=== PATIENT | male | born 1940 | race Caucasian/White ===

== ENCOUNTER 2018-01-03 12:31 | Emergency (ER) | payer BC, OTHER ==
[~2018-01-03] VITALS: Ht 182.9 cm; Wt 78.2 kg
[~2018-01-03 12:31] MED LIST: AMLO-114 PO; ASPI81TA28 PO; CARV6.25 PO; CLON0.3T PO; FEXO1TAB46 PO; FLUT0.15 NAE; FRS/40 PO; GLIM2TAB2 PO; KFL500 PO; LACTCAP3 PO; LISI40TA PO; METF-384 PO; POTA20TA16 PO; PRVC/40 PO; RXC5 PO; WARF3TAB6 PO
[2018-01-03 12:35] VITALS: TEMP 36.3; Ht 182.9 cm; Wt 78.2 kg
[2018-01-03] MEDS ORDERED: SODIUM CHLORIDE 0.9% 250ML 250 ML IV STA (13:01)
[2018-01-03 13:13] VITALS: O2SAT 95
--- NOTE | 2018-01-03 13:13 | EMERGENCY ROOM VISIT NOTE ---
History Report prepared by [place]: Venkata Infante Under the Supervision of: Dr. Dameon Nicholson M.D. First contact with patient: 12:45 Chief Complaint: DIZZY Stated Complaint: DIZZY, NAUSEA, DIARRHEA History of Present Illness The patient is a 77 year old male who presents to the Emergency Room with complaints of persistent dizziness starting this morning around 0500, and he felt like the room was moving. He also notes that he was shaky, his eyes were sore, it was hard to focus, he was nauseous, and he was dry heaving. The son additionally notes that the patient has diabetes, and his blood sugar was 116 this morning. He then took his blood pressure, and it was 144/60, and his pulse was 63. The son thinks that the patient is dehydrated since he only drinks coffee and iced tea. The patient is currently on Coumadin for CHF and A fib. He also takes Lasix twice per day. He denies any urinary pain. The patient states that he also had diarrhea twice this morning. He does not have a pacemaker in place. His son notes that the patient had a recent echocardiogram, and it was close to normal. Source of History: patient, family (son) Onset: 0500 this morning Position: other (global) Quality: other (dizziness) Timing: other (persistent) Associated Symptoms: + nausea, + diarrhea Note: Associated symptoms: shaky, his eyes were sore, it was hard to focus, and he was dry heaving Review of Systems See HPI for pertinent positives and negatives. A total of ten systems were reviewed and were otherwise negative. Past Medical & Surgical Medical Problems: (1) Atrial fibrillation (2) CAD (coronary artery disease) (3) Cardiomyopathy, idiopathic (4) Diabetes mellitus, type 2 (5) HTN (hypertension) (6) LBBB (left bundle branch block) Family History Diabetes mellitus FH: cancer Social History Smoking Status: Former Smoker Alcohol Use: none Marital Status: Housing Status: lives with family Occupation Status: retired Current/Historical Medications Scheduled Amlodipine (Norvasc), 10 MG PO DAILY Aspirin (Aspirin Ec), 81 MG PO DAILY Carvedilol (Coreg), 6.25 MG PO BID Clonidine Hcl (Catapres), 0.3 MG PO BID Fexofenadine Hcl (Martha), 180 MG PO DAILY Fluticasone Propionate (Nasal) (Flonase Allergy Relief), 2 SPRAYS CAROL DAILY Furosemide (Lasix), 40 MG PO BID Glimepiride (Glimepiride), 2 MG PO BID Lisinopril (Zestril), 40 MG PO DAILY Metformin Hcl (Glucophage), 1,000 MG PO BID Pravastatin Sod (Pravastatin Sodium), 40 MG PO HS Warfarin Sod (Jantoven), 3 MG PO 5XWK Warfarin Sod (Jantoven), 1.5 MG PO 2XWK Scheduled PRN Meclizine Hcl (Meclizine Hcl), 25 MG PO TID PRN for Dizziness Allergies Coded Allergies: No Known Allergies (Unverified , 01/03/18) Physical Exam Vital Signs Date Time Temp Pulse Resp B/P (MAP) Pulse Ox O2 Delivery O2 Flow Rate FiO2 01/03/18 16:28 66 20 122/68 99 01/03/18 15:07 80 20 144/82 100 Room Air 01/03/18 13:21 74 01/03/18 13:13 95 Room Air 01/03/18 12:35 36.3 78 17 168/79 99 Room Air Physical Exam GENERAL: Awake, alert, well-appearing, in no distress HENT: Normocephalic, atraumatic. Oropharynx unremarkable. Dry mucous membranes. EYES: Normal conjunctiva. Sclera non-icteric. Irregular right pupil at baseline. NECK: Supple. No nuchal rigidity. FROM. No JVD. RESPIRATORY: Clear to auscultation. CARDIAC: Regular rate, normal rhythm. Extremities warm and well perfused. Pulses equal. ABDOMEN: Soft, non-distended. No tenderness to palpation. No rebound or guarding. No masses. RECTAL: Deferred. MUSCULOSKELETAL: Chest examination reveals no tenderness. The back is symmetrical on inspection without obvious abnormality. There is no CVA tenderness to palpation. No joint edema. LOWER EXTREMITIES: Calves are equal size bilaterally and non-tender. No edema. No discoloration. NEURO: Normal sensorium. No sensory or motor deficits noted. Normal cerebellar function with dkrvci-ky-hpvo, alternating palms, swjz-sf-forg SKIN: No rash or jaundice noted. Medical Decision & Procedures ER Provider Diagnostic Interpretation: Radiology results as stated below per my review and radiologist interpretation: ANGIOGRAPHY HEAD COMBO HISTORY: Vertigo. Mental status change. TECHNIQUE: Multiaxial CT images of the head were performed both before and after the intravenous administration of contrast to evaluate the major cerebral vessels. Maximum intensity projection images were also obtained. A dose lowering technique was utilized adhering to the principles of ALARA. COMPARISON: None. FINDINGS: There is no mass, hematoma, midline shift, or acute infarct. Visualized intracranial internal carotid arteries, distal vertebral arteries, and basilar artery are widely patent. There is no significant stenosis, occlusion, or aneurysm seen within the bilateral ACAs, MCAs, or systems administration analyst. Mild scattered atherosclerotic change. IMPRESSION: No significant stenosis, occlusion, or aneurysm within the [place]. Mild scattered atherosclerotic change. No acute process of the brain. Mild age-related change. The above report was generated using voice recognition software. It may contain grammatical, syntax or spelling errors. Electronically signed by: Ag Royal M.D. 01/03/2018 3:00 PM Dictated Date/Time: 01/03/2018 2:57 PM CHEST ONE VIEW PORTABLE CLINICAL HISTORY: 77 years-old Male presenting with CHEST PAIN. TECHNIQUE: Portable upright AP view of the chest was obtained. COMPARISON: 06/30/2016. FINDINGS: Atherosclerosis of the aortic arch. Cardiac silhouette normal in size. Mildly low lung volumes with hypoventilatory changes. Vague nodular opacities at the left lung base may be chronic. No large pleural effusion or pneumothorax. Osseous structures normal. Upper abdomen normal. IMPRESSION: 1. Mildly low lung volumes with hypoventilatory changes. Additionally, vague nodular opacities suggested at the left lung base, which may be chronic. This could relate to atelectasis, scarring, or aspiration. Electronically signed by: Stef Denson M.D. 01/03/2018 1:43 PM Dictated Date/Time: 01/03/2018 1:42 PM NECK ANGIO WITH CONTRAST HISTORY: Mental status change vertigo TECHNIQUE: Multiaxial CT images of the neck were performed following the intravenous administration of contrast to evaluate the major cervical vessels. Maximum intensity projection images were also obtained. All measurements were calculated based on NASCET criteria. A dose lowering technique was utilized adhering to the principles of ALARA. COMPARISON STUDY: None. FINDINGS: The aortic arch and proximal great vessels are widely patent. There is no significant stenosis, occlusion, or dissection identified within the bilateral common carotid, internal carotid, or vertebral arteries. Moderate plaque formation is identified focally at the carotid bifurcations and proximal internal carotid arteries bilaterally. IMPRESSION: No significant stenosis, occlusion, or dissection identified within the carotid or vertebral arteries. Moderate focal plaque formation at the carotid bifurcations and proximal internal carotid arteries. No significant stenosis. The above report was generated using voice recognition software. It may contain grammatical, syntax or spelling errors. Electronically signed by: Ag Royal M.D. 01/03/2018 3:08 PM Dictated Date/Time: 01/03/2018 3:06 PM Laboratory Results 01/03/18 13:21 Red Blood Count 4.76, Mean Corpuscular Volume 81.1, Mean Corpuscular Hemoglobin 27.7, Mean Corpuscular Hemoglobin Concent 34.2, Mean Platelet Volume 8.9, Neutrophils (%) (Auto) 73.6, Lymphocytes (%) (Auto) 15.9, Monocytes (%) (Auto) 9.7, Eosinophils (%) (Auto) 0.4, Basophils (%) (Auto) 0.2, Neutrophils # (Auto) 3.48, Lymphocytes # (Auto) 0.75, Monocytes # (Auto) 0.46, Eosinophils # (Auto) 0.02, Basophils # (Auto) 0.01 01/03/18 13:21 Test 01/03/18 13:21 01/03/18 14:15 White Blood Count 4.73 K/uL (4.8-10.8) Red Blood Count 4.76 M/uL (4.7-6.1) Hemoglobin 13.2 g/dL (14.0-18.0) Hematocrit 38.6 % (42-52) Mean Corpuscular Volume 81.1 fL (80-100) Mean Corpuscular Hemoglobin 27.7 pg (25-34) Mean Corpuscular Hemoglobin Concent 34.2 g/dl (32-36) Platelet Count 177 K/uL (130-400) Mean Platelet Volume 8.9 fL (7.4-10.4) Neutrophils (%) (Auto) 73.6 % Lymphocytes (%) (Auto) 15.9 % Monocytes (%) (Auto) 9.7 % Eosinophils (%) (Auto) 0.4 % Basophils (%) (Auto) 0.2 % Neutrophils # (Auto) 3.48 K/uL (1.4-6.5) Lymphocytes # (Auto) 0.75 K/uL (1.2-3.4) Monocytes # (Auto) 0.46 K/uL (0.11-0.59) Eosinophils # (Auto) 0.02 K/uL (0-0.5) Basophils # (Auto) 0.01 K/uL (0-0.2) RDW Standard Deviation 42.3 fL (36.4-46.3) RDW Coefficient of Variation 14.3 % (11.5-14.5) Immature Granulocyte % (Auto) 0.2 % Immature Granulocyte # (Auto) 0.01 K/uL (0.00-0.02) Prothrombin Time 17.0 SECONDS (9.0-12.0) Prothromb Time International Ratio 1.6 (0.9-1.1) Anion Gap 9.0 mmol/L (3-11) Est Creatinine Clear Calc Drug Dose 51.0 ml/min Estimated GFR () 60.7 Estimated GFR (Non- 52.4 BUN/Creatinine Ratio 15.0 (10-20) Calcium Level 9.2 mg/dl (8.5-10.1) Magnesium Level 2.2 mg/dl (1.8-2.4) Total Bilirubin 0.5 mg/dl (0.2-1) Direct Bilirubin 0.2 mg/dl (0-0.2) Aspartate Amino Transf (AST/SGOT) 10 U/L (15-37) Alanine Aminotransferase (ALT/SGPT) 16 U/L (12-78) Alkaline Phosphatase 79 U/L (45-117) Troponin I < 0.015 ng/ml (0-0.045) Pro-B-Type Natriuretic Peptide 584 pg/ml (0-1800) Total Protein 8.1 gm/dl (6.4-8.2) Albumin 3.7 gm/dl (3.4-5.0) Lipase 187 U/L (73-393) Influenza Type A Antigen Neg for Influ A (NEG) Influenza Type B Antigen Neg for Influ B (NEG) Urine Color YELLOW Urine Appearance CLEAR (CLEAR) Urine pH 6.5 (4.5-7.5) Urine Specific [place] 1.003 (1.000-1.030) Urine Protein NEG (NEG) Urine Glucose (UA) NEG (NEG) Urine Ketones NEG (NEG) Urine Occult Blood 1+ (NEG) Urine Nitrite NEG (NEG) Urine Bilirubin NEG (NEG) Urine Urobilinogen NEG (NEG) Urine Leukocyte Esterase NEG (NEG) Urine WBC (Auto) 0 /hpf (0-5) Urine RBC (Auto) 0-4 /hpf (0-4) Urine Hyaline Casts (Auto) 0 /lpf (0-5) Urine Epithelial Cells (Auto) 0-5 /lpf (0-5) Urine Bacteria (Auto) NEG (NEG) Laboratory results reviewed by me Medications Administered Medications (Trade) Dose Ordered Sig/Josette Route Start Time Stop Time Status Last Admin Dose Admin Sodium Chloride 250 ml @ 999 mls/hr Q16M STAT IV 01/03/18 13:01 01/03/18 13:16 DC 01/03/18 13:26 999 MLS/HR ECG Per My Interpretation Indication: weakness Rate (beats per minute): 76 Rhythm: sinus rhythm Findings: LBBB, PVC (occasional), no acute ischemic change, left axis deviation , other (No Sgarbossa Criteria) ED Course 1245: The patient was evaluated in room C8. A complete history and physical exam was performed. 1602: I reevaluated the patient. Discussed results and discharge instructions: he verbalized understanding and agreement. The patient is ready for discharge. Medical Decision I reviewed the patient's past medical history, medications, and the nursing notes as described above. Differential diagnosis: Etiologies such as metabolic, infection, hypo/hyperglycemia, electrolyte abnormalities, cardiac sources, intracerebral event, toxicologic, neurologic, as well as others were entertained. The patient is a 77-year-old gentleman with a past medical history of paroxysmal A. fib on Coumadin who presents emergency department with brief episode of vertigo this morning with preceding nausea and vomiting per hpi. On arrival the patient reports complete resolution of symptoms he is well-appearing , in no acute distress, afebrile stable vital signs. He is neuro intact including normal cerebellar function with rmtrrt-pp-wytp, alternating palms, rnmw-yr-yqyw. EKG unremarkable. Labs with WBC within normal limits, creatinine within his baseline. Sodium 131 consistent with mild dehydration in the setting of the patient's vomiting. Labs otherwise unremarkable. CTA of the head and neck negative for acute ischemia/infarct or large vessel occlusion. Patient continued to feel well during ED observation. Thus given his complete resolution of symptoms and reassuring imaging unlikely to have central process at this time. Findings and plan for follow-up reviewed with patient. Patient agreeable and d/c'd per discharge instructions. Medication Reconcilliation Current Medication List: was personally reviewed by me Blood Pressure Screening Patient's blood pressure: Elevated blood pressure Blood pressure disposition: Elevated BP felt to be situational Impression Primary Impression: Vertigo Additional Impressions: Generalized weakness Hyponatremia Scribe Attestation The scribe's documentation has been prepared under my direction and personally reviewed by me in its entirety. I confirm that the note above accurately reflects all work, treatment, procedures, and medical decision making performed by me. Departure Information Dispostion Home / Self-Care Prescriptions Meclizine Hcl (MECLIZINE HCL) 25 Mg Tab 25 MG PO TID Y for Dizziness, #21 TAB Prov: Dameon Nicholson M.D. 01/03/18 Referrals Nataliia Pérez D.O. (PCP) Forms HOME CARE DOCUMENTATION FORM, IMPORTANT VISIT INFORMATION Patient Instructions ED BPV Vertigo, ED Dehydration, ED Hyponatremia, ED Vertigo Unspecified, [facility] Additional Instructions Please follow up with your primary care physician on Saturday for re-evaluation and to repeat your sodium level. The cause of your symptoms is unclear at this time however you may have had an episode of peripheral vertigo that may have been provoked by mild dehydration and possibly a viral illness. Otherwise, your exam, EKG, chest xray, lab results, CT scan of your head and neck with contrast did not show signs of an emergent condition at this time. Meclizine as needed for vertigo. Drink plenty of fluids to ensure hydration. Return to the emergency department for worsening symptoms as described in the accompanying instructions. Problem Qualifiers
[2018-01-03] MEDS ORDERED: OPTIRAY 320 IV PRN (13:45)
--- NOTE | 2018-01-03 13:45 | DIAGNOSTIC IMAGING REPORT ---
CHEST ONE VIEW PORTABLE CLINICAL HISTORY: 77 years-old Male presenting with CHEST PAIN. TECHNIQUE: Portable upright AP view of the chest was obtained. COMPARISON: 06/30/2016. FINDINGS: Atherosclerosis of the aortic arch. Cardiac silhouette normal in size. Mildly low lung volumes with hypoventilatory changes. Vague nodular opacities at the left lung base may be chronic. No large pleural effusion or pneumothorax. Osseous structures normal. Upper abdomen normal. IMPRESSION: 1. Mildly low lung volumes with hypoventilatory changes. Additionally, vague nodular opacities suggested at the left lung base, which may be chronic. This could relate to atelectasis, scarring, or aspiration. Electronically signed by: Stef Denson M.D. 01/03/2018 1:43 PM Dictated Date/Time: 01/03/2018 1:42 PM
[2018-01-03 14:00] LABS: BASO % 0.2 %; BASO ABS # 0.01 K/uL (0-0.2); EOS % 0.4 %; EOS ABS # 0.02 K/uL (0-0.5); HEMATOCRIT 38.6 % (42-52); HEMOGLOBIN 13.2 g/dL (14.0-18.0); IG# 0.01 K/uL (0.00-0.02); LYMPH % 15.9 %; LYMPH ABS # 0.75 K/uL (1.2-3.4); MEAN CELL VOLUME 81.1 fL (80-100); MEAN CORPUSCULAR HEMOGLOBIN 27.7 pg (25-34); MEAN CORPUSCULAR HGB CONC 34.2 g/dl (32-36); MEAN PLATELET VOLUME 8.9 fL (7.4-10.4); MONO % 9.7 %; MONO ABS # 0.46 K/uL (0.11-0.59); NEUT % 73.6 %; NEUT ABS # 3.48 K/uL (1.4-6.5); PLATELET COUNT 177 K/uL (130-400); RED CELL DISTRIBUTION WIDTH CV 14.3 % (11.5-14.5); RED CELL DISTRIBUTION WIDTH SD 42.3 fL (36.4-46.3); WHITE BLOOD COUNT 4.73 K/uL (4.8-10.8)
[2018-01-03 14:07] LABS: ALBUMIN 3.7 gm/dl (3.4-5.0); ALT/SGPT 16 U/L (12-78); BLOOD UREA NITROGEN 19 mg/dl (7-18); CALCIUM 9.2 mg/dl (8.5-10.1); CARBON DIOXIDE 26 mmol/L (21-32); CREATININE 1.29 mg/dl (0.60-1.40); GLUCOSE 186 mg/dl (70-99); INR 1.6 (0.9-1.1); LIPASE 187 U/L (73-393); POTASSIUM 4.3 mmol/L (3.5-5.1); SODIUM 131 mmol/L (136-145)
[2018-01-03 14:12] LABS: ALKALINE PHOSPHATASE 79 U/L (45-117); AST/SGOT 10 U/L (15-37); TOTAL PROTEIN 8.1 gm/dl (6.4-8.2)
[2018-01-03 14:26] LABS: INFLUENZA B ANTIGEN Neg for Influ B (NEG)
--- NOTE | 2018-01-03 15:01 | DIAGNOSTIC IMAGING REPORT ---
ANGIOGRAPHY HEAD COMBO HISTORY: Vertigo. Mental status change. TECHNIQUE: Multiaxial CT images of the head were performed both before and after the intravenous administration of contrast to evaluate the major cerebral vessels. Maximum intensity projection images were also obtained. A dose lowering technique was utilized adhering to the principles of ALARA. COMPARISON: None. FINDINGS: There is no mass, hematoma, midline shift, or acute infarct. Visualized intracranial internal carotid arteries, distal vertebral arteries, and basilar artery are widely patent. There is no significant stenosis, occlusion, or aneurysm seen within the bilateral ACAs, MCAs, or cross tie tram loader. Mild scattered atherosclerotic change. IMPRESSION: No significant stenosis, occlusion, or aneurysm within the [place] of [place]. Mild scattered atherosclerotic change. No acute process of the brain. Mild age-related change. The above report was generated using voice recognition software. It may contain grammatical, syntax or spelling errors. Electronically signed by: Ag Royal M.D. 01/03/2018 3:00 PM Dictated Date/Time: 01/03/2018 2:57 PM
--- NOTE | 2018-01-03 15:09 | DIAGNOSTIC IMAGING REPORT ---
NECK ANGIO WITH CONTRAST HISTORY: Mental status change vertigo TECHNIQUE: Multiaxial CT images of the neck were performed following the intravenous administration of contrast to evaluate the major cervical vessels. Maximum intensity projection images were also obtained. All measurements were calculated based on NASCET criteria. A dose lowering technique was utilized adhering to the principles of ALARA. COMPARISON STUDY: None. FINDINGS: The aortic arch and proximal great vessels are widely patent. There is no significant stenosis, occlusion, or dissection identified within the bilateral common carotid, internal carotid, or vertebral arteries. Moderate plaque formation is identified focally at the carotid bifurcations and proximal internal carotid arteries bilaterally. IMPRESSION: No significant stenosis, occlusion, or dissection identified within the carotid or vertebral arteries. Moderate focal plaque formation at the carotid bifurcations and proximal internal carotid arteries. No significant stenosis. The above report was generated using voice recognition software. It may contain grammatical, syntax or spelling errors. Electronically signed by: Ag Royal M.D. 01/03/2018 3:08 PM Dictated Date/Time: 01/03/2018 3:06 PM
[2018-01-03] MEDS ORDERED: MECL1TAB42 PO (16:10)
[2018-01-03 16:28] VITALS: BP 122/68; PULSE 66; O2SAT 99
== END 2018-01-03 16:30 | disposition home or self-care (01) ==
LOC: C.EDB 12:32 → C.EDC 16:30
DX: R42 Dizziness and giddiness (principal); R53.1 Weakness; E87.1 Hypo-osmolality and hyponatremia; I50.9 Heart failure, unspecified; I48.91 Unspecified atrial fibrillation; I25.10 Atherosclerotic heart disease of native coronary artery without angina pectoris; E11.9 Type 2 diabetes mellitus without complications; I11.0 Hypertensive heart disease with heart failure; Z83.3 Family history of diabetes mellitus; Z80.9 Family history of malignant neoplasm, unspecified; Z87.891 Personal history of nicotine dependence; Z79.82 Long term (current) use of aspirin; Z79.01 Long term (current) use of anticoagulants; Z79.899 Other long term (current) drug therapy

== ENCOUNTER 2018-11-04 15:55 | Inpatient (IN) ==
[2018-11-04] MEDS ORDERED: LEVALBUTEROL HCL 1.25 MG/3 ML NEB NEB STA (16:04)
[2018-11-04] MEDS ORDERED: LEVALBUTEROL 1.25MG/0.5ML NEB ONE (16:16)
[2018-11-04] MEDS ORDERED: MAGNESIUM SULFATE / D5W 1 GM/100 ML BAG IV ONE (16:38)
[2018-11-04 16:41] LABS: Hematocrit (blood only) 30.7 % (42-52); Hemoglobin 10.4 g/dL (14.0-18.0); Mean Corpuscular Hgb Conc 33.9 g/dL (32-36); Mean Corpuscular Volume 88.7 fL (80-100); Mean Platelet Volume 9.3 fL (7.4-10.4); Platelet Count 149 K/uL (130-400); RDW Coefficient of Variation 13.9 % (11.5-14.5); RDW Standard Deviation 44.9 fL (36.4-46.3); Red Blood Count 3.46 M/uL (4.7-6.1); White Blood Count 8.46 K/uL (4.8-10.8)
[2018-11-04 16:49] LABS: iSTAT Hemoglobin 9.9 g/dl (14.0-18.0); iSTAT Ionized Calcium 1.04 mmol/l (1.12-1.32)
[2018-11-04 16:51] LABS: iSTAT Arterial Blood Gas HCO3 18 meg/L (19-24); iSTAT Carbon Dioxide 18 mEq/l (24-31)
--- NOTE | 2018-11-04 16:52 | XRay Report ---
XR chest 1V portable CLINICAL HISTORY: Chest Pain COMPARISON STUDY: Chest radiograph January 03, 2018. FINDINGS: There is no pneumothorax. No definite pleural effusion is identified. Diffuse interstitial thickening and bilateral opacities are noted. There is mild cardiomegaly. IMPRESSION: Diffuse interstitial thickening and bilateral opacities. The findings may reflect pneumon ia or pulmonary edema. Radiographic follow-up to ensure resolution is recommended. Electronically signed by: Storm Nunez M.D. 11/04/2018 4:51 PM
[2018-11-04 17:00] LABS: Albumin Level 2.6 gm/dl (3.4-5.0); BUN Creatinine Ratio 21.5 (10-20); Calcium 7.8 mg/dl (8.5-10.1); Creatinine Clr Calc Pharmacy 33.2 ml/min; Est GFR (African American) 36.6; Est GFR (Non-African American) 31.6; Potassium 3.8 mmol/L (3.5-5.1)
[2018-11-04 17:11] LABS: Albumin Globulin Ratio 0.7 (0.9-2); Bilirubin,Total 1.1 mg/dl (0.2-1); Creatine Kinase MB 4.1 ng/ml (0.5-3.6); Globulin 3.5 gm/dl (2.5-4.0); Total Protein 6.1 gm/dl (6.4-8.2); Troponin I 0.391 ng/ml (0-0.045)
[2018-11-04] MEDS ORDERED: PIPERACILL/TAZOBAC CONSULT ACTIVE PRN ×2 (17:12→21:19)
[2018-11-04] MEDS ORDERED: VANCOMYCIN HCL 1,750 MG in SODIUM CHLORIDE 0.9% 500 ML IV ONE (17:12)
[2018-11-04] MEDS ORDERED: LEVOFLOXACIN/D5W 750 MG/150 ML BAG IV STA (17:12)
[2018-11-04] MEDS ORDERED: VANCOMYCIN CONSULT ACTIVE PRN ×2 (17:12→21:19)
[2018-11-04] MEDS ORDERED: PIPERACILLIN/TAZOBACTAM 4.5 GM/120 ML BAG IV ONE (17:12)
[2018-11-04 17:15] LABS: Immature Granulocytes # (auto) 0.01 K/uL (0.00-0.02); Immature Granulocytes % (auto) 0.1 %; Lymphocytes # (auto) 0.31 K/uL (1.2-3.4); Lymphocytes % (auto) 3.7 %; Monocytes # (auto) 0.06 K/uL (0.11-0.59); Monocytes % (auto) 0.7 %; Neutrophils # (auto) 8.08 K/uL (1.4-6.5); Neutrophils % (auto) 95.5 %
[2018-11-04] MEDS ORDERED: OPTIRAY 320 125ml IV PRN (17:48)
--- NOTE | 2018-11-04 18:20 | CT Scan Report ---
CT ANGIOGRAPHY OF THE CHEST, PULMONARY EMBOLUS PROTOCOL CLINICAL HISTORY: Chest Pain, eval for PE COMPARISON STUDY: Chest radiograph January 03, 2018 and November 04, 2008 TECHNIQUE: Following IV administration of 103 mL of Optiray-320, helical axial images of the chest we re obtained utilizing the pulmonary embolus protocol. Maximal intensity projections and sagittal and coronal reformats were viewed on an independent 3D workstation. IV contrast was administered withou t complication. Automated exposure control was utilized for the study. A dose lowering technique wa s utilized adhering to the principles of ALARA. CT DOSE: 438.47 mGy.cm FINDINGS: No pulmonary emboli are identified although segmental and subsegmental pulmonary arteries are suboptimally assessed due to respiratory motion. The heart is moderately enlarged. There is no pe ricardial effusion. There are mildly enlarged mediastinal and bilateral hilar lymph nodes. Lungs are suboptimally assessed given respiratory motion. There is extensive groundglass opacity throughout bot h lungs. There is no cavitation. No pneumothorax or pleural effusion is noted. Bony thorax and upper abdomen are unremarkable. IMPRESSION: 1. No pulmonary emboli identified although segmental and subsegmental pulmonary arteries suboptimally assessed given respiratory motion. 2. Extensive groundglass opacities throughout both lungs. This may reflect pulmonary edema or pneumon ia. 3. Mild mediastinal and bilateral hilar lymphadenopathy which is likely reactive. A follow up chest C T in 2 months to ensure resolution is recommended. 4. Moderate cardiomegaly. Electronically signed by: Storm Nunez M.D. 11/04/2018 6:19 PM
[2018-11-04] MEDS ORDERED: FUROSEMIDE 40 MG/4 ML VIAL IV STA (18:23)
[2018-11-04] MEDS ORDERED: SODIUM CHLORIDE 0.9% 1000ML 500 ML IV ONE (18:55)
--- NOTE | 2018-11-04 19:53 | XRay Report ---
XR pelvis 1-2V routine CLINICAL HISTORY: Bilateral hip pain. COMPARISON: None. FINDINGS: There is contrast within the bladder from recent contrast-enhanced CT. The sacroiliac join ts and symphysis pubis are intact. Apparent foreshortening of the left femoral neck is likely positio nal. There is no acute fracture within the pelvis or hips. IMPRESSION: Foreshortening of the left femoral neck. This may be positional. However, if persistent left hip pain , a CT is recommended to exclude a femoral neck fracture. Electronically signed by: Storm Nunez M.D. 11/04/2018 7:52 PM
--- NOTE | 2018-11-04 19:54 | XRay Report ---
XR femur RT 2V routine CLINICAL HISTORY: Bilateral hip pain. COMPARISON: None FINDINGS: Alignment of the right hip is anatomic. There is no acute fracture within the right femur. There is moderate vascular calcification. IMPRESSION: No acute fracture within the right femur. Electronically signed by: Storm Nunez M.D. 11/04/2018 7:52 PM
--- NOTE | 2018-11-04 19:55 | XRay Report ---
XR femur LT 2V routine CLINICAL HISTORY: Bilateral hip pain. COMPARISON: None FINDINGS: There is foreshortening of the left femoral neck. This may be positional. A femoral neck f racture cannot be excluded. There is extensive vascular calcification. Alignment of the left knee is anatomic. IMPRESSION: Foreshortening of the left femoral neck which may be positional. However, a femoral neck fracture could appear similar. If persistent left hip pain, a CT of the left hip is recommended. Electronically signed by: Storm Nunez M.D. 11/04/2018 7:53 PM
[2018-11-04] MEDS ORDERED: ONDANSETRON INJ 2 MG/ML 2 ML VIAL IV PRN (21:19)
[2018-11-04] MEDS ORDERED: ALUMINUM/MAGNESIUM SUSP 30 ML UDC PO PRN (21:19)
[2018-11-04] MEDS ORDERED: ACETAMINOPHEN 325 MG TAB PO PRN (21:19)
[2018-11-04] MEDS ORDERED: NITROGLYCERIN SL 0.4 MG/TAB TAB SL PRN (21:19)
[2018-11-04] MEDS ORDERED: FUROSEMIDE 40 MG/4 ML VIAL IV SCH (21:19)
[2018-11-04] MEDS ORDERED: VANCOMYCIN HCL 1,000 MG in SODIUM CHLORIDE 0.9% 250 ML IV SCH (21:19)
[2018-11-04 21:36] LABS: INR 3.5 (0.9-1.1); Prothrombin Time 32.8 Seconds (9.0-12.0)
[2018-11-04] MEDS ORDERED: GLUCOSE 40% GEL 15 GM TUBE PO PRN (21:58)
[2018-11-04] MEDS ORDERED: DEXTROSE 50% 50 ML SYRINGE IV PRN (21:58)
[2018-11-04] MEDS ORDERED: GLUCAGON FOR INJ 1 MG VIAL IM PRN (21:58)
[2018-11-04] MEDS ORDERED: GLUCOSE 10 TABS/TUBE PO PRN (21:58)
[2018-11-04] MEDS ORDERED: HEPARIN SOD 5,000 UNIT/0.5 ML VIAL SQ SCH (22:00)
--- NOTE | 2018-11-04 22:37 | History and Physical Report ---
DATE OF ADMISSION: 11/04/2018 CHIEF COMPLAINT: Shortness of breath, history of acute CHF. HISTORY OF PRESENT ILLNESS: This is an 78-year-old male with past medical history significant for atrial fibrillation, chronic systolic CHF, diabetic polyneuropathy, chronic diabetic foot ulcers, history of tobacco disorder, diabetes, hyperlipidemia, hypertension, peripheral vascular disease, thrombocytopenia, chronic kidney disease stage III, rheumatoid arthritis with a negative rheumatoid factor, presents with shortness of breath. The patient's son brought him to the hospital. The patient has diabetic foot ulcers and he is wearing diabetic shoes, follows with Wound Care and was told not to go even for small walks without those shoes. Patient is very active, but since last one week, he has developed some runny nose and some shortness of breath. He thought it could be from the dry nose and he used the humidifier, which seem to help, but it got progressively worse today. When the son went to check on him, he was very short of breath and brought into the hospital and was saturating only 74% on RA, and was pl;aced on BIPAP in ER. On BiPAP he is saturating fine and he said he is feeling better. CT of the chest showed pulmonary edema, given Lasix and is feeling better now. Patient is currently hemodynamically stable. Denies any fever or chills. Denies any cough. No nausea, no chest pain, no abdominal pain. Normal bowel and bladder movements. Appetite is okay. Normal bowel and bladder movements, otherwise is healthy. ALLERGIES: No known drug allergies. PAST MEDICAL HISTORY: As mentioned. PAST SURGICAL HISTORY: Colonoscopy. MEDICATIONS: The patient is on folic acid 1 mg p.o. daily, amlodipine 10 mg p.o. daily, Coreg 6.25 mg p.o. b.i.d., Lasix 40 mg p.o. b.i.d., metformin 1000 mg p.o. b.i.d., glimepiride 2 mg p.o. b.i.d., cyanocobalamin 1000 mcg p.o. daily, lisinopril 40 mg p.o. daily, prednisone 5 mg p.o. daily, clonidine 0.3 mg p.o. b.i.d., pravastatin 40 mg p.o. at bedtime, Coumadin 1.5 mg to 3 mg daily as directed, methotrexate 6 tablets of 2.5 mg tablet once a week, aspirin 81 mg p.o. daily, Flonase 2 sprays into each nostril daily. FAMILY HISTORY: Significant for brother who had pancreatic cancer. Father had lung cancer and black tongue. Mother had diabetes. SOCIAL HISTORY: , former smoker, smoked for 30 years. Snuffs 1 can of tobacco weekly. No alcohol use, no drug use. REVIEW OF SYMPTOMS: As per HPI. Rest of review of systems negative. PHYSICAL EXAMINATION: GENERAL: The patient is of moderate build and currently not in respiratory distress currently, VITAL SIGNS: Temperature 36.9, pulse 72, respiratory rate 23, blood pressure 117/60, oxygen 100% on BiPAP, when he came in was 74% on room air. HEENT: No pallor, no icterus. Left pupil is somewhat dilated. NECK: No JVD, no neck masses, no carotid bruit. CARDIOVASCULAR: S1, S2 heard, regular rate and rhythm, no murmur, no gallop. RESPIRATORY SYSTEM: No accessory muscle use. Bibasilar crackles present. No wheezing. ABDOMEN: Soft, bowel sounds present. Nontender. Nondistended. CENTRAL NERVOUS SYSTEM: Cranial nerves II-XII grossly intact, nonfocal. EXTREMITIES: Both lower extremities have Unna special boots. Right lower extremity boot is removed and it showed a nonhealing ulcer on the palmar aspect of the right foot. Left foot shoe was not removed as I was told it was healing better. LABS: WBC 9.4, hemoglobin 10.4, hematocrit 30.7, platelets 149. Blood gases pH 7.4, pCO2 25, pO2 56, bicarbonate 18, oxygen 91%. Sodium 132, potassium 3.8, chloride 100, bicarbonate 22, BUN 42, creatinine 1.95. Serum glucose 169, calcium 7.8, total bilirubin 1.1, AST 52, ALT 63, alkaline phosphatase 62, total creatine kinase 261. Troponin-I 0.3, BNP 7000. Lipase 117. Pelvis x-ray, foreshortening of the left femoral neck, however if persistent left hip pain a CT is recommended to rule out femoral neck fracture. Chest x-ray: Diffuse interstitial thickening and bilateral opacities to suggest pneumonia or pulmonary edema. CTA of the chest, no PE, extensive ground-glass opacities throughout both lungs pulmonary edema or pneumonia, mild congestion, and lymphadenopathy ____. We will follow up chest CT in 2 months to ensure resolution is recommended. Moderate cardiomegaly. EKG: Sinus rhythm with PACs at the rate of 82, left bundle branch block, left axis deviation, no acute ST changes seen. ASSESSMENT AND PLAN: This is an 78-year-old male who presents with shortness of breath and respiratory failure, found to be acute on chronic systolic congestive heart failure, possible pneumonia. 1. Acute Respiratory failure Acute on chronic systolic congestive heart failure with ejection fraction of 45%. We will get a repeat echo. IV Lasix 40 b.i.d. Strict I's and O's, daily weights. Continue BiPAP for now. Close monitoring on tele floor. . Cardiology consult for further recommendation and optimization of the medications. Continue his Coreg. We will hold lisinopril for NICOLE. 2. Possible pneumonia on chest x-ray and CAT scan. The patient was given Zosyn and vancomycin and Levaquin in the ER. We will continue IV Zosyn, IV vancomycin and p.o. doxycycline. We will monitor the response. 3. Nonhealing diabetic foot ulcers, follows with the wound clinic. Consult the wound care physician and wound care nurse and empiric antibiotics as above. Further cultures as per wound care. 4. Diabetes. Hold his home medication metformin and glimepiride. Place him on insulin sliding scale, Lantus and follow HbA1c level. 5. History of rheumatoid arthritis. Continue prednisone, hold methotrexate for now. 6. History of hypertension. Continue Norvasc, Coreg and clonidine with holding parameters. Holding lisinopril for now . Will monitor blood pressure 7. Acute kidney injury and chronic kidney disease stage III, baseline creatinine 1.4, current creatinine 1.98. Receiving Lasix, holding lisinopril for the labs in a.m. 8. Anemia, hemoglobin 10.4 could be from illness, needs followup. 9. Mild elevation in troponin, could be most likely secondary to demand ischemia. We will follow the serial enzymes and echocardiogram. 10. A fib.On Coreg and Coumadin. follow INR 11. Left hip pain and x-rays where questionable. Recommend CT of the left hip, which we will order for tomorrow and follow the results. 12. Hyperlipidemia. Continue statin. 13. Deep venous thrombosis prophylaxis, SCDs .On Coumadin. Follow INR DISPOSITION: Close monitoring in the tele floor. Level 1 full code. Social service to help with discharge planning. MP
[2018-11-04] MEDS ORDERED: FUROSEMIDE 20 MG in SYRINGE 0 ML IV STA (23:12)
[2018-11-04] MEDS: CARVEDILOL 6.25 MG TAB PO SCH (23:38)
[2018-11-04] MEDS: INSULIN ASPART 100 UNITS/ML 3 ML PEN SC SCH (23:42)
[2018-11-04] MEDS: PRAVASTATIN SOD 40 MG TAB PO SCH (23:43)
[2018-11-04] MEDS: INSULIN GLARGINE SOLOSTAR 100 UNITS/ML 3 ML PEN SC SCH (23:43)
[2018-11-05] MEDS: PIPERACILLIN/TAZOBACTAM 3.375 GM/115 ML BAG IV SCH ×4 (00:16→23:44)
[2018-11-05 05:34] LABS: Basophils # (auto) 0.01 K/uL (0-0.2); Basophils % (auto) 0.2 %; Eosinophils # (auto) 0.01 K/uL (0-0.5); Eosinophils % (auto) 0.2 %; Hematocrit (blood only) 27.4 % (42-52); Hemoglobin 9.4 g/dL (14.0-18.0); Immature Granulocytes # (auto) 0.02 K/uL (0.00-0.02); Immature Granulocytes % (auto) 0.3 %; Lymphocytes # (auto) 0.27 K/uL (1.2-3.4); Lymphocytes % (auto) 4.5 %; Mean Corpuscular Hgb Conc 34.3 g/dL (32-36); Mean Corpuscular Volume 87.5 fL (80-100); Mean Platelet Volume 8.8 fL (7.4-10.4); Monocytes # (auto) 0.07 K/uL (0.11-0.59); Monocytes % (auto) 1.2 %; Neutrophils # (auto) 5.61 K/uL (1.4-6.5); Neutrophils % (auto) 93.6 %; Platelet Count 118 K/uL (130-400); RDW Coefficient of Variation 13.8 % (11.5-14.5); RDW Standard Deviation 43.7 fL (36.4-46.3); Red Blood Count 3.13 M/uL (4.7-6.1); White Blood Count 5.99 K/uL (4.8-10.8)
[2018-11-05 05:58] LABS: Prothrombin Time 38.4 Seconds (9.0-12.0)
[2018-11-05 06:09] LABS: INR 4.1 (0.9-1.1)
[2018-11-05 06:11] LABS: BUN Creatinine Ratio 21.3 (10-20); Calcium 7.3 mg/dl (8.5-10.1); Creatinine Clr Calc Pharmacy 41.7 ml/min; Est GFR (African American) 48.3; Est GFR (Non-African American) 41.7; Magnesium 2.1 mg/dl (1.8-2.4); Potassium 3.2 mmol/L (3.5-5.1)
[2018-11-05] MEDS: CARBOHYDRATES FOR HYPOGLYCEMIA PO PRN ×5 (06:16→23:38)
[2018-11-05] MEDS: DOXYCYCLINE HYCLATE 100 MG CAP PO SCH ×2 (07:49→22:21)
[2018-11-05] MEDS: FUROSEMIDE 40 MG in SYRINGE 0 ML IV SCH ×2 (07:49→16:21)
[2018-11-05] MEDS: CARVEDILOL 6.25 MG TAB PO SCH ×2 (07:50→21:39)
[2018-11-05] MEDS: INSULIN ASPART 100 UNITS/ML 3 ML PEN SC SCH ×4 (07:52→21:39)
[2018-11-05] MEDS: FOLIC ACID 1 MG TAB PO SCH (07:52)
[2018-11-05] MEDS: INSULIN GLARGINE SOLOSTAR 100 UNITS/ML 3 ML PEN SC SCH (07:52)
[2018-11-05] MEDS: CYANOCOBALAMIN (VITAMIN B-12) 2,500 MCG TAB.SUBL SL SCH (07:54)
[2018-11-05 08:22] LABS: Estimated Average Glucose 148 mg/dl
[2018-11-05] MEDS ORDERED: predniSONE 5 MG TAB PO SCH (09:00)
[2018-11-05] MEDS ORDERED: AMLODIPINE BESYLATE 5 MG TAB PO SCH (09:00)
[2018-11-05] MEDS ORDERED: FUROSEMIDE 40 MG/4 ML VIAL IV SCH (09:00)
[2018-11-05] MEDS ORDERED: POTASSIUM CHLORIDE 20 MEQ TABCR PO ONE (09:00)
--- NOTE | 2018-11-05 11:15 | Hospitalist Progress Note ---
Date of Service November 05, 2018 Assessment & Plan (1) Acute respiratory failure with hypoxia: This is an 78yo M with a PMH of atrial fibrillation on anticoagulation, chronic systolic CHF, DM II, HTN, HLD, diabetic polyneuropathy, chronic diabetic foot ulcers, history of tobacco disorder, peripheral vascular disease, thrombocytopenia, CKD III and rheumatoid arthritis who presented with presented with shortness of breath and was found to have acute respiratory failure 2/2 pneumonia vs CHF exacerbation and possible infected diabetic L foot wound. -Initially found to be hypoxic at 74% on RA and was placed on BiPAP in ED -CTA chest with extensive groundglass opacities throughout both lungs reflective of pulmonary edema or PNA -No pulmonary emboli identified although segmental and subsegmental pulmonary arteries on suboptimal study -Now saturating at 92% on 15L Oxymask, states that symptoms are improved -Placed on 40mg IV BID Lasix and diuresed 950 ml overnight -Consulted cardiology, who feel that process is infectious vs. CHF exacerbation. Heightened concern for infection due to immunosuppression (on methotrexate, prednisone for RA). Echo with preserved EF of 60-65% -Procalcitonin ordered. Repeat CXR this afternoon. -Continue Zosyn, vanc and doxy empirically. 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 -Follows with wound clinic in clinic -Consulted wound care nurse -Empirically covering with zosyn, vanc, doxy -Follow blood cultures (3) Elevated troponin: Troponin elevated at 0.391 --> 0.428 --> 0.387 likely due to demand ischemia -No acute ST changes on EKG -Echo performed this AM with EF: 60-65%, moderate concentric LVH -Continue monitoring on telemetry (4) Systolic heart failure: Possible acute exacerbation of chronic systolic HF but 2D echo performed yesterday with preserved EF -Receiving 40mg IV Lasix BID with modest diuresis of 950 ml overnight -Cardiology gave 80mg IV Lasix -Continue Oxymask for acute hypoxia -Strict I&Os, low sodium diet, daily weight -Continue Coreg. Hold lisinopril due to elevated Cr (5) Left hip pain: Left hip pain on palpation -X-rays where questionable and hip CT was performed -- no acute osseous injury of the left hip. Mild degenerative changes -May require PT/OT prior to discharge (6) Atrial fibrillation: Continue Coreg -On coumadin for anticoagulation -INR of 4.1 this morning -Hold coumadin to acheive INR range of 2-3 (7) Thrombocytopenia: Plt decreased from 138 at 118 since yesterday in the setting of presumed infection -Baseline platelet count mid-100s -Continue monitoring with daily CMP (8) Diabetes mellitus, type 2: A1c of 6.8 today -Hold his home medication metformin and glimepiride -Insulin SSI with Lantus 5 U BID -Hypoglycemic episode with BSG of 48 this AM so will order Lantus as a sliding scale as well (9) Rheumatoid arthritis: Continue prednisone, hold methotrexate for now (10) HTN (hypertension): Lower BP this morning with 107/48 -Monitor BP in setting of IV diuresis -Continue home Norvasc, Coreg and clonidine with holding parameters -Holding lisinopril for now . Will monitor blood pressure (11) CKD (chronic kidney disease), stage III: Creatinine elevated at 1.98 yesterday, down to 1.55 today (Baseline Cr ~ 1.4) -Hold lisinopril -Monitor kidney function with daily BMPs (12) LBBB (left bundle branch block): Stable, chronic condition (13) HLD (hyperlipidemia): Continue statin DVT Ppx: Holding coumadin due to INR of 4.1 Code status: FULL PCP: [facility] Dispo: Admitted to telemetry. Discharge planning ordered. Patient seen in collaboration with Dr. Garza. Please see addendum. Supervising Physician Co-Signing Physician Notes I saw this patient with the physician pastry assistant, I participated in the history, physical, review of systems, and physical exam. I reviewed the medications with the patient and the physician pastry assistant and helped reconcile the medications. I helped take a detailed family and social history as well. I formulated the assessment and plan personally with the physician pastry assistant and went over it with the patient. MD Greg Subjective Patient seen and examined. Feeling better but still experiencing shortness of breath. No chest pain or palpitations. Still experiencing L hip discomfort with movement. No fever, chills, lightheadedness, abdominal pain, nausea, vomiting, dysuria, constipation or diarrhea. Physical Exam 2 Vital Signs (Past 24 Hours): Last Vital Signs Temp 36.9 C 11/05/18 07:55 Pulse 80 11/05/18 07:55 Resp 22 11/05/18 07:55 BP 107/48 L 11/05/18 07:55 Pulse Ox 91 11/05/18 07:55 Physical Exam: General Appearance: WD/WN, some respiratory distress when speaking Head: normocephalic, atraumatic Eyes: normal inspection, PERRL, EOMI ENT: hearing grossly normal, pharynx normal (moist mucous membranes) Neck: supple, no JVD, no adenopathy Respiratory/Chest: Bibasilar rales. No wheezes or rhonci. +respiratory distress and accessory muscle use when speaking Cardiovascular: regular rate, rhythm, no murmur, normal peripheral pulses Abdomen/GI: normal bowel sounds, soft, non-tender to palpation Extremities/Musculoskelatal: normal inspection, no calf tenderness, normal capillary refill, no pedal edema Neurologic/Psych: alert, normal mood/affect, oriented x 3 Skin: normal color, warm/dry Results & Data Laboratory Results Short CBC 11/04/18 11/05/18 Range/Units 16:30 05:18 WBC 8.46 5.99 (4.8-10.8) K/uL Hgb 10.4 L 9.4 L (14.0-18.0) g/dL Hct 30.7 L 27.4 L (42-52) % Plt Count 149 118 L (130-400) K/uL BMP 11/04/18 11/05/18 16:30 05:18 Sodium 132 L 134 L Potassium 3.8 3.2 L D Chloride 100 103 Carbon Dioxide 22 24 BUN 42 H 33 H Creatinine 1.95 H 1.55 H D Glucose 169 H 48 L* Calcium 7.8 L 7.3 L Cardiac Enzymes 11/04/18 11/05/18 11/05/18 Range/Units 16:30 00:19 09:30 Total Creatine Kinase 261 (39-308) U/L CK-MB (CK-2) 4.1 H (0.5-3.6) ng/ml Troponin I 0.391 H* 0.428 H* 0.387 H* (0-0.045) ng/ml Liver Function 11/04/18 Range/Units 16:30 Total Bilirubin 1.1 H (0.2-1) mg/dl AST 52 H (15-37) U/L ALT 63 (12-78) U/L Alkaline Phosphatase 62 (45-117) U/L Albumin 2.6 L (3.4-5.0) gm/dl _ (1) Diabetic foot ulcer Diabetes mellitus type: type 2 Diabetic foot ulcer location: midfoot Laterality: right Non-pressure ulcer stage: with fat layer exposed Qualified Code(s): E11.621 - Type 2 diabetes mellitus with foot ulcer; L97.412 - Non- pressure chronic ulcer of right heel and midfoot with fat layer exposed
--- NOTE | 2018-11-05 12:05 | CT Scan Report ---
CT hip LT wo con CLINICAL HISTORY: 78 years-old Male presenting with questionable left hip fx on xray. TECHNIQUE: Multidetector CT of the left hip was performed without the use of intravenous contrast. 3- D volumetric and/or maximum intensity projection (MIP) images were subsequently reconstructed for rev iew. IV contrast: None. A dose lowering technique was used consistent with the principles of ALARA (a s low as reasonably achievable). COMPARISON: Plain radiographs from yesterday. CT DOSE (mGy.cm): The estimated cumulative dose is 484.89 mGy.cm. FINDINGS: Skiver Operator topogram: Unremarkable. Left hip joint congruent. Mild osteophytosis of the left femoral head. Joint spaces grossly preserved . The femoral neck is intact. No acute fracture or malalignment. Visualized portion of the bony pelvi s intact. Urinary bladder decompressed with a Roper catheter. Moderate stool burden. Atherosclerosis. No pelvic lymphadenopathy in the visualized field of view. Normal muscle bulk. No superficial fluid collection. IMPRESSION: 1. No acute osseous injury of the left hip. 2. Mild degenerative changes of the left hip. Electronically signed by: Stef Denson M.D. 11/05/2018 12:04 PM
--- NOTE | 2018-11-05 12:21 | Cardiology Consultation ---
Date of Consultation November 05, 2018 Assessment & Plan (1) Hypoxia: Multifactorial respiratory failure suspected component of congestive heart failure not completely excluded. Patient has not made significant diuresis since admission. Exam is concerning that jugular venous distention is not present no signs of overt volume overload raising concerns regarding possible infectious component We will increase diuretic initially following renal function closely (2) LBBB (left bundle branch block): Stable (3) Cardiomyopathy, idiopathic: Ejection fraction normal on echocardiogram this morning (4) Paroxysmal atrial fibrillation: Patient remains in sinus rhythm and is chronically anticoagulated (5) Respiratory failure: Multifactorial etiology patient is on immunosuppressive therapy with methotrexate and prednisone will order repeat chest x-ray for later today depending on response to diuretic History of Present Illness Reason for Consultation: Respiratory failure Requesting Physician: Dr. Garza Attending Physician: Osito Garza MD History of Present Illness Patient is an 78-year-old male with past history is notable for 1. History of nonischemic, congestive cardiomyopathy with past LVEF 20%. With near normalization of LV function last outpatient echo December 2017 2. Moderate, nonobstructive coronary artery disease by December 12, 2006 cardiac catheterization which demonstrated calcific CAD involving the proximal portion of the LAD and distal portion of a dominant LCX narrowing the LAD by 50- 60% and the distal LCX by 60%. 3. Chronic left bundle branch block. 4. NYHA Class II congestive heart failure. 5. Paroxysmal atrial fibrillation. 6. Hypertension 7. Hyperlipidemia. 8. 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 Peripheral vascular disease. 10. Tobacco abuse disorder 11. rheumatoid arthritis on chronic immunosuppressive therapy with prednisone and methotrexate Patient presents this admission with worsening dyspnea and rhinorrhea and cough with marked hypoxia on ER presentation chest x-ray demonstrated diffuse interstitial changes patient was begun on IV furosemide. He remains hypoxic requiring significant oxygen supplementation. He denies fevers or chills but denies chest pains or discomfort notes no melena hematochezia dysuria hematuria has had no increasing lower extremity edema or orthopnea Allergies Allergy/AdvReac Type Severity Reaction Status Date / Time No Known Allergies Allergy Verified 10/23/18 14:39 Home Medications Home Medications Medication Instructions Recorded Confirmed Type amlodipine 10 mg tablet 10 mg PO .q am tab 07/01/18 11/04/18 History aspirin 81 mg tablet,delayed 81 mg PO .q am tab 07/01/18 11/04/18 History release carvedilol 6.25 mg tablet 6.25 mg PO BID 07/01/18 11/04/18 History clonidine HCl 0.3 mg tablet 0.3 mg PO BID 07/01/18 11/04/18 History fluticasone 50 mcg/actuation nasal 2 sprays INTNAS DAILY 07/01/18 11/04/18 History spray,suspension folic acid 1 mg tablet 1 mg PO .q am tab 07/01/18 11/04/18 History furosemide 40 mg tablet 40 mg PO BID 07/01/18 11/04/18 History glimepiride 2 mg tablet 2 mg PO BID tab 07/01/18 11/04/18 History lisinopril 40 mg tablet 40 mg PO .q am tab 07/01/18 11/04/18 History metformin 1,000 mg tablet 1,000 mg PO BIDM 07/01/18 11/04/18 History pravastatin 40 mg tablet 40 mg PO .q hs tab 07/01/18 11/04/18 History warfarin 3 mg tablet 3 mg PO .MON&FRI tab 07/01/18 11/04/18 History cadexomer iodine 0.9 % topical gel 40 gm TOP Q3D #40 gm 08/28/18 11/04/18 Rx cyanocobalamin (vitamin B-12) 2,500 mcg PO DAILY 08/28/18 11/04/18 History 2,500 mcg tablet methotrexate sodium 15 mg PO WK 11/04/18 11/04/18 History prednisone 5 mg PO DAILY 11/04/18 11/04/18 History warfarin 1.5 mg PO 5XWK 11/04/18 11/04/18 History Patient History Medical History Congestive heart failure A-fib (Chronic) CAD (coronary artery disease) (Chronic) Diabetes (Chronic) HTN (hypertension) (Chronic) Hx of left bundle branch block (Chronic) Osteomyelitis (Chronic) 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) Social History Current Living Situation: Spouse and Family Other Information That Helps Us Care for You: No Feels Safe at Home: No Is there a partner from a previous relationship who is making you feel unsafe now?: No Any Concerns about Your Family Situation: No Would You Like to Speak to Someone About Your Situation: No Safety Concerns: Feels Safe At This Time Smoking Status: Former smoker Tobacco Type: cigarettes Do You Dip or Chew Tobacco: Yes Second Hand Exposure: No Tobacco Cessation Education Requested by Patient: No Hx Alcohol Use: No Hx Substance Use: No Beliefs That Will Affect Care: None Preferred Language: Indian Communication Ability: Effective Tube Former Operator Required: No Physical Exam 2 Vital Signs (Past 24 Hours): Last Vital Signs Temp 36.9 C 11/05/18 11:08 Pulse 77 11/05/18 11:08 Resp 22 11/05/18 11:08 BP 97/32 L 11/05/18 11:08 Pulse Ox 92 11/05/18 11:08 Constitutional: + ill appearing Patient wearing oxygen mask ENMT: external ear and nose normal, oropharynx normal Neck: trachea midline, no thyromegaly Respiratory: Auscultation: + crackles (Diffuse all lung steward) Cardiovascular: RRR, no murmur, no edema Vessels: no JVD Gastrointestinal (Abdomen): Percussion/Palpation: abdomen soft; abdomen nontender and no hepatosplenomegaly Musculoskeletal: no cyanosis or clubbing, extremities motor strength 5/5 Neurologic: PERRL, EOMI, accommodation nl, no face palsy, no dysarthria Results & Data Laboratory Results Laboratory Results - last 24 hr 11/04/18 11/04/18 11/04/18 16:30 16:30 16:30 WBC 8.46 RBC 3.46 L Hgb 10.4 L POC Hgb Hct 30.7 L POC Hct MCV 88.7 MCH 30.1 MCHC 33.9 RDW Std Deviation 44.9 RDW Coeff of Estelita 13.9 Plt Count 149 MPV 9.3 Immature Gran % (Auto) 0.1 Neut % (Auto) 95.5 Lymph % (Auto) 3.7 Woodward % (Auto) 0.7 Eos % (Auto) 0.0 Baso % (Auto) 0.0 Immature Gran # (Auto) 0.01 Neut # (Auto) 8.08 H Lymph # (Auto) 0.31 L Woodward # (Auto) 0.06 L Eos # (Auto) 0.00 Baso # (Auto) 0.00 PT INR POC pH 7.46 H POC pCO2 25 L POC pO2 56 L POC HCO3 18 L POC Total CO2 18 L POC Base Excess -6.0 POC ABG O2 Sat 91.0 POC Sodium Sodium 132 L POC Potassium Potassium 3.8 POC Chloride Chloride 100 Carbon Dioxide 22 Anion Gap 10.0 POC Anion Gap POC BUN BUN 42 H Creatinine 1.95 H POC Creatinine Est Cr Clr Drug Dosing 33.2 Est GFR ( Amer) 36.6 Est GFR (Non-Af Amer) 31.6 BUN/Creatinine Ratio 21.5 H Glucose 169 H POC Glucose POC Glucose (other) Estimat Average Glucose Hemoglobin A1c Calcium 7.8 L POC Ioniz Calcium Prashanth Magnesium Total Bilirubin 1.1 H AST 52 H ALT 63 Alkaline Phosphatase 62 Total Creatine Kinase 261 CK-MB (CK-2) 4.1 H CK/CKMB % Calc 1.6 Troponin I 0.391 H* NT-Pro-B Natriuret Pep Total Protein 6.1 L Albumin 2.6 L Globulin 3.5 Albumin/Globulin Ratio 0.7 L Lipase 117 11/04/18 11/04/18 11/04/18 16:30 16:30 16:35 WBC RBC Hgb POC Hgb 9.9 L Hct POC Hct 29 L MCV MCH MCHC RDW Std Deviation RDW Coeff of Estelita Plt Count MPV Immature Gran % (Auto) Neut % (Auto) Lymph % (Auto) Woodward % (Auto) Eos % (Auto) Baso % (Auto) Immature Gran # (Auto) Neut # (Auto) Lymph # (Auto) Woodward # (Auto) Eos # (Auto) Baso # (Auto) PT 32.8 H INR 3.5 H POC pH POC pCO2 POC pO2 POC HCO3 POC Total CO2 20 L POC Base Excess POC ABG O2 Sat POC Sodium 133 L Sodium POC Potassium 3.7 Potassium POC Chloride 97 L Chloride Carbon Dioxide Anion Gap POC Anion Gap 21.0 POC BUN 34 H BUN Creatinine POC Creatinine 1.9 H Est Cr Clr Drug Dosing Est GFR ( Amer) Est GFR (Non-Af Amer) BUN/Creatinine Ratio Glucose POC Glucose POC Glucose (other) 178 H Estimat Average Glucose Hemoglobin A1c Calcium POC Ioniz Calcium Prashanth 1.04 L Magnesium Total Bilirubin AST ALT Alkaline Phosphatase Total Creatine Kinase CK-MB (CK-2) CK/CKMB % Calc Troponin I NT-Pro-B Natriuret Pep 7392 H Total Protein Albumin Globulin Albumin/Globulin Ratio Lipase 01/01/19 01/01/19 01/02/19 22:09 23:42 00:19 WBC RBC Hgb POC Hgb Hct POC Hct MCV MCH MCHC RDW Std Deviation RDW Coeff of Estelita Plt Count MPV Immature Gran % (Auto) Neut % (Auto) Lymph % (Auto) Woodward % (Auto) Eos % (Auto) Baso % (Auto) Immature Gran # (Auto) Neut # (Auto) Lymph # (Auto) Woodward # (Auto) Eos # (Auto) Baso # (Auto) PT INR POC pH POC pCO2 POC pO2 POC HCO3 POC Total CO2 POC Base Excess POC ABG O2 Sat POC Sodium Sodium POC Potassium Potassium POC Chloride Chloride Carbon Dioxide Anion Gap POC Anion Gap POC BUN BUN Creatinine POC Creatinine Est Cr Clr Drug Dosing Est GFR ( Amer) Est GFR (Non-Af Amer) BUN/Creatinine Ratio Glucose POC Glucose 126 H 77 POC Glucose (other) Estimat Average Glucose Hemoglobin A1c Calcium POC Ioniz Calcium Prashanth Magnesium Total Bilirubin AST ALT Alkaline Phosphatase Total Creatine Kinase CK-MB (CK-2) CK/CKMB % Calc Troponin I 0.428 H* NT-Pro-B Natriuret Pep Total Protein Albumin Globulin Albumin/Globulin Ratio Lipase 11/05/18 11/05/18 11/05/18 05:18 05:18 05:18 WBC 5.99 RBC 3.13 L Hgb 9.4 L POC Hgb Hct 27.4 L POC Hct MCV 87.5 MCH 30.0 MCHC 34.3 RDW Std Deviation 43.7 RDW Coeff of Estelita 13.8 Plt Count 118 L MPV 8.8 Immature Gran % (Auto) 0.3 Neut % (Auto) 93.6 Lymph % (Auto) 4.5 Woodward % (Auto) 1.2 Eos % (Auto) 0.2 Baso % (Auto) 0.2 Immature Gran # (Auto) 0.02 Neut # (Auto) 5.61 Lymph # (Auto) 0.27 L Woodward # (Auto) 0.07 L Eos # (Auto) 0.01 Baso # (Auto) 0.01 PT 38.4 H INR 4.1 H POC pH POC pCO2 POC pO2 POC HCO3 POC Total CO2 POC Base Excess POC ABG O2 Sat POC Sodium Sodium 134 L POC Potassium Potassium 3.2 L D POC Chloride Chloride 103 Carbon Dioxide 24 Anion Gap 7.0 POC Anion Gap POC BUN BUN 33 H Creatinine 1.55 H D POC Creatinine Est Cr Clr Drug Dosing 41.7 Est GFR ( Amer) 48.3 Est GFR (Non-Af Amer) 41.7 BUN/Creatinine Ratio 21.3 H Glucose 48 L* POC Glucose POC Glucose (other) Estimat Average Glucose Hemoglobin A1c Calcium 7.3 L POC Ioniz Calcium Prashanth Magnesium 2.1 Total Bilirubin AST ALT Alkaline Phosphatase Total Creatine Kinase CK-MB (CK-2) CK/CKMB % Calc Troponin I NT-Pro-B Natriuret Pep Total Protein Albumin Globulin Albumin/Globulin Ratio Lipase 11/05/18 11/05/18 11/05/18 05:18 06:27 07:23 WBC RBC Hgb POC Hgb Hct POC Hct MCV MCH MCHC RDW Std Deviation RDW Coeff of Estelita Plt Count MPV Immature Gran % (Auto) Neut % (Auto) Lymph % (Auto) Woodward % (Auto) Eos % (Auto) Baso % (Auto) Immature Gran # (Auto) Neut # (Auto) Lymph # (Auto) Woodward # (Auto) Eos # (Auto) Baso # (Auto) PT INR POC pH POC pCO2 POC pO2 POC HCO3 POC Total CO2 POC Base Excess POC ABG O2 Sat POC Sodium Sodium POC Potassium Potassium POC Chloride Chloride Carbon Dioxide Anion Gap POC Anion Gap POC BUN BUN Creatinine POC Creatinine Est Cr Clr Drug Dosing Est GFR ( Amer) Est GFR (Non-Af Amer) BUN/Creatinine Ratio Glucose POC Glucose 72 106 H POC Glucose (other) Estimat Average Glucose 148 Hemoglobin A1c 6.8 H Calcium POC Ioniz Calcium Prashanth Magnesium Total Bilirubin AST ALT Alkaline Phosphatase Total Creatine Kinase CK-MB (CK-2) CK/CKMB % Calc Troponin I NT-Pro-B Natriuret Pep Total Protein Albumin Globulin Albumin/Globulin Ratio Lipase 11/05/18 11/05/18 09:30 11:13 WBC RBC Hgb POC Hgb Hct POC Hct MCV MCH MCHC RDW Std Deviation RDW Coeff of Estelita Plt Count MPV Immature Gran % (Auto) Neut % (Auto) Lymph % (Auto) Woodward % (Auto) Eos % (Auto) Baso % (Auto) Immature Gran # (Auto) Neut # (Auto) Lymph # (Auto) Woodward # (Auto) Eos # (Auto) Baso # (Auto) PT INR POC pH POC pCO2 POC pO2 POC HCO3 POC Total CO2 POC Base Excess POC ABG O2 Sat POC Sodium Sodium POC Potassium Potassium POC Chloride Chloride Carbon Dioxide Anion Gap POC Anion Gap POC BUN BUN Creatinine POC Creatinine Est Cr Clr Drug Dosing Est GFR ( Amer) Est GFR (Non-Af Amer) BUN/Creatinine Ratio Glucose POC Glucose 83 POC Glucose (other) Estimat Average Glucose Hemoglobin A1c Calcium POC Ioniz Calcium Prashanth Magnesium Total Bilirubin AST ALT Alkaline Phosphatase Total Creatine Kinase CK-MB (CK-2) CK/CKMB % Calc Troponin I 0.387 H* NT-Pro-B Natriuret Pep Total Protein Albumin Globulin Albumin/Globulin Ratio Lipase ECG Additional Comments: 04-NOV-2018 16:09:52 [facility] Sinus rhythm with Premature atrial complexes Left axis deviation Left bundle branch block Abnormal ECG When compared with ECG of 03-JAN-2018 13:13, Premature ventricular complexes are no longer Present Premature atrial complexes are now Present
--- NOTE | 2018-11-05 12:42 | Pharmacy Report ---
Pharmacy Abx Initial Consult - Date of Service November 05, 2018 - Pharmacy Dosing Scope Date of Consult: 11/04/18 Consultation requested by: Dr. Underwood Pharmacy is consulted to initiate Vancomycin and Zosyn IV dosing therapy, order appropriate labs and adjust drug dose/frequency. - Subjective The patient is a 78 year old M admitted on 11/04/18 20:08. - Objective Height: 6 ft Weight: 83.4 kg Vital Signs (Past 12hrs): Vital Signs Temp Pulse Resp BP BP Pulse Ox 11/05/18 11:08 36.9 C 77 22 97/32 L 92 11/05/18 07:55 36.9 C 80 22 107/48 L 91 11/05/18 04:36 37.6 C H 76 20 99/51 L 92 Lab Results (24hrs): Laboratory Tests (24 Hours) 11/05/18 11/05/18 11/04/18 05:18 05:18 16:30 WBC 5.99 Neut # (Auto) 5.61 Creatinine 1.55 H D 1.95 H Est Cr Clr Drug Dosing 41.7 33.2 Total Creatine Kinase 261 11/04/18 16:30 WBC 8.46 Neut # (Auto) 8.08 H Creatinine Est Cr Clr Drug Dosing Total Creatine Kinase Micro Results: 11/04/18 18:00 Blood Culture - Pending Blood 11/04/18 17:50 Blood Culture - Pending Blood - Risk Factors for Resistance * Immunocompromised - Patient takes prednisone and Methotrexate as an outpatient for RA. * - Assessment & Plan Assessment 78 year old M with h/o CHF, PVD, DM with chronic diabetic foot ulcers, and RA presents with shortness of breath. Follows up with a wound clinic where he was provided diabetic orthotic footware. CXR shows bilateral opacities. Plan Vancomycin and Zosyn for treatment of diabetic foot ulcer and possible pneumonia. Vancomycin IV * Estimated PK Parameters: Vd 0.7 L/kg, Chavo 0.039 hr-1, t1/2 ~18 hr * Loading dose: 1750 mg (21.5 mg/kg) X 1 dose in the ED * Maintenance dose: 1250 mg IV (15 mg/kg) every 22 hours * Goal trough level : 15 to 20 mcg/mL * Trough/Random level ordered for 11/06/18 before third dose at 1500. Please note this will not be a true reflection of steady state, but to check for accumulation in setting of CKD III. Piperacillin/tazobactam * 4.5 g bolus administered over 30 minutes, then 3.375 g IV extended infusion every 8 hours for CrCl greater than 20 mL/min. Pharmacy will continue to follow and will adjust dose/frequency as necessary. Thank you.
[2018-11-05] MEDS ORDERED: FUROSEMIDE 80 MG in SYRINGE 0 ML IV ONE (13:00)
[2018-11-05] MEDS ORDERED: WARFARIN SOD 0.5 MG TAB PO SCH (16:00)
[2018-11-05] MEDS ORDERED: WARFARIN SOD 1 MG TAB PO SCH (16:00)
--- NOTE | 2018-11-05 16:10 | XRay Report ---
XR chest 1V portable CLINICAL HISTORY: PNA vs volume overload COMPARISON STUDY: Chest CT and chest radiograph November 04, 2018. FINDINGS: Diffuse interstitial thickening and bilateral opacities persist. Right lower lung opacity i s increased. Left lung opacity appears unchanged. Cardiomegaly is again noted. No pneumothorax or ple ural effusion is noted. IMPRESSION: Persistent bilateral airspace opacities and interstitial thickening with slight increase in right lower lung airspace opacity. The findings may reflect pneumonia or pulmonary edema. Electronically signed by: Storm Nunez M.D. 11/05/2018 4:09 PM
[2018-11-05] MEDS: HYDROCORTISONE SOD 50 MG in SYRINGE 0 ML IV SCH ×2 (19:14→23:45)
[2018-11-05] MEDS: cloNIDine HCl 0.1 MG TAB PO SCH (21:39)
[2018-11-05] MEDS: PRAVASTATIN SOD 40 MG TAB PO SCH (22:20)
[2018-11-06] MEDS: HYDROCORTISONE SOD 50 MG in SYRINGE 0 ML IV SCH ×3 (06:15→16:46)
[2018-11-06 06:41] LABS: Hematocrit (blood only) 27.9 % (42-52); Hemoglobin 9.3 g/dL (14.0-18.0); Mean Corpuscular Hgb Conc 33.3 g/dL (32-36); Mean Corpuscular Volume 89.1 fL (80-100); Mean Platelet Volume 9.3 fL (7.4-10.4); Platelet Count 126 K/uL (130-400); RDW Coefficient of Variation 13.9 % (11.5-14.5); Red Blood Count 3.13 M/uL (4.7-6.1); White Blood Count 5.14 K/uL (4.8-10.8)
[2018-11-06 07:02] LABS: Prothrombin Time 48.2 Seconds (9.0-12.0)
[2018-11-06 07:12] LABS: BUN Creatinine Ratio 21.2 (10-20); Calcium 7.7 mg/dl (8.5-10.1); Creatinine Clr Calc Pharmacy 35.9 ml/min; Est GFR (African American) 40.3; Est GFR (Non-African American) 34.8; Magnesium 2.6 mg/dl (1.8-2.4); Potassium 3.6 mmol/L (3.5-5.1)
[2018-11-06 07:25] LABS: INR 5.2 (0.9-1.1)
[2018-11-06] MEDS: INSULIN ASPART 100 UNITS/ML 3 ML PEN SC SCH ×4 (08:21→20:51)
[2018-11-06] MEDS: PIPERACILLIN/TAZOBACTAM 3.375 GM/115 ML BAG IV SCH ×3 (08:24→23:56)
[2018-11-06] MEDS: FUROSEMIDE 40 MG in SYRINGE 0 ML IV SCH ×2 (08:24→16:46)
[2018-11-06] MEDS: cloNIDine HCl 0.1 MG TAB PO SCH ×2 (08:25→20:43)
[2018-11-06] MEDS: CYANOCOBALAMIN (VITAMIN B-12) 2,500 MCG TAB.SUBL SL SCH (08:25)
[2018-11-06] MEDS: FOLIC ACID 1 MG TAB PO SCH (08:25)
[2018-11-06] MEDS: CARVEDILOL 6.25 MG TAB PO SCH ×2 (08:25→20:44)
[2018-11-06] MEDS ORDERED: VANCOMYCIN HCL 1,500 MG in SODIUM CHLORIDE 0.9% 500 ML IV ONE (09:30)
--- NOTE | 2018-11-06 09:38 | Pharmacy Report ---
Pharmacy Abx Dose Short Note - Date of Service November 06, 2018 - Assessment & Plan Assessment Maintenance order for Vancomycin 1250mg IV Q22 was timed incorrectly. Stat random level taken approx ~36 hours after initial loading dose was 4.6 mcg/ ml Plan Vancomycin * Will do a modified (re)loading dose of 1500mg IV x1 (18 mg/kg) then start maintenance dose of 1250mg (15mg/kg) IV every 24 hours 2/2 to trend up in SCr. * Trough ordered for 11/08/18 before 1000 dose. Pharmacy will continue to follow and will adjust dose/frequency as necessary. Thank you.
[2018-11-06] MEDS: DOXYCYCLINE HYCLATE 100 MG CAP PO SCH ×2 (11:06→20:44)
[2018-11-06] MEDS: ALBUT/IPRATROP 3MG/0.5MG NEB 3 ML VIAL NEB SCH ×3 (11:19→20:06)
--- NOTE | 2018-11-06 12:34 | Hospitalist Progress Note ---
Date of Service November 06, 2018 Assessment & Plan (1) Acute respiratory failure with hypoxia: This is an 78yo M with a PMH of atrial fibrillation on anticoagulation, chronic systolic CHF, DM II, HTN, HLD, diabetic polyneuropathy, chronic diabetic foot ulcers, history of tobacco disorder, peripheral vascular disease, thrombocytopenia, CKD III and rheumatoid arthritis who presented with presented with shortness of breath and was found to have acute respiratory failure 2/2 pneumonia vs CHF exacerbation. -Initially found to be hypoxic at 74% on RA and was placed on BiPAP in ED -CTA chest with extensive groundglass opacities throughout both lungs reflective of pulmonary edema or PNA -No pulmonary emboli identified although segmental and subsegmental pulmonary arteries on suboptimal study -Repeat CXR from 11/05 with persistent bilateral airspace opacities and interstitial thickening with slight increase in right lower lung airspace opacity. The findings may reflect pneumonia or pulmonary edema. -Procalcitonin elevated at 4.28, favoring pneumonia as diagnosis vs. CHF exacerbation -Added incentive spirometry and duonebs with RT -No growth on blood cultures -Placed on 40mg IV BID Lasix, with an addition IV 80 x 1 yesterday. Diuresed 1.85 L overnight -No orthopnea or BLE edema to suggest CHF exacerbation. Echo with preserved EF of 60-65% -Continue Zosyn, vanc and doxy empirically. Follow blood cultures -Attempting to wean O2 requirement on Oxymask. Saturating 95% on 12L now -Will continue to monitor respiratory status closely (2) Diabetic foot ulcer: In setting of diabetic polyneuropathy and h/o R great toe amputation, partial amputation of the first metatarsal in Jun 2016 -Evaluated by wound care nurse on 11/05 and found to have periwound discoloration. Wound was dressed with instructions to change Q2D (3) Elevated troponin: Troponin elevated at 0.391 with peak at 0.428 and is now downtrending. Likely due to demand ischemia -No acute ST changes on EKG -Echo performed this AM with EF: 60-65%, moderate concentric LVH -Continue monitoring on telemetry (4) Systolic heart failure: Possible acute exacerbation of chronic systolic HF but 2D echo performed yesterday with preserved EF -Receiving 40mg IV Lasix BID and IV Lasix 80 x 1 yesterday with diuresis of 1.85L overnight -Continue Oxymask for acute hypoxia due to PNA, possible component of volume overload but appearing less likely -Strict I&Os, low sodium diet, daily weight -Continue Coreg. Hold lisinopril due to elevated Cr (5) Left hip pain: Left hip pain on palpation -X-rays where questionable and hip CT was performed -- no acute osseous injury of the left hip. Mild degenerative changes -PT/OT prior to discharge (6) Atrial fibrillation: Continue Coreg -On coumadin for anticoagulation -Elevated INR: HOLD coumadin until INR in range of 2-3 (7) Thrombocytopenia: Plt increased from 118 to 126 since yesterday -Decreased slightly from baseline count in mid-100s, in setting of active infection -Continue monitoring with daily CBC (8) Diabetes mellitus, type 2: A1c of 6.8 today -Hold his home medication metformin and glimepiride -Discontinued Lantus in setting of recurrent hypoglycemia in AM -Eating more today so expect increase in BSG -SSI while in-patient (9) Rheumatoid arthritis: Hold methotrexate and prednisone for now -Started on 50mg IV hydrocortisone Q6H for possible adrenal insufficiency in setting of infection (10) HTN (hypertension): Lower BP this morning with 107/48 -Monitor BP in setting of IV diuresis -Continue home Norvasc, Coreg and clonidine with holding parameters -Holding lisinopril for now . Will monitor blood pressure (11) CKD (chronic kidney disease), stage III: Creatinine elevated from 1.98--> 1.55 --> 1.8 today (Baseline Cr ~ 1.4) -Hold lisinopril. Likely 2/2 increased Lasix dose -Appreciate cardiology recommendations with diuresis -Monitor kidney function with daily BMPs (12) LBBB (left bundle branch block): Stable, chronic condition (13) HLD (hyperlipidemia): Continue statin DVT Ppx: Holding coumadin due to supratherapeutic INR Code status: FULL PCP: [facility]ero Dispo: Admitted to telemetry. Discharge planning ordered. Patient seen in collaboration with Dr. Garza. Please see addendum. Supervising Physician Co-Signing Physician Notes Pt was seen and examined. Agreed with Johanna LOPEZ exam, assessment and plan. Continue Lasix for now. Continue oxygen supplement and IV abx. Will consult pulmonology. Continue monitor closely in tele. MD Greg Subjective Patient seen and examined. Feeling better today. More alert. Still experiencing intermittent shortness of breath. [place] hungry today and ate breakfast without nausea/vomiting. No chest pain or palpitations. No fever, chills, lightheadedness, abdominal pain, nausea, vomiting, dysuria, constipation or diarrhea. Physical Exam 2 Vital Signs (Past 24 Hours): Last Vital Signs Temp 36.4 C L 11/06/18 11:33 Pulse 72 11/06/18 11:33 Resp 20 11/06/18 11:33 BP 105/47 L 11/06/18 11:33 Pulse Ox 95 11/06/18 12:00 Physical Exam: General Appearance: WD/WN, more alert today, some respiratory distress when speaking Head: normocephalic, atraumatic Eyes: normal inspection, PERRL, EOMI ENT: hearing grossly normal, pharynx normal (moist mucous membranes) Neck: supple, no JVD, no adenopathy Respiratory/Chest: Bibasilar rales. No wheezes or rhonci Cardiovascular: regular rate, rhythm, no murmur, normal peripheral pulses Abdomen/GI: normal bowel sounds, soft, non-tender to palpation Extremities/Musculoskelatal: normal inspection, no calf tenderness, normal capillary refill, no pedal edema Neurologic/Psych: alert, normal mood/affect, oriented x 3 Skin: normal color, warm/dry Results & Data Laboratory Results Short CBC 11/06/18 Range/Units 06:26 WBC 5.14 (4.8-10.8) K/uL Hgb 9.3 L (14.0-18.0) g/dL Hct 27.9 L (42-52) % Plt Count 126 L (130-400) K/uL BMP 11/06/18 06:26 Sodium 138 Potassium 3.6 Chloride 106 Carbon Dioxide 24 BUN 38 H Creatinine 1.80 H Glucose 70 Calcium 7.7 L Cardiac Enzymes 11/05/18 Range/Units 22:20 Troponin I 0.209 H* (0-0.045) ng/ml Diagnostic Findings CXR (11/05): IMPRESSION: Persistent bilateral airspace opacities and interstitial thickening with slight increase in right lower lung airspace opacity. The findings may reflect pneumonia or pulmonary edema. _ (1) Diabetic foot ulcer Diabetes mellitus type: type 2 Diabetic foot ulcer location: midfoot Laterality: right Non-pressure ulcer stage: with fat layer exposed Qualified Code(s): E11.621 - Type 2 diabetes mellitus with foot ulcer; L97.412 - Non- pressure chronic ulcer of right heel and midfoot with fat layer exposed
[2018-11-06] MEDS ORDERED: VANCOMYCIN TROUGH ONE (14:30)
--- NOTE | 2018-11-06 15:22 | Cardiology Progress Note ---
Date of Service November 06, 2018 Assessment & Plan (1) Hypoxia: Multifactorial respiratory failure suspected patient clinically improving though without significant diuresis Would continue to treat possible pulmonary infection, continue IV diuretics as ordered (2) LBBB (left bundle branch block): Stable (3) Cardiomyopathy, idiopathic: Ejection fraction normal on echocardiogram this admission (4) Paroxysmal atrial fibrillation: Patient remains in sinus rhythm and is chronically anticoagulated (5) Respiratory failure: Multifactorial etiology patient is on immunosuppressive therapy with methotrexate and prednisone will order repeat chest x-ray for later today depending on response to diuretic (6) Rheumatoid arthritis: Patient on methotrexate and prednisone chronically. Began on stress dose corticosteroids yesterday (7) HTN (hypertension): Patient presented relatively hypotensive. Clonidine dosing reduced to avoid rebound. Amlodipine held Subjective Patient more alert, brighter today denies any specific complaint mildly productive cough is present. Notes no chest pains dizziness or lightheadedness. Physical Exam 2 Vital Signs (Past 24 Hours): Last Vital Signs Temp 36.4 C L 11/06/18 11:33 Pulse 72 11/06/18 11:33 Resp 20 11/06/18 11:33 BP 105/47 L 11/06/18 11:33 Pulse Ox 95 11/06/18 12:00 Constitutional: no acute distress Brighter today, getting shaved ENMT: external ear and nose normal, oropharynx normal Neck: trachea midline, no thyromegaly Respiratory: Better aeration today with few scattered crackles basilar Cardiovascular: RRR, no murmur, no edema Vessels: no JVD Gastrointestinal (Abdomen): Percussion/Palpation: abdomen soft; abdomen nontender and no hepatosplenomegaly Musculoskeletal: no cyanosis or clubbing, extremities motor strength 5/5 Neurologic: PERRL, EOMI, accommodation nl, no face palsy, no dysarthria Results & Data Laboratory Results Laboratory Results - last 24 hr 11/05/18 11/05/18 11/05/18 16:15 16:29 20:25 WBC RBC Hgb Hct MCV MCH MCHC RDW Std Deviation RDW Coeff of Estelita Plt Count MPV PT INR Sodium Potassium Chloride Carbon Dioxide Anion Gap BUN Creatinine Est Cr Clr Drug Dosing Est GFR ( Amer) Est GFR (Non-Af Amer) BUN/Creatinine Ratio Glucose POC Glucose 57 L* 79 67 L* Calcium Magnesium Troponin I Procalcitonin Random Vancomycin 11/05/18 11/05/18 11/05/18 20:41 20:43 20:58 WBC RBC Hgb Hct MCV MCH MCHC RDW Std Deviation RDW Coeff of Estelita Plt Count MPV PT INR Sodium Potassium Chloride Carbon Dioxide Anion Gap BUN Creatinine Est Cr Clr Drug Dosing Est GFR ( Amer) Est GFR (Non-Af Amer) BUN/Creatinine Ratio Glucose POC Glucose 56 L* 60 L* 81 Calcium Magnesium Troponin I Procalcitonin Random Vancomycin 11/05/18 11/05/18 11/05/18 22:20 22:20 23:29 WBC RBC Hgb Hct MCV MCH MCHC RDW Std Deviation RDW Coeff of Estelita Plt Count MPV PT INR Sodium Potassium Chloride Carbon Dioxide Anion Gap BUN Creatinine Est Cr Clr Drug Dosing Est GFR ( Amer) Est GFR (Non-Af Amer) BUN/Creatinine Ratio Glucose POC Glucose 42 L* Calcium Magnesium Troponin I 0.209 H* Procalcitonin 4.28 H Random Vancomycin 11/05/18 11/05/18 11/06/18 23:31 23:56 02:58 WBC RBC Hgb Hct MCV MCH MCHC RDW Std Deviation RDW Coeff of Estelita Plt Count MPV PT INR Sodium Potassium Chloride Carbon Dioxide Anion Gap BUN Creatinine Est Cr Clr Drug Dosing Est GFR ( Amer) Est GFR (Non-Af Amer) BUN/Creatinine Ratio Glucose POC Glucose 47 L* 95 106 H Calcium Magnesium Troponin I Procalcitonin Random Vancomycin 11/06/18 11/06/18 11/06/18 06:26 06:26 06:26 WBC 5.14 RBC 3.13 L Hgb 9.3 L Hct 27.9 L MCV 89.1 MCH 29.7 MCHC 33.3 RDW Std Deviation 45.0 RDW Coeff of Estelita 13.9 Plt Count 126 L MPV 9.3 PT 48.2 H INR 5.2 H Sodium 138 Potassium 3.6 Chloride 106 Carbon Dioxide 24 Anion Gap 8.0 BUN 38 H Creatinine 1.80 H Est Cr Clr Drug Dosing 35.9 Est GFR ( Amer) 40.3 Est GFR (Non-Af Amer) 34.8 BUN/Creatinine Ratio 21.2 H Glucose 70 POC Glucose Calcium 7.7 L Magnesium 2.6 H Troponin I Procalcitonin Random Vancomycin 11/06/18 11/06/18 11/06/18 07:27 08:33 11:13 WBC RBC Hgb Hct MCV MCH MCHC RDW Std Deviation RDW Coeff of Estelita Plt Count MPV PT INR Sodium Potassium Chloride Carbon Dioxide Anion Gap BUN Creatinine Est Cr Clr Drug Dosing Est GFR ( Amer) Est GFR (Non-Af Amer) BUN/Creatinine Ratio Glucose POC Glucose 78 181 H Calcium Magnesium Troponin I Procalcitonin Random Vancomycin 4.6
[2018-11-06] MEDS ORDERED: VANCOMYCIN HCL 1,250 MG in SODIUM CHLORIDE 0.9% 250 ML IV SCH (17:00)
[2018-11-06] MEDS ORDERED: INSULIN GLARGINE 100 UNIT/ML VIAL SC STA (20:43)
[2018-11-06] MEDS: PRAVASTATIN SOD 40 MG TAB PO SCH (20:44)
[2018-11-07] MEDS: HYDROCORTISONE SOD 50 MG in SYRINGE 0 ML IV SCH ×5 (00:03→23:25)
[2018-11-07 07:07] LABS: Hematocrit (blood only) 27.6 % (42-52); Hemoglobin 9.6 g/dL (14.0-18.0); Mean Corpuscular Hgb Conc 34.8 g/dL (32-36); Platelet Count 127 K/uL (130-400); RDW Standard Deviation 45.2 fL (36.4-46.3)
[2018-11-07] MEDS: ALBUT/IPRATROP 3MG/0.5MG NEB 3 ML VIAL NEB SCH ×4 (07:17→19:29)
[2018-11-07 07:25] LABS: Prothrombin Time > 100.0 Seconds (9.0-12.0)
[2018-11-07 07:30] LABS: INR > 11.0 (0.9-1.1)
[2018-11-07 07:41] LABS: Calcium 7.4 mg/dl (8.5-10.1); Creatinine Clr Calc Pharmacy 43.7 ml/min; Est GFR (African American) 51.1; Est GFR (Non-African American) 44.1; Magnesium 2.6 mg/dl (1.8-2.4); Potassium 3.4 mmol/L (3.5-5.1)
[2018-11-07] MEDS: PIPERACILLIN/TAZOBACTAM 3.375 GM/115 ML BAG IV SCH ×3 (08:19→23:26)
[2018-11-07] MEDS ORDERED: PHYTONADIONE 5 MG TAB PO STA (08:28)
[2018-11-07] MEDS ORDERED: PHARMACY GLYCEMIC MGMT CONSULT SCH (08:40)
[2018-11-07] MEDS: INSULIN ASPART 100 UNITS/ML 3 ML PEN SC SCH ×5 (08:45→23:51)
[2018-11-07] MEDS: INSULIN GLARGINE SOLOSTAR 100 UNITS/ML 3 ML PEN SC SCH ×2 (08:47→20:27)
[2018-11-07] MEDS: cloNIDine HCl 0.1 MG TAB PO SCH ×2 (09:20→20:25)
[2018-11-07] MEDS: FOLIC ACID 1 MG TAB PO SCH (09:21)
[2018-11-07] MEDS: CARVEDILOL 6.25 MG TAB PO SCH ×2 (09:21→20:26)
[2018-11-07] MEDS: FUROSEMIDE 40 MG in SYRINGE 0 ML IV SCH ×3 (09:21→20:25)
[2018-11-07] MEDS: CYANOCOBALAMIN (VITAMIN B-12) 2,500 MCG TAB.SUBL SL SCH (09:22)
[2018-11-07] MEDS: DOXYCYCLINE HYCLATE 100 MG CAP PO SCH ×2 (09:22→20:25)
--- NOTE | 2018-11-07 09:22 | Pharmacy Report ---
Glycemic Control Consultation - Date of Service November 07, 2018 - Scope Scope: Glycemic Pharmacist consulted by Johanna Araya PA-C on 11/07/18 for glycemic control and to write orders per [facility] inpatient glycemic control protocol - Objective Weight: 78.48 kg Accuchecks BSG (last 24hrs): 11/06/18 11/06/18 11/06/18 11:13 16:22 20:28 Glucose POC Glucose 181 H 191 H 332 H 11/07/18 06:42 Glucose 198 H POC Glucose Laboratory Data (last 24hrs): 11/07/18 06:42 Potassium 3.4 L Carbon Dioxide 26 Anion Gap 6.0 Creatinine 1.48 H D Est Cr Clr Drug Dosing 43.7 HbA1c: Hemoglobin A1c 6.8 % (4.5-5.6) H 11/05/18 05:18 - Recent Pertinent Medications Outpatient Anti-diabetic Regimen: * Glimepiride 2mg PO BID; Metformin 1g PO BID * A1c = 6.8 % 11/05/18 The patient is currently receiving: * Basal insulin: Lantus 10 units x 1 dose last night, and 3 units this morning * Correctional Insulin: Novolog Correction per scale ACHS Goal Range: Low 140 mg/dL - High 180 mg/dL Correction Factor: 50 mg/dL/unit * Prandial insulin: None * Oral Agents: On hold Risk Factors for Insulin Resistance: * Steroids: Hydrocortisone 50mg IV Q6H * Infection: Vancomycin, Zosyn, Doxycycline PO * Recent Surgery * Diet: Type 2 DM - Assessment & Plan Assessment & Plan: ASSESSMENT: * 78 year old type 2 diabetic admitted with respiratory failure, PMH significant for AFib, CHF, HTN, HLD, PVD, chronic diabetic foot ulcers, tobacco use, CKD- stage III. * Patient was not requiring any insulin a few days ago, but his diet has advanced and patient is on IV steroids ATC, resulting in hyperglycemia. * Patient used 16 units of insulin yesterday, with blood sugars still hyperglycemic. * Patient required BiPAP this morning and is now just eating breakfast at 0930 - spoke with STEPHANIE Campuzano, she will give carb coverage after he eats lunch and push lunch and lunch accucheck from 1130 out to 1230 to try to get more accurate post prandial blood sugar. * Pt is maintained on oral antidiabetic agents as an outpatient * Oral agents are not recommended for inpatient use d/t drug interactions, changing PO intake, and difficulty titrating for acute hyper/hypoglycemia. ADA recommends re-initiating outpatient oral agents 1-2 days prior to discharge if/ when appropriate if they were held on admission. * Will continue to hold oral agents for admission and utilize SQ basal bolus insulin regimen which is the recommended regimen for inpatient glycemic control. * Will use weight based insulin dosing * Patient currently only on a CF, patient requires CR, especially while on IV Steroids * ADA & AACE recommend a goal blood sugar range 140-180 mg/dl for the majority of critically ill & non-critically ill patients. However, more stringent targets may be selected in individual cases. Will utilize more stringent goal of 110-140mg/dl based on patient age & comorbidities. Additionally, tighter glycemic control is warranted to facilitate wound/infection healing. PLAN FOR INPATIENT GLYCEMIC CONTROL: * Continue Holding outpatient oral diabetes medications * CHANGE - Basal insulin * Lantus 5 units SQ BID * Bolus insulin * NovoLog per scale ACHS or Q6hrs while NPO and and additional check overnight tonight at 0000 * CHANGE: Goal Range: Low 110 mg/dL - High 140 mg/dL * TIGHTEN: Correction Factor: 30 mg/dL/unit * START: Nutritional / Prandial insulin per carb ratio of 1 unit per 10 grams CHO consumed * Please note that the plan above was derived based on current level of insulin resistance and hospital stress. These recommendations are appropriate for inpatient admission only. Plan of care upon discharge will need to be reassessed to avoid potential outpatient hypo/hyperglycemia. Thank you.
--- NOTE | 2018-11-07 10:45 | Hospitalist Progress Note ---
Date of Service November 07, 2018 Assessment & Plan (1) Acute respiratory failure with hypoxia: This is an 78yo M with a PMH of atrial fibrillation on anticoagulation, chronic systolic CHF, DM II, HTN, HLD, diabetic polyneuropathy, chronic diabetic foot ulcers, history of tobacco disorder, peripheral vascular disease, thrombocytopenia, CKD III and rheumatoid arthritis who presented with presented with shortness of breath and was found to have acute respiratory failure 2/2 pneumonia vs CHF exacerbation. -Initially found to be hypoxic at 74% on RA and was placed on BiPAP in ED -CTA chest with extensive groundglass opacities throughout both lungs reflective of pulmonary edema or PNA -No pulmonary emboli identified although segmental and subsegmental pulmonary arteries on suboptimal study -Repeat CXR from Nov 07 with slightly improved diffuse bilateral mixed interstitial and alveolar opacities. Differential considerations include pulmonary edema versus pneumonia -Procalcitonin elevated at 4.28, favoring pneumonia as diagnosis vs. CHF exacerbation -Added incentive spirometry and duonebs with RT -Continue Zosyn, vanc and doxy empirically. Follow blood cultures (no growth) -Continued on 40mg IV TID Lasix, per cardiology -No orthopnea or BLE edema to suggest CHF exacerbation. 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 Wound was dressed with instructions to change Q2D (3) Elevated troponin: Troponin elevated at 0.391 with peak at 0.428 and is now downtrending. Likely due to demand ischemia -No acute ST changes on EKG -Echo performed this AM with EF: 60-65%, moderate concentric LVH -Continue monitoring on telemetry (4) Systolic heart failure: Possible acute exacerbation of chronic systolic HF but 2D echo performed yesterday with preserved EF -Receiving 40mg IV Lasix TID with cardiology involvement -Continue Oxymask for acute hypoxia due to PNA, possible component of volume overload but appearing less likely -Strict I&Os, low sodium diet, daily weight -Continue Coreg. Hold lisinopril due to elevated Cr (5) Left hip pain: Left hip pain on palpation -X-rays where questionable and hip CT was performed -- no acute osseous injury of the left hip. Mild degenerative changes -PT/OT prior to discharge (6) Atrial fibrillation: Continue Coreg -On coumadin for anticoagulation -Elevated INR in setting of coumadin-vancomycin interaction: HOLDING coumadin until INR in range of 2-3 (7) Thrombocytopenia: Plt stable at 127 -Decreased slightly from baseline count in mid-100s, in setting of active infection -Continue monitoring with daily CBC (8) Diabetes mellitus, type 2: A1c of 6.8 today -Hold his home medication metformin and glimepiride -BSG fluctuating in the setting of appetite changes and IV hydrocortisone -Glycemic consult placed (9) Rheumatoid arthritis: Hold methotrexate and prednisone for now -Started on 50mg IV hydrocortisone Q6H for possible adrenal insufficiency in setting of infection (10) HTN (hypertension): Lower BP this morning with 107/48 -Monitor BP in setting of IV diuresis -Continue home Norvasc, Coreg and clonidine with holding parameters -Holding lisinopril for now . Will monitor blood pressure (11) CKD (chronic kidney disease), stage III: Creatinine fluctuating from 1.98--> 1.55 --> 1.8 today --> 1.4 (Baseline Cr ~ 1.4) -Hold lisinopril. Likely 2/2 increased Lasix dose -Monitor kidney function with daily BMPs (12) LBBB (left bundle branch block): Stable, chronic condition (13) HLD (hyperlipidemia): Continue statin DVT Ppx: Holding coumadin due to supratherapeutic INR Code status: FULL PCP: [facility] Dispo: Admitted to telemetry. Discharge planning ordered. Patient seen in collaboration with Dr. Garza. Please see addendum. Supervising Physician Co-Signing Physician Notes Pt was seen and examined. Agreed with Johanna LOPEZ exam, assessment and plan. Pt said that his breathing slightly improved. He had an episode of epistaxis today with INR 11. V K given, repeat INR 7. Repeat CXR showed slightly improved diffuse bilateral mixed interstitial and alveolar opacities. He was starting on BIpap. Pulmonary consult. Continue IV abx. Monitor PT/INR. Compere. MONTE Subjective Patient seen and examined. Became hypoxic on oxymask at 15ml/last night and required transition to BiPAP. Is now saturating at 96%. States he is feeling better today. More alert. Still experiencing intermittent shortness of breath when eating. Did develop a nose bleed this morning that has since stopped. INR increased from 5 to 11 overnight so patient was given 5mg of IV Vit K with INR checks this afternoon. No fever, chills, lightheadedness, abdominal pain, nausea, vomiting, dysuria, constipation or diarrhea. Review of Systems All systems reviewed & are unremarkable except as noted in HPI & below Physical Exam 2 Vital Signs (Past 24 Hours): Last Vital Signs Temp 36.9 C 11/07/18 07:02 Pulse 77 11/07/18 07:18 Resp 18 11/07/18 07:18 BP 123/60 11/07/18 07:02 Pulse Ox 89 L 11/07/18 07:18 Physical Exam: General Appearance: WD/WN, more alert today, oxymask, some respiratory distress when speaking Head: normocephalic, atraumatic Eyes: normal inspection, PERRL, EOMI ENT: hearing grossly normal, no active bleeding from nose or mouth, pharynx normal (moist mucous membranes) Neck: supple, no JVD, no adenopathy Respiratory/Chest: Bibasilar rales. No wheezes or rhonci Cardiovascular: regular rate, rhythm, no murmur, normal peripheral pulses Abdomen/GI: normal bowel sounds, soft, non-tender to palpation Extremities/Musculoskelatal: normal inspection, no calf tenderness, normal capillary refill, no pedal edema Neurologic/Psych: alert, normal mood/affect, oriented x 3 Skin: normal color, warm/dry Results & Data Laboratory Results Short CBC 11/07/18 Range/Units 06:42 WBC 5.20 (4.8-10.8) K/uL Hgb 9.6 L (14.0-18.0) g/dL Hct 27.6 L (42-52) % Plt Count 127 L (130-400) K/uL BMP 11/07/18 06:42 Sodium 140 Potassium 3.4 L Chloride 108 H Carbon Dioxide 26 BUN 37 H Creatinine 1.48 H D Glucose 198 H Calcium 7.4 L Diagnostic Findings CXR (11/07): IMPRESSION: 1. Cardiomegaly with slightly improved diffuse bilateral mixed interstitial and alveolar opacities. Differential considerations include pulmonary edema versus pneumonia. 2. No pleural effusion. _ (1) Diabetic foot ulcer Diabetes mellitus type: type 2 Diabetic foot ulcer location: midfoot Laterality: right Non-pressure ulcer stage: with fat layer exposed Qualified Code(s): E11.621 - Type 2 diabetes mellitus with foot ulcer; L97.412 - Non- pressure chronic ulcer of right heel and midfoot with fat layer exposed
[2018-11-07] MEDS: VANCOMYCIN HCL 1,250 MG in SODIUM CHLORIDE 0.9% 250 ML IV SCH (11:22)
--- NOTE | 2018-11-07 12:10 | XRay Report ---
XR chest 1V portable HISTORY: 78 years-old Male chf/pneumonia, hypoxia acute shortness of breath COMPARISON: CTA of the chest November 04, 2017, chest radiograph November 05, 2018 TECHNIQUE: Portable AP view of the chest FINDINGS: Moderate cardiomegaly. Pulmonary vascular congestion with persistent bilateral mixed interstitial and alveolar opacities, slightly improved from comparison. No pneumothorax or large pleural effusion. De generative changes of the shoulders and spine. IMPRESSION: 1. Cardiomegaly with slightly improved diffuse bilateral mixed interstitial and alveolar opacities. D ifferential considerations include pulmonary edema versus pneumonia. 2. No pleural effusion. The above report was generated using voice recognition software. It may contain grammatical, syntax o r spelling errors. Electronically signed by: Carson Epps M.D. 11/07/2018 12:09 PM
[2018-11-07] MEDS ORDERED: POTASSIUM CHLORIDE 20 MEQ TABCR PO STA (12:28)
--- NOTE | 2018-11-07 13:06 | Wound Progress Note ---
Date of Service November 07, 2018 Subjective Mr. Evans is currently an active patient at the wound center. We were consulted for evaluation of a diabetic foot ulcer. Unfortunately his INR is supratherapeutic today and debridement cannot be done. Wound care inpatient nurse will follow the patient and consult will be performed once INR is corrected.
[2018-11-07 14:06] LABS: Prothrombin Time > 100.0 Seconds (9.0-12.0)
[2018-11-07 14:13] LABS: INR > 11.0 (0.9-1.1)
[2018-11-07] MEDS ORDERED: WARFARIN SOD 3 MG TAB PO SCH (16:00)
--- NOTE | 2018-11-07 16:15 | Cardiology Progress Note ---
Date of Service November 07, 2018 Assessment & Plan (1) Hypoxia: Multifactorial respiratory failure suspected continues to require oxygen supplementation. Chest x-ray today demonstrates persistent patchy infiltrate plus edema. Blood pressures have improved and patient now responded to diuretics. Will increase furosemide to 40 mg IV3 times daily continue all therapies otherwise as prescribed Potassium supple (2) LBBB (left bundle branch block): Stable (3) Cardiomyopathy, idiopathic: Ejection fraction normal on echocardiogram this admission (4) Paroxysmal atrial fibrillation: Patient remains in sinus rhythm and is chronically anticoagulated, supratherapeutic (5) Respiratory failure: Multifactorial etiology patient is on immunosuppressive therapy with methotrexate and prednisone will order repeat chest x-ray for later today depending on response to diuretic (6) Rheumatoid arthritis: Patient on methotrexate and prednisone chronically. Remains on stress dose to (7) HTN (hypertension): Patient presented relatively hypotensive for this patient but now trending closer towards normal. Clonidine dosing reduced to avoid rebound but may also be able to discontinue. Amlodipine held Subjective Patient answering questions notes no acute complaints but remains significantly hypoxic requiring oxygen supplementation BiPAP Physical Exam 2 Vital Signs (Past 24 Hours): Last Vital Signs Temp 36.9 C 11/07/18 15:31 Pulse 72 11/07/18 15:31 Resp 20 11/07/18 15:31 BP 135/65 11/07/18 15:31 Pulse Ox 94 11/07/18 15:31 Constitutional: no acute distress ENMT: external ear and nose normal, oropharynx normal Neck: trachea midline, no thyromegaly Respiratory: Auscultation: + crackles (Diffuse all lung steward) Cardiovascular: RRR, no murmur, no edema Vessels: no JVD Gastrointestinal (Abdomen): Percussion/Palpation: abdomen soft; abdomen nontender and no hepatosplenomegaly Musculoskeletal: no cyanosis or clubbing, extremities motor strength 5/5 Neurologic: PERRL, EOMI, accommodation nl, no face palsy, no dysarthria Results & Data Laboratory Results 11/07/18 11/07/18 11/07/18 Range/Units 14:32 13:24 11:27 WBC (4.8-10.8) K/uL RBC (4.7-6.1) M/uL Hgb (14.0-18.0) g/dL Hct (42-52) % MCV (80-100) fL MCH (25-34) pg MCHC (32-36) g/dL RDW Std Deviation (36.4-46.3) fL RDW Coeff of Estelita (11.5-14.5) % Plt Count (130-400) K/uL MPV (7.4-10.4) fL PT > 100.0 H (9.0-12.0) Seconds INR > 11.0 H* (0.9-1.1) Sodium (136-145) mmol/L Potassium (3.5-5.1) mmol/L Chloride (98-107) mmol/L Carbon Dioxide (21-32) mmol/L Anion Gap (3-11) BUN (7-18) mg/dl Creatinine (0.6-1.4) mg/dl Est Cr Clr Drug Dosing ml/min Est GFR ( Amer) Est GFR (Non-Af Amer) BUN/Creatinine Ratio (10-20) Glucose (70-99) mg/dl POC Glucose 261 H 347 H (70-99) Calcium (8.5-10.1) mg/dl Magnesium (1.8-2.4) mg/dl 11/07/18 11/07/18 11/07/18 Range/Units 07:22 06:42 06:42 WBC 5.20 (4.8-10.8) K/uL RBC 3.10 L (4.7-6.1) M/uL Hgb 9.6 L (14.0-18.0) g/dL Hct 27.6 L (42-52) % MCV 89.0 (80-100) fL MCH 31.0 (25-34) pg MCHC 34.8 (32-36) g/dL RDW Std Deviation 45.2 (36.4-46.3) fL RDW Coeff of Estelita 14.0 (11.5-14.5) % Plt Count 127 L (130-400) K/uL MPV 9.0 (7.4-10.4) fL PT (9.0-12.0) Seconds INR (0.9-1.1) Sodium 140 (136-145) mmol/L Potassium 3.4 L (3.5-5.1) mmol/L Chloride 108 H (98-107) mmol/L Carbon Dioxide 26 (21-32) mmol/L Anion Gap 6.0 (3-11) BUN 37 H (7-18) mg/dl Creatinine 1.48 H D (0.6-1.4) mg/dl Est Cr Clr Drug Dosing 43.7 ml/min Est GFR ( Amer) 51.1 Est GFR (Non-Af Amer) 44.1 BUN/Creatinine Ratio 25.0 H (10-20) Glucose 198 H (70-99) mg/dl POC Glucose 216 H (70-99) Calcium 7.4 L (8.5-10.1) mg/dl Magnesium 2.6 H (1.8-2.4) mg/dl 11/07/18 11/06/18 11/06/18 Range/Units 06:42 20:28 16:22 WBC (4.8-10.8) K/uL RBC (4.7-6.1) M/uL Hgb (14.0-18.0) g/dL Hct (42-52) % MCV (80-100) fL MCH (25-34) pg MCHC (32-36) g/dL RDW Std Deviation (36.4-46.3) fL RDW Coeff of Estelita (11.5-14.5) % Plt Count (130-400) K/uL MPV (7.4-10.4) fL PT > 100.0 H (9.0-12.0) Seconds INR > 11.0 H* (0.9-1.1) Sodium (136-145) mmol/L Potassium (3.5-5.1) mmol/L Chloride (98-107) mmol/L Carbon Dioxide (21-32) mmol/L Anion Gap (3-11) BUN (7-18) mg/dl Creatinine (0.6-1.4) mg/dl Est Cr Clr Drug Dosing ml/min Est GFR ( Amer) Est GFR (Non-Af Amer) BUN/Creatinine Ratio (10-20) Glucose (70-99) mg/dl POC Glucose 332 H 191 H (70-99) Calcium (8.5-10.1) mg/dl Magnesium (1.8-2.4) mg/dl
[2018-11-07 17:41] LABS: Prothrombin Time 70.3 Seconds (9.0-12.0)
[2018-11-07 17:45] LABS: INR 7.8 (0.9-1.1)
--- NOTE | 2018-11-07 19:13 | Emergency Department Note ---
Entered by Fannie Bryant acting as a scribe for History of Present Illness General Chief complaint: Shortness of Breath/Dyspnea Stated complaint: WEAKNESS, ILLNESS, Time Seen by Provider: 11/04/18 15:57 Source: patient Mode of arrival: EMS Limitations: no limitations History of Present Illness Onset (ago): day(s) 1 Location: chest Radiation: non-radiation Pain Consistency: + constant Relieved By: + other (Oxygen) Associated symptoms: + weakness and + other (-abdominal pain) Treatments prior to arrival: other (Oxygen) The patient is an 78 year old male who presents to the Emergency Room with complaints of shortness of breath. He was brought to the ED via EMS. He states he felt extremely weak today and "couldn't get his legs to move", so he called EMS. He was 65% in the field and came up to 74% when he was placed on O2. He is at 85% on NRB. The patient denies any recent abdominal pain. Home Medications Home Medications Medication Instructions Recorded Confirmed Type amlodipine 10 mg tablet 10 mg PO .q am tab 07/01/18 11/04/18 History aspirin 81 mg tablet,delayed 81 mg PO .q am tab 07/01/18 11/04/18 History release carvedilol 6.25 mg tablet 6.25 mg PO BID 07/01/18 11/04/18 History clonidine HCl 0.3 mg tablet 0.3 mg PO BID 07/01/18 11/04/18 History fluticasone 50 mcg/actuation nasal 2 sprays INTNAS DAILY 07/01/18 11/04/18 History spray,suspension folic acid 1 mg tablet 1 mg PO .q am tab 07/01/18 11/04/18 History furosemide 40 mg tablet 40 mg PO BID 07/01/18 11/04/18 History glimepiride 2 mg tablet 2 mg PO BID tab 07/01/18 11/04/18 History lisinopril 40 mg tablet 40 mg PO .q am tab 07/01/18 11/04/18 History metformin 1,000 mg tablet 1,000 mg PO BIDM 07/01/18 11/04/18 History pravastatin 40 mg tablet 40 mg PO .q hs tab 07/01/18 11/04/18 History warfarin 3 mg tablet 3 mg PO .MON&FRI tab 07/01/18 11/04/18 History cadexomer iodine 0.9 % topical gel 40 gm TOP Q3D #40 gm 08/28/18 11/04/18 Rx cyanocobalamin (vitamin B-12) 2,500 mcg PO DAILY 08/28/18 11/04/18 History 2,500 mcg tablet methotrexate sodium 15 mg PO WK 11/04/18 11/04/18 History prednisone 5 mg PO DAILY 11/04/18 11/04/18 History warfarin 1.5 mg PO 5XWK 11/04/18 11/04/18 History Allergies Allergy/AdvReac Type Severity Reaction Status Date / Time No Known Allergies Allergy Verified 10/23/18 14:39 Past Med/Surg History Medical History Congestive heart failure A-fib (Chronic) CAD (coronary artery disease) (Chronic) Diabetes (Chronic) HTN (hypertension) (Chronic) Hx of left bundle branch block (Chronic) Osteomyelitis (Chronic) 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) Social History marital status: Current Living Situation: Spouse and Family Other Information That Helps Us Care for You: No Feels Safe at Home: No Is there a partner from a previous relationship who is making you feel unsafe now?: No Any Concerns about Your Family Situation: No Would You Like to Speak to Someone About Your Situation: No Safety Concerns: Feels Safe At This Time Smoking Status: Former smoker Tobacco Type: cigarettes Do You Dip or Chew Tobacco: Yes Second Hand Exposure: No Tobacco Cessation Education Requested by Patient: No Hx Alcohol Use: No Hx Substance Use: No Beliefs That Will Affect Care: None Communication Ability: Effective Review of Systems See HPI for pertinent positives & negatives. and A total of 10 systems reviewed and were otherwise negative Physical Exam Vital Signs Vital Signs - 24 hr 11/06/18 20:00 11/06/18 20:06 11/06/18 23:33 Temperature 37.3 C Temperature Source Oral Pulse Rate Pulse Rate [Finger] 82 77 Respiratory Rate 22 18 Respiratory Effort / Characteristics Non-Labored Non-Labored Respiratory Depth Normal Respiratory Pattern Regular Blood Pressure [Left Arm] Blood Pressure [Right Arm] 114/62 Blood Pressure Mean [Left Arm] Blood Pressure Mean [Right Arm] 79 Blood Pressure Position [Left Arm] Blood Pressure Position [Right Arm] Lying Pulse Oximetry 85 L 91 Oxygen Delivery Method Oxymask Oxymask Oxygen Flow Rate 12 12 Fraction of Inspired Oxygen 11/07/18 00:55 11/07/18 04:58 11/07/18 07:02 Temperature 36.7 C 37.2 C 36.9 C Temperature Source Oral Oral Oral Pulse Rate Pulse Rate [Finger] 90 90 79 Respiratory Rate 17 17 20 Respiratory Effort / Characteristics Respiratory Depth Respiratory Pattern Blood Pressure [Left Arm] 123/60 Blood Pressure [Right Arm] 110/50 L 97/64 L Blood Pressure Mean [Left Arm] 81 Blood Pressure Mean [Right Arm] 70 75 Blood Pressure Position [Left Arm] Sitting Blood Pressure Position [Right Arm] Lying Pulse Oximetry 90 98 87 L Oxygen Delivery Method Oxymask Oxymask Oxymask Oxygen Flow Rate 12 12 Fraction of Inspired Oxygen 11/07/18 07:18 11/07/18 08:00 11/07/18 11:09 Temperature 36.6 C Temperature Source Oral Pulse Rate Pulse Rate [Finger] 77 71 Respiratory Rate 18 20 Respiratory Effort / Characteristics Spontaneous Accessory Muscle Use Respiratory Depth Normal Respiratory Pattern Regular Blood Pressure [Left Arm] Blood Pressure [Right Arm] 120/57 L Blood Pressure Mean [Left Arm] Blood Pressure Mean [Right Arm] 78 Blood Pressure Position [Left Arm] Blood Pressure Position [Right Arm] Pulse Oximetry 89 L 98 Oxygen Delivery Method Oxymask BiPAP BiPAP Oxygen Flow Rate 15 Fraction of Inspired Oxygen 11/07/18 11:18 11/07/18 15:17 11/07/18 15:30 Temperature Temperature Source Pulse Rate 71 70 Pulse Rate [Finger] 71 70 Respiratory Rate 27 H 32 H 32 H Respiratory Effort / Characteristics Spontaneous Non-Labored Spontaneous Respiratory Depth Respiratory Pattern Blood Pressure [Left Arm] Blood Pressure [Right Arm] Blood Pressure Mean [Left Arm] Blood Pressure Mean [Right Arm] Blood Pressure Position [Left Arm] Blood Pressure Position [Right Arm] Pulse Oximetry 96 96 96 Oxygen Delivery Method BiPAP BiPAP Oxygen Flow Rate Fraction of Inspired Oxygen 70 70 70 11/07/18 15:31 11/07/18 17:16 Temperature 36.9 C Temperature Source Oral Pulse Rate 73 Pulse Rate [Finger] 72 Respiratory Rate 20 Respiratory Effort / Characteristics Non-Labored Respiratory Depth Normal Respiratory Pattern Regular Blood Pressure [Left Arm] 135/65 Blood Pressure [Right Arm] Blood Pressure Mean [Left Arm] 88 Blood Pressure Mean [Right Arm] Blood Pressure Position [Left Arm] Lying Blood Pressure Position [Right Arm] Pulse Oximetry 94 Oxygen Delivery Method BiPAP BiPAP Oxygen Flow Rate Fraction of Inspired Oxygen 70 GENERAL: Awake, alert, well-appearing, in no distress HENT: Normocephalic, atraumatic. Oropharynx unremarkable. EYES: Normal conjunctiva. Sclera non-icteric. NECK: Supple. No nuchal rigidity. FROM. No masses. RESPIRATORY: Distant breath sounds. No wheezes. No rales. Normal respiratory effort. CARDIAC: Normal rate. Normal rhythm. No murmurs. No rubs. Extremities warm and well perfused. Pulses equal. No JVD. GI: Soft, non-distended. No tenderness to palpation. No rebound or guarding. No masses. RECTAL: Deferred. MUSCULOSKELETAL: Atraumatic. Chest examination reveals no tenderness. The back is symmetrical on inspection without obvious abnormality. There is no CVA tenderness to palpation. No joint edema. LOWER EXTREMITIES: Boot on right foot. Calves are equal size bilaterally and non -tender. No edema. No discoloration. NEURO: Normal sensorium. No sensory or motor deficits noted. Course 1602: Past medical records reviewed. The patient was evaluated in room C3, and a complete history and physical examination were performed. 1917: [facility] The patient will be further evaluated. Consultations Consultation #1: [facility] The patient will be further evaluated. Time: 19:17 Administered Medications Albuterol (Duoneb) 3 ml NEB QIDR [facility] Stop: 12/06/18 11:59 Last Admin: 11/07/18 15:17 Dose: 3 ml Admin: 11/07/18 11:17 Dose: 3 ml Admin: 11/07/18 07:17 Dose: 3 ml Admin: 11/06/18 20:06 Dose: 3 ml Admin: 11/06/18 15:26 Dose: 3 ml Admin: 11/06/18 11:19 Dose: 3 ml Amlodipine Besylate (Norvasc) 10 mg PO [facility] Stop: 12/05/18 08:59 Last Admin: 11/05/18 07:51 Dose: 10 mg Carvedilol (Coreg) 6.25 mg PO BID [facility] Stop: 12/04/18 21:18 Last Admin: 11/07/18 09:21 Dose: 6.25 mg Admin: 11/06/18 20:44 Dose: 6.25 mg Admin: 11/06/18 08:25 Dose: 6.25 mg Admin: 11/05/18 21:39 Dose: Not Given Admin: 11/05/18 07:50 Dose: 6.25 mg Admin: 11/04/18 23:38 Dose: Not Given Clonidine HCl (Catapres) 0.1 mg PO BID [facility] Stop: 12/05/18 20:59 Last Admin: 11/07/18 09:20 Dose: 0.1 mg Admin: 11/06/18 20:43 Dose: 0.1 mg Admin: 11/06/18 08:25 Dose: 0.1 mg Admin: 11/05/18 21:39 Dose: Not Given Cyanocobalamin (Vitamin B-12) 2,500 mcg SL DAILY [facility] Stop: 12/05/18 08:59 Last Admin: 11/07/18 09:22 Dose: 2,500 mcg Admin: 11/06/18 08:25 Dose: 2,500 mcg Admin: 11/05/18 07:54 Dose: 2,500 mcg Doxycycline Hyclate (Vibramycin) 100 mg PO BID [facility] Stop: 11/12/18 08:59 Last Admin: 11/07/18 09:22 Dose: 100 mg Admin: 11/06/18 20:44 Dose: 100 mg Admin: 11/06/18 11:06 Dose: 100 mg Admin: 11/05/18 22:21 Dose: 100 mg Admin: 11/05/18 07:49 Dose: 100 mg Folic Acid (Folvite) 1 mg PO QAM [facility] Stop: 12/05/18 08:59 Last Admin: 11/07/18 09:21 Dose: 1 mg Admin: 11/06/18 08:25 Dose: 1 mg Admin: 11/05/18 07:52 Dose: 1 mg Piperacillin Sod/Tazobactam Sod (Zosyn) 3.375 gm in 115 mls @ 28.75 mls/hr IV Q8H [facility]; Protocol Stop: 11/15/18 00:00 Last Admin: 11/07/18 15:46 Dose: 28.8 mls/hr Infusion: 11/07/18 12:28 Dose: 0 mls/hr Infusion: 11/07/18 12:27 Dose: Admin: 11/07/18 08:19 Dose: 28.8 mls/hr Infusion: 11/07/18 04:01 Dose: 0 mls/hr Admin: 11/06/18 23:56 Dose: 28.8 mls/hr Infusion: 11/06/18 20:48 Dose: 0 mls/hr Admin: 11/06/18 16:45 Dose: 28.8 mls/hr Infusion: 11/06/18 12:24 Dose: 0 mls/hr Admin: 11/06/18 08:24 Dose: 28.8 mls/hr Infusion: 11/06/18 03:44 Dose: 0 mls/hr Admin: 11/05/18 23:44 Dose: 28.8 mls/hr Infusion: 11/05/18 19:37 Dose: 0 mls/hr Admin: 11/05/18 15:37 Dose: 28.8 mls/hr Infusion: 11/05/18 12:05 Dose: 0 mls/hr Admin: 11/05/18 08:01 Dose: 28.8 mls/hr Infusion: 11/05/18 04:21 Dose: 0 mls/hr Admin: 11/05/18 00:16 Dose: 28.8 mls/hr Hydrocortisone Sodium (Succinate 50 mg/ Syringe) 1 mls @ 4 mls/min IV Q6 [facility] Stop: 12/05/18 17:59 Last Admin: 11/07/18 17:50 Dose: 4 mls/min Admin: 11/07/18 12:22 Dose: 4 mls/min Admin: 11/07/18 06:17 Dose: 4 mls/min Admin: 11/07/18 00:03 Dose: 4 mls/min Admin: 11/06/18 16:46 Dose: 4 mls/min Admin: 11/06/18 12:00 Dose: 4 mls/min Admin: 11/06/18 06:15 Dose: 4 mls/min Admin: 11/05/18 23:45 Dose: 4 mls/min Admin: 11/05/18 19:14 Dose: 4 mls/min Vancomycin HCl 1,250 mg/ (Sodium Chloride) 275 mls @ 125 mls/hr IV Q24H [facility] Stop: 11/12/18 09:59 Last Infusion: 11/07/18 14:09 Dose: 0 mls/hr Admin: 11/07/18 11:22 Dose: 125 mls/hr Furosemide 40 mg/ Syringe 4 mls @ 4 mls/min IV TID [facility] Stop: 12/07/18 13:59 Last Admin: 11/07/18 15:37 Dose: 4 mls/min Insulin Aspart (Novolog Flexpen) 0 units SC ACHS [facility] Stop: 12/04/18 21:18 Last Admin: 11/07/18 17:03 Dose: 11 units Admin: 11/07/18 12:23 Dose: 8 units Admin: 11/07/18 08:45 Dose: 1 units Admin: 11/06/18 20:51 Dose: 4 units Admin: 11/06/18 16:47 Dose: 1 units Admin: 11/06/18 12:00 Dose: 1 units Admin: 11/06/18 08:21 Dose: Not Given Admin: 11/05/18 21:39 Dose: Not Given Admin: 11/05/18 16:20 Dose: Not Given Admin: 11/05/18 13:50 Dose: Not Given Admin: 11/05/18 07:52 Dose: Not Given Admin: 11/04/18 23:42 Dose: Not Given Miscellaneous (Carbohydrates For Hypoglycemia) 15 - 30 gm PO UD PRN PRN Reason: Hypoglycemia Treatment Stop: 12/04/18 21:57 Last Admin: 11/05/18 23:38 Dose: 30 gm Admin: 11/05/18 20:45 Dose: 15 gm Admin: 11/05/18 20:29 Dose: 15 gm Admin: 11/05/18 16:19 Dose: 15 gm Admin: 11/05/18 06:16 Dose: 30 gm Pravastatin Sodium (Pravachol) 40 mg PO HS [facility] Stop: 12/04/18 21:18 Last Admin: 11/06/18 20:44 Dose: 40 mg Admin: 11/05/18 22:20 Dose: 40 mg Admin: 11/04/18 23:43 Dose: 40 mg Prednisone (Prednisone) 5 mg PO DAILY [facility] Stop: 12/05/18 08:59 Last Admin: 11/05/18 07:52 Dose: 5 mg Warfarin Sodium (Coumadin) 1 mg PO [id number] [facility] Stop: 12/05/18 15:59 Last Admin: 11/05/18 15:33 Dose: 1 mg Warfarin Sodium (Coumadin) 0.5 mg PO [email or web address] [facility] Stop: 12/05/18 15:59 Last Admin: 11/05/18 15:34 Dose: 0.5 mg Discontinued Medications Clonidine HCl (Catapress) 0.3 mg PO BID [facility] Stop: 12/04/18 21:18 Last Admin: 11/05/18 07:51 Dose: 0.3 mg Admin: 11/04/18 23:38 Dose: Not Given Furosemide (Lasix) 40 mg IV NOW STA Stop: 11/04/18 18:24 Last Admin: 11/04/18 19:03 Dose: 40 mg Magnesium Sulfate/Dextrose (Magnesium Sulfate / D5w) 1 gm in 100 mls @ 100 mls/ hr IV ONE ONE Stop: 11/04/18 17:37 Last Infusion: 11/04/18 18:14 Dose: 0 mls/hr Admin: 11/04/18 17:14 Dose: 100 mls/hr Levofloxacin/Dextrose (Levaquin/D5w) 750 mg in 150 mls @ 100 mls/hr IV NOW STA Stop: 11/04/18 18:41 Last Infusion: 11/04/18 20:37 Dose: 0 mls/hr Admin: 11/04/18 18:45 Dose: 100 mls/hr Piperacillin Sod/Tazobactam Sod (Zosyn) 4.5 gm in 120 mls @ 240 mls/hr IV NOW ONE Stop: 11/04/18 17:41 Last Infusion: 11/04/18 18:37 Dose: 0 mls/hr Admin: 11/04/18 18:07 Dose: 240 mls/hr Vancomycin HCl 1,750 mg/ (Sodium Chloride) 535 mls @ 200 mls/hr IV NOW ONE Stop: 11/04/18 19:52 Last Infusion: 11/04/18 21:26 Dose: Admin: 11/04/18 18:45 Dose: 200 mls/hr Sodium Chloride (Nss 1000ml) 500 mls @ 999 mls/hr IV .Q31M ONE Stop: 11/04/18 19:25 Last Infusion: 11/04/18 19:46 Dose: 0 mls/hr Admin: 11/04/18 19:04 Dose: 999 mls/hr Furosemide 20 mg/ Syringe 2 mls @ 4 mls/min IV ONE STA Stop: 11/04/18 23:13 Last Admin: 11/05/18 00:06 Dose: Not Given Furosemide 40 mg/ Syringe 4 mls @ 4 mls/min IV [id number] [facility] Stop: 12/05/18 08:59 Last Admin: 11/07/18 09:21 Dose: 4 mls/min Admin: 11/06/18 16:46 Dose: 4 mls/min Admin: 11/06/18 08:24 Dose: 4 mls/min Admin: 11/05/18 16:21 Dose: 4 mls/min Admin: 11/05/18 07:49 Dose: 4 mls/min Furosemide 80 mg/ Syringe 8 mls @ 4 mls/min IV TODAY@1300 ONE Stop: 11/05/18 13:01 Last Admin: 11/05/18 15:33 Dose: 4 mls/min Vancomycin HCl 1,500 mg/ (Sodium Chloride) 530 mls @ 200 mls/hr IV NOW ONE Stop: 11/06/18 12:08 Last Infusion: 11/06/18 12:31 Dose: 0 mls/hr Admin: 11/06/18 09:52 Dose: 200 mls/hr Insulin Glargine (Lantus Solostar Pen) 5 units SC BID [facility]; Protocol Stop: 12/04/18 21:18 Last Admin: 11/07/18 08:47 Dose: 3 units Admin: 11/05/18 07:52 Dose: 5 units Admin: 11/04/18 23:43 Dose: Not Given Insulin Glargine (Lantus) 10 units SC NOW STA Stop: 11/06/18 20:44 Last Admin: 11/06/18 20:53 Dose: 10 units Ioversol (Optiray 320 125ml) 103 ml IV ONCE PRN PRN Reason: Interaction Checking Stop: 11/08/18 17:47 Last Admin: 11/04/18 17:48 Dose: 103 ml Levalbuterol HCl (Xopenenx 1.25mg/3ml Neb) 1.25 mg NEB NOW STA Stop: 11/04/18 16:05 Last Admin: 11/04/18 16:30 Dose: Not Given Levalbuterol HCl (Xopenex 1.25mg/0.5ml Neb) Confirm Administered Dose 1.25 mg .ROUTE .STK-MED ONE Stop: 11/04/18 16:17 Last Admin: 11/04/18 16:30 Dose: 1.25 mg Phytonadione (Mephyton) 5 mg PO NOW STA Stop: 11/07/18 08:29 Last Admin: 11/07/18 08:51 Dose: 5 mg Potassium Chloride (Klor-Con M20) 80 meq PO NOW ONE Stop: 11/05/18 09:01 Last Admin: 11/05/18 10:33 Dose: 80 meq Potassium Chloride (Klor-Con M20) 40 meq PO NOW STA Stop: 11/07/18 12:29 Last Admin: 11/07/18 14:01 Dose: 40 meq Medical Decision Making Differential Diagnosis Differential diagnoses includes but is not limited to pneumonia, bronchitis, COPD/Asthma exacerbation, pneumothorax, pulmonary embolism, congestive heart failure, acute coronary syndrome. Medical Records Attestation: I reviewed the patient's medical records. Home Medications Current Medication List: was personally reviewed by me Laboratory Data Attestation: I reviewed the patient's lab results. Result diagrams: 11/07/18 06:42 11/07/18 06:42 Lab Results 11/04/18 11/04/18 11/04/18 Range/Units 16:30 16:30 16:30 WBC 8.46 (4.8-10.8) K/uL RBC 3.46 L (4.7-6.1) M/uL Hgb 10.4 L (14.0-18.0) g/dL POC Hgb (14.0-18.0) g/dl Hct 30.7 L (42-52) % POC Hct (42-52) % MCV 88.7 (80-100) fL MCH 30.1 (25-34) pg MCHC 33.9 (32-36) g/dL RDW Std Deviation 44.9 (36.4-46.3) fL RDW Coeff of Estelita 13.9 (11.5-14.5) % Plt Count 149 (130-400) K/uL MPV 9.3 (7.4-10.4) fL Immature Gran % (Auto) 0.1 % Neut % (Auto) 95.5 % Lymph % (Auto) 3.7 % Kerr % (Auto) 0.7 % Eos % (Auto) 0.0 % Baso % (Auto) 0.0 % Immature Gran # (Auto) 0.01 (0.00-0.02) K/uL Neut # (Auto) 8.08 H (1.4-6.5) K/uL Lymph # (Auto) 0.31 L (1.2-3.4) K/uL Kerr # (Auto) 0.06 L (0.11-0.59) K/uL Eos # (Auto) 0.00 (0-0.5) K/uL Baso # (Auto) 0.00 (0-0.2) K/uL PT (9.0-12.0) Seconds INR (0.9-1.1) POC pH 7.46 H (7.35-7.45) POC pCO2 25 L (35-46) mmHg POC pO2 56 L (80-95) mmHg POC HCO3 18 L (19-24) tierra/L POC Total CO2 18 L (24-31) mEq/l POC Base Excess -6.0 (-9-1.8) tierra/L POC ABG O2 Sat 91.0 (90-95) % POC Sodium (135-144) mEq/L Sodium 132 L (136-145) mmol/L POC Potassium (3.3-5.0) mEq/L Potassium 3.8 (3.5-5.1) mmol/L POC Chloride (101-112) mEq/L Chloride 100 (98-107) mmol/L Carbon Dioxide 22 (21-32) mmol/L Anion Gap 10.0 (3-11) POC Anion Gap (16-25) mmol/L POC BUN (7-18) mg/dl BUN 42 H (7-18) mg/dl Creatinine 1.95 H (0.6-1.4) mg/dl POC Creatinine (0.6-1.3) mg/dl Est Cr Clr Drug Dosing 33.2 ml/min Est GFR ( Amer) 36.6 Est GFR (Non-Af Amer) 31.6 BUN/Creatinine Ratio 21.5 H (10-20) Glucose 169 H (70-99) mg/dl POC Glucose (70-99) POC Glucose (other) (70-99) mg/dl Estimat Average Glucose mg/dl Hemoglobin A1c (4.5-5.6) % Calcium 7.8 L (8.5-10.1) mg/dl POC Ioniz Calcium Prashanth (1.12-1.32) mmol/l Magnesium (1.8-2.4) mg/dl Total Bilirubin 1.1 H (0.2-1) mg/dl AST 52 H (15-37) U/L ALT 63 (12-78) U/L Alkaline Phosphatase 62 (45-117) U/L Total Creatine Kinase 261 (39-308) U/L CK-MB (CK-2) 4.1 H (0.5-3.6) ng/ml CK/CKMB % Calc 1.6 (0-3.0) Troponin I 0.391 H* (0-0.045) ng/ml NT-Pro-B Natriuret Pep (0-1800) pg/ml Total Protein 6.1 L (6.4-8.2) gm/dl Albumin 2.6 L (3.4-5.0) gm/dl Globulin 3.5 (2.5-4.0) gm/dl Albumin/Globulin Ratio 0.7 L (0.9-2) Lipase 117 (73-393) U/L Procalcitonin (0-0.5) ng/ml Random Vancomycin mcg/ml 11/04/18 11/04/18 11/04/18 Range/Units 16:30 16:30 16:35 WBC (4.8-10.8) K/uL RBC (4.7-6.1) M/uL Hgb (14.0-18.0) g/dL POC Hgb 9.9 L (14.0-18.0) g/dl Hct (42-52) % POC Hct 29 L (42-52) % MCV (80-100) fL MCH (25-34) pg MCHC (32-36) g/dL RDW Std Deviation (36.4-46.3) fL RDW Coeff of Estelita (11.5-14.5) % Plt Count (130-400) K/uL MPV (7.4-10.4) fL Immature Gran % (Auto) % Neut % (Auto) % Lymph % (Auto) % Kerr % (Auto) % Eos % (Auto) % Baso % (Auto) % Immature Gran # (Auto) (0.00-0.02) K/uL Neut # (Auto) (1.4-6.5) K/uL Lymph # (Auto) (1.2-3.4) K/uL Kerr # (Auto) (0.11-0.59) K/uL Eos # (Auto) (0-0.5) K/uL Baso # (Auto) (0-0.2) K/uL PT 32.8 H (9.0-12.0) Seconds INR 3.5 H (0.9-1.1) POC pH (7.35-7.45) POC pCO2 (35-46) mmHg POC pO2 (80-95) mmHg POC HCO3 (19-24) tierra/L POC Total CO2 20 L (24-31) mEq/l POC Base Excess (-9-1.8) tierra/L POC ABG O2 Sat (90-95) % POC Sodium 133 L (135-144) mEq/L Sodium (136-145) mmol/L POC Potassium 3.7 (3.3-5.0) mEq/L Potassium (3.5-5.1) mmol/L POC Chloride 97 L (101-112) mEq/L Chloride (98-107) mmol/L Carbon Dioxide (21-32) mmol/L Anion Gap (3-11) POC Anion Gap 21.0 (16-25) mmol/L POC BUN 34 H (7-18) mg/dl BUN (7-18) mg/dl Creatinine (0.6-1.4) mg/dl POC Creatinine 1.9 H (0.6-1.3) mg/dl Est Cr Clr Drug Dosing ml/min Est GFR ( Amer) Est GFR (Non-Af Amer) BUN/Creatinine Ratio (10-20) Glucose (70-99) mg/dl POC Glucose (70-99) POC Glucose (other) 178 H (70-99) mg/dl Estimat Average Glucose mg/dl Hemoglobin A1c (4.5-5.6) % Calcium (8.5-10.1) mg/dl POC Ioniz Calcium Prashanth 1.04 L (1.12-1.32) mmol/l Magnesium (1.8-2.4) mg/dl Total Bilirubin (0.2-1) mg/dl AST (15-37) U/L ALT (12-78) U/L Alkaline Phosphatase (45-117) U/L Total Creatine Kinase (39-308) U/L CK-MB (CK-2) (0.5-3.6) ng/ml CK/CKMB % Calc (0-3.0) Troponin I (0-0.045) ng/ml NT-Pro-B Natriuret Pep 7392 H (0-1800) pg/ml Total Protein (6.4-8.2) gm/dl Albumin (3.4-5.0) gm/dl Globulin (2.5-4.0) gm/dl Albumin/Globulin Ratio (0.9-2) Lipase (73-393) U/L Procalcitonin (0-0.5) ng/ml Random Vancomycin mcg/ml 11/04/18 11/04/18 11/05/18 Range/Units 22:09 23:42 00:19 WBC (4.8-10.8) K/uL RBC (4.7-6.1) M/uL Hgb (14.0-18.0) g/dL POC Hgb (14.0-18.0) g/dl Hct (42-52) % POC Hct (42-52) % MCV (80-100) fL MCH (25-34) pg MCHC (32-36) g/dL RDW Std Deviation (36.4-46.3) fL RDW Coeff of Estelita (11.5-14.5) % Plt Count (130-400) K/uL MPV (7.4-10.4) fL Immature Gran % (Auto) % Neut % (Auto) % Lymph % (Auto) % Kerr % (Auto) % Eos % (Auto) % Baso % (Auto) % Immature Gran # (Auto) (0.00-0.02) K/uL Neut # (Auto) (1.4-6.5) K/uL Lymph # (Auto) (1.2-3.4) K/uL Kerr # (Auto) (0.11-0.59) K/uL Eos # (Auto) (0-0.5) K/uL Baso # (Auto) (0-0.2) K/uL PT (9.0-12.0) Seconds INR (0.9-1.1) POC pH (7.35-7.45) POC pCO2 (35-46) mmHg POC pO2 (80-95) mmHg POC HCO3 (19-24) tierra/L POC Total CO2 (24-31) mEq/l POC Base Excess (-9-1.8) tierra/L POC ABG O2 Sat (90-95) % POC Sodium (135-144) mEq/L Sodium (136-145) mmol/L POC Potassium (3.3-5.0) mEq/L Potassium (3.5-5.1) mmol/L POC Chloride (101-112) mEq/L Chloride (98-107) mmol/L Carbon Dioxide (21-32) mmol/L Anion Gap (3-11) POC Anion Gap (16-25) mmol/L POC BUN (7-18) mg/dl BUN (7-18) mg/dl Creatinine (0.6-1.4) mg/dl POC Creatinine (0.6-1.3) mg/dl Est Cr Clr Drug Dosing ml/min Est GFR ( Amer) Est GFR (Non-Af Amer) BUN/Creatinine Ratio (10-20) Glucose (70-99) mg/dl POC Glucose 126 H 77 (70-99) POC Glucose (other) (70-99) mg/dl Estimat Average Glucose mg/dl Hemoglobin A1c (4.5-5.6) % Calcium (8.5-10.1) mg/dl POC Ioniz Calcium Prashanth (1.12-1.32) mmol/l Magnesium (1.8-2.4) mg/dl Total Bilirubin (0.2-1) mg/dl AST (15-37) U/L ALT (12-78) U/L Alkaline Phosphatase (45-117) U/L Total Creatine Kinase (39-308) U/L CK-MB (CK-2) (0.5-3.6) ng/ml CK/CKMB % Calc (0-3.0) Troponin I 0.428 H* (0-0.045) ng/ml NT-Pro-B Natriuret Pep (0-1800) pg/ml Total Protein (6.4-8.2) gm/dl Albumin (3.4-5.0) gm/dl Globulin (2.5-4.0) gm/dl Albumin/Globulin Ratio (0.9-2) Lipase (73-393) U/L Procalcitonin (0-0.5) ng/ml Random Vancomycin mcg/ml 11/05/18 11/05/18 11/05/18 Range/Units 05:18 05:18 05:18 WBC 5.99 (4.8-10.8) K/uL RBC 3.13 L (4.7-6.1) M/uL Hgb 9.4 L (14.0-18.0) g/dL POC Hgb (14.0-18.0) g/dl Hct 27.4 L (42-52) % POC Hct (42-52) % MCV 87.5 (80-100) fL MCH 30.0 (25-34) pg MCHC 34.3 (32-36) g/dL RDW Std Deviation 43.7 (36.4-46.3) fL RDW Coeff of Estelita 13.8 (11.5-14.5) % Plt Count 118 L (130-400) K/uL MPV 8.8 (7.4-10.4) fL Immature Gran % (Auto) 0.3 % Neut % (Auto) 93.6 % Lymph % (Auto) 4.5 % Kerr % (Auto) 1.2 % Eos % (Auto) 0.2 % Baso % (Auto) 0.2 % Immature Gran # (Auto) 0.02 (0.00-0.02) K/uL Neut # (Auto) 5.61 (1.4-6.5) K/uL Lymph # (Auto) 0.27 L (1.2-3.4) K/uL Kerr # (Auto) 0.07 L (0.11-0.59) K/uL Eos # (Auto) 0.01 (0-0.5) K/uL Baso # (Auto) 0.01 (0-0.2) K/uL PT 38.4 H (9.0-12.0) Seconds INR 4.1 H (0.9-1.1) POC pH (7.35-7.45) POC pCO2 (35-46) mmHg POC pO2 (80-95) mmHg POC HCO3 (19-24) tierra/L POC Total CO2 (24-31) mEq/l POC Base Excess (-9-1.8) tierra/L POC ABG O2 Sat (90-95) % POC Sodium (135-144) mEq/L Sodium 134 L (136-145) mmol/L POC Potassium (3.3-5.0) mEq/L Potassium 3.2 L D (3.5-5.1) mmol/L POC Chloride (101-112) mEq/L Chloride 103 (98-107) mmol/L Carbon Dioxide 24 (21-32) mmol/L Anion Gap 7.0 (3-11) POC Anion Gap (16-25) mmol/L POC BUN (7-18) mg/dl BUN 33 H (7-18) mg/dl Creatinine 1.55 H D (0.6-1.4) mg/dl POC Creatinine (0.6-1.3) mg/dl Est Cr Clr Drug Dosing 41.7 ml/min Est GFR ( Amer) 48.3 Est GFR (Non-Af Amer) 41.7 BUN/Creatinine Ratio 21.3 H (10-20) Glucose 48 L* (70-99) mg/dl POC Glucose (70-99) POC Glucose (other) (70-99) mg/dl Estimat Average Glucose mg/dl Hemoglobin A1c (4.5-5.6) % Calcium 7.3 L (8.5-10.1) mg/dl POC Ioniz Calcium Prashanth (1.12-1.32) mmol/l Magnesium 2.1 (1.8-2.4) mg/dl Total Bilirubin (0.2-1) mg/dl AST (15-37) U/L ALT (12-78) U/L Alkaline Phosphatase (45-117) U/L Total Creatine Kinase (39-308) U/L CK-MB (CK-2) (0.5-3.6) ng/ml CK/CKMB % Calc (0-3.0) Troponin I (0-0.045) ng/ml NT-Pro-B Natriuret Pep (0-1800) pg/ml Total Protein (6.4-8.2) gm/dl Albumin (3.4-5.0) gm/dl Globulin (2.5-4.0) gm/dl Albumin/Globulin Ratio (0.9-2) Lipase (73-393) U/L Procalcitonin (0-0.5) ng/ml Random Vancomycin mcg/ml 11/05/18 11/05/18 11/05/18 Range/Units 05:18 06:27 07:23 WBC (4.8-10.8) K/uL RBC (4.7-6.1) M/uL Hgb (14.0-18.0) g/dL POC Hgb (14.0-18.0) g/dl Hct (42-52) % POC Hct (42-52) % MCV (80-100) fL MCH (25-34) pg MCHC (32-36) g/dL RDW Std Deviation (36.4-46.3) fL RDW Coeff of Estelita (11.5-14.5) % Plt Count (130-400) K/uL MPV (7.4-10.4) fL Immature Gran % (Auto) % Neut % (Auto) % Lymph % (Auto) % Kerr % (Auto) % Eos % (Auto) % Baso % (Auto) % Immature Gran # (Auto) (0.00-0.02) K/uL Neut # (Auto) (1.4-6.5) K/uL Lymph # (Auto) (1.2-3.4) K/uL Kerr # (Auto) (0.11-0.59) K/uL Eos # (Auto) (0-0.5) K/uL Baso # (Auto) (0-0.2) K/uL PT (9.0-12.0) Seconds INR (0.9-1.1) POC pH (7.35-7.45) POC pCO2 (35-46) mmHg POC pO2 (80-95) mmHg POC HCO3 (19-24) tierra/L POC Total CO2 (24-31) mEq/l POC Base Excess (-9-1.8) tierra/L POC ABG O2 Sat (90-95) % POC Sodium (135-144) mEq/L Sodium (136-145) mmol/L POC Potassium (3.3-5.0) mEq/L Potassium (3.5-5.1) mmol/L POC Chloride (101-112) mEq/L Chloride (98-107) mmol/L Carbon Dioxide (21-32) mmol/L Anion Gap (3-11) POC Anion Gap (16-25) mmol/L POC BUN (7-18) mg/dl BUN (7-18) mg/dl Creatinine (0.6-1.4) mg/dl POC Creatinine (0.6-1.3) mg/dl Est Cr Clr Drug Dosing ml/min Est GFR ( Amer) Est GFR (Non-Af Amer) BUN/Creatinine Ratio (10-20) Glucose (70-99) mg/dl POC Glucose 72 106 H (70-99) POC Glucose (other) (70-99) mg/dl Estimat Average Glucose 148 mg/dl Hemoglobin A1c 6.8 H (4.5-5.6) % Calcium (8.5-10.1) mg/dl POC Ioniz Calcium Prashanth (1.12-1.32) mmol/l Magnesium (1.8-2.4) mg/dl Total Bilirubin (0.2-1) mg/dl AST (15-37) U/L ALT (12-78) U/L Alkaline Phosphatase (45-117) U/L Total Creatine Kinase (39-308) U/L CK-MB (CK-2) (0.5-3.6) ng/ml CK/CKMB % Calc (0-3.0) Troponin I (0-0.045) ng/ml NT-Pro-B Natriuret Pep (0-1800) pg/ml Total Protein (6.4-8.2) gm/dl Albumin (3.4-5.0) gm/dl Globulin (2.5-4.0) gm/dl Albumin/Globulin Ratio (0.9-2) Lipase (73-393) U/L Procalcitonin (0-0.5) ng/ml Random Vancomycin mcg/ml 11/05/18 11/05/18 11/05/18 Range/Units 09:30 11:13 16:15 WBC (4.8-10.8) K/uL RBC (4.7-6.1) M/uL Hgb (14.0-18.0) g/dL POC Hgb (14.0-18.0) g/dl Hct (42-52) % POC Hct (42-52) % MCV (80-100) fL MCH (25-34) pg MCHC (32-36) g/dL RDW Std Deviation (36.4-46.3) fL RDW Coeff of Estelita (11.5-14.5) % Plt Count (130-400) K/uL MPV (7.4-10.4) fL Immature Gran % (Auto) % Neut % (Auto) % Lymph % (Auto) % Kerr % (Auto) % Eos % (Auto) % Baso % (Auto) % Immature Gran # (Auto) (0.00-0.02) K/uL Neut # (Auto) (1.4-6.5) K/uL Lymph # (Auto) (1.2-3.4) K/uL Kerr # (Auto) (0.11-0.59) K/uL Eos # (Auto) (0-0.5) K/uL Baso # (Auto) (0-0.2) K/uL PT (9.0-12.0) Seconds INR (0.9-1.1) POC pH (7.35-7.45) POC pCO2 (35-46) mmHg POC pO2 (80-95) mmHg POC HCO3 (19-24) tierra/L POC Total CO2 (24-31) mEq/l POC Base Excess (-9-1.8) tierra/L POC ABG O2 Sat (90-95) % POC Sodium (135-144) mEq/L Sodium (136-145) mmol/L POC Potassium (3.3-5.0) mEq/L Potassium (3.5-5.1) mmol/L POC Chloride (101-112) mEq/L Chloride (98-107) mmol/L Carbon Dioxide (21-32) mmol/L Anion Gap (3-11) POC Anion Gap (16-25) mmol/L POC BUN (7-18) mg/dl BUN (7-18) mg/dl Creatinine (0.6-1.4) mg/dl POC Creatinine (0.6-1.3) mg/dl Est Cr Clr Drug Dosing ml/min Est GFR ( Amer) Est GFR (Non-Af Amer) BUN/Creatinine Ratio (10-20) Glucose (70-99) mg/dl POC Glucose 83 57 L* (70-99) POC Glucose (other) (70-99) mg/dl Estimat Average Glucose mg/dl Hemoglobin A1c (4.5-5.6) % Calcium (8.5-10.1) mg/dl POC Ioniz Calcium Prashanth (1.12-1.32) mmol/l Magnesium (1.8-2.4) mg/dl Total Bilirubin (0.2-1) mg/dl AST (15-37) U/L ALT (12-78) U/L Alkaline Phosphatase (45-117) U/L Total Creatine Kinase (39-308) U/L CK-MB (CK-2) (0.5-3.6) ng/ml CK/CKMB % Calc (0-3.0) Troponin I 0.387 H* (0-0.045) ng/ml NT-Pro-B Natriuret Pep (0-1800) pg/ml Total Protein (6.4-8.2) gm/dl Albumin (3.4-5.0) gm/dl Globulin (2.5-4.0) gm/dl Albumin/Globulin Ratio (0.9-2) Lipase (73-393) U/L Procalcitonin (0-0.5) ng/ml Random Vancomycin mcg/ml 11/05/18 11/05/18 11/05/18 Range/Units 16:29 20:25 20:41 WBC (4.8-10.8) K/uL RBC (4.7-6.1) M/uL Hgb (14.0-18.0) g/dL POC Hgb (14.0-18.0) g/dl Hct (42-52) % POC Hct (42-52) % MCV (80-100) fL MCH (25-34) pg MCHC (32-36) g/dL RDW Std Deviation (36.4-46.3) fL RDW Coeff of Estelita (11.5-14.5) % Plt Count (130-400) K/uL MPV (7.4-10.4) fL Immature Gran % (Auto) % Neut % (Auto) % Lymph % (Auto) % Kerr % (Auto) % Eos % (Auto) % Baso % (Auto) % Immature Gran # (Auto) (0.00-0.02) K/uL Neut # (Auto) (1.4-6.5) K/uL Lymph # (Auto) (1.2-3.4) K/uL Kerr # (Auto) (0.11-0.59) K/uL Eos # (Auto) (0-0.5) K/uL Baso # (Auto) (0-0.2) K/uL PT (9.0-12.0) Seconds INR (0.9-1.1) POC pH (7.35-7.45) POC pCO2 (35-46) mmHg POC pO2 (80-95) mmHg POC HCO3 (19-24) tierra/L POC Total CO2 (24-31) mEq/l POC Base Excess (-9-1.8) tierra/L POC ABG O2 Sat (90-95) % POC Sodium (135-144) mEq/L Sodium (136-145) mmol/L POC Potassium (3.3-5.0) mEq/L Potassium (3.5-5.1) mmol/L POC Chloride (101-112) mEq/L Chloride (98-107) mmol/L Carbon Dioxide (21-32) mmol/L Anion Gap (3-11) POC Anion Gap (16-25) mmol/L POC BUN (7-18) mg/dl BUN (7-18) mg/dl Creatinine (0.6-1.4) mg/dl POC Creatinine (0.6-1.3) mg/dl Est Cr Clr Drug Dosing ml/min Est GFR ( Amer) Est GFR (Non-Af Amer) BUN/Creatinine Ratio (10-20) Glucose (70-99) mg/dl POC Glucose 79 67 L* 56 L* (70-99) POC Glucose (other) (70-99) mg/dl Estimat Average Glucose mg/dl Hemoglobin A1c (4.5-5.6) % Calcium (8.5-10.1) mg/dl POC Ioniz Calcium Prashanth (1.12-1.32) mmol/l Magnesium (1.8-2.4) mg/dl Total Bilirubin (0.2-1) mg/dl AST (15-37) U/L ALT (12-78) U/L Alkaline Phosphatase (45-117) U/L Total Creatine Kinase (39-308) U/L CK-MB (CK-2) (0.5-3.6) ng/ml CK/CKMB % Calc (0-3.0) Troponin I (0-0.045) ng/ml NT-Pro-B Natriuret Pep (0-1800) pg/ml Total Protein (6.4-8.2) gm/dl Albumin (3.4-5.0) gm/dl Globulin (2.5-4.0) gm/dl Albumin/Globulin Ratio (0.9-2) Lipase (73-393) U/L Procalcitonin (0-0.5) ng/ml Random Vancomycin mcg/ml 11/05/18 11/05/18 11/05/18 Range/Units 20:43 20:58 22:20 WBC (4.8-10.8) K/uL RBC (4.7-6.1) M/uL Hgb (14.0-18.0) g/dL POC Hgb (14.0-18.0) g/dl Hct (42-52) % POC Hct (42-52) % MCV (80-100) fL MCH (25-34) pg MCHC (32-36) g/dL RDW Std Deviation (36.4-46.3) fL RDW Coeff of Estelita (11.5-14.5) % Plt Count (130-400) K/uL MPV (7.4-10.4) fL Immature Gran % (Auto) % Neut % (Auto) % Lymph % (Auto) % Kerr % (Auto) % Eos % (Auto) % Baso % (Auto) % Immature Gran # (Auto) (0.00-0.02) K/uL Neut # (Auto) (1.4-6.5) K/uL Lymph # (Auto) (1.2-3.4) K/uL Kerr # (Auto) (0.11-0.59) K/uL Eos # (Auto) (0-0.5) K/uL Baso # (Auto) (0-0.2) K/uL PT (9.0-12.0) Seconds INR (0.9-1.1) POC pH (7.35-7.45) POC pCO2 (35-46) mmHg POC pO2 (80-95) mmHg POC HCO3 (19-24) tierra/L POC Total CO2 (24-31) mEq/l POC Base Excess (-9-1.8) tierra/L POC ABG O2 Sat (90-95) % POC Sodium (135-144) mEq/L Sodium (136-145) mmol/L POC Potassium (3.3-5.0) mEq/L Potassium (3.5-5.1) mmol/L POC Chloride (101-112) mEq/L Chloride (98-107) mmol/L Carbon Dioxide (21-32) mmol/L Anion Gap (3-11) POC Anion Gap (16-25) mmol/L POC BUN (7-18) mg/dl BUN (7-18) mg/dl Creatinine (0.6-1.4) mg/dl POC Creatinine (0.6-1.3) mg/dl Est Cr Clr Drug Dosing ml/min Est GFR ( Amer) Est GFR (Non-Af Amer) BUN/Creatinine Ratio (10-20) Glucose (70-99) mg/dl POC Glucose 60 L* 81 (70-99) POC Glucose (other) (70-99) mg/dl Estimat Average Glucose mg/dl Hemoglobin A1c (4.5-5.6) % Calcium (8.5-10.1) mg/dl POC Ioniz Calcium Prashanth (1.12-1.32) mmol/l Magnesium (1.8-2.4) mg/dl Total Bilirubin (0.2-1) mg/dl AST (15-37) U/L ALT (12-78) U/L Alkaline Phosphatase (45-117) U/L Total Creatine Kinase (39-308) U/L CK-MB (CK-2) (0.5-3.6) ng/ml CK/CKMB % Calc (0-3.0) Troponin I 0.209 H* (0-0.045) ng/ml NT-Pro-B Natriuret Pep (0-1800) pg/ml Total Protein (6.4-8.2) gm/dl Albumin (3.4-5.0) gm/dl Globulin (2.5-4.0) gm/dl Albumin/Globulin Ratio (0.9-2) Lipase (73-393) U/L Procalcitonin (0-0.5) ng/ml Random Vancomycin mcg/ml 11/05/18 11/05/18 11/05/18 Range/Units 22:20 23:29 23:31 WBC (4.8-10.8) K/uL RBC (4.7-6.1) M/uL Hgb (14.0-18.0) g/dL POC Hgb (14.0-18.0) g/dl Hct (42-52) % POC Hct (42-52) % MCV (80-100) fL MCH (25-34) pg MCHC (32-36) g/dL RDW Std Deviation (36.4-46.3) fL RDW Coeff of Estelita (11.5-14.5) % Plt Count (130-400) K/uL MPV (7.4-10.4) fL Immature Gran % (Auto) % Neut % (Auto) % Lymph % (Auto) % Kerr % (Auto) % Eos % (Auto) % Baso % (Auto) % Immature Gran # (Auto) (0.00-0.02) K/uL Neut # (Auto) (1.4-6.5) K/uL Lymph # (Auto) (1.2-3.4) K/uL Kerr # (Auto) (0.11-0.59) K/uL Eos # (Auto) (0-0.5) K/uL Baso # (Auto) (0-0.2) K/uL PT (9.0-12.0) Seconds INR (0.9-1.1) POC pH (7.35-7.45) POC pCO2 (35-46) mmHg POC pO2 (80-95) mmHg POC HCO3 (19-24) tierra/L POC Total CO2 (24-31) mEq/l POC Base Excess (-9-1.8) tierra/L POC ABG O2 Sat (90-95) % POC Sodium (135-144) mEq/L Sodium (136-145) mmol/L POC Potassium (3.3-5.0) mEq/L Potassium (3.5-5.1) mmol/L POC Chloride (101-112) mEq/L Chloride (98-107) mmol/L Carbon Dioxide (21-32) mmol/L Anion Gap (3-11) POC Anion Gap (16-25) mmol/L POC BUN (7-18) mg/dl BUN (7-18) mg/dl Creatinine (0.6-1.4) mg/dl POC Creatinine (0.6-1.3) mg/dl Est Cr Clr Drug Dosing ml/min Est GFR ( Amer) Est GFR (Non-Af Amer) BUN/Creatinine Ratio (10-20) Glucose (70-99) mg/dl POC Glucose 42 L* 47 L* (70-99) POC Glucose (other) (70-99) mg/dl Estimat Average Glucose mg/dl Hemoglobin A1c (4.5-5.6) % Calcium (8.5-10.1) mg/dl POC Ioniz Calcium Prashanth (1.12-1.32) mmol/l Magnesium (1.8-2.4) mg/dl Total Bilirubin (0.2-1) mg/dl AST (15-37) U/L ALT (12-78) U/L Alkaline Phosphatase (45-117) U/L Total Creatine Kinase (39-308) U/L CK-MB (CK-2) (0.5-3.6) ng/ml CK/CKMB % Calc (0-3.0) Troponin I (0-0.045) ng/ml NT-Pro-B Natriuret Pep (0-1800) pg/ml Total Protein (6.4-8.2) gm/dl Albumin (3.4-5.0) gm/dl Globulin (2.5-4.0) gm/dl Albumin/Globulin Ratio (0.9-2) Lipase (73-393) U/L Procalcitonin 4.28 H (0-0.5) ng/ml Random Vancomycin mcg/ml 11/05/18 11/06/18 11/06/18 Range/Units 23:56 02:58 06:26 WBC (4.8-10.8) K/uL RBC (4.7-6.1) M/uL Hgb (14.0-18.0) g/dL POC Hgb (14.0-18.0) g/dl Hct (42-52) % POC Hct (42-52) % MCV (80-100) fL MCH (25-34) pg MCHC (32-36) g/dL RDW Std Deviation (36.4-46.3) fL RDW Coeff of Estelita (11.5-14.5) % Plt Count (130-400) K/uL MPV (7.4-10.4) fL Immature Gran % (Auto) % Neut % (Auto) % Lymph % (Auto) % Kerr % (Auto) % Eos % (Auto) % Baso % (Auto) % Immature Gran # (Auto) (0.00-0.02) K/uL Neut # (Auto) (1.4-6.5) K/uL Lymph # (Auto) (1.2-3.4) K/uL Kerr # (Auto) (0.11-0.59) K/uL Eos # (Auto) (0-0.5) K/uL Baso # (Auto) (0-0.2) K/uL PT 48.2 H (9.0-12.0) Seconds INR 5.2 H (0.9-1.1) POC pH (7.35-7.45) POC pCO2 (35-46) mmHg POC pO2 (80-95) mmHg POC HCO3 (19-24) tierra/L POC Total CO2 (24-31) mEq/l POC Base Excess (-9-1.8) tierra/L POC ABG O2 Sat (90-95) % POC Sodium (135-144) mEq/L Sodium (136-145) mmol/L POC Potassium (3.3-5.0) mEq/L Potassium (3.5-5.1) mmol/L POC Chloride (101-112) mEq/L Chloride (98-107) mmol/L Carbon Dioxide (21-32) mmol/L Anion Gap (3-11) POC Anion Gap (16-25) mmol/L POC BUN (7-18) mg/dl BUN (7-18) mg/dl Creatinine (0.6-1.4) mg/dl POC Creatinine (0.6-1.3) mg/dl Est Cr Clr Drug Dosing ml/min Est GFR ( Amer) Est GFR (Non-Af Amer) BUN/Creatinine Ratio (10-20) Glucose (70-99) mg/dl POC Glucose 95 106 H (70-99) POC Glucose (other) (70-99) mg/dl Estimat Average Glucose mg/dl Hemoglobin A1c (4.5-5.6) % Calcium (8.5-10.1) mg/dl POC Ioniz Calcium Prashanth (1.12-1.32) mmol/l Magnesium (1.8-2.4) mg/dl Total Bilirubin (0.2-1) mg/dl AST (15-37) U/L ALT (12-78) U/L Alkaline Phosphatase (45-117) U/L Total Creatine Kinase (39-308) U/L CK-MB (CK-2) (0.5-3.6) ng/ml CK/CKMB % Calc (0-3.0) Troponin I (0-0.045) ng/ml NT-Pro-B Natriuret Pep (0-1800) pg/ml Total Protein (6.4-8.2) gm/dl Albumin (3.4-5.0) gm/dl Globulin (2.5-4.0) gm/dl Albumin/Globulin Ratio (0.9-2) Lipase (73-393) U/L Procalcitonin (0-0.5) ng/ml Random Vancomycin mcg/ml 11/06/18 11/06/18 11/06/18 Range/Units 06:26 06:26 07:27 WBC 5.14 (4.8-10.8) K/uL RBC 3.13 L (4.7-6.1) M/uL Hgb 9.3 L (14.0-18.0) g/dL POC Hgb (14.0-18.0) g/dl Hct 27.9 L (42-52) % POC Hct (42-52) % MCV 89.1 (80-100) fL MCH 29.7 (25-34) pg MCHC 33.3 (32-36) g/dL RDW Std Deviation 45.0 (36.4-46.3) fL RDW Coeff of Estelita 13.9 (11.5-14.5) % Plt Count 126 L (130-400) K/uL MPV 9.3 (7.4-10.4) fL Immature Gran % (Auto) % Neut % (Auto) % Lymph % (Auto) % Kerr % (Auto) % Eos % (Auto) % Baso % (Auto) % Immature Gran # (Auto) (0.00-0.02) K/uL Neut # (Auto) (1.4-6.5) K/uL Lymph # (Auto) (1.2-3.4) K/uL Kerr # (Auto) (0.11-0.59) K/uL Eos # (Auto) (0-0.5) K/uL Baso # (Auto) (0-0.2) K/uL PT (9.0-12.0) Seconds INR (0.9-1.1) POC pH (7.35-7.45) POC pCO2 (35-46) mmHg POC pO2 (80-95) mmHg POC HCO3 (19-24) tierra/L POC Total CO2 (24-31) mEq/l POC Base Excess (-9-1.8) tierra/L POC ABG O2 Sat (90-95) % POC Sodium (135-144) mEq/L Sodium 138 (136-145) mmol/L POC Potassium (3.3-5.0) mEq/L Potassium 3.6 (3.5-5.1) mmol/L POC Chloride (101-112) mEq/L Chloride 106 (98-107) mmol/L Carbon Dioxide 24 (21-32) mmol/L Anion Gap 8.0 (3-11) POC Anion Gap (16-25) mmol/L POC BUN (7-18) mg/dl BUN 38 H (7-18) mg/dl Creatinine 1.80 H (0.6-1.4) mg/dl POC Creatinine (0.6-1.3) mg/dl Est Cr Clr Drug Dosing 35.9 ml/min Est GFR ( Amer) 40.3 Est GFR (Non-Af Amer) 34.8 BUN/Creatinine Ratio 21.2 H (10-20) Glucose 70 (70-99) mg/dl POC Glucose 78 (70-99) POC Glucose (other) (70-99) mg/dl Estimat Average Glucose mg/dl Hemoglobin A1c (4.5-5.6) % Calcium 7.7 L (8.5-10.1) mg/dl POC Ioniz Calcium Prashanth (1.12-1.32) mmol/l Magnesium 2.6 H (1.8-2.4) mg/dl Total Bilirubin (0.2-1) mg/dl AST (15-37) U/L ALT (12-78) U/L Alkaline Phosphatase (45-117) U/L Total Creatine Kinase (39-308) U/L CK-MB (CK-2) (0.5-3.6) ng/ml CK/CKMB % Calc (0-3.0) Troponin I (0-0.045) ng/ml NT-Pro-B Natriuret Pep (0-1800) pg/ml Total Protein (6.4-8.2) gm/dl Albumin (3.4-5.0) gm/dl Globulin (2.5-4.0) gm/dl Albumin/Globulin Ratio (0.9-2) Lipase (73-393) U/L Procalcitonin (0-0.5) ng/ml Random Vancomycin mcg/ml 11/06/18 11/06/18 11/06/18 Range/Units 08:33 11:13 16:22 WBC (4.8-10.8) K/uL RBC (4.7-6.1) M/uL Hgb (14.0-18.0) g/dL POC Hgb (14.0-18.0) g/dl Hct (42-52) % POC Hct (42-52) % MCV (80-100) fL MCH (25-34) pg MCHC (32-36) g/dL RDW Std Deviation (36.4-46.3) fL RDW Coeff of Estelita (11.5-14.5) % Plt Count (130-400) K/uL MPV (7.4-10.4) fL Immature Gran % (Auto) % Neut % (Auto) % Lymph % (Auto) % Kerr % (Auto) % Eos % (Auto) % Baso % (Auto) % Immature Gran # (Auto) (0.00-0.02) K/uL Neut # (Auto) (1.4-6.5) K/uL Lymph # (Auto) (1.2-3.4) K/uL Kerr # (Auto) (0.11-0.59) K/uL Eos # (Auto) (0-0.5) K/uL Baso # (Auto) (0-0.2) K/uL PT (9.0-12.0) Seconds INR (0.9-1.1) POC pH (7.35-7.45) POC pCO2 (35-46) mmHg POC pO2 (80-95) mmHg POC HCO3 (19-24) tierra/L POC Total CO2 (24-31) mEq/l POC Base Excess (-9-1.8) tierra/L POC ABG O2 Sat (90-95) % POC Sodium (135-144) mEq/L Sodium (136-145) mmol/L POC Potassium (3.3-5.0) mEq/L Potassium (3.5-5.1) mmol/L POC Chloride (101-112) mEq/L Chloride (98-107) mmol/L Carbon Dioxide (21-32) mmol/L Anion Gap (3-11) POC Anion Gap (16-25) mmol/L POC BUN (7-18) mg/dl BUN (7-18) mg/dl Creatinine (0.6-1.4) mg/dl POC Creatinine (0.6-1.3) mg/dl Est Cr Clr Drug Dosing ml/min Est GFR ( Amer) Est GFR (Non-Af Amer) BUN/Creatinine Ratio (10-20) Glucose (70-99) mg/dl POC Glucose 181 H 191 H (70-99) POC Glucose (other) (70-99) mg/dl Estimat Average Glucose mg/dl Hemoglobin A1c (4.5-5.6) % Calcium (8.5-10.1) mg/dl POC Ioniz Calcium Prashanth (1.12-1.32) mmol/l Magnesium (1.8-2.4) mg/dl Total Bilirubin (0.2-1) mg/dl AST (15-37) U/L ALT (12-78) U/L Alkaline Phosphatase (45-117) U/L Total Creatine Kinase (39-308) U/L CK-MB (CK-2) (0.5-3.6) ng/ml CK/CKMB % Calc (0-3.0) Troponin I (0-0.045) ng/ml NT-Pro-B Natriuret Pep (0-1800) pg/ml Total Protein (6.4-8.2) gm/dl Albumin (3.4-5.0) gm/dl Globulin (2.5-4.0) gm/dl Albumin/Globulin Ratio (0.9-2) Lipase (73-393) U/L Procalcitonin (0-0.5) ng/ml Random Vancomycin 4.6 mcg/ml 11/06/18 11/07/18 11/07/18 Range/Units 20:28 06:42 06:42 WBC (4.8-10.8) K/uL RBC (4.7-6.1) M/uL Hgb (14.0-18.0) g/dL POC Hgb (14.0-18.0) g/dl Hct (42-52) % POC Hct (42-52) % MCV (80-100) fL MCH (25-34) pg MCHC (32-36) g/dL RDW Std Deviation (36.4-46.3) fL RDW Coeff of Estelita (11.5-14.5) % Plt Count (130-400) K/uL MPV (7.4-10.4) fL Immature Gran % (Auto) % Neut % (Auto) % Lymph % (Auto) % Kerr % (Auto) % Eos % (Auto) % Baso % (Auto) % Immature Gran # (Auto) (0.00-0.02) K/uL Neut # (Auto) (1.4-6.5) K/uL Lymph # (Auto) (1.2-3.4) K/uL Kerr # (Auto) (0.11-0.59) K/uL Eos # (Auto) (0-0.5) K/uL Baso # (Auto) (0-0.2) K/uL PT > 100.0 H (9.0-12.0) Seconds INR > 11.0 H* (0.9-1.1) POC pH (7.35-7.45) POC pCO2 (35-46) mmHg POC pO2 (80-95) mmHg POC HCO3 (19-24) tierra/L POC Total CO2 (24-31) mEq/l POC Base Excess (-9-1.8) tierra/L POC ABG O2 Sat (90-95) % POC Sodium (135-144) mEq/L Sodium 140 (136-145) mmol/L POC Potassium (3.3-5.0) mEq/L Potassium 3.4 L (3.5-5.1) mmol/L POC Chloride (101-112) mEq/L Chloride 108 H (98-107) mmol/L Carbon Dioxide 26 (21-32) mmol/L Anion Gap 6.0 (3-11) POC Anion Gap (16-25) mmol/L POC BUN (7-18) mg/dl BUN 37 H (7-18) mg/dl Creatinine 1.48 H D (0.6-1.4) mg/dl POC Creatinine (0.6-1.3) mg/dl Est Cr Clr Drug Dosing 43.7 ml/min Est GFR ( Amer) 51.1 Est GFR (Non-Af Amer) 44.1 BUN/Creatinine Ratio 25.0 H (10-20) Glucose 198 H (70-99) mg/dl POC Glucose 332 H (70-99) POC Glucose (other) (70-99) mg/dl Estimat Average Glucose mg/dl Hemoglobin A1c (4.5-5.6) % Calcium 7.4 L (8.5-10.1) mg/dl POC Ioniz Calcium Prashanth (1.12-1.32) mmol/l Magnesium 2.6 H (1.8-2.4) mg/dl Total Bilirubin (0.2-1) mg/dl AST (15-37) U/L ALT (12-78) U/L Alkaline Phosphatase (45-117) U/L Total Creatine Kinase (39-308) U/L CK-MB (CK-2) (0.5-3.6) ng/ml CK/CKMB % Calc (0-3.0) Troponin I (0-0.045) ng/ml NT-Pro-B Natriuret Pep (0-1800) pg/ml Total Protein (6.4-8.2) gm/dl Albumin (3.4-5.0) gm/dl Globulin (2.5-4.0) gm/dl Albumin/Globulin Ratio (0.9-2) Lipase (73-393) U/L Procalcitonin (0-0.5) ng/ml Random Vancomycin mcg/ml 11/07/18 11/07/18 11/07/18 Range/Units 06:42 07:22 11:27 WBC 5.20 (4.8-10.8) K/uL RBC 3.10 L (4.7-6.1) M/uL Hgb 9.6 L (14.0-18.0) g/dL POC Hgb (14.0-18.0) g/dl Hct 27.6 L (42-52) % POC Hct (42-52) % MCV 89.0 (80-100) fL MCH 31.0 (25-34) pg MCHC 34.8 (32-36) g/dL RDW Std Deviation 45.2 (36.4-46.3) fL RDW Coeff of Estelita 14.0 (11.5-14.5) % Plt Count 127 L (130-400) K/uL MPV 9.0 (7.4-10.4) fL Immature Gran % (Auto) % Neut % (Auto) % Lymph % (Auto) % Kerr % (Auto) % Eos % (Auto) % Baso % (Auto) % Immature Gran # (Auto) (0.00-0.02) K/uL Neut # (Auto) (1.4-6.5) K/uL Lymph # (Auto) (1.2-3.4) K/uL Kerr # (Auto) (0.11-0.59) K/uL Eos # (Auto) (0-0.5) K/uL Baso # (Auto) (0-0.2) K/uL PT (9.0-12.0) Seconds INR (0.9-1.1) POC pH (7.35-7.45) POC pCO2 (35-46) mmHg POC pO2 (80-95) mmHg POC HCO3 (19-24) tierra/L POC Total CO2 (24-31) mEq/l POC Base Excess (-9-1.8) tierra/L POC ABG O2 Sat (90-95) % POC Sodium (135-144) mEq/L Sodium (136-145) mmol/L POC Potassium (3.3-5.0) mEq/L Potassium (3.5-5.1) mmol/L POC Chloride (101-112) mEq/L Chloride (98-107) mmol/L Carbon Dioxide (21-32) mmol/L Anion Gap (3-11) POC Anion Gap (16-25) mmol/L POC BUN (7-18) mg/dl BUN (7-18) mg/dl Creatinine (0.6-1.4) mg/dl POC Creatinine (0.6-1.3) mg/dl Est Cr Clr Drug Dosing ml/min Est GFR ( Amer) Est GFR (Non-Af Amer) BUN/Creatinine Ratio (10-20) Glucose (70-99) mg/dl POC Glucose 216 H 347 H (70-99) POC Glucose (other) (70-99) mg/dl Estimat Average Glucose mg/dl Hemoglobin A1c (4.5-5.6) % Calcium (8.5-10.1) mg/dl POC Ioniz Calcium Prashanth (1.12-1.32) mmol/l Magnesium (1.8-2.4) mg/dl Total Bilirubin (0.2-1) mg/dl AST (15-37) U/L ALT (12-78) U/L Alkaline Phosphatase (45-117) U/L Total Creatine Kinase (39-308) U/L CK-MB (CK-2) (0.5-3.6) ng/ml CK/CKMB % Calc (0-3.0) Troponin I (0-0.045) ng/ml NT-Pro-B Natriuret Pep (0-1800) pg/ml Total Protein (6.4-8.2) gm/dl Albumin (3.4-5.0) gm/dl Globulin (2.5-4.0) gm/dl Albumin/Globulin Ratio (0.9-2) Lipase (73-393) U/L Procalcitonin (0-0.5) ng/ml Random Vancomycin mcg/ml 11/07/18 11/07/18 11/07/18 Range/Units 13:24 14:32 16:24 WBC (4.8-10.8) K/uL RBC (4.7-6.1) M/uL Hgb (14.0-18.0) g/dL POC Hgb (14.0-18.0) g/dl Hct (42-52) % POC Hct (42-52) % MCV (80-100) fL MCH (25-34) pg MCHC (32-36) g/dL RDW Std Deviation (36.4-46.3) fL RDW Coeff of Estelita (11.5-14.5) % Plt Count (130-400) K/uL MPV (7.4-10.4) fL Immature Gran % (Auto) % Neut % (Auto) % Lymph % (Auto) % Kerr % (Auto) % Eos % (Auto) % Baso % (Auto) % Immature Gran # (Auto) (0.00-0.02) K/uL Neut # (Auto) (1.4-6.5) K/uL Lymph # (Auto) (1.2-3.4) K/uL Kerr # (Auto) (0.11-0.59) K/uL Eos # (Auto) (0-0.5) K/uL Baso # (Auto) (0-0.2) K/uL PT > 100.0 H (9.0-12.0) Seconds INR > 11.0 H* (0.9-1.1) POC pH (7.35-7.45) POC pCO2 (35-46) mmHg POC pO2 (80-95) mmHg POC HCO3 (19-24) tierra/L POC Total CO2 (24-31) mEq/l POC Base Excess (-9-1.8) tierra/L POC ABG O2 Sat (90-95) % POC Sodium (135-144) mEq/L Sodium (136-145) mmol/L POC Potassium (3.3-5.0) mEq/L Potassium (3.5-5.1) mmol/L POC Chloride (101-112) mEq/L Chloride (98-107) mmol/L Carbon Dioxide (21-32) mmol/L Anion Gap (3-11) POC Anion Gap (16-25) mmol/L POC BUN (7-18) mg/dl BUN (7-18) mg/dl Creatinine (0.6-1.4) mg/dl POC Creatinine (0.6-1.3) mg/dl Est Cr Clr Drug Dosing ml/min Est GFR ( Amer) Est GFR (Non-Af Amer) BUN/Creatinine Ratio (10-20) Glucose (70-99) mg/dl POC Glucose 261 H 315 H (70-99) POC Glucose (other) (70-99) mg/dl Estimat Average Glucose mg/dl Hemoglobin A1c (4.5-5.6) % Calcium (8.5-10.1) mg/dl POC Ioniz Calcium Prashanth (1.12-1.32) mmol/l Magnesium (1.8-2.4) mg/dl Total Bilirubin (0.2-1) mg/dl AST (15-37) U/L ALT (12-78) U/L Alkaline Phosphatase (45-117) U/L Total Creatine Kinase (39-308) U/L CK-MB (CK-2) (0.5-3.6) ng/ml CK/CKMB % Calc (0-3.0) Troponin I (0-0.045) ng/ml NT-Pro-B Natriuret Pep (0-1800) pg/ml Total Protein (6.4-8.2) gm/dl Albumin (3.4-5.0) gm/dl Globulin (2.5-4.0) gm/dl Albumin/Globulin Ratio (0.9-2) Lipase (73-393) U/L Procalcitonin (0-0.5) ng/ml Random Vancomycin mcg/ml 11/07/18 Range/Units 17:05 WBC (4.8-10.8) K/uL RBC (4.7-6.1) M/uL Hgb (14.0-18.0) g/dL POC Hgb (14.0-18.0) g/dl Hct (42-52) % POC Hct (42-52) % MCV (80-100) fL MCH (25-34) pg MCHC (32-36) g/dL RDW Std Deviation (36.4-46.3) fL RDW Coeff of Estelita (11.5-14.5) % Plt Count (130-400) K/uL MPV (7.4-10.4) fL Immature Gran % (Auto) % Neut % (Auto) % Lymph % (Auto) % Kerr % (Auto) % Eos % (Auto) % Baso % (Auto) % Immature Gran # (Auto) (0.00-0.02) K/uL Neut # (Auto) (1.4-6.5) K/uL Lymph # (Auto) (1.2-3.4) K/uL Kerr # (Auto) (0.11-0.59) K/uL Eos # (Auto) (0-0.5) K/uL Baso # (Auto) (0-0.2) K/uL PT 70.3 H (9.0-12.0) Seconds INR 7.8 H* (0.9-1.1) POC pH (7.35-7.45) POC pCO2 (35-46) mmHg POC pO2 (80-95) mmHg POC HCO3 (19-24) tierra/L POC Total CO2 (24-31) mEq/l POC Base Excess (-9-1.8) tierra/L POC ABG O2 Sat (90-95) % POC Sodium (135-144) mEq/L Sodium (136-145) mmol/L POC Potassium (3.3-5.0) mEq/L Potassium (3.5-5.1) mmol/L POC Chloride (101-112) mEq/L Chloride (98-107) mmol/L Carbon Dioxide (21-32) mmol/L Anion Gap (3-11) POC Anion Gap (16-25) mmol/L POC BUN (7-18) mg/dl BUN (7-18) mg/dl Creatinine (0.6-1.4) mg/dl POC Creatinine (0.6-1.3) mg/dl Est Cr Clr Drug Dosing ml/min Est GFR ( Amer) Est GFR (Non-Af Amer) BUN/Creatinine Ratio (10-20) Glucose (70-99) mg/dl POC Glucose (70-99) POC Glucose (other) (70-99) mg/dl Estimat Average Glucose mg/dl Hemoglobin A1c (4.5-5.6) % Calcium (8.5-10.1) mg/dl POC Ioniz Calcium Prashanth (1.12-1.32) mmol/l Magnesium (1.8-2.4) mg/dl Total Bilirubin (0.2-1) mg/dl AST (15-37) U/L ALT (12-78) U/L Alkaline Phosphatase (45-117) U/L Total Creatine Kinase (39-308) U/L CK-MB (CK-2) (0.5-3.6) ng/ml CK/CKMB % Calc (0-3.0) Troponin I (0-0.045) ng/ml NT-Pro-B Natriuret Pep (0-1800) pg/ml Total Protein (6.4-8.2) gm/dl Albumin (3.4-5.0) gm/dl Globulin (2.5-4.0) gm/dl Albumin/Globulin Ratio (0.9-2) Lipase (73-393) U/L Procalcitonin (0-0.5) ng/ml Random Vancomycin mcg/ml Imaging Data Radiologist's Impression: Radiology results as stated below per my review and the radiologist's interpretation: XR chest 1V portable CLINICAL HISTORY: Chest Pain COMPARISON STUDY: Chest radiograph January 03, 2018. FINDINGS: There is no pneumothorax. No definite pleural effusion is identified. Diffuse interstitial thickening and bilateral opacities are noted. There is mild cardiomegaly. IMPRESSION: Diffuse interstitial thickening and bilateral opacities. The findings may reflect pneumonia or pulmonary edema. Radiographic follow-up to ensure resolution is recommended. Electronically signed by: Storm Nunez M.D. 11/04/2018 4:[address] ANGIOGRAPHY OF THE CHEST, PULMONARY EMBOLUS PROTOCOL CLINICAL HISTORY: Chest Pain, eval for PE COMPARISON STUDY: Chest radiograph January 03, 2018 and November 04, 2008 TECHNIQUE: Following IV administration of 103 mL of Optiray-320, helical axial images of the chest were obtained utilizing the pulmonary embolus protocol. Maximal intensity projections and sagittal and coronal reformats were viewed on an independent 3D workstation. IV contrast was administered without complication. Automated exposure control was utilized for the study. A dose lowering technique was utilized adhering to the principles of ALARA. CT DOSE: 438.47 mGy.cm FINDINGS: No pulmonary emboli are identified although segmental and subsegmental pulmonary arteries are suboptimally assessed due to respiratory motion. The heart is moderately enlarged. There is no pericardial effusion. There are mildly enlarged mediastinal and bilateral hilar lymph nodes. Lungs are suboptimally assessed given respiratory motion. There is extensive groundglass opacity throughout both lungs. There is no cavitation. No pneumothorax or pleural effusion is noted. Bony thorax and upper abdomen are unremarkable. IMPRESSION: 1. No pulmonary emboli identified although segmental and subsegmental pulmonary arteries suboptimally assessed given respiratory motion. 2. Extensive groundglass opacities throughout both lungs. This may reflect pulmonary edema or pneumonia. 3. Mild mediastinal and bilateral hilar lymphadenopathy which is likely reactive. A follow up chest CT in 2 months to ensure resolution is recommended. 4. Moderate cardiomegaly. Electronically signed by: Storm Nunez M.D. 11/04/2018 6:19 PM ECG Data Attestation: I personally reviewed and interpreted this ECG as follows: Indication: SOB/dyspnea Rate (beats per minute): 82 Rhythm: sinus rhythm Findings: + LBBB; no ST depression and no ST elevation Comparison ECG Date: from (01/03/2018) Change: no significant change Blood Pressure Blood Pressure Findings: Low blood pressure MDM Narrative This is an 78-year-old male who presents emergency department complaining of hypoxia. Due to the nature of the patient's hypoxia he was immediately placed on BiPAP. He was given an hour-long breathing treatment and started on Solu- Medrol. The patient's family is also concerned that he is also having hip pain therefore he was sent for x-rays of his pelvis and hips. EKG and laboratory work are as above. I do feel that the patient needs to be admitted I did discuss the case with the hospitalist service who agreed to admit the patient. Patient and family were in agreement with treatment plan. Impression & Plan Hypoxia Critical Care Time I have personally spent greater than 30 minutes of critical care time in the direct management of this patient. This includes bedside care, interpretation of diagnostic studies, and testing, discussion with consultants, patient, and family members, and other required patient management activities. This 30 minutes is in excess of all separately billable procedures. Discharge Plan Visit Data *Final* Discharge Date/Time: 11/04/18 20:52 Chief Complaint: Shortness of Breath/Dyspnea Stated Complaint: WEAKNESS, ILLNESS, ED Provider: Juan Del Toro Discharge Problem: Hypoxia Patient Disposition: Admitted As Inpatient Discharge Instructions Interventions: ED Discharge Assessment Last Done: 11/04/18 20:52 The scribe's documentation has been prepared under my direction and personally reviewed by me in its entirety. I confirm that the note above accurately reflects all work, treatment, procedures, and medical decision making performed by me.
--- NOTE | 2018-11-07 19:32 | Pulmonary Consultation ---
Date of Consultation November 07, 2018 Assessment & Plan (1) Acute respiratory failure with hypoxia: Impression: 1. Mixed interstitial and airspace disease affecting asymmetrical lobes of the lung in a patient who has history of rheumatoid arthritis, representing rheumatoid lung, other differential also including diffuse alveolar hemorrhage, but I would expect the patient to be clinically a lot sicker. 2. The patient has a history of CHF with chronic A. fib, however, I would expect him to respond quickly to diuresis and PPV, which he did not. 3. I do not see any evidence of infectious pneumonia. Plan: 1. I will obtain pro calcitonin to rule out if possible an infectious process. 2. I will start the patient on high-dose steroids empirically with Solu-Medrol 60 mg IV every 6 hours. 3. His diabetes needs to be controlled, I will consult pharmacy in that regard. The patient may need insulin drip as well. 4. Continue with positive pressure ventilation. 5. Correct INR. 6. Continue to monitor the patient, I would recommend transferring him to a stepdown unit. Thank you, will follow. History of Present Illness Reason for Consultation: Shortness of breath Requesting Physician: Dr. Garza Attending Physician: Osito Garza MD History of Present Illness Dear Dr. Garza: Thank you for the kind referral of Mr. Chatterjee to pulmonary service. This is 78 -year-old gentleman with history of rheumatoid arthritis, chronic thrombocytopenia, peripheral vascular disease, diabetes, diabetic foot status post amputated toe, chronic A. fib, cardiomyopathy with EF of 45%, left bundle branch block, presented to the hospital with increasing shortness of breath, requiring currently BiPAP and high FiO2. The patient was admitted to the hospital and underwent a workup including CAT scan of the chest, previous workup including echocardiogram showed cardiomyopathy with EF of 45%. Due to the findings on the CAT scan, the patient was treated accordingly for pulmonary edema secondary to CHF. 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 Apparently his symptoms has been worsening for the past month. No hemoptysis was reported. No chest pain no orthopnea and no increased swelling in his lower extremities. He denies any hematemesis or hematochezia, no near syncopal episode, no visual disturbances and no rash. No increased swelling in his joints. No pain in his joints as well. The rest of his review of system was unremarkable. His family history does not contribute to his current illness. Past medical history as mentioned above. The patient is non-smoker lifetime does not have any history of secondhand exposure to smoking. Allergies Allergy/AdvReac Type Severity Reaction Status Date / Time No Known Allergies Allergy Verified 10/23/18 14:39 Home Medications Home Medications Medication Instructions Recorded Confirmed Type amlodipine 10 mg tablet 10 mg PO .q am tab 07/01/18 11/04/18 History aspirin 81 mg tablet,delayed 81 mg PO .q am tab 07/01/18 11/04/18 History release carvedilol 6.25 mg tablet 6.25 mg PO BID 07/01/18 11/04/18 History clonidine HCl 0.3 mg tablet 0.3 mg PO BID 07/01/18 11/04/18 History fluticasone 50 mcg/actuation nasal 2 sprays INTNAS DAILY 07/01/18 11/04/18 History spray,suspension folic acid 1 mg tablet 1 mg PO .q am tab 07/01/18 11/04/18 History furosemide 40 mg tablet 40 mg PO BID 07/01/18 11/04/18 History glimepiride 2 mg tablet 2 mg PO BID tab 07/01/18 11/04/18 History lisinopril 40 mg tablet 40 mg PO .q am tab 07/01/18 11/04/18 History metformin 1,000 mg tablet 1,000 mg PO BIDM 07/01/18 11/04/18 History pravastatin 40 mg tablet 40 mg PO .q hs tab 07/01/18 11/04/18 History warfarin 3 mg tablet 3 mg PO .MON&FRI tab 07/01/18 11/04/18 History cadexomer iodine 0.9 % topical gel 40 gm TOP Q3D #40 gm 08/28/18 11/04/18 Rx cyanocobalamin (vitamin B-12) 2,500 mcg PO DAILY 08/28/18 11/04/18 History 2,500 mcg tablet methotrexate sodium 15 mg PO WK 11/04/18 11/04/18 History prednisone 5 mg PO DAILY 11/04/18 11/04/18 History warfarin 1.5 mg PO 5XWK 11/04/18 11/04/18 History Patient History Medical History CKD (chronic kidney disease), stage III (Chronic) Thrombocytopenia (Chronic) PVD (peripheral vascular disease) (Chronic) HLD (hyperlipidemia) (Chronic) Diabetic polyneuropathy (Chronic) Systolic heart failure (Chronic) Diabetes mellitus, type 2 (Chronic) CAD (coronary artery disease) (Chronic) "cath 2006 - moderate non obstructive disease" Atrial fibrillation (Chronic) Cardiomyopathy, idiopathic (Chronic) "echo 06/2016 - EF 40-%, grade I diastolic dysfunction" LBBB (left bundle branch block) (Chronic) HTN (hypertension) (Chronic) Congestive heart failure A-fib (Chronic) CAD (coronary artery disease) (Chronic) Diabetes (Chronic) HTN (hypertension) (Chronic) Hx of left bundle branch block (Chronic) Osteomyelitis (Chronic) 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) Social History marital status: Current Living Situation: Spouse and Family Other Information That Helps Us Care for You: No Feels Safe at Home: No Is there a partner from a previous relationship who is making you feel unsafe now?: No Any Concerns about Your Family Situation: No Would You Like to Speak to Someone About Your Situation: No Safety Concerns: Feels Safe At This Time Smoking Status: Former smoker Tobacco Type: cigarettes Do You Dip or Chew Tobacco: Yes Second Hand Exposure: No Tobacco Cessation Education Requested by Patient: No Hx Alcohol Use: No Hx Substance Use: No Beliefs That Will Affect Care: None Communication Ability: Effective Review of Systems 14 systems has been reviewed as mentioned above, otherwise was unremarkable. Physical Exam 2 Vital Signs (Past 24 Hours): Last Vital Signs Temp 37.5 C 11/07/18 19:16 Pulse 75 11/07/18 19:16 Resp 24 11/07/18 19:16 BP 126/51 L 11/07/18 19:16 Pulse Ox 98 11/07/18 19:16 Physical Exam: 78 years old gentleman, appears comfortable on the CPAP, no stridor, S1-S2 regular rate and rhythm to my exam, bilateral crackles were audible, abdomen is benign, no edema. Left foot wound wrapped. Neurologically he is intact. Results & Data Laboratory Results His labs showed no leukocytosis, stable platelet and hematocrit. ABG was significant hypoxia. INR is supratherapeutic. Elevated BUN creatinine. Diagnostic Findings I have reviewed the CAT scan of the chest myself which showed multiple asymmetrical airspace and interstitial changes mainly affecting the upper lobe. Nodularity was noted. No pleural effusion. Dilated pulmonary artery as well.
[2018-11-07] MEDS: methylPREDNISolone 60 MG in SYRINGE 0 ML IV SCH (20:25)
[2018-11-07] MEDS: PRAVASTATIN SOD 40 MG TAB PO SCH (20:26)
[2018-11-08] MEDS: methylPREDNISolone 60 MG in SYRINGE 0 ML IV SCH ×4 (00:57→19:43)
[2018-11-08] MEDS ORDERED: POTASSIUM CHLORIDE 20 MEQ TABCR PO STA (04:07)
--- NOTE | 2018-11-08 04:08 | Hospitalist Progress Note ---
Date of Service November 08, 2018 Subjective Made aware by RN of episodic bradycardia overnight. Cardiac rate 30s. Patient asymptomatic during events as per RN. SBP 90-130s, cardiac rate 60s-70s the last 24 hours. AP Asymptomatic bradycardic episodes Decrease maintenance home Coreg dose Hold parameters for Clonidine. Will relay to AM provider. Physical Exam 2 Vital Signs (Past 24 Hours): Last Vital Signs Temp 37 C 11/08/18 00:07 Pulse 67 11/08/18 01:09 Resp 22 11/08/18 01:09 BP 122/50 L 11/08/18 00:07 Pulse Ox 94 11/08/18 01:09
[2018-11-08 05:07] LABS: Hematocrit (blood only) 28.5 % (42-52); Hemoglobin 9.5 g/dL (14.0-18.0); Immature Granulocytes # (auto) 0.02 K/uL (0.00-0.02); Immature Granulocytes % (auto) 0.4 %; Lymphocytes # (auto) 0.16 K/uL (1.2-3.4); Lymphocytes % (auto) 2.8 %; Mean Corpuscular Hgb Conc 33.3 g/dL (32-36); Mean Corpuscular Volume 89.6 fL (80-100); Mean Platelet Volume 9.5 fL (7.4-10.4); Monocytes # (auto) 0.19 K/uL (0.11-0.59); Monocytes % (auto) 3.4 %; Neutrophils # (auto) 5.27 K/uL (1.4-6.5); Neutrophils % (auto) 93.4 %; Platelet Count 125 K/uL (130-400); RDW Coefficient of Variation 14.3 % (11.5-14.5); RDW Standard Deviation 45.6 fL (36.4-46.3); Red Blood Count 3.18 M/uL (4.7-6.1); White Blood Count 5.64 K/uL (4.8-10.8)
[2018-11-08 05:23] LABS: Prothrombin Time 38.4 Seconds (9.0-12.0)
[2018-11-08 05:31] LABS: BUN Creatinine Ratio 28.5 (10-20); Calcium 7.4 mg/dl (8.5-10.1); Creatinine Clr Calc Pharmacy 46.2 ml/min; Est GFR (African American) 54.6; Est GFR (Non-African American) 47.1; Magnesium 2.7 mg/dl (1.8-2.4); Potassium 3.4 mmol/L (3.5-5.1)
[2018-11-08 05:37] LABS: INR 4.1 (0.9-1.1)
[2018-11-08] MEDS: HYDROCORTISONE SOD 50 MG in SYRINGE 0 ML IV SCH (05:46)
[2018-11-08] MEDS: ALBUT/IPRATROP 3MG/0.5MG NEB 3 ML VIAL NEB SCH ×4 (07:24→20:02)
[2018-11-08] MEDS ORDERED: POTASSIUM CHLORIDE 10 MEQ TABCR PO STA (07:45)
[2018-11-08] MEDS: PIPERACILLIN/TAZOBACTAM 3.375 GM/115 ML BAG IV SCH ×2 (09:20→16:37)
[2018-11-08] MEDS: INSULIN ASPART 100 UNITS/ML 3 ML PEN SC SCH ×4 (09:25→21:03)
[2018-11-08] MEDS: INSULIN GLARGINE SOLOSTAR 100 UNITS/ML 3 ML PEN SC SCH ×2 (09:26→21:05)
[2018-11-08] MEDS: FUROSEMIDE 40 MG in SYRINGE 0 ML IV SCH ×3 (09:30→21:03)
[2018-11-08] MEDS: DOXYCYCLINE HYCLATE 100 MG CAP PO SCH ×2 (09:30→21:08)
[2018-11-08] MEDS ORDERED: VANCOMYCIN TROUGH ONE (09:30)
[2018-11-08] MEDS: CYANOCOBALAMIN (VITAMIN B-12) 2,500 MCG TAB.SUBL SL SCH (09:30)
[2018-11-08] MEDS: FOLIC ACID 1 MG TAB PO SCH (09:31)
[2018-11-08] MEDS: cloNIDine HCl 0.1 MG TAB PO SCH ×2 (09:32→21:06)
[2018-11-08] MEDS: CARVEDILOL 3.125 MG TAB PO SCH ×2 (09:32→21:06)
[2018-11-08] MEDS: VANCOMYCIN HCL 1,250 MG in SODIUM CHLORIDE 0.9% 250 ML IV SCH (10:34)
--- NOTE | 2018-11-08 12:40 | Pharmacy Report ---
Pharmacy Glycemic Short Note 2 - Date of Service November 08, 2018 - Glycemic Short BSG Results (Last 24 hours): 11/07/18 11/07/18 11/07/18 14:32 16:24 20:15 Glucose POC Glucose 261 H 315 H 202 H 11/07/18 11/08/18 11/08/18 23:48 04:13 07:21 Glucose 207 H POC Glucose 169 H 227 H 11/08/18 10:53 Glucose POC Glucose 359 H* OUTPATIENT ANTIDIABETIC REGIMEN: * Steroids: Hydrocortisone 50mg IV Q6H -- + Solumedrol 60mg IV Q6H x 12 hours, - -> now just solumedrol * Infection: Vancomycin, Zosyn, Doxycycline PO * Diet: Type 2 DM ASSESSMENT: * See note from 11/07/18 for further background. * Dr Oconnell started IV Solu-medrol last night and it was started with IV Hydrocortisone, both were given x 12 hours, now only on IV Solu-medrol - causing hyperglycemia. * Increase Lantus and tighten CF and CR at this time. PLAN FOR INPATIENT GLYCEMIC CONTROL: * Hold outpatient oral diabetes medications * Basal insulin - INCREASE * Lantus 12 units SQ BID * 6 units for BSG < 110mg/ld * Bolus insulin * NovoLog per scale ACHS or Q6hrs while NPO * Goal Range: Low 110 mg/dL - High 140 mg/dL * TIGHTEN: Correction Factor: 18 mg/dL/unit * TIGHTEN: Nutritional / Prandial insulin per carb ratio of 1 unit per 6 grams CHO consumed PLAN FOR DISCHARGE: * A1c 6.8% - continue outpatient regimen.
--- NOTE | 2018-11-08 13:05 | Pharmacy Report ---
Pharmacy Abx Dose Short Note - Date of Service November 08, 2018 - Assessment & Plan Assessment 78 year old M receiving Vancomycin, Zosyn, and doxycycline for treatment of diabetic foot ulcer and possible pneumonia. Day #5 of antimicrobial therapy. Plan Vancomycin * Trough level of 8.4 mcg/mL is subtherapeutic * Change to 1250 mg IV every 18 hours * Goal trough level: 15 to 20 mcg/mL * Trough level ordered for 11/10/18 @1530 Piperacillin/tazobactam * 4.5 g bolus administered over 30 minutes, then 3.375 g IV extended infusion every 8 hours for CrCl greater than 20 mL/min Pharmacy will continue to follow and will adjust dose/frequency as necessary. Thank you.
--- NOTE | 2018-11-08 14:27 | Cardiology Progress Note ---
Date of Service November 08, 2018 Assessment & Plan (1) Hypoxia: Multifactorial respiratory failure suspected continues to require oxygen supplementation. FiO2 requirement improving but still at 50% has diuresed very well, does not examine as particularly volume overloaded given clinical improvement will cont IV diuresis for now but d/c fluid restriction appreciate pulm input (2) LBBB (left bundle branch block): Stable (3) Cardiomyopathy, idiopathic: Ejection fraction normal on echocardiogram this admission (4) Paroxysmal atrial fibrillation: Patient remains in sinus rhythm and is chronically anticoagulated, supratherapeutic (5) Respiratory failure: Multifactorial etiology patient is on immunosuppressive therapy with methotrexate and prednisone will order repeat chest x-ray for later today depending on response to diuretic (6) Rheumatoid arthritis: Patient on methotrexate and prednisone chronically. Remains on stress dose to (7) HTN (hypertension): Patient presented relatively hypotensive for this patient but now trending closer towards normal. Clonidine dosing reduced to avoid rebound but may also be able to discontinue. Amlodipine held Subjective Pt seen and examined, states that he's feeling rather well. Breathing has improved from admission while on bipap but still requiring 50% fio2 on bipap. Denies cp, palpitations, lightheadedness or dizziness. Main complaint is that of dry mouth on fluid restriction. tele reviewed: sinus rhythm with underlying LBBB Physical Exam 2 Vital Signs (Past 24 Hours): Last Vital Signs Temp 36.5 C 11/08/18 12:23 Pulse 76 11/08/18 12:23 Resp 28 H 11/08/18 12:23 BP 126/64 11/08/18 12:23 Pulse Ox 93 11/08/18 12:23 Physical Exam: General: Awake, alert and oriented x 3. No acute distress. HEENT: Normocephalic, atraumatic. Pupils equal, round and reactive to light and accommodation. Extraocular muscles are intact. Anicteric sclera. Moist mucous membranes. Neck: No JVD. No bruit. Cardiovascular: Regular but distant Pulmonary: Bibasilar dry crackles, otherwise, clear Abdomen: Bowel sounds x 4, soft. No rebound, guarding or tenderness. No organomegaly. Extremities: No clubbing, cyanosis or edema. +2 pedal pulses bilaterally. Skin: Warm and dry.
--- NOTE | 2018-11-08 19:39 | Hospitalist Progress Note ---
Date of Service November 08, 2018 Assessment & Plan (1) Acute respiratory failure with hypoxia: This is an 78yo M with a PMH of atrial fibrillation on anticoagulation, chronic systolic CHF, DM II, HTN, HLD, diabetic polyneuropathy, chronic diabetic foot ulcers, history of tobacco disorder, peripheral vascular disease, thrombocytopenia, CKD III and rheumatoid arthritis who presented with presented with shortness of breath and was found to have acute respiratory failure 2/2 pneumonia vs CHF exacerbation. -Initially found to be hypoxic at 74% on RA and was placed on BiPAP in ED -CTA chest with extensive groundglass opacities throughout both lungs reflective of pulmonary edema or PNA -No pulmonary emboli identified although segmental and subsegmental pulmonary arteries on suboptimal study -Repeat CXR from Nov 07 with slightly improved diffuse bilateral mixed interstitial and alveolar opacities. Differential considerations include pulmonary edema versus pneumonia -Procalcitonin elevated at 4.28, favoring pneumonia as diagnosis vs. CHF exacerbation -Added incentive spirometry and duonebs with RT -Continue Zosyn, vanc and doxy empirically. Follow blood cultures (no growth) -Continued on 40mg IV TID Lasix, per cardiology -No orthopnea or BLE edema to suggest CHF exacerbation. Echo with preserved EF of 60-65% -Attempted to wean Oxymask O2 requirement but became hypoxic overnight at 87% on 15L oxymask, so patient placed on BiPAP -Pulmonary consult for further evaluation -Will continue to monitor respiratory status closely 11/08/18 Continue on high flow oxygen supplement Lasix change to oral Continue incentive spirometry On Zosyn, Vanco and doxy Blood cx no growth Pulmonology on board (2) Diabetic foot ulcer: In setting of diabetic polyneuropathy and h/o R great toe amputation, partial amputation of the first metatarsal in Jun 2016 Evaluated by wound care nurse on Nov 05 and found to have periwound discoloration. Wound was dressed with instructions to change Q2D Stable (3) Elevated troponin: Troponin elevated at 0.391 with peak at 0.428 and is now downtrending. Likely due to demand ischemia No acute ST changes on EKG Echo performed this AM with EF: 60-65%, moderate concentric LVH Continue monitoring on telemetry Denies any chest pain (4) Systolic heart failure: Possible acute exacerbation of chronic systolic HF but 2D echo performed yesterday with preserved EF -Receiving 40mg IV Lasix TID with cardiology involvement -Continue Oxymask for acute hypoxia due to PNA, possible component of volume overload but appearing less likely -Strict I&Os, low sodium diet, daily weight -Continue Coreg. Hold lisinopril due to elevated Cr 11/08/18 Lasix change to oral cardiology on board Monitor BMP (5) Left hip pain: Left hip pain on palpation X-rays where questionable and hip CT was performed -- no acute osseous injury of the left hip. Mild degenerative changes Stable PT/OT once pulm status stable (6) Atrial fibrillation: Rate control with coreg coumadin on hold because INR is supra therapeutic in the setting of abx Continue monitor INR (7) Thrombocytopenia: Plt stable at 125 -Decreased slightly from baseline count in mid-100s, in setting of active infection -Continue monitoring with daily CBC (8) Diabetes mellitus, type 2: Recent A1c of 6.8 Continue holding his home medication metformin and glimepiride BSG fluctuating in the setting of appetite changes and IV hydrocortisone Pharmacy on board for glycemic management (9) Rheumatoid arthritis: Hold methotrexate Was starting on 50mg IV hydrocortisone Q6H for possible adrenal insufficiency in setting of infection (10) HTN (hypertension): BP stable Continue home Norvasc, Coreg and clonidine with holding parameters Monitor BP closely (11) CKD (chronic kidney disease), stage III: Creatinine fluctuating from 1.98--> 1.55 --> 1.8 today --> 1.4 (Baseline Cr ~ 1.4) Continue holding lisinopril Monitor kidney function with daily BMPs (12) LBBB (left bundle branch block): Stable, chronic condition (13) HLD (hyperlipidemia): Continue statin DVT Ppx: Holding coumadin due to supratherapeutic INR Code status: FULL Dispo: Continue monitor in tele Subjective Pt was seen and examined Lying in bed with no distress Pt said that his breathing improves He is on high flow oxygen Denies any chest pain, palpitation and fever Physical Exam 2 Vital Signs (Past 24 Hours): Last Vital Signs Temp 36.7 C 11/08/18 15:27 Pulse 73 11/08/18 17:00 Resp 20 11/08/18 15:27 BP 124/54 L 11/08/18 15:27 Pulse Ox 97 11/08/18 15:27 Physical Exam: General- No acute distress Head- atraumatic Eyes- PERRL, EOMI, ENT- oropharynx clear Neck- supple, no JVD Lungs- B/L crackles Heart- regular rhythm; no murmur Abdomen- normal bowel sounds, soft, nontender Extremities- no calf tenderness Neuro- alert, oriented x 3; PERRL, EOMI; Skin- warm & dry _ (1) Diabetic foot ulcer Diabetes mellitus type: type 2 Diabetic foot ulcer location: midfoot Laterality: right Non-pressure ulcer stage: with fat layer exposed Qualified Code(s): E11.621 - Type 2 diabetes mellitus with foot ulcer; L97.412 - Non- pressure chronic ulcer of right heel and midfoot with fat layer exposed
--- NOTE | 2018-11-08 20:59 | Pulmonology Progress Note ---
Date of Service November 08, 2018 Assessment & Plan (1) Acute respiratory failure with hypoxia: Impression: 1. Mixed interstitial and airspace disease affecting asymmetrical lobes of the lung in a patient who has history of rheumatoid arthritis, representing rheumatoid lung, other differential also including diffuse alveolar hemorrhage, but I would expect the patient to be clinically a lot sicker. In review of the CAT scan, I am suspicious about methotrexate toxicity. 2. The patient has a history of CHF with chronic A. fib, however, I would expect him to respond quickly to diuresis and PPV, which he did not. These findings argue against CHF exacerbation. 3. I do not see any evidence of infectious pneumonia. Plan: 1. Elevated inflammatory markers including C-reactive protein and pro calcitonin which account for tentative diagnosis of drug-induced ILD, due to methotrexate toxicity. 2. Continue Solu-Medrol 60 mg IV every 6, do not decrease the dose. 3. Glucose control as the patient is diabetic. 4. Start the patient on high flow oxygen with OptiFlow. 5. Correct INR. 6. I would not escalate diuresis in this patient, findings should be steroid sensitive. 7. Discontinue methotrexate, most recent dose was last week. It is long- acting. 8. Check methotrexate level. 9. Add folic acid. 10. Titrate FiO2 to O2 sat 88-92% only. 11. Discontinue antibiotics after 5 days. Thank you, will follow. Subjective The patient continued to have shortness of breath and desaturation after taking him off the BiPAP however he tolerated 8 L of oxygen via nasal cannula. He denies any cough with blood-tinged sputum as he did yesterday. He is tachypneic off the BiPAP but tolerating oxygen via high flow. Tolerating oral intake, no nausea or vomiting. Physical Exam 2 Vital Signs (Past 24 Hours): Last Vital Signs Temp 36.5 C 11/08/18 19: Pulse 77 11/08/18 19:28 Resp 18 11/08/18 19: BP 141/66 H 11/08/18 19: Pulse Ox 96 11/08/18 20:02 Physical Exam: Vital signs are stable, O2 saturation is 96% on 40%. S1-S2 regular rate and rhythm. Rhonchi bilaterally, crackles also audible. Abdomen is benign no edema. Results & Data Laboratory Results Labs were reviewed, although pro-calcitonin is elevated, but it appeared to be chronically elevated. Diagnostic Findings I have reviewed the CAT scan again for 1 more time in which the patient has a mixed picture of interstitial and airspace disease. The patient does have dilated pulmonary artery as well. Although the findings could represent pulmonary edema, I am leaning towards rheumatoid lung versus methotrexate toxicity.
[2018-11-08] MEDS: PRAVASTATIN SOD 40 MG TAB PO SCH (21:08)
[2018-11-09] MEDS: INSULIN ASPART 100 UNITS/ML 3 ML PEN SC SCH ×6 (00:09→23:49)
[2018-11-09] MEDS: PIPERACILLIN/TAZOBACTAM 3.375 GM/115 ML BAG IV SCH ×4 (00:16→23:49)
[2018-11-09] MEDS: methylPREDNISolone 60 MG in SYRINGE 0 ML IV SCH ×4 (02:15→21:25)
[2018-11-09] MEDS: VANCOMYCIN HCL 1,250 MG in SODIUM CHLORIDE 0.9% 250 ML IV SCH ×2 (04:15→21:47)
[2018-11-09] MEDS: ALBUT/IPRATROP 3MG/0.5MG NEB 3 ML VIAL NEB SCH ×4 (07:05→20:39)
[2018-11-09] MEDS: DOXYCYCLINE HYCLATE 100 MG CAP PO SCH ×2 (08:12→21:27)
[2018-11-09] MEDS: CARVEDILOL 3.125 MG TAB PO SCH ×2 (08:12→21:27)
[2018-11-09] MEDS: cloNIDine HCl 0.1 MG TAB PO SCH ×2 (08:13→21:27)
[2018-11-09] MEDS: FOLIC ACID 1 MG TAB PO SCH (08:13)
[2018-11-09] MEDS: INSULIN GLARGINE SOLOSTAR 100 UNITS/ML 3 ML PEN SC SCH ×2 (08:14→21:26)
[2018-11-09 09:06] LABS: Prothrombin Time 56.6 Seconds (9.0-12.0)
[2018-11-09 09:08] LABS: INR 6.2 (0.9-1.1)
[2018-11-09 09:13] LABS: BUN Creatinine Ratio 31.6 (10-20); Calcium 7.4 mg/dl (8.5-10.1); Creatinine Clr Calc Pharmacy 45.9 ml/min; Est GFR (African American) 54.1; Est GFR (Non-African American) 46.7; Potassium 3.4 mmol/L (3.5-5.1)
[2018-11-09] MEDS: CYANOCOBALAMIN (VITAMIN B-12) 2,500 MCG TAB.SUBL SL SCH (10:07)
[2018-11-09] MEDS ORDERED: POTASSIUM CHLORIDE 20 MEQ TABCR PO STA (10:33)
[2018-11-09] MEDS: FUROSEMIDE 40 MG in SYRINGE 0 ML IV SCH (10:37)
--- NOTE | 2018-11-09 11:22 | Pharmacy Report ---
Pharmacy Glycemic Short Note 2 - Date of Service November 09, 2018 - Glycemic Short BSG Results (Last 24 hours): 11/08/18 11/08/18 11/09/18 16:27 20:54 00:04 Glucose POC Glucose 277 H 225 H 208 H 11/09/18 11/09/18 07:08 08:34 Glucose 257 H POC Glucose 194 H OUTPATIENT ANTIDIABETIC REGIMEN: * Steroids: Solumedrol 60mg IV Q6H x 12 hours * Infection: Vancomycin, Zosyn, Doxycycline PO * Diet: Type 2 DM ASSESSMENT: * See note from 11/07/18 for further background. * Pt remains on antibiotics and IV Solu-medrol, blood sugars improving but still above goal with increase in insulin doses yesterday, will continue to titrate up. * Increase Lantus and tighten CF and CR at this time. PLAN FOR INPATIENT GLYCEMIC CONTROL: * Hold outpatient oral diabetes medications * Basal insulin - INCREASE * Lantus 15 units SQ BID * 10 units for BSG < 110mg/ld * Bolus insulin * NovoLog per scale ACHS or Q6hrs while NPO * Goal Range: Low 110 mg/dL - High 140 mg/dL * TIGHTEN: Correction Factor: 15 mg/dL/unit * TIGHTEN: Nutritional / Prandial insulin per carb ratio of 1 unit per 5 grams CHO consumed PLAN FOR DISCHARGE: * A1c 6.8% - continue outpatient regimen.
--- NOTE | 2018-11-09 13:35 | Cardiology Progress Note ---
Date of Service November 09, 2018 Assessment & Plan (1) Hypoxia: Multifactorial respiratory failure suspected continues to require oxygen supplementation. FiO2 requirement improving but still at 50% has diuresed very well, does not examine as volume overloaded will change lasix back to baseline oral regimen will defer further treatment to our pulmonary colleagues (2) LBBB (left bundle branch block): Stable (3) Cardiomyopathy, idiopathic: Ejection fraction normal on echocardiogram this admission (4) Paroxysmal atrial fibrillation: Patient remains in sinus rhythm and is chronically anticoagulated, supratherapeutic (5) Respiratory failure: Multifactorial etiology patient is on immunosuppressive therapy with methotrexate and prednisone will order repeat chest x-ray for later today depending on response to diuretic (6) Rheumatoid arthritis: Patient on methotrexate and prednisone chronically. Remains on stress dose to (7) HTN (hypertension): Patient presented relatively hypotensive for this patient but now trending closer towards normal. Clonidine dosing reduced to avoid rebound but may also be able to discontinue. Amlodipine held Subjective Pt seen and examined, now on opti flow. States that he's feeling well. A little fatigued and breathing not yet back to baseline but otherwise, well. Denies cp, sob with O2 in place, palpitations, lightheadedness or dizziness. tele reviewed: sinus rhythm with underlying LBBB pattern Physical Exam 2 Vital Signs (Past 24 Hours): Last Vital Signs Temp 36.7 C 11/09/18 12:12 Pulse 75 11/09/18 12:12 Resp 20 11/09/18 12:12 BP 143/63 H 11/09/18 12:12 Pulse Ox 93 11/09/18 12:12 Physical Exam: General: Awake, alert and oriented x 3. No acute distress. HEENT: Normocephalic, atraumatic. Pupils equal, round and reactive to light and accommodation. Extraocular muscles are intact. Anicteric sclera. Moist mucous membranes. Neck: No JVD. No bruit. Cardiovascular: Regular. Positive S-4. Normal S-1 and S-2. No S-3. No murmurs or rubs. Pulmonary: dry crackles in b/l bases, otherwise, clear. No rhonchi or wheezing Abdomen: Bowel sounds x 4, soft. No rebound, guarding or tenderness. No organomegaly. Extremities: No clubbing, cyanosis or edema. +2 pedal pulses bilaterally. Skin: Warm and dry.
[2018-11-09] MEDS: FUROSEMIDE 40 MG TAB PO SCH (17:35)
--- NOTE | 2018-11-09 17:39 | Pulmonology Progress Note ---
Date of Service November 09, 2018 Assessment & Plan (1) Acute respiratory failure with hypoxia: Impression: 1. Mixed interstitial and airspace disease affecting asymmetrical lobes of the lung in a patient who has history of rheumatoid arthritis, representing rheumatoid lung, other differential also including diffuse alveolar hemorrhage, but I would expect the patient to be clinically a lot sicker. In review of the CAT scan, I am suspicious about methotrexate toxicity. 2. The patient has a history of CHF with chronic A. fib, however, I would expect him to respond quickly to diuresis and PPV, which he did not. These findings argue against CHF exacerbation. 3. I do not see any evidence of infectious pneumonia. Plan: 1. 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 2. Continue Solu-Medrol 60 mg IV every 6, do not decrease the dose. 3. Glucose control as the patient is diabetic. 4. Continue with OptiFlow, titrate FiO2 down by 10% every few hours if tolerable. Keep O2 sat 88-92%. 5. Keep Coumadin on hold. 6. Avoid escalation of diuresis. 7. Discontinue methotrexate indefinitely. 8. Check methotrexate level, not available at our institution. 9. Add folic acid. 10. Discussed with the patient and his . 11. Discontinue antibiotics after 5 days. Thank you, will follow. Subjective The patient continued to have increasing shortness of breath however he is feeling the same since yesterday. No cough or sputum production no hemoptysis reported. No chest pain. He has not been ambulatory. He is tolerating high flow oxygen with 70%. Physical Exam 2 Vital Signs (Past 24 Hours): Last Vital Signs Temp 36.8 C 11/09/18 16:00 Pulse 70 11/09/18 16:00 Resp 18 11/09/18 16:00 BP 136/61 11/09/18 16:00 Pulse Ox 88 L 11/09/18 16:00 Physical Exam: Vital signs are stable, O2 saturation 92%, crackles bilaterally , S1-S2 regular rate and rhythm, abdomen is benign, no edema in the periphery, no rash and no swelling in his joints, no oral thrush. Neurologically he is intact. Results & Data Laboratory Results Labs showed hyperglycemia, otherwise stable BUN and creatinine. Diagnostic Findings No new imaging.
--- NOTE | 2018-11-09 19:14 | Hospitalist Progress Note ---
Date of Service November 09, 2018 Assessment & Plan (1) Acute respiratory failure with hypoxia: This is an 78yo M with a PMH of atrial fibrillation on anticoagulation, chronic systolic CHF, DM II, HTN, HLD, diabetic polyneuropathy, chronic diabetic foot ulcers, history of tobacco disorder, peripheral vascular disease, thrombocytopenia, CKD III and rheumatoid arthritis who presented with presented with shortness of breath and was found to have acute respiratory failure 2/2 pneumonia vs CHF exacerbation. -Initially found to be hypoxic at 74% on RA and was placed on BiPAP in ED -CTA chest with extensive groundglass opacities throughout both lungs reflective of pulmonary edema or PNA -No pulmonary emboli identified although segmental and subsegmental pulmonary arteries on suboptimal study -Repeat CXR from Nov 07 with slightly improved diffuse bilateral mixed interstitial and alveolar opacities. Differential considerations include pulmonary edema versus pneumonia -Procalcitonin elevated at 4.28, favoring pneumonia as diagnosis vs. CHF exacerbation -Added incentive spirometry and duonebs with RT -Continue Zosyn, vanc and doxy empirically. Follow blood cultures (no growth) -Continued on 40mg IV TID Lasix, per cardiology -No orthopnea or BLE edema to suggest CHF exacerbation. 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 Wound was dressed with instructions to change Q2D (3) Elevated troponin: Troponin elevated at 0.391 with peak at 0.428 and is now downtrending. Likely due to demand ischemia -No acute ST changes on EKG -Echo performed this AM with EF: 60-65%, moderate concentric LVH -Continue monitoring on telemetry (4) Systolic heart failure: Possible acute exacerbation of chronic systolic HF but 2D echo performed yesterday with preserved EF -Receiving 40mg IV Lasix TID with cardiology involvement -Continue Oxymask for acute hypoxia due to PNA, possible component of volume overload but appearing less likely -Strict I&Os, low sodium diet, daily weight -Continue Coreg. Hold lisinopril due to elevated Cr (5) Left hip pain: Left hip pain on palpation -X-rays where questionable and hip CT was performed -- no acute osseous injury of the left hip. Mild degenerative changes -PT/OT prior to discharge (6) Atrial fibrillation: Continue Coreg -On coumadin for anticoagulation -Elevated INR in setting of coumadin-vancomycin interaction: HOLDING coumadin until INR in range of 2-3 (7) Thrombocytopenia: Plt stable at 126 -Decreased slightly from baseline count in mid-100s, in setting of active infection -Continue monitoring with daily CBC (8) Diabetes mellitus, type 2: A1c of 6.8 today -Hold his home medication metformin and glimepiride -BSG fluctuating in the setting of appetite changes and IV hydrocortisone -Glycemic consult placed (9) Rheumatoid arthritis: Hold methotrexate and prednisone for now hydrocortisone change to solumdrol IV mg (10) HTN (hypertension): Lower BP this morning with 107/48 -Monitor BP in setting of IV diuresis -Continue home Norvasc, Coreg and clonidine with holding parameters -Holding lisinopril for now . Will monitor blood pressure (11) CKD (chronic kidney disease), stage III: Creatinine fluctuating from 1.98--> 1.55 --> 1.8 today --> 1.4 (Baseline Cr ~ 1.4) -Hold lisinopril. Likely 2/2 increased Lasix dose -Monitor kidney function with daily BMPs (12) LBBB (left bundle branch block): Stable, chronic condition (13) HLD (hyperlipidemia): Continue statin DVT Ppx: Holding coumadin due to supratherapeutic INR Code status: FULL PCP: Vero Subjective Pt was seen and examined Lying in bed continue require high flow oxygen Denies any chest pain, palpitation and fever Physical Exam 2 Vital Signs (Past 24 Hours): Last Vital Signs Temp 36.8 C 11/09/18 16:00 Pulse 70 11/09/18 16:00 Resp 18 11/09/18 16:00 BP 136/61 11/09/18 16:00 Pulse Ox 88 L 11/09/18 16:00 Physical Exam: General- No acute distress Head- atraumatic Eyes- PERRL, EOMI, ENT- oropharynx clear Neck- supple, no JVD Lungs- crackle B/L Heart- no murmur Abdomen- normal bowel sounds, soft, nontender Extremities- no calf tenderness Neuro- alert, oriented x 3; PERRL, EOMI; no facial palsy; no dysarthria Skin- warm & dry _ (1) Diabetic foot ulcer Diabetes mellitus type: type 2 Diabetic foot ulcer location: midfoot Laterality: right Non-pressure ulcer stage: with fat layer exposed Qualified Code(s): E11.621 - Type 2 diabetes mellitus with foot ulcer; L97.412 - Non- pressure chronic ulcer of right heel and midfoot with fat layer exposed
[2018-11-09] MEDS: PRAVASTATIN SOD 40 MG TAB PO SCH (21:27)
--- NOTE | 2018-11-09 22:45 | XRay Report ---
SINGLE VIEW CHEST CLINICAL HISTORY: Hypoxia. FINDINGS: An AP, portable, upright chest radiograph is compared to study dated 11/07/2018 and correlate d with chest CT dated 11/04/2018. The examination is degraded by portable technique and patient rotatio n. The heart is enlarged and there is atherosclerotic calcification of the thoracic aorta. There is pulmonary vascular congestion. Diffuse bilateral airspace opacities persist. No large pleural effusio n is identified. No pneumothorax is seen. The skeletal structures are osteopenic. The bony thorax is grossly intact. IMPRESSION: 1. Cardiomegaly with pulmonary vascular congestion. 2. Diffuse bilateral airspace opacities persist. Differential considerations include pulmonary edema, multifocal pneumonia, pulmonary hemorrhage, and/or ARDS. Clinical correlation will be essential. Electronically signed by: Dwaine Grey M.D. 11/09/2018 10:44 PM
[2018-11-09 23:05] LABS: Hematocrit (blood only) 26.8 % (42-52); Hemoglobin 8.9 g/dL (14.0-18.0); Immature Granulocytes # (auto) 0.03 K/uL (0.00-0.02); Immature Granulocytes % (auto) 0.4 %; Lymphocytes # (auto) 0.62 K/uL (1.2-3.4); Lymphocytes % (auto) 7.3 %; Mean Corpuscular Hgb Conc 33.2 g/dL (32-36); Mean Corpuscular Volume 89.9 fL (80-100); Mean Platelet Volume 9.9 fL (7.4-10.4); Monocytes # (auto) 0.06 K/uL (0.11-0.59); Monocytes % (auto) 0.7 %; Neutrophils # (auto) 7.74 K/uL (1.4-6.5); Neutrophils % (auto) 91.6 %; Platelet Count 126 K/uL (130-400); RDW Coefficient of Variation 14.8 % (11.5-14.5); RDW Standard Deviation 47.2 fL (36.4-46.3); Red Blood Count 2.98 M/uL (4.7-6.1); White Blood Count 8.45 K/uL (4.8-10.8)
[2018-11-09 23:06] LABS: HCO3 ABG 25 mmol/L (19-24); Oxygen Saturation ABG 97.9 % (90-95); PCO2 ABG 34 mmHg (35-46); PO2 ABG 104 mm/Hg (80-95); pH ABG 7.49 (7.35-7.45)
[2018-11-09 23:09] LABS: Allen Test Pos (Pos)
[2018-11-09 23:22] LABS: BUN Creatinine Ratio 34.5 (10-20); Creatinine Clr Calc Pharmacy 56.2 ml/min; Est GFR (African American) 69.3; Est GFR (Non-African American) 59.8; Magnesium 2.5 mg/dl (1.8-2.4); Potassium 3.6 mmol/L (3.5-5.1)
[2018-11-09 23:34] LABS: Ovalocytes 1+; Polychromasia 1+
[2018-11-10] MEDS: IPRATROPIUM BROMIDE NEB SOLN 0.02% 2.5 ML VIAL INH SCH ×4 (01:40→19:17)
[2018-11-10] MEDS: LEVALBUTEROL 1.25MG/0.5ML NEB INH SCH ×4 (01:41→19:17)
[2018-11-10] MEDS ORDERED: XOPENEX/ATROVENT 1.25mg/0.5MG NEB COMBO NEB SCH (02:00)
[2018-11-10] MEDS: methylPREDNISolone 60 MG in SYRINGE 0 ML IV SCH ×4 (02:03→19:45)
[2018-11-10] MEDS ORDERED: POTASSIUM CHLORIDE 20 MEQ TABCR PO ONE (07:15)
[2018-11-10 08:21] LABS: Hematocrit (blood only) 29.5 % (42-52); Hemoglobin 9.6 g/dL (14.0-18.0); Mean Corpuscular Hgb Conc 32.5 g/dL (32-36); Mean Corpuscular Volume 90.5 fL (80-100); Mean Platelet Volume 9.7 fL (7.4-10.4); Nucleated RBC # (auto) 0.02 K/uL (0-0); Nucleated RBC % (auto) 0.2 %; Platelet Count 136 K/uL (130-400); RDW Coefficient of Variation 14.9 % (11.5-14.5); Red Blood Count 3.26 M/uL (4.7-6.1); White Blood Count 9.87 K/uL (4.8-10.8)
[2018-11-10] MEDS: DOXYCYCLINE HYCLATE 100 MG CAP PO SCH ×2 (08:24→21:17)
[2018-11-10] MEDS: cloNIDine HCl 0.1 MG TAB PO SCH ×2 (08:25→21:15)
[2018-11-10] MEDS: FOLIC ACID 1 MG TAB PO SCH (08:25)
[2018-11-10] MEDS: CARVEDILOL 3.125 MG TAB PO SCH ×2 (08:25→21:16)
[2018-11-10] MEDS: FUROSEMIDE 40 MG TAB PO SCH ×2 (08:25→16:59)
[2018-11-10] MEDS: INSULIN GLARGINE SOLOSTAR 100 UNITS/ML 3 ML PEN SC SCH ×2 (08:26→21:18)
[2018-11-10] MEDS: CYANOCOBALAMIN (VITAMIN B-12) 2,500 MCG TAB.SUBL SL SCH (08:27)
[2018-11-10] MEDS: PIPERACILLIN/TAZOBACTAM 3.375 GM/115 ML BAG IV SCH ×3 (08:30→23:54)
--- NOTE | 2018-11-10 08:44 | Cardiology Progress Note ---
Date of Service November 10, 2018 Assessment & Plan (1) Hypoxia: Multifactorial respiratory failure suspected continues to require oxygen supplementation. FiO2 requirement improving but still at 50% has diuresed very well, does not examine as volume overloaded will change lasix back to baseline oral regimen will defer further treatment to our pulmonary colleagues (2) LBBB (left bundle branch block): Stable (3) Cardiomyopathy, idiopathic: Ejection fraction normal on echocardiogram this admission (4) Paroxysmal atrial fibrillation: Patient remains in sinus rhythm and is chronically anticoagulated, supratherapeutic (5) Respiratory failure: Multifactorial etiology patient is on immunosuppressive therapy with methotrexate and prednisone will order repeat chest x-ray for later today depending on response to diuretic (6) Rheumatoid arthritis: Patient on methotrexate and prednisone chronically. Remains on stress dose to (7) HTN (hypertension): Patient presented relatively hypotensive for this patient but now trending closer towards normal. Clonidine dosing reduced to avoid rebound but may also be able to discontinue. Amlodipine held Subjective The patient is currently stable without new complaints. Physical Exam 2 Vital Signs (Past 24 Hours): Last Vital Signs Temp 36.9 C 11/10/18 07:35 Pulse 66 11/10/18 07:35 Resp 20 11/10/18 07:35 BP 149/67 H 11/10/18 07:35 Pulse Ox 96 11/10/18 07:35 Physical Exam: General: no acute distress and stated age Head: normocephalic, no masses, lesions, tenderness or abnormalities Eyes: conjunctiva are pink and non-injected, sclera clear Neck: supple, no adenopathy, no bruits, normal jugular venous pulse, no hepatojugular reflux Chest: normal shape and normal respiratory effort Lungs: clear to auscultation and percussion Cardiac Exam: - irregular rate & rhythm, grade 1/6 diastolic murmur- normal S1, normal S2 Pulses: 2(+) throughout Abdomen: abdomen soft, non-tender, no abnormal masses and no hepatosplenomegaly Musculoskeletal: no gait disturbance, no joint inflammation, no deforming arthritis Extremities: no edema and no cyanosis Neuro: grossly normal exam Results & Data Laboratory Results Laboratory Results - last 24 hr 11/09/18 11/09/18 11/09/18 08:34 08:34 11:08 WBC RBC Hgb Hct MCV MCH MCHC RDW Std Deviation RDW Coeff of Estelita Plt Count MPV Immature Gran % (Auto) Neut % (Auto) Lymph % (Auto) [place] % (Auto) Eos % (Auto) Baso % (Auto) Immature Gran # (Auto) Neut # (Auto) Lymph # (Auto) [place] # (Auto) Eos # (Auto) Baso # (Auto) Absolute Nucleated RBC Nucleated RBC % (auto) Hypersegmented Neuts Polychromasia Ovalocytes PT 56.6 H INR 6.2 H* ABG pH ABG pCO2 ABG pO2 ABG HCO3 ABG O2 Saturation ABG Base Excess [place] Test Barometric Pressure Oxygen Given Sodium 140 Potassium 3.4 L Chloride 105 Carbon Dioxide 28 Anion Gap 7.0 BUN 45 H Creatinine 1.41 H Est Cr Clr Drug Dosing 45.9 Est GFR ( Amer) 54.1 Est GFR (Non-Af Amer) 46.7 BUN/Creatinine Ratio 31.6 H Glucose 257 H POC Glucose 298 H Calcium 7.4 L Magnesium NT-Pro-B Natriuret Pep 11/09/18 11/09/18 11/09/18 16:23 20:42 22:56 WBC RBC Hgb Hct MCV MCH MCHC RDW Std Deviation RDW Coeff of Estelita Plt Count MPV Immature Gran % (Auto) Neut % (Auto) Lymph % (Auto) [place] % (Auto) Eos % (Auto) Baso % (Auto) Immature Gran # (Auto) Neut # (Auto) Lymph # (Auto) [place] # (Auto) Eos # (Auto) Baso # (Auto) Absolute Nucleated RBC Nucleated RBC % (auto) Hypersegmented Neuts Polychromasia Ovalocytes PT INR ABG pH 7.49 H ABG pCO2 34 L ABG pO2 104 H ABG HCO3 25 H ABG O2 Saturation 97.9 H ABG Base Excess 1.7 [place] Test Pos Barometric Pressure 739.8 Oxygen Given FIO2 70 Sodium Potassium Chloride Carbon Dioxide Anion Gap BUN Creatinine Est Cr Clr Drug Dosing Est GFR ( Amer) Est GFR (Non-Af Amer) BUN/Creatinine Ratio Glucose POC Glucose 237 H 154 H Calcium Magnesium NT-Pro-B Natriuret Pep 11/09/18 11/09/18 11/09/18 22:56 22:56 23:49 WBC 8.45 RBC 2.98 L Hgb 8.9 L Hct 26.8 L MCV 89.9 MCH 29.9 MCHC 33.2 RDW Std Deviation 47.2 H RDW Coeff of Estelita 14.8 H Plt Count 126 L MPV 9.9 Immature Gran % (Auto) 0.4 Neut % (Auto) 91.6 Lymph % (Auto) 7.3 [place] % (Auto) 0.7 Eos % (Auto) 0.0 Baso % (Auto) 0.0 Immature Gran # (Auto) 0.03 H Neut # (Auto) 7.74 H Lymph # (Auto) 0.62 L [place] # (Auto) 0.06 L Eos # (Auto) 0.00 Baso # (Auto) 0.00 Absolute Nucleated RBC Nucleated RBC % (auto) Hypersegmented Neuts 1+ Polychromasia 1+ Ovalocytes 1+ PT INR ABG pH ABG pCO2 ABG pO2 ABG HCO3 ABG O2 Saturation ABG Base Excess [place] Test Barometric Pressure Oxygen Given Sodium 144 Potassium 3.6 Chloride 109 H Carbon Dioxide 29 Anion Gap 6.0 BUN 40 H Creatinine 1.15 Est Cr Clr Drug Dosing 56.2 Est GFR ( Amer) 69.3 Est GFR (Non-Af Amer) 59.8 BUN/Creatinine Ratio 34.5 H Glucose 101 H POC Glucose 98 Calcium 7.0 L Magnesium 2.5 H NT-Pro-B Natriuret Pep 1679 11/10/18 11/10/18 07:28 08:04 WBC 9.87 RBC 3.26 L Hgb 9.6 L Hct 29.5 L MCV 90.5 MCH 29.4 MCHC 32.5 RDW Std Deviation 48.0 H RDW Coeff of Estelita 14.9 H Plt Count 136 MPV 9.7 Immature Gran % (Auto) Neut % (Auto) Lymph % (Auto) [place] % (Auto) Eos % (Auto) Baso % (Auto) Immature Gran # (Auto) Neut # (Auto) Lymph # (Auto) [place] # (Auto) Eos # (Auto) Baso # (Auto) Absolute Nucleated RBC 0.02 H Nucleated RBC % (auto) 0.2 Hypersegmented Neuts Polychromasia Ovalocytes PT INR ABG pH ABG pCO2 ABG pO2 ABG HCO3 ABG O2 Saturation ABG Base Excess [place] Test Barometric Pressure Oxygen Given Sodium Potassium Chloride Carbon Dioxide Anion Gap BUN Creatinine Est Cr Clr Drug Dosing Est GFR ( Amer) Est GFR (Non-Af Amer) BUN/Creatinine Ratio Glucose POC Glucose 135 H Calcium Magnesium NT-Pro-B Natriuret Pep Medications Administered Current Inpatient Medications Acetaminophen (Tylenol) 650 mg PO Q4H PRN PRN Reason: Pain or Fever Stop: 12/04/18 21:18 Al Hydrox/Mg Hydrox/Simethicone (Maalox) 15 ml PO Q4H PRN PRN Reason: Dyspepsia Stop: 12/04/18 21:18 Last Admin: 11/09/18 10:25 Dose: 15 ml Amlodipine Besylate (Norvasc) 10 mg PO QAM CHEIKH Stop: 12/05/18 08:59 Last Admin: 11/05/18 07:51 Dose: 10 mg Carvedilol (Coreg) 3.125 mg PO BID CHEIKH Stop: 12/08/18 08:59 Last Admin: 11/10/18 08:25 Dose: 3.125 mg Clonidine HCl (Catapres) 0.1 mg PO BID CHEIKH Stop: 12/05/18 20:59 Last Admin: 11/10/18 08:25 Dose: 0.1 mg Cyanocobalamin (Vitamin B-12) 2,500 mcg SL DAILY CHEIKH Stop: 12/05/18 08:59 Last Admin: 11/10/18 08:27 Dose: 2,500 mcg Dextrose (Dextrose 50%) 25 - 50 ml IV UD PRN; Protocol PRN Reason: Hypoglycemia Protocol Stop: 12/04/18 21:57 Doxycycline Hyclate (Vibramycin) 100 mg PO BID CHEIKH Stop: 11/12/18 08:59 Last Admin: 11/10/18 08:24 Dose: 100 mg Folic Acid (Folvite) 1 mg PO QAM CHEIKH Stop: 12/05/18 08:59 Last Admin: 11/10/18 08:25 Dose: 1 mg Furosemide (Lasix) 40 mg PO [id number] [facility] Stop: 12/09/18 16:59 Last Admin: 11/10/18 08:25 Dose: 40 mg Glucagon (Glucagen) 1 mg IM UD PRN; Protocol PRN Reason: Hypoglycemia Protocol Stop: 12/04/18 21:57 Glucose (Glucose 40%) 15 - 30 gm PO UD PRN; Protocol PRN Reason: Hypoglycemia Protocol Stop: 12/04/18 21:57 Glucose (Dex4 Glucose) 4 - 8 tabs PO UD PRN; Protocol PRN Reason: Hypoglycemia Protocol Stop: 12/04/18 21:57 Piperacillin Sod/Tazobactam Sod (Zosyn) 3.375 gm in 115 mls @ 28.75 mls/hr IV Q8H [facility]; Protocol Stop: 11/15/18 00:00 Last Admin: 11/10/18 08:30 Dose: 29 mls/hr Methylprednisolone 60 mg/ (Syringe) 0.96 mls @ 1.5 mls/min IV Q6H [facility] Stop: 12/07/18 19:59 Last Admin: 11/10/18 08:27 Dose: 1.5 mls/min Vancomycin HCl 1,250 mg/ (Sodium Chloride) 275 mls @ 125 mls/hr IV Q18H [facility]; Protocol Stop: 11/16/18 03:59 Last Infusion: 11/09/18 23:59 Dose: Infused Insulin Aspart (Novolog Flexpen) 0 units SC ACHS [facility] Stop: 12/04/18 21:18 Last Admin: 11/09/18 21:25 Dose: 2 units Insulin Aspart (Novolog Flexpen) 0 units SC 0000 [facility] Stop: 12/08/18 00:00 Last Admin: 11/09/18 23:49 Dose: Not Given Insulin Glargine (Lantus Solostar Pen) 0 units SC BID [facility]; Protocol Stop: 12/07/18 20:59 Last Admin: 11/10/18 08:26 Dose: 15 units Ipratropium [place] (Atrovent 0.02% 0.5mg/2.5ml) 0.5 mg INH Q6R [facility] Stop: 12/10/18 01:59 Last Admin: 11/10/18 07:15 Dose: 0.5 mg Levalbuterol HCl (Xopenex 1.25mg/0.5ml Neb) 1.25 mg INH Q6R [facility] Stop: 12/10/18 01:59 Last Admin: 11/10/18 07:16 Dose: 1.25 mg Miscellaneous (Carbohydrates For Hypoglycemia) 15 - 30 gm PO UD PRN PRN Reason: Hypoglycemia Treatment Stop: 12/04/18 21:57 Last Admin: 11/05/18 23:38 Dose: 30 gm Miscellaneous Information (Consult) 1 ea N/A UD PRN PRN Reason: Consult Stop: 12/04/18 21:18 Miscellaneous Information (Consult) 1 ea N/A UD PRN PRN Reason: Consult Stop: 12/04/18 21:18 Miscellaneous Information (Consult Glycemic Management Pharmacy) 1 ea N/A UD [facility] Stop: 12/07/18 08:39 Nitroglycerin (Nitrostat) 0.4 mg SL PRN PRN Reason: Chest Pain Stop: 12/04/18 21:18 Ondansetron HCl (Zofran) 4 mg IV Q6H PRN PRN Reason: Nausea Stop: 12/04/18 21:18 Pravastatin Sodium (Pravachol) 40 mg PO HS [facility] Stop: 12/04/18 21:18 Last Admin: 11/09/18 21:27 Dose: 40 mg Prednisone (Prednisone) 5 mg PO DAILY [facility] Stop: 12/05/18 08:59 Last Admin: 11/05/18 07:52 Dose: 5 mg Warfarin Sodium (Coumadin) 1 mg PO [id number] [facility] Stop: 12/05/18 15:59 Last Admin: 11/05/18 15:33 Dose: 1 mg Warfarin Sodium (Coumadin) 3 mg PO [id number] [facility] Stop: 12/07/18 15:59 Warfarin Sodium (Coumadin) 0.5 mg PO [id number] [facility] Stop: 12/05/18 15:59 Last Admin: 11/05/18 15:34 Dose: 0.5 mg
[2018-11-10 08:46] LABS: Prothrombin Time 71.3 Seconds (9.0-12.0)
[2018-11-10 08:48] LABS: INR 7.9 (0.9-1.1)
[2018-11-10] MEDS: INSULIN ASPART 100 UNITS/ML 3 ML PEN SC SCH ×4 (09:59→21:20)
[2018-11-10] MEDS ORDERED: SODIUM CHLORIDE 0.65% NA SOLN 45 ML (OCEAN) ONE (11:51)
--- NOTE | 2018-11-10 12:03 | Pharmacy Report ---
Glycemic Control Progress Note - Date of Service November 10, 2018 - Scope Glycemic Pharmacist consulted for glycemic control to write orders per LT[facility], located within [facility] inpatient glycemic control protocol. - Objective Accuchecks BSG(last 24 hours):: 11/09/18 11/09/18 11/09/18 16:23 20:42 22:56 Glucose 101 H POC Glucose 237 H 154 H 11/09/18 11/10/18 11/10/18 23:49 07:28 11:43 Glucose POC Glucose 98 135 H 118 H HbA1c:: Hemoglobin A1c 6.8 % (4.5-5.6) H 11/05/18 05:18 - Recent Pertinent Medications The patient is currently receiving: * Basal insulin: Lantus 15 units every 12 hours * Correctional Insulin: Novolog Correction per scale ACHS Goal Range: Low 110 mg/dL - High 140 mg/dL Correction Factor: 12 mg/dL/unit * Prandial insulin: Per carb ratio of 1 unit per 4 grams CHO consumed - Outpatient Anti-Diabetic Meds glimepiride 2 mg BID plus metformin 1 gm PO BID - Assessment & Plan ASSESSMENT: * See progress note from 11/10/18 for more background info, in short: * Pt receiving SQ basal bolus insulin regimen for hyperglycemia secondary to baseline DM (outpatient regimen on hold),stress/infection (methotrexate lung toxicity vs pneumonia), and Solu-Medrol 60 mg IV q6 hours. * Patient is currently receiving an average of 89 units of insulin per day * 30 units of basal insulin * 59 units of prandial/correctional insulin * BSGs ranging 98 - 298 mg/dl over the past 24hrs * Changes needed to insulin regimen: * AM Fasting BSG = 135 mg/dl. This is within goal range for patient based on inpatient targets and co-morbidities BUT much lower compared to yesterday's fasting of 194 mg/dL. Provided Lantus 15 units for this morning but established a scale for this evening. Expect true basal needs to be between 24 and 30 units while on steroids. Also want scale established in case steroids are decreased without my knowledge. * Post-prandial BSGs were elevated at lunch yesterday but trended downwards once CF/CR tightened. Lunch blood sugar today was decreased compared to breakfast therefore will loosen carbohydrate ratio slightly. * Total daily dose = ~85 units while on steroids. PLAN FOR INPATIENT GLYCEMIC CONTROL: * Continuing Lantus 10-15 units SQ BID * Lantus 10 units if blood sugar less than 140 mg/dL * Lantus 12 units if blood sugar 140-180 mg/dL * Lantus 15 units if blood sugar less than 180 mg/dL * Continuing correction factor of 12 mg/dl/unit * Changing carb ratio to 1 unit per 4.5 grams CHO consumed * Continuing goal range to Low 110 mg/dL - High 140 mg/dL RECOMMENDATIONS FOR DISCHARGE: * Patient's HbA1C well controlled for his age. Can continue regimen as long as patient does not have any hypoglycemia at home. * Please note that the plan above was derived based on current level of insulin resistance and hospital stress. These recommendations are appropriate for inpatient admission only. Plan of care upon discharge will need to be reassessed to avoid potential outpatient hypo/hyperglycemia. Thank you.
[2018-11-10] MEDS ORDERED: VANCOMYCIN TROUGH ONE (15:30)
--- NOTE | 2018-11-10 19:39 | Pulmonology Progress Note ---
Date of Service November 10, 2018 Assessment & Plan (1) Acute respiratory failure with hypoxia: Impression: 1. Mixed interstitial and airspace disease affecting asymmetrical lobes of the lung in a patient who has history of rheumatoid arthritis, representing rheumatoid lung, other differential also including diffuse alveolar hemorrhage, but I would expect the patient to be clinically a lot sicker. In review of the CAT scan, I am suspicious about methotrexate toxicity. 2. The patient has a history of CHF with chronic A. fib, however, I would expect him to respond quickly to diuresis and PPV, which he did not. These findings argue against CHF exacerbation. 3. I do not see any evidence of infectious pneumonia. Plan: 1. 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 2. Continue Solu-Medrol 60 mg IV every 6, do not decrease the dose. 3. Glucose control as the patient is diabetic. 4. Alternate BiPAP with OptiFlow. 5. Keep Coumadin on hold. 6. Avoid escalation of diuresis. 7. Discontinue methotrexate indefinitely. 8. Continue folic acid. 9. Discussed with Dr. Garza. 10. Low threshold to intubate if needed. Thank you, will follow. Subjective The patient denies any shortness of breath however he was hypoxic during the day and placed on the BiPAP. According to the respiratory staff, the patient could not tolerate being only on OptiFlow. The patient himself has occasional cough no sputum production. Physical Exam 2 Vital Signs (Past 24 Hours): Last Vital Signs Temp 37 C 11/10/18 15:22 Pulse 84 11/10/18 19:17 Resp 20 11/10/18 19:17 BP 152/77 H 11/10/18 15:22 Pulse Ox 95 11/10/18 19:17 Physical Exam: Vital signs are stable, S1-S2 regular rate and rhythm, lungs are rhonchorous bilaterally, abdomen is benign, no edema. Results & Data Laboratory Results Labs are reviewed. Diagnostic Findings Chest x-ray with bilateral infiltrates consistent with diagnosis of acute lung injury secondary to drug-induced ILD.
--- NOTE | 2018-11-10 19:59 | Hospitalist Progress Note ---
Date of Service November 10, 2018 Assessment & Plan (1) Acute respiratory failure with hypoxia: This is an 78yo M with a PMH of atrial fibrillation on anticoagulation, chronic systolic CHF, DM II, HTN, HLD, diabetic polyneuropathy, chronic diabetic foot ulcers, history of tobacco disorder, peripheral vascular disease, thrombocytopenia, CKD III and rheumatoid arthritis who presented with presented with shortness of breath and was found to have acute respiratory failure 2/2 pneumonia vs CHF exacerbation. -Initially found to be hypoxic at 74% on RA and was placed on BiPAP in ED -CTA chest with extensive groundglass opacities throughout both lungs reflective of pulmonary edema or PNA -No pulmonary emboli identified although segmental and subsegmental pulmonary arteries on suboptimal study -Repeat CXR from Nov 07 with slightly improved diffuse bilateral mixed interstitial and alveolar opacities. Differential considerations include pulmonary edema versus pneumonia -Procalcitonin elevated at 4.28, favoring pneumonia as diagnosis vs. CHF exacerbation -Added incentive spirometry and duonebs with RT -Continue Zosyn, vanc and doxy empirically. Follow blood cultures (no growth) -Continued on 40mg IV TID Lasix, per cardiology -No orthopnea or BLE edema to suggest CHF exacerbation. 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 CXR done last night showed Diffuse bilateral airspace opacities persist. Mostly ARDS Case discussed with Pulmonology and said that his lung injury will take time to improve Was placed on BIPAP, can alternate with high flow oxygen Continue incentive spirometry Elevated procalcitonin might be due to inflammatory process Will d/c abx in am as per pulmonary team Continue Solu-Medrol 60 mg IV every 6, do not decrease the dose. Discontinue methotrexate indefinitely. 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 Wound was dressed with instructions to change Q2D stable (3) Elevated troponin: Troponin elevated at 0.391 with peak at 0.428 and is now downtrending. Likely due to demand ischemia No acute ST changes on EKG Echo performed this AM with EF: 60-65%, moderate concentric LVH Denies any chest pain Continue monitoring on telemetry (4) Systolic heart failure: Possible acute exacerbation of chronic systolic HF but 2D echo performed yesterday with preserved EF Continue Lasix 40mg BID cardiology on board Carvedilol decreased to 3.123 mg BID Continue monitor closely Monitor BMP (5) Left hip pain: Left hip pain on palpation X-rays where questionable and hip CT was performed -- no acute osseous injury of the left hip. Mild degenerative changes PT/OT once respiratory status stable (6) Atrial fibrillation: Rate control on coreg 3.125 mg Coumadin on hold due to Supratherapeutic INR Monitor PT/INR (7) Thrombocytopenia: Plt stable at 126 No signs of bleeding Continue monitoring with daily CBC (8) Diabetes mellitus, type 2: Recent A1c of 6.8 Continue holding his home medication metformin and glimepiride BS has been fluctuates since pt is on IV steroid Pharmacy on board for glycemic management (9) Rheumatoid arthritis: Will discontinue Metrotrexate definely due to lung injury On solumedrol 60mg IV (10) HTN (hypertension): BP starting to elevate Continue home Norvasc, Coreg Clonidine was decrease due to low BP Lisinopril on hold (11) CKD (chronic kidney disease), stage III: Creatinine fluctuating from 1.98--> 1.55 --> 1.8 today --> 1.4--> 1.15 today (Baseline Cr ~ 1.4) Monitor kidney function with daily BMPs (12) LBBB (left bundle branch block): Stable, chronic condition (13) HLD (hyperlipidemia): Continue statin DVT Ppx: Holding coumadin due to supratherapeutic INR Code status: FULL Disposition Continue monitor in tele Subjective Pt was seen and examined Lying in bed with respiratory disctress He was desaturated last night on High flow oxygen and placed on BIPAP He said that his breathing is stable with the bipap He said that if he comes to the point that he needs to get intubated and ok to intubate him Denies any chest pain, palpitation and fever Physical Exam 2 Vital Signs (Past 24 Hours): Last Vital Signs Temp 37 C 11/10/18 15:22 Pulse 84 11/10/18 19:17 Resp 20 11/10/18 19:17 BP 152/77 H 11/10/18 15:22 Pulse Ox 95 11/10/18 19:17 Physical Exam: General- No acute distress Head- atraumatic Eyes- PERRL, EOMI, ENT- oropharynx clear Neck- supple, no JVD Lungs- B/L crackles Heart- regular rhythm Abdomen- normal bowel sounds, soft, nontender Extremities- no calf tenderness Neuro- alert, oriented x 3; PERRL, EOMI; no facial palsy; no dysarthria Skin- warm & dry _ (1) Diabetic foot ulcer Diabetes mellitus type: type 2 Diabetic foot ulcer location: midfoot Laterality: right Non-pressure ulcer stage: with fat layer exposed Qualified Code(s): E11.621 - Type 2 diabetes mellitus with foot ulcer; L97.412 - Non- pressure chronic ulcer of right heel and midfoot with fat layer exposed
[2018-11-10] MEDS: PRAVASTATIN SOD 40 MG TAB PO SCH (21:16)
[2018-11-11] MEDS: LEVALBUTEROL 1.25MG/0.5ML NEB INH SCH ×4 (01:57→19:04)
[2018-11-11] MEDS: IPRATROPIUM BROMIDE NEB SOLN 0.02% 2.5 ML VIAL INH SCH ×4 (01:57→19:02)
[2018-11-11] MEDS: methylPREDNISolone 60 MG in SYRINGE 0 ML IV SCH ×4 (02:04→19:38)
[2018-11-11 07:32] LABS: INR 7.7 (0.9-1.1)
[2018-11-11 07:45] LABS: BUN Creatinine Ratio 31.1 (10-20); Calcium 7.3 mg/dl (8.5-10.1); Creatinine Clr Calc Pharmacy 53.4 ml/min; Est GFR (African American) 65.1; Est GFR (Non-African American) 56.2; Potassium 4.1 mmol/L (3.5-5.1)
[2018-11-11] MEDS: CARVEDILOL 3.125 MG TAB PO SCH ×2 (07:47→19:39)
[2018-11-11] MEDS: FOLIC ACID 1 MG TAB PO SCH (07:47)
[2018-11-11] MEDS: cloNIDine HCl 0.1 MG TAB PO SCH ×2 (07:47→19:39)
[2018-11-11] MEDS: FUROSEMIDE 40 MG TAB PO SCH ×2 (07:47→17:20)
[2018-11-11] MEDS: DOXYCYCLINE HYCLATE 100 MG CAP PO SCH ×2 (07:47→19:39)
[2018-11-11] MEDS: CYANOCOBALAMIN (VITAMIN B-12) 2,500 MCG TAB.SUBL SL SCH (07:48)
[2018-11-11] MEDS: PIPERACILLIN/TAZOBACTAM 3.375 GM/115 ML BAG IV SCH ×3 (07:52→23:55)
[2018-11-11] MEDS: INSULIN ASPART 100 UNITS/ML 3 ML PEN SC SCH ×4 (07:53→20:49)
[2018-11-11] MEDS: INSULIN GLARGINE SOLOSTAR 100 UNITS/ML 3 ML PEN SC SCH ×2 (07:54→20:49)
--- NOTE | 2018-11-11 12:47 | Pharmacy Report ---
Pharmacy Glycemic Short Note 2 - Date of Service November 11, 2018 - Glycemic Short BSG Results (Last 24 hours): 11/10/18 11/10/18 11/11/18 16:18 20:23 06:55 Glucose 86 POC Glucose 138 H 156 H 11/11/18 11/11/18 07:30 11:13 Glucose POC Glucose 97 198 H OUTPATIENT ANTIDIABETIC REGIMEN: * Glimepiride 2mg PO BID + Metformin 1gm PO BID * A1c = 6.8% ASSESSMENT: * Glycemic control much improved yesterday vs previous days. This may have been due to reduce PO intake per carb counts. * Fasting BSG at goal this AM with 30 units of Lantus on board (FBS 86-97) - plan to continue approx the same dose another 24 hrs * Carb ratio controlled BSG rise after dinner yesterday. Pre-lunch hyperglycemia today may have been due to not covering carbs consumed w/ breakfast * Steroids (Solu-Medrol IV) continue at same dose. PLAN FOR INPATIENT GLYCEMIC CONTROL: * Hold outpatient oral diabetes medications * Basal insulin * Lantus SQ BID * 10 units for BSG < 110mg/ld * 15 units for BSG 110 or greater * Bolus insulin * NovoLog per scale ACHS or Q6hrs while NPO * Goal Range: Low 110 mg/dL - High 140 mg/dL * Correction Factor: 15 mg/dL/unit * Nutritional / Prandial insulin per carb ratio of 1 unit per 4.5 grams CHO consumed PLAN FOR DISCHARGE: * A1c 6.8% - continue outpatient regimen.
--- NOTE | 2018-11-11 18:38 | Hospitalist Progress Note ---
Date of Service November 11, 2018 Assessment & Plan (1) Acute respiratory failure with hypoxia: This is an 78yo M with a PMH of atrial fibrillation on anticoagulation, chronic systolic CHF, DM II, HTN, HLD, diabetic polyneuropathy, chronic diabetic foot ulcers, history of tobacco disorder, peripheral vascular disease, thrombocytopenia, CKD III and rheumatoid arthritis who presented with presented with shortness of breath and was found to have acute respiratory failure 2/2 pneumonia vs CHF exacerbation. -Initially found to be hypoxic at 74% on RA and was placed on BiPAP in ED -CTA chest with extensive groundglass opacities throughout both lungs reflective of pulmonary edema or PNA -No pulmonary emboli identified although segmental and subsegmental pulmonary arteries on suboptimal study -Repeat CXR from Nov 07 with slightly improved diffuse bilateral mixed interstitial and alveolar opacities. Differential considerations include pulmonary edema versus pneumonia -Procalcitonin elevated at 4.28, favoring pneumonia as diagnosis vs. CHF exacerbation -Added incentive spirometry and duonebs with RT -Continue Zosyn, vanc and doxy empirically. Follow blood cultures (no growth) -Continued on 40mg IV TID Lasix, per cardiology -No orthopnea or BLE edema to suggest CHF exacerbation. 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 CXR done last night showed Diffuse bilateral airspace opacities persist. Mostly ARDS Case discussed with Pulmonology and said that his lung injury will take time to improve Was placed on BIPAP, can alternate with high flow oxygen Continue incentive spirometry Elevated procalcitonin might be due to inflammatory process Will d/c abx in am as per pulmonary team Continue Solu-Medrol 60 mg IV every 6, do not decrease the dose. Discontinue methotrexate indefinitely. 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 Wound was dressed with instructions to change Q2D stable (3) Elevated troponin: Troponin elevated at 0.391 with peak at 0.428 and is now downtrending. Likely due to demand ischemia No acute ST changes on EKG Echo performed this AM with EF: 60-65%, moderate concentric LVH Denies any chest pain Continue monitoring on telemetry (4) Systolic heart failure: Possible acute exacerbation of chronic systolic HF but 2D echo performed yesterday with preserved EF Continue Lasix 40mg BID cardiology on board Carvedilol decreased to 3.123 mg BID Continue monitor closely Monitor BMP (5) Left hip pain: Left hip pain on palpation X-rays where questionable and hip CT was performed -- no acute osseous injury of the left hip. Mild degenerative changes PT/OT once respiratory status stable (6) Atrial fibrillation: Rate control on coreg 3.125 mg Coumadin on hold due to Supratherapeutic INR Monitor PT/INR (7) Thrombocytopenia: Plt stable at 126 No signs of bleeding Continue monitoring with daily CBC (8) Diabetes mellitus, type 2: Recent A1c of 6.8 Continue holding his home medication metformin and glimepiride BS has been fluctuates since pt is on IV steroid Pharmacy on board for glycemic management (9) Rheumatoid arthritis: Will discontinue Metrotrexate definely due to lung injury On solumedrol 60mg IV (10) HTN (hypertension): BP starting to elevate Continue home Norvasc, Coreg Clonidine was decrease due to low BP Lisinopril on hold (11) CKD (chronic kidney disease), stage III: Creatinine fluctuating from 1.98--> 1.55 --> 1.8 today --> 1.4--> 1.15 today (Baseline Cr ~ 1.4) Monitor kidney function with daily BMPs (12) LBBB (left bundle branch block): Stable, chronic condition (13) HLD (hyperlipidemia): Continue statin DVT Ppx: Holding coumadin due to supratherapeutic INR Code status: FULL Disposition Continue monitor in tele Subjective Pt was seen and examined Lying in bed, continue requiring BIPAP He said that his mouth feels dry Denies any chest pain, palpitation and SOB Physical Exam 2 Vital Signs (Past 24 Hours): Last Vital Signs Temp 36.9 C 11/11/18 14:53 Pulse 77 11/11/18 14:53 Resp 20 11/11/18 14:53 BP 143/64 H 11/11/18 14:53 Pulse Ox 98 11/11/18 14:53 Physical Exam: General- No acute distress Head- atraumatic Eyes- PERRL, EOMI, ENT- oropharynx clear Neck- supple, no JVD Lungs- B/L crackles Heart- regular rhythm Abdomen- normal bowel sounds, soft, nontender Extremities- no calf tenderness Neuro- alert, oriented x 3; PERRL, EOMI; no facial palsy; no dysarthria Skin- warm & dry _ (1) Diabetic foot ulcer Diabetes mellitus type: type 2 Diabetic foot ulcer location: midfoot Laterality: right Non-pressure ulcer stage: with fat layer exposed Qualified Code(s): E11.621 - Type 2 diabetes mellitus with foot ulcer; L97.412 - Non- pressure chronic ulcer of right heel and midfoot with fat layer exposed
[2018-11-11] MEDS: PRAVASTATIN SOD 40 MG TAB PO SCH (19:39)
--- NOTE | 2018-11-11 20:24 | Pulmonology Progress Note ---
Date of Service November 11, 2018 Assessment & Plan (1) Acute respiratory failure with hypoxia: Impression: 1. Mixed interstitial and airspace disease affecting asymmetrical lobes of the lung in a patient who has history of rheumatoid arthritis, representing rheumatoid lung, other differential also including diffuse alveolar hemorrhage, but I would expect the patient to be clinically a lot sicker. In review of the CAT scan, I am suspicious about methotrexate toxicity. 2. The patient has a history of CHF with chronic A. fib, however, I would expect him to respond quickly to diuresis and PPV, which he did not. These findings argue against CHF exacerbation. 3. I do not see any evidence of infectious pneumonia. Plan: 1. 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 2. Continue Solu-Medrol 60 mg IV every 6, do not decrease the dose. 3. Glucose control as the patient is diabetic. 4. Alternate BiPAP with OptiFlow. 5. Keep Coumadin on hold. 6. Avoid escalation of diuresis. 7. Discussed with the son, apparently the patient was recently started on methotrexate as an outpatient, he is not sure about the dates. Nor the dose. 8. Continue folic acid. 9. Discussed with the patient himself, low threshold for intubation. I would readdress the issue in the next 24-48 hours. 10. If no improvement, consider open lung biopsy. Thank you, will follow. Subjective The patient continued to deny shortness of breath however he become hypoxic briefly after taking him off the BiPAP. He tolerated the high flow oxygen only for 2-1/2 hours. He had a dry cough, no hemoptysis, overall the patient does not complain which makes it very difficult to assess his overall status. Physical Exam 2 Vital Signs (Past 24 Hours): Last Vital Signs Temp 36.6 C 11/11/18 19:16 Pulse 76 11/11/18 19:16 Resp 20 11/11/18 19:16 BP 148/78 H 11/11/18 19:16 Pulse Ox 95 11/11/18 19:16 Physical Exam: O2 sat remains at 92% on 100%. Bilateral crackles. No JVP, S1 -S2 regular rate and rhythm, abdomen is benign, edema in the periphery. Results & Data Laboratory Results INR was 7.7, BUN and creatinine are 38 and 1.2. Micro profile is not revealing. Diagnostic Findings No new imaging.
[2018-11-12] MEDS: methylPREDNISolone 60 MG in SYRINGE 0 ML IV SCH ×4 (01:56→20:08)
[2018-11-12] MEDS: LEVALBUTEROL 1.25MG/0.5ML NEB INH SCH ×2 (02:05→07:22)
[2018-11-12] MEDS: IPRATROPIUM BROMIDE NEB SOLN 0.02% 2.5 ML VIAL INH SCH ×2 (02:05→07:22)
[2018-11-12 07:54] LABS: Prothrombin Time 87.4 Seconds (9.0-12.0)
[2018-11-12 07:56] LABS: INR 9.8 (0.9-1.1)
[2018-11-12] MEDS: cloNIDine HCl 0.1 MG TAB PO SCH (08:54)
[2018-11-12] MEDS: FOLIC ACID 1 MG TAB PO SCH (08:54)
[2018-11-12] MEDS: FUROSEMIDE 40 MG TAB PO SCH (08:54)
[2018-11-12] MEDS: CYANOCOBALAMIN (VITAMIN B-12) 2,500 MCG TAB.SUBL SL SCH (09:04)
[2018-11-12] MEDS: INSULIN GLARGINE SOLOSTAR 100 UNITS/ML 3 ML PEN SC SCH ×2 (09:08→21:23)
[2018-11-12] MEDS: PIPERACILLIN/TAZOBACTAM 3.375 GM/115 ML BAG IV SCH ×2 (09:08→16:33)
[2018-11-12] MEDS: INSULIN ASPART 100 UNITS/ML 3 ML PEN SC SCH ×5 (09:47→23:46)
[2018-11-12 10:16] LABS: Prothrombin Time 92.8 Seconds (9.0-12.0)
[2018-11-12] MEDS: CARVEDILOL 3.125 MG TAB PO SCH (10:18)
[2018-11-12 10:31] LABS: INR 10.5 (0.9-1.1)
--- NOTE | 2018-11-12 10:50 | XRay Report ---
XR chest 1V portable CLINICAL HISTORY: worsening resp failure COMPARISON STUDY: 11/09/2018 FINDINGS: The heart remains enlarged. There are persistent extensive bilateral pulmonary airspace opa cities. Diagnostic considerations include pulmonary edema, pneumonia, pulmonary hemorrhage, or ARDS.[ IMPRESSION: Cardiomegaly with persistent extensive bilateral pulmonary airspace opacities Electronically signed by: Alex Osborn M.D. 11/12/2018 10:49 AM
[2018-11-12] MEDS ORDERED: SODIUM CHLORIDE 0.9% 250 ML IV PRN ×2 (11:10→14:20)
[2018-11-12] MEDS ORDERED: RAPID SEQUENCE INDUCTION BAG ONE (11:16)
[2018-11-12] MEDS ORDERED: MIDAZOLAM HCL 125MG/250ML D5W ONE (11:18)
[2018-11-12] MEDS ORDERED: PHYTONADIONE 10 MG in SODIUM CHLORIDE 0.9% 50 ML IV ONE (11:30)
[2018-11-12] MEDS ORDERED: ETOMIDATE 2 MG/ML 20 ML VIAL IV ONE ×2 (11:40→11:47)
[2018-11-12] MEDS ORDERED: MIDAZOLAM HCL 5 MG/ML 1 ML VIAL IV ONE (11:40)
[2018-11-12] MEDS ORDERED: ROCURONIUM BROMIDE 10 MG/ML 5 ML VIAL IV ONE (11:40)
[2018-11-12] MEDS ORDERED: fentaNYL citrate 100 MCG/2 ML CARP IV ONE (11:40)
[2018-11-12] MEDS ORDERED: ROCURONIUM BROMIDE 10 MG/ML 10 ML VIAL IV ONE (11:48)
[2018-11-12] MEDS ORDERED: fentaNYL citrate 100 MCG/2 ML VIAL IV STA (11:48)
[2018-11-12] MEDS ORDERED: MIDAZOLAM HCL 1 MG/ML 2ML VIAL IV ONE (11:49)
[2018-11-12] MEDS: MIDAZOLAM HCL 125 MG/250 ML BAG IV SCH (11:58)
[2018-11-12] MEDS: fentaNYL DRIP 1,250 MCG/250 ML BAG IV SCH (11:58)
[2018-11-12] MEDS: CHLORHEXIDINE GLUCONATE 0.12% 480 ML MT SCH (12:02)
--- NOTE | 2018-11-12 12:54 | Pharmacy Report ---
Pharmacy Glycemic Short Note 2 - Date of Service November 12, 2018 - Glycemic Short BSG Results (Last 24 hours): 11/11/18 11/11/18 11/12/18 16:27 20:27 08:52 POC Glucose 183 H 225 H 67 L* 11/12/18 11/12/18 09:36 11:02 POC Glucose 111 H 96 OUTPATIENT ANTIDIABETIC REGIMEN: * Glimepiride 2mg PO BID + Metformin 1gm PO BID * A1c = 6.8% ASSESSMENT: 11/12/18 * Patient's BSGs have ranged 67-225 over the last 24 hrs * New events: patient transferred to ICU for worsening resp failure. He is now intubated, sedated with continuous benzo/opiate * High dose IV steroids continue in the same dose * Pt's BSGs have been erratic and not entirely explainable over the last 24 hrs based upon document carb intake. Given the very small quantities of carbs consumed in last 24 hrs, would have expected most BSGs to reflective of fasting state. However wide fluctuation in BSGs not easily explained by this. Perhaps he was eating small meals and is exquisitely sensitive to carb intake? * Very difficult to estimate his insulin needs with new stressors - would have a low threshold for IV insulin infusion. Will check BSGs Q 4 hrs and cover with Novolog and adjust Lantus scale to allow for greater buffer against hypoglycemia. 11/11/18 * Glycemic control much improved yesterday vs previous days. This may have been due to reduce PO intake per carb counts. * Fasting BSG at goal this AM with 30 units of Lantus on board (FBS 86-97) - plan to continue approx the same dose another 24 hrs * Carb ratio controlled BSG rise after dinner yesterday. Pre-lunch hyperglycemia today may have been due to not covering carbs consumed w/ breakfast * Steroids (Solu-Medrol IV) continue at same dose. PLAN FOR INPATIENT GLYCEMIC CONTROL: * Hold outpatient oral diabetes medications * Basal insulin * Lantus SQ BID * 0 units for BSG < 120 * 10 units for BSG 120-160mg/ld * 15 units for BSG 160 or greater * Bolus insulin * NovoLog per scale Q 4 hrs * Goal Range: Low 120 mg/dL - High 160 mg/dL * Correction Factor: 12 mg/dL/unit * Nutritional / Prandial insulin per carb ratio of 1 unit per 4 grams CHO consumed * If BSG > 180 x 2, begin IV insulin infusion per moderate stress protocol, goal range 120-180 PLAN FOR DISCHARGE: * A1c 6.8% - continue outpatient regimen.
[2018-11-12 13:14] LABS: iSTAT Allen Test Pass; iSTAT Arterial Blood Gas HCO3 30 meg/L (19-24); iSTAT Carbon Dioxide 34 mEq/l (24-31); iSTAT FiO2 80 %
[2018-11-12 13:37] LABS: Prothrombin Time 39.2 Seconds (9.0-12.0)
--- NOTE | 2018-11-12 13:49 | Hospitalist Progress Note ---
Date of Service November 12, 2018 Assessment & Plan (1) Acute respiratory failure with hypoxia: This is an 78yo M with a PMH of atrial fibrillation on anticoagulation, chronic systolic CHF, DM II, HTN, HLD, diabetic polyneuropathy, chronic diabetic foot ulcers, history of tobacco disorder, peripheral vascular disease, thrombocytopenia, CKD III and rheumatoid arthritis who presented with presented with shortness of breath and was found to have acute respiratory failure 2/2 pneumonia vs CHF exacerbation. 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 CXR showed Diffuse bilateral airspace opacities persist. Mostly ARDS Appreciate input from pulmonology Elevated procalcitonin might be due to inflammatory process Patient is continued on Solu-Medrol 60 mg IV every 6, Developed worsening of respiratory failure this morning Transfer to ICU, appreciate input from ICU team ABG shows pH 7.03/PCO2 113/02 81/HCO3 30/ SPO2 87% Severe respiratory acidosis doses associated with hypoxia, hypercarbia Patient intubated Continue on AC support FiO2 80% Added IV Zosyn, as chest x-ray shows progression of infiltrate (2) Coagulopathy: History of chronic A. fib, was on Coumadin Kept on hold since admission as presented with elevated INR> 5 INR this morning elevated> 9 Repeat INR 10 No evidence of active bleeding Given 10 mg IV vitamin K/2 units of FFP by ICU team Repeat PT/INR shows INR 4.2 cont to monitor PT/INR Present on Admission?: Yes (3) Rheumatoid arthritis: Methotrexate is discontinued secondary to interstitial lung disease, suspicion for methotrexate toxicity Continue IV Solu-Medrol 60 mg every 6 hours (4) Elevated troponin: Troponin elevated at 0.391 with peak at 0.428 and is now downtrending. Likely due to demand ischemia Type II non-ST elevated MO secondary to hypoxia No acute ST changes on EKG Echo EF: 60-65%, moderate concentric LVH Cardiology following (5) Acute diastolic heart failure: Acute on chronic diastolic heart failure, possible secondary to hypoxia/ cardiac strain Given IV Lasix No evidence of volume overload Echo shows EF 60-65% Appreciate input from cardiology Present on Admission?: Yes (6) Diabetic foot ulcer: Chronic in setting of diabetic polyneuropathy and h/o R great toe amputation, partial amputation of the first metatarsal in Jun 2016 Evaluated by wound care nurse on Nov 05 and found to have periwound discoloration. Continue local wound care (7) Atrial fibrillation: Rate control on coreg 3.125 mg Coumadin on hold due to Supratherapeutic INR Monitor PT/INR (8) Thrombocytopenia: No signs of bleeding Continue monitoring with daily CBC (9) Diabetes mellitus, type 2: Recent A1c of 6.8 Continue holding his home medication metformin and glimepiride BS has been fluctuates since pt is on IV steroid Pharmacy on board for glycemic management (10) HTN (hypertension): (11) CKD (chronic kidney disease), stage III: Presented with acute renal failure, Baseline CKD stage III Avoid NSAIDs, nephrotoxins Monitor kidney function with daily BMPs (12) LBBB (left bundle branch block): chronic condition (13) HLD (hyperlipidemia): DVT Ppx: INR elevated Code status: FULL Disposition Patient remains critically ill, needs ICU care (14) Left hip pain: X-rays where questionable and hip CT was performed -- no acute osseous injury of the left hip. Mild degenerative changes Subjective Patient was initially seen in PCU room 239 bed 1 this morning Found to be in acute respiratory distress, on high flow oxygen, using accessory muscles Remains awake and alert, oriented, Patient is updated, due to respiratory failure he will need to be transferred to intensive care unit, and may need mechanical ventilation Patient is agreeable transferred to ICU 109 Appreciate input from collar fuser, Patient is intubated, Given vitamin K intravenous, FFP for coagulopathy Physical Exam 2 Vital Signs (Past 24 Hours): Last Vital Signs Temp 36.9 C 11/12/18 12:45 Pulse 92 H 11/12/18 12:45 Resp 20 11/12/18 13:21 BP 89/55 L 11/12/18 12:45 Pulse Ox 90 11/12/18 12:45 Physical Exam: GENERAL: Mechanically intubated, sedated HEENT: Eyes: Sclera nonicteric, Oral: ET tube in place Lungs: Diminished, positive wheeze Cardiovascular: Regular S1 and S2, no murmur or gallop, no JVD, no lower extremity edema Abdomen: Soft, Extremities: No rash or deformity, normal joint, Neuro: Intubated/sedated on vent Skin: No rash _ (1) Rheumatoid arthritis Rheumatoid arthritis location: unspecified site Rheumatoid factor presence: unspecified presence Qualified Code(s): M06.9 - Rheumatoid arthritis, unspecified (2) Diabetes mellitus, type 2 Chronic kidney disease stage: stage 3 (moderate) Diabetes mellitus complication detail: with chronic kidney disease Diabetes mellitus complication status: with kidney complications Diabetes mellitus exterminator insulin use: unspecified half-way insulin use status Qualified Code(s): E11.22 - Type 2 diabetes mellitus with diabetic chronic kidney disease; N18.3 - Chronic kidney disease, stage 3 (moderate) (3) Diabetic foot ulcer Diabetes mellitus type: type 2 Diabetic foot ulcer location: midfoot Laterality: right Non-pressure ulcer stage: with fat layer exposed Qualified Code(s): E11.621 - Type 2 diabetes mellitus with foot ulcer; L97.412 - Non- pressure chronic ulcer of right heel and midfoot with fat layer exposed (4) Atrial fibrillation Atrial fibrillation type: chronic Qualified Code(s): I48.2 - Chronic atrial fibrillation (5) HLD (hyperlipidemia) Hyperlipidemia type: unspecified Qualified Code(s): E78.5 - Hyperlipidemia, unspecified (6) HTN (hypertension) Hypertension type: unspecified Qualified Code(s): I10 - Essential (primary) hypertension
[2018-11-12 13:50] LABS: INR 4.2 (0.9-1.1)
[2018-11-12 15:21] LABS: INR 2.2 (0.9-1.1); Prothrombin Time 21.6 Seconds (9.0-12.0)
--- NOTE | 2018-11-12 15:50 | XRay Report ---
XR chest 1V portable HISTORY: Intubated, OG tube, Central line inserted COMPARISON: Chest 11/12/2018. FINDINGS: The endotracheal tube terminates approximately 4 cm from the chey[place]. The nasogastric tube t erminates below the diaphragm and appears to be within the stomach. Right subclavian central venous c atheter terminates in the expected location of the SVC. No pneumothorax. Bilateral airspace opacities persist. The heart remains mildly enlarged. IMPRESSION: 1. Satisfactory support line placement. 2. No change in the cardiomegaly and bilateral airspace opacities. Electronically signed by: Joseph Allan M.D. 11/12/2018 3:48 PM
--- NOTE | 2018-11-12 21:55 | Critical Care Progress Note ---
Date of Service November 12, 2018 Assessment & Plan (1) Acute respiratory failure with hypoxia: Impression: 1. Mixed interstitial and airspace disease affecting asymmetrical lobes of the lung, drug-induced ILD, rheumatoid lung, diffuse alveolar hemorrhage, and abnormal infectious process such as fungal infection are all in the differential. 2. The patient has a history of CHF with chronic A. fib, however, I would expect him to respond quickly to diuresis and PPV, which he did not. These findings argue against CHF exacerbation. 3. Acute respiratory failure with acute lung injury by PF ratio. 4. A. fib, rate controlled. 5. Coagulopathy secondary to Coumadin, INR above than 10. Plan: 1. Discussed with the patient in details, will proceed with intubation. 2. Continue Solu-Medrol 60 mg IV every 6, do not decrease the dose. 3. Glucose control as the patient is diabetic. 4. Bronchoscopy was done, moderate amount of aspirated material, suctioned from the right lower lobe and sent for culture. No biopsy was obtained, INR was 4. 5. FFP and vitamin K to reverse Coumadin entirely. 6. Pressure control ventilation. 7. Discussed with the son Sumeet who is a nurse, the Floyd and the other son Jamison. Or in agreement with the plan. 8. Continue folic acid. 9. Continue broad-spectrum antibiotic. 10. Consult Dr. Lindsey for open lung biopsy. 11. Verapamil bundle. 12. Increase the PEEP to support oxygenation. 13. Fentanyl and Versed for sedation. 14. Once INR is normalized, I will start the patient on heparin drip and stop it prior to open lung biopsy. 15. Zosyn for now, we may add Vanco if there is any evidence of MRSA. 16. Serology for vasculitis. 17. Central line placement. 18. A line placement. 19. Full code. 20. GI, DVT prophylaxis, core measures for ICU or been met. 21. Appreciate all consults involved in this case. Discussed with the staff on rounds and details, critical care time spent with the patient was 90 minutes excluding procedure time. Thank you, will follow. Subjective The patient deteriorated clinically, he could not keep up his O2 saturation, 100 % using a high flow, his O2 saturation was barely in the range of 83%. The patient's respiratory rate in the range of 40, the patient was transferred to the ICU for further management. Discussed with the patient in details and with the family, all in agreement with proceeding with expressive measures including intubation, bronchoscopy, line placement. And also discussed with them preparation for surgical biopsy of the lung to confirm the diagnosis of severe mixed interstitial and airspace disease. Physical Exam 2 Vital Signs (Past 24 Hours): Last Vital Signs Temp 37.2 C 11/12/18 20:00 Pulse 89 11/12/18 21:00 Resp 20 11/12/18 18:30 BP 116/67 11/12/18 21:00 Pulse Ox 90 11/12/18 21:00 Physical Exam: Physical exam revealed acutely ill gentleman, does not appear to be in severe respiratory distress, breathing at a rate of 40, S1-S2 regular rate and rhythm, tachycardic, bilateral diffuse crackles, abdomen is benign, no edema in the periphery. No skin discoloration. Neurologically he is weak but nonfocal. No visual disturbances. Results & Data Laboratory Results Labs were reviewed which showed INR of 2.2, pH of 7.0, PCO2 is 113, glucose is 171, microbiology is pending from the bronchoscopy. Diagnostic Findings Chest x-ray showed satisfactory line placement, bilateral airspace disease, cardiomegaly.
--- NOTE | 2018-11-12 21:57 | Procedure Note ---
Procedure Note Date of Service November 12, 2018 Note Intubation, the patient verbally consented to the procedure, family notified, the procedure was done by my medical student Moshe Francisco, I supervised him throughout the entire procedure, the patient was placed in supine position, using oral airway after he was sedated with 50 mics of fentanyl and 1 mg of Versed, the patient received 12 mg of etomidate and 50 mg of rocuronium. Using Ambu bag to oxygenate the patient, the best O2 sat we were able to obtain was 89 %. For 2 minutes. Using #3 MAC #8 ET tube, one attempt, the ET tube was placed to 21 cm, end-tidal CO2 was yellow, equal breath sounds bilaterally, the ET tube was secured with mouthguard, the patient tolerated the procedure very well, no evidence of hypoxemia. Placed on the ventilator, orders were given. Chest x-ray showed the tip of the ET tube 3 cm above the cheyenne.
--- NOTE | 2018-11-12 22:00 | Procedure Note ---
Procedure Note Date of Service November 12, 2018 Note Bronchoscopy was done at the bedside due to abnormal chest x-ray the hip is been persistent, desaturation and CO2 retention. Consent obtained from the family over the phone, agreed to the procedure. The patient was already been intubated with #8 ET tube, already been sedated on fentanyl and Versed. The patient monitored in the ICU with ICU style of monitoring. The bronchoscope passed through the blue adapter through the #8 ET tube, and the findings as follows: 1. The tip of the ET tube was 3 cm above the cheyenne. 2. Large amount of thick secretions with aspirated food material noted occluding the takeoff of the right lower lobe bronchus, suctioned also clear. 3. Scant amount of secretions were noted, all suctioned to clear. 4. No evidence of endobronchial lesion or bleeding. 5. Bronchial wash was obtained from the right lower lobe and sent separately. 6. The bronchoscope after that was removed from the airways, no evidence of. Hypoxia, tolerated the procedure very well. No immediate complication.
--- NOTE | 2018-11-12 22:01 | Procedure Note ---
Procedure Note Date of Service November 12, 2018 Note Central line was placed due to the need for multiple drips in a patient who is critically ill with poor IV access. Consent obtained from the family over the phone mainly with the Floyd. Agreed to the procedure, risk and benefit explained details. The patient was placed in supine position, the skin was prepped with chlorhexidine, right subclavian approach was used, the patient received 3 FFP's and 10 mg of IV vitamin K prior to the procedure, using Seldinger technique, no scalpel, only a dilator, the line was placed to 15 cm, all ports were flushed with saline, secured with 2 sutures, covered with surgical dressing, no immediate complication. Tolerated the procedure very well.
--- NOTE | 2018-11-12 22:04 | Procedure Note ---
Procedure Note Date of Service November 12, 2018 Note A line was placed in the right radial area, under strict sterile field, the skin was prepped with chlorhexidine, using Seldinger technique, one attempt, the line was placed and connected to the transducer, a waves were noted, the line was secured with surgical dressing, and one surgical suture. No immediate complication, tolerated the procedure very well, capillary filling in the fingers was maintained.
--- NOTE | 2018-11-12 22:08 | Consultation Report ---
DATE OF CONSULTATION: 11/12/2018 REASON FOR CONSULTATION: Need for a lung biopsy. HISTORY OF PRESENT ILLNESS: This patient is an 78-year-old male who has been hospitalized here at [facility] for the last 8days. The patient was admitted the Medical Service on 11/04/2018 with shortness of breath, appeared to have acute congestive heart failure. He does suffer from chronic atrial fibrillation and has had episodes of congestive heart failure, had diabetes and multiple other issues including renal insufficiency who also has rheumatoid arthritis. The patient takes prednisone and methotrexate with Coumadin. The patient developed signs and symptoms of upper respiratory infection and became short of breath and he got progressively worse and was quite hypoxic. I discussed his case in detail with Dr. Jake Oconnell. His x-ray has been worsening despite all that has been offered him. He has bilateral fluffy infiltrates and it is unclear what is causing this. It was felt that it maybe due to interstitial lung disease secondary to his methotrexate. However, he did not respond to steroids. For this reason, I have been asked to see him about a lung biopsy. He is now on a ventilator and is quite ill. PAST MEDICAL HISTORY: 1. Chronic atrial fibrillation. 2. Diabetes mellitus. 3. Diabetic foot infections. 4. Rheumatoid arthritis. 5. Congestive heart failure with an apparent diastolic dysfunction. 6. Repeated diabetic foot ulcers. 7. Acute renal failure. 8. Hyperlipidemia. 9. History of cigarette smoking. PAST SURGICAL HISTORY: 1. Right first toe amputation. 2. Colonoscopy. MEDICATIONS (AT HOME): 1. Flonase. 2. Aspirin. 3. Methotrexate. 4. Coumadin. 5. Clonidine. 6. Prednisone. 7. Lisinopril. 8. Amlodipine. 9. Coreg. 10. Metformin. 11. Glimepiride. 12. Folic acid. ALLERGIES: No known drug allergies. SOCIAL HISTORY: The patient apparently cares for his elderly who suffers from Parkinson disease. The patient had a brother who from pancreatic cancer. His father , had black lung, was a can line examiner off and from lung cancer. His mother had diabetes mellitus. The patient smoked over a pack of cigarettes a day for 30 years, but quit many years ago. He does not use alcohol. He does use a can of snuff weekly. REVIEW OF SYSTEMS: The patient is intubated currently. There were no gastrointestinal or genitourinary issues before he came in. He was quite short of breath. He has an active ulcer on his right plantar surface. He is followed at the wound center. I cannot find anything in the chart about him complaining of chest pain or any gastrointestinal or genitourinary symptoms. He has had no visual or auditory symptoms or neurologic symptoms according to his chart. PHYSICAL EXAMINATION: GENERAL: This is an elderly male who is sedated on the ventilator. He has an orogastric tube in place as well as an orotracheal tube. HEENT: His sclerae are pale. Pupils are small. NECK: Thin and supple. I do not detect carotid bruits or lymphadenopathy. LUNGS: Upon auscultation of his lungs, he has crackles in both bases, but no wheezing. HEART: He has irregularly irregular rhythm of his heart. ABDOMEN: Soft and benign. He has bowel sounds. EXTREMITIES: I do not detect any edema. He has hemosiderin deposition. I can palpate posterior tibialis pulses bilaterally. He has a surgical absence of his right first toe and has a medial deformity of his right second toe. He has no joint effusions. NEUROLOGIC: I am unable to evaluate him neurologically. ASSESSMENT AND PLAN: Worsening infiltrates with hypoxemia and respiratory failure. I have discussed his case with Dr. Oconnell. Currently, he is anticoagulated. He was on Coumadin and his PT/INR was over 10 today. We will have to correct this. I have not spoken to his family as of yet; however, I am going to tentatively plan to do this on 11/14/2018. We will do a right-sided thoracoscopic lung biopsy.
[2018-11-12 22:40] LABS: iSTAT Arterial Blood Gas HCO3 29 meg/L (19-24); iSTAT Carbon Dioxide 30 mEq/l (24-31); iSTAT FiO2 70 %
[2018-11-13] MEDS: PIPERACILLIN/TAZOBACTAM 3.375 GM/115 ML BAG IV SCH ×3 (00:01→15:34)
[2018-11-13] MEDS: methylPREDNISolone 60 MG in SYRINGE 0 ML IV SCH ×4 (02:28→20:26)
[2018-11-13] MEDS: INSULIN ASPART 100 UNITS/ML 3 ML PEN SC SCH ×5 (04:36→20:27)
[2018-11-13 04:55] LABS: Basophils # (auto) 0.01 K/uL (0-0.2); Basophils % (auto) 0.1 %; Hematocrit (blood only) 30.1 % (42-52); Hemoglobin 9.6 g/dL (14.0-18.0); Immature Granulocytes # (auto) 0.06 K/uL (0.00-0.02); Immature Granulocytes % (auto) 0.5 %; Lymphocytes # (auto) 0.49 K/uL (1.2-3.4); Lymphocytes % (auto) 4.1 %; Mean Corpuscular Hgb Conc 31.9 g/dL (32-36); Mean Corpuscular Volume 92.6 fL (80-100); Mean Platelet Volume 10.6 fL (7.4-10.4); Monocytes # (auto) 0.46 K/uL (0.11-0.59); Monocytes % (auto) 3.9 %; Neutrophils # (auto) 10.84 K/uL (1.4-6.5); Neutrophils % (auto) 91.4 %; Nucleated RBC # (auto) 0.02 K/uL (0-0); Nucleated RBC % (auto) 0.2 %; Platelet Count 153 K/uL (130-400); RDW Coefficient of Variation 15.6 % (11.5-14.5); RDW Standard Deviation 51.5 fL (36.4-46.3); Red Blood Count 3.25 M/uL (4.7-6.1); White Blood Count 11.86 K/uL (4.8-10.8)
[2018-11-13 05:01] LABS: INR 1.5 (0.9-1.1); Prothrombin Time 14.9 Seconds (9.0-12.0)
[2018-11-13 05:21] LABS: BUN Creatinine Ratio 31.3 (10-20); Calcium 7.5 mg/dl (8.5-10.1); Creatinine Clr Calc Pharmacy 46.9 ml/min; Est GFR (African American) 55.6; Est GFR (Non-African American) 47.9; Potassium 4.1 mmol/L (3.5-5.1)
[2018-11-13] MEDS: fentaNYL DRIP 1,250 MCG/250 ML BAG IV SCH ×2 (07:40→20:40)
[2018-11-13] MEDS: INSULIN GLARGINE SOLOSTAR 100 UNITS/ML 3 ML PEN SC SCH (07:45)
[2018-11-13] MEDS: CHLORHEXIDINE GLUCONATE 0.12% 480 ML MT SCH (07:54)
--- NOTE | 2018-11-13 09:47 | Wound Consultation ---
Date of Consultation November 13, 2018 Assessment & Plan (1) Diabetic foot ulcer: Topical Xylocaine was applied to the wound. Wound was debrided with #5 curette. Slough fibrin skin and callus removed. There is minimal bleeding controlled with pressure. Procedure was tolerated well with no complications. This represents non-excisional debridement of less than 20 cm. Wound was dressed with calcium alginate. We will follow as needed. Thanks for the consult please call with any further questions. (2) Acute respiratory failure with hypoxia: (3) Acute diastolic heart failure: (4) Coagulopathy: (5) Rheumatoid arthritis: History of Present Illness Reason for Consultation: Diabetic foot ulcer Attending Physician: Christina Duran MD History of Present Illness This is a 78-year-old male who is an active wound care patient. We are consulted for diabetic foot ulcer. Patient is currently intubated. His INR is currently therapeutic. Due to being intubated patient is unable to provide any further history. Allergies Allergy/AdvReac Type Severity Reaction Status Date / Time No Known Allergies Allergy Verified 10/23/18 14:39 Home Medications Home Medications Medication Instructions Recorded Confirmed Type amlodipine 10 mg tablet 10 mg PO .q am tab 07/01/18 11/04/18 History aspirin 81 mg tablet,delayed 81 mg PO .q am tab 07/01/18 11/04/18 History release carvedilol 6.25 mg tablet 6.25 mg PO BID 07/01/18 11/04/18 History clonidine HCl 0.3 mg tablet 0.3 mg PO BID 07/01/18 11/04/18 History fluticasone 50 mcg/actuation nasal 2 sprays INTNAS DAILY 07/01/18 11/04/18 History spray,suspension folic acid 1 mg tablet 1 mg PO .q am tab 07/01/18 11/04/18 History furosemide 40 mg tablet 40 mg PO BID 07/01/18 11/04/18 History glimepiride 2 mg tablet 2 mg PO BID tab 07/01/18 11/04/18 History lisinopril 40 mg tablet 40 mg PO .q am tab 07/01/18 11/04/18 History metformin 1,000 mg tablet 1,000 mg PO BIDM 07/01/18 11/04/18 History pravastatin 40 mg tablet 40 mg PO .q hs tab 07/01/18 11/04/18 History warfarin 3 mg tablet 3 mg PO .MON&FRI tab 07/01/18 11/04/18 History cadexomer iodine 0.9 % topical gel 40 gm TOP Q3D #40 gm 08/28/18 11/04/18 Rx cyanocobalamin (vitamin B-12) 2,500 mcg PO DAILY 08/28/18 11/04/18 History 2,500 mcg tablet methotrexate sodium 15 mg PO WK 11/04/18 11/04/18 History prednisone 5 mg PO DAILY 11/04/18 11/04/18 History warfarin 1.5 mg PO 5XWK 11/04/18 11/04/18 History Patient History Medical History CKD (chronic kidney disease), stage III (Chronic) Thrombocytopenia (Chronic) PVD (peripheral vascular disease) (Chronic) HLD (hyperlipidemia) (Chronic) Diabetic polyneuropathy (Chronic) Systolic heart failure (Chronic) Diabetes mellitus, type 2 (Chronic) CAD (coronary artery disease) (Chronic) "cath 2006 - moderate non obstructive disease" Atrial fibrillation (Chronic) Cardiomyopathy, idiopathic (Chronic) "echo 06/2016 - EF 40-%, grade I diastolic dysfunction" LBBB (left bundle branch block) (Chronic) HTN (hypertension) (Chronic) Congestive heart failure A-fib (Chronic) CAD (coronary artery disease) (Chronic) Diabetes (Chronic) HTN (hypertension) (Chronic) Hx of left bundle branch block (Chronic) Osteomyelitis (Chronic) 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) Social History marital status: Current Living Situation: Spouse and Family Other Information That Helps Us Care for You: No Feels Safe at Home: No Is there a partner from a previous relationship who is making you feel unsafe now?: No Any Concerns about Your Family Situation: No Would You Like to Speak to Someone About Your Situation: No Safety Concerns: Feels Safe At This Time Smoking Status: Former smoker Tobacco Type: cigarettes Do You Dip or Chew Tobacco: Yes Second Hand Exposure: No Tobacco Cessation Education Requested by Patient: No Hx Alcohol Use: No Hx Substance Use: No Beliefs That Will Affect Care: None Communication Ability: Effective Review of Systems 10 point review of systems negative except as mentioned in HPI. Physical Exam 2 Vital Signs (Past 24 Hours): Last Vital Signs Temp 37.5 C 11/13/18 07:30 Pulse 87 11/13/18 09:30 Resp 20 11/13/18 09:30 BP 127/67 11/13/18 09:00 Pulse Ox 89 L 11/13/18 09:30 Constitutional: WD/WN, vitals as above Respiratory: intubated Cardiovascular: RRR, no murmur, no edema Gastrointestinal (Abdomen): normal bowel sounds, soft, nontender, no hepatosplenomegaly Skin: Diabetic foot ulcer plantar aspect of right foot measuring 1.6 x 2 x 0.1 cm. Wound surrounded by callus some undermining the skin. No erythema or signs of infection or foul smelling odor. Psychiatric: intubated and sedated _ (1) Diabetic foot ulcer Diabetic foot ulcer location: midfoot Diabetes mellitus type: type 2 Laterality: right Non-pressure ulcer stage: with fat layer exposed Qualified Code(s): E11.621 - Type 2 diabetes mellitus with foot ulcer; L97.412 - Non- pressure chronic ulcer of right heel and midfoot with fat layer exposed (2) Rheumatoid arthritis Rheumatoid arthritis location: unspecified site Rheumatoid factor presence: unspecified presence Laterality: Qualified Code(s): M06.9 - Rheumatoid arthritis, unspecified
[2018-11-13 09:49] LABS: iSTAT Arterial Blood Gas HCO3 32 meg/L (19-24); iSTAT Carbon Dioxide 33 mEq/l (24-31); iSTAT FiO2 70 %
--- NOTE | 2018-11-13 11:50 | Hospitalist Progress Note ---
Date of Service November 13, 2018 Assessment & Plan (1) Acute respiratory failure with hypoxia: pt is Transferred to ICU, appreciate input from ICU team ABG shows pH 7.03/PCO2 113/02 81/HCO3 30/ SPO2 87% Severe respiratory acidosis doses associated with hypoxia, hypercarbia required mechanical ventilation pt is on AC support FiO2 80% Added IV Zosyn, as chest x-ray shows progression of infiltrate S/P Bronchoscopy on 11/12/18 : by Dr Oconnell - Large amount of thick secretions with aspirated food material noted occluding the takeoff of the right lower lobe bronchus, suctioned also clear. - Scant amount of secretions were noted, all suctioned to clear. - No evidence of endobronchial lesion or bleeding. - Bronchial wash was obtained from the right lower lobe and sent separately. 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 CXR showed Diffuse bilateral airspace opacities persist. Mostly ARDS Appreciate input from pulmonology Elevated procalcitonin might be due to inflammatory process Patient is continued on Solu-Medrol 60 mg IV every 6, (2) Coagulopathy: History of chronic A. fib, was on Coumadin coumadin was on hold since admission as presented with supratheraputic INR INR elevated> 10 Given 10 mg IV vitamin K/2 units of FFP by ICU team Repeat PT/INR improved INR 4.2 -> 2.2 -> 1.5 coumadin kept on hold for scheduled lung biopsy tomorrow 11/14/17 (3) Rheumatoid arthritis: Methotrexate is discontinued secondary to interstitial lung disease, suspicion for methotrexate toxicity Continue IV Solu-Medrol 60 mg every 6 hours Plan for Rt sided thoracosocpic lung biopsy on 11/14/[address] Lindsey (4) Elevated troponin: Troponin elevated at 0.391 with peak at 0.428 and is now downtrending. Likely due to demand ischemia Type II non-ST elevated PR secondary to hypoxia No acute ST changes on EKG Echo EF: 60-65%, moderate concentric LVH Cardiology following (5) Acute diastolic heart failure: Acute on chronic diastolic heart failure, possible secondary to hypoxia/ cardiac strain Given IV Lasix No evidence of volume overload Echo shows EF 60-65% Appreciate input from cardiology (6) Diabetic foot ulcer: Chronic in setting of diabetic polyneuropathy and h/o R great toe amputation, partial amputation of the first metatarsal in Jun 2016 Evaluated by wound care : Per wound care team : non healing diabeitc ulcer in the planter aspect of rt foot measuring ( 1.6X 2X 0.1 cm ) wound surrounded by callus /no erythema or drainage Topical Xylocaine was applied to the wound. Wound was debrided with #5 curette. Slough fibrin skin and callus removed. There is minimal bleeding controlled with pressure. Procedure was tolerated well with no complications. Wound was dressed with calcium alginate Pt will continue local wound care as per Wound care kandice (7) Atrial fibrillation: Rate control on coreg 3.125 mg Coumadin on hold due to Supratherapeutic INR given Vit K /FFP (8) GI bleed: NG sunction draining coffee ground material possible due to suprathreaputic INR coagulopathy reversed with FFP and VIt K D/w Car Hostler , will cont IV PPI for GI prophylaxis no indication for IV PPI gtt for now ordered for IV protonix 40 mg BID H&H remains stable monitor Present on Admission?: No (9) Thrombocytopenia: (10) Left hip pain: X-rays where questionable and hip CT was performed -- no acute osseous injury of the left hip. Mild degenerative changes (11) Diabetes mellitus, type 2: Recent A1c of 6.8 home medication metformin and glimepiride-kept on hold since admission BS has been fluctuates since pt is on IV steroid Pharmacy on board for glycemic management (12) HTN (hypertension): (13) CKD (chronic kidney disease), stage III: Presented with acute renal failure, Baseline CKD stage III Avoid NSAIDs, nephrotoxins Monitor kidney function with daily BMPs (14) LBBB (left bundle branch block): chronic condition (15) HLD (hyperlipidemia): DVT Ppx:Scd and teds Code status: FULL Disposition Patient remains critically ill, needs ICU care Attempted to call Pt;tonie son Sumeet Basalla : [phone] unable to reach Subjective Patient remains intubated, sedated NG tube draining coffee ground/dark material Physical Exam 2 Vital Signs (Past 24 Hours): Last Vital Signs Temp 37.5 C 11/13/18 07:30 Pulse 87 11/13/18 09:30 Resp 20 11/13/18 09:38 BP 127/67 11/13/18 09:00 Pulse Ox 89 L 11/13/18 09:30 Physical Exam: GENERAL: Mechanically intubated, sedated HEENT: Eyes: Sclera nonicteric, Oral: ET tube in place NG tube draining coffee ground/dark material Lungs: Diminished, positive wheeze Cardiovascular: Regular S1 and S2, no murmur or gallop, no JVD, no lower extremity edema Abdomen: Soft, Extremities: No rash or deformity, normal joint, Neuro: Intubated/sedated on vent Skin: No rash _ (1) Rheumatoid arthritis Laterality: Rheumatoid arthritis location: unspecified site Rheumatoid factor presence: unspecified presence Qualified Code(s): M06.9 - Rheumatoid arthritis, unspecified (2) Diabetes mellitus, type 2 Chronic kidney disease stage: stage 3 (moderate) Diabetes mellitus complication detail: with chronic kidney disease Diabetes mellitus complication status: with kidney complications Diabetes mellitus [facility] insulin use: unspecified [facility] insulin use status Diabetes mellitus macular edema: Diabetic retinopathy severity: Laterality: Proliferative retinopathy type: Qualified Code(s): E11.22 - Type 2 diabetes mellitus with diabetic chronic kidney disease; N18.3 - Chronic kidney disease, stage 3 ( moderate) (3) Diabetic foot ulcer Diabetes mellitus type: type 2 Diabetic foot ulcer location: midfoot Laterality: right Non-pressure ulcer stage: with fat layer exposed Qualified Code(s): E11.621 - Type 2 diabetes mellitus with foot ulcer; L97.412 - Non- pressure chronic ulcer of right heel and midfoot with fat layer exposed (4) Atrial fibrillation Atrial fibrillation type: chronic Qualified Code(s): I48.2 - Chronic atrial fibrillation (5) HLD (hyperlipidemia) Hyperlipidemia type: unspecified Qualified Code(s): E78.5 - Hyperlipidemia, unspecified (6) HTN (hypertension) Hypertension type: unspecified Qualified Code(s): I10 - Essential (primary) hypertension (7) GI bleed GI bleed type/associated pathology: unspecified gastrointestinal hemorrhage type Qualified Code(s): K92.2 - Gastrointestinal hemorrhage, unspecified
[2018-11-13] MEDS ORDERED: METOPROLOL TARTRATE 1 MG/ML VIAL IV STA (11:58)
[2018-11-13] MEDS ORDERED: METOPROLOL TARTRATE 1 MG/ML VIAL IV ONE (11:59)
[2018-11-13] MEDS ORDERED: dilTIAZem HCl 5 MG/ML 5 ML VIAL IV STA (12:23)
[2018-11-13] MEDS ORDERED: HEPARIN STANDARD DEXTROSE 25,000 UNITS/500 ML IV SCH (12:37)
[2018-11-13] MEDS: dilTIAZem HCl 125 MG in DEXTROSE 5% 100 ML IV SCH ×2 (12:53→21:25)
[2018-11-13] MEDS ORDERED: Heparin IV Standard *NO* Bolus SCH (13:00)
--- NOTE | 2018-11-13 14:11 | Progress Note ---
DATE: 11/13/2018 Mr. Chatterjee was seen today. He is unchanged since last night when I evaluated him in consultation. I had a very long discussion with Mr. Chatterjee's son, Jamison and his , Floyd. I have explained that he is very ill, in fact he has a life-threatening condition. I also explained that we are unsure of why he is still hypoxic and has pulmonary infiltrates. I explained the need for a lung biopsy. I offered a right thoracoscopy with a wedge resection for pathology evaluation as well as micro. They understand. We are going to proceed tomorrow. I explained there will be a chest tube in place. It is unclear to me how long the chest tube will be in place, although it is usually removed in the following day. As stated, I am concerned about him overall, but the procedure should be relatively straightforward. We would not have re-intubate him and simply leave him with his single lumen tube. We will get him ready for his biopsy tomorrow. His PT/INR is normalized now. MP
--- NOTE | 2018-11-13 16:38 | Critical Care Progress Note ---
Date of Service November 13, 2018 Assessment & Plan (1) Acute respiratory failure with hypoxia: Impression: 1. Mixed interstitial and airspace disease affecting asymmetrical lobes of the lung, drug-induced ILD, rheumatoid lung, diffuse alveolar hemorrhage, and abnormal infectious process such as fungal infection are all in the differential. 2. The patient has a history of CHF with chronic A. fib, however, I would expect him to respond quickly to diuresis and PPV, which he did not. These findings argue against CHF exacerbation. 3. Acute respiratory failure with acute lung injury by PF ratio. 4. A. fib, rate controlled. 5. Coagulopathy secondary to Coumadin, INR above than 10. Plan: 1. Continue pressure control vent support. 2. Continue current dose of Solu-Medrol 60 mg IV every 6 hours. 3. Glucose control as the patient is diabetic. Appreciate pharmacy input. 4. So far bronchoscopy specimen showed gram-negative rods. 5. We will check INR in the morning. 6. Pressure control ventilation. 7. Start heparin drip. 8. Continue folic acid. 9. Continue current antibiotics. Currently on Zosyn. 10. Dr. Lindsey input appreciated, for open lung biopsy tomorrow. 11. VAP bundle. 12. Could not decrease the PEEP below than 10. 13. Fentanyl and Versed for sedation. 14. N.p.o. after midnight. 15. IV fluid. After midnight. 16. Serology for vasculitis. 17. Discussed with the staff on rounds and details. 18. DVT and GI prophylaxis. CCM time was 45 minutes. Subjective The patient remains vented and sedated, review of system was not obtainable. The patient went into rapid A. fib responded to Cardizem drip. His INR return back to normal after reversal, and placed on heparin drip. Physical Exam 2 Vital Signs (Past 24 Hours): Last Vital Signs Temp 36.8 C 11/13/18 16:00 Pulse 118 H 11/13/18 16:00 Resp 20 11/13/18 16:00 BP 99/65 L 11/13/18 16:00 Pulse Ox 93 11/13/18 16:00 Physical Exam: Physical exam reveals a elderly gentleman, currently in A. fib , S1-S2, RVR with heart rate of 130, lungs with distant rhonchi, abdomen is benign, no edema. Neurologically he is sedated. No skin rash. Results & Data Laboratory Results His labs showed a white count of 11,000, hematocrit of 30 and platelets of 153, INR is 1.5, ABG showed 7.4 5/45/59/30 2/91%. CO2 of 32 and BUN/creatinine 43 and 1.3. Diagnostic Findings No new imaging.
--- NOTE | 2018-11-13 16:42 | Anesthesiology Consultation ---
Date of Service November 13, 2018 Assessment & Plan Chart Review Chart Review: Pending: Refer to Additional Notes / Consult section Consults Requested none ASA ASA4 Proposed Anesthesia Anesthesia Type: General Anesthesia Line Insertion: Arterial line and Central Venous Catheter History Surgery Operation Date: 11/14/18 10:55 Proposed Procedures p Right Thoracoscopic Lung Biopsy - Ryan Lindsey MD, FACS Height/Weight Height: 6 ft Weight: 79 kg Allergies Allergy/AdvReac Type Severity Reaction Status Date / Time No Known Allergies Allergy Verified 10/23/18 14:39 Medications Home Medications Medication Instructions Recorded Confirmed Last Taken amlodipine 10 mg tablet 10 mg PO .q am tab 07/01/18 11/04/18 Unknown aspirin 81 mg tablet,delayed 81 mg PO .q am tab 07/01/18 11/04/18 Unknown release carvedilol 6.25 mg tablet 6.25 mg PO BID 07/01/18 11/04/18 Unknown clonidine HCl 0.3 mg tablet 0.3 mg PO BID 07/01/18 11/04/18 Unknown fluticasone 50 mcg/actuation nasal 2 sprays INTNAS DAILY 07/01/18 11/04/18 Unknown spray,suspension folic acid 1 mg tablet 1 mg PO .q am tab 07/01/18 11/04/18 Unknown furosemide 40 mg tablet 40 mg PO BID 07/01/18 11/04/18 Unknown glimepiride 2 mg tablet 2 mg PO BID tab 07/01/18 11/04/18 Unknown lisinopril 40 mg tablet 40 mg PO .q am tab 07/01/18 11/04/18 Unknown metformin 1,000 mg tablet 1,000 mg PO BIDM 07/01/18 11/04/18 Unknown pravastatin 40 mg tablet 40 mg PO .q hs tab 07/01/18 11/04/18 Unknown warfarin 3 mg tablet 3 mg PO .MON&FRI tab 07/01/18 11/04/18 Unknown cadexomer iodine 0.9 % topical gel 40 gm TOP Q3D #40 gm 08/28/18 11/04/18 Unknown cyanocobalamin (vitamin B-12) 2,500 mcg PO DAILY 08/28/18 11/04/18 Unknown 2,500 mcg tablet methotrexate sodium 15 mg PO WK 11/04/18 11/04/18 Unknown prednisone 5 mg PO DAILY 11/04/18 11/04/18 Unknown warfarin 1.5 mg PO 5XWK 11/04/18 11/04/18 Unknown Active Medications Generic Name Dose Route Start Last Admin Trade Name Kym PRN Reason Stop Dose Admin Chlorhexidine Gluconate 15 ml 11/12/18 12:00 11/13/18 07:54 Peridex MT 12/12/18 11:59 15 ml DAILY CHEIKH Administration Piperacillin Sod/Tazobactam Sod 3.375 gm in 115 mls @ 28.75 mls/hr 11/05/18 00 :00 11/13/18 15:34 Zosyn IV 11/15/18 00:00 28.8 mls/hr Q8H CHEIKH Administration Protocol Methylprednisolone 60 mg/ 0.96 mls @ 1.5 mls/min 11/07/18 20:00 11/13/18 14: 15 Syringe IV 12/07/18 19:59 1.5 mls/min Q6H CHEIKH Administration Midazolam HCl 125 mg in 250 mls @ 12 mls/hr 11/12/18 11:45 11/13/18 16:30 Versed IV 12/12/18 11:44 4 mg/hr .Q24H CHEIKH 8 mls/hr Titration Protocol 6 MG/HR Fentanyl Citrate 1,250 mcg in 250 mls @ 20 mls/hr 11/12/18 11:45 11/13/18 15: 03 Fentanyl Drip IV 11/26/18 11:44 100 mcg/hr .[id number] CHEIKH 20 mls/hr Titration Protocol 100 MCG/HR Diltiazem HCl 125 mg/ Dextrose 125 mls @ 5 mls/hr 11/13/18 12:30 11/13/18 15: 04 IV 12/13/18 12:29 5 mg/hr .Q24H CHEIKH 5 mls/hr Titration Protocol 5 MG/HR Heparin Sodium/Dextrose 25,000 units in 500 mls @ 28 mls/hr 11/13/18 12:37 15:03 Heparin Sodium/Dextrose IV 12/13/18 12:36 28 mls/hr .[id number] CHIEKH Titration Protocol Insulin Aspart 0 units 11/12/18 16:00 11/13/18 15:40 Novolog Flexpen SC 12/12/18 15:59 4 units Q4 CHEIKH Administration Beta Ahsan Beta Ahsan Taken Within 24 Hours: No Past Medical History Medical History CKD (chronic kidney disease), stage III (Chronic) Thrombocytopenia (Chronic) PVD (peripheral vascular disease) (Chronic) HLD (hyperlipidemia) (Chronic) Diabetic polyneuropathy (Chronic) Diabetes mellitus, type 2 (Chronic) CAD (coronary artery disease) (Chronic) "cath 2006 - moderate non obstructive disease" Atrial fibrillation (Chronic) Cardiomyopathy, idiopathic (Chronic) "echo 06/2016 - EF 40-%, grade I diastolic dysfunction" LBBB (left bundle branch block) (Chronic) HTN (hypertension) (Chronic) Congestive heart failure A-fib (Chronic) CAD (coronary artery disease) (Chronic) Diabetes (Chronic) HTN (hypertension) (Chronic) Hx of left bundle branch block (Chronic) Osteomyelitis (Chronic) 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) Past Anesthesia History No Hx of Anesthesia Complications and No Family Hx of Anesthesia Complications History of PONV No Motion Sickness Screening History of Motion Sickness: No Social History Smoking Status: Former smoker tobacco type: cigarettes Do You Dip or Chew Tobacco: Yes Hx Alcohol Use: No Hx Substance Use: No substance use type: does not use Exercise / Class Metabolic Activity IV < 2 Limit ADL/Bedbound Physical Exam Vital Signs Last Vital Signs Temp 36.8 C 11/13/18 16:00 Pulse 118 H 11/13/18 16:00 Resp 20 11/13/18 16:00 BP 99/65 L 11/13/18 16:00 Pulse Ox 93 11/13/18 16:00 Testing Electrocardiogram Date: 11/04/18 Findings: + LBBB SR at 82/min. w/PAC's;LAD Chest X-Ray Date: 11/12/18 Findings: + cardiomegaly, + infiltrate (bilateral airspace opacities) and + atherosclerosis of thoracic aorta ETT in place;Right subclavian c-line in place Echocardiogram Date: 11/05/18 EF: 60 Other Findings: + LVH (moderate) mild TR septal WM c/w conduction abnormality Laboratory Results 11/13/18 04:23 11/13/18 04:23 PT 14.9 Seconds (9.0-12.0) H 11/13/18 04:23 INR 1.5 (0.9-1.1) H 11/13/18 04:23 Hemoglobin A1c 6.8 % (4.5-5.6) H 11/05/18 05:18 11/12/18 14:45 Gram Stain - Final Bronch Wash,Right Lower Lobe Bronchoalveolar Lavage Culture - Preliminary Gram negative bacilli 11/12/18 14:45 Fungal Smear - Final Bronch Wash,Right Lower Lobe 11/04/18 18:00 Blood Culture - Final Blood No growth 11/04/18 17:50 Blood Culture - Final Blood No growth 11/13/18 11/13/18 11/13/18 15:38 12:03 07:43 POC Glucose 178 H 151 H 131 H 11/13/18 04:26 POC Glucose 120 H
[2018-11-13] MEDS: MIDAZOLAM HCL 125 MG/250 ML BAG IV SCH (17:20)
[2018-11-13] MEDS: PANTOprazole 40 MG in SYRINGE 0 ML IV SCH (18:11)
[2018-11-13 20:11] LABS: Partial Thromboplastin Ratio 2.4
[2018-11-13 20:16] LABS: Partial Thromboplastin Time 62.3 Seconds (21.0-31.0)
[2018-11-13] MEDS: NORMOSOL-R 1,000 ML IV SCH (20:29)
[2018-11-13] MEDS ORDERED: INSULIN GLARGINE SOLOSTAR 100 UNITS/ML 3 ML PEN SC SCH (21:00)
[2018-11-13] MEDS ORDERED: Nursing to Pharmacy Communication ONE (21:49)
[2018-11-14] MEDS: PIPERACILLIN/TAZOBACTAM 3.375 GM/115 ML BAG IV SCH ×2 (00:02→08:29)
[2018-11-14] MEDS: INSULIN ASPART 100 UNITS/ML 3 ML PEN SC SCH ×7 (00:06→23:53)
[2018-11-14] MEDS: methylPREDNISolone 60 MG in SYRINGE 0 ML IV SCH ×4 (03:21→20:28)
[2018-11-14 04:35] LABS: Hematocrit (blood only) 33.2 % (42-52); Hemoglobin 10.3 g/dL (14.0-18.0); Mean Corpuscular Volume 97.1 fL (80-100); Mean Platelet Volume 10.8 fL (7.4-10.4); Nucleated RBC # (auto) 0.02 K/uL (0-0); Nucleated RBC % (auto) 0.1 %; Platelet Count 196 K/uL (130-400); RDW Coefficient of Variation 15.9 % (11.5-14.5); RDW Standard Deviation 55.4 fL (36.4-46.3); Red Blood Count 3.42 M/uL (4.7-6.1)
[2018-11-14 04:48] LABS: BUN Creatinine Ratio 30.3 (10-20); Creatinine Clr Calc Pharmacy 29.8 ml/min; Est GFR (African American) 32.1; Est GFR (Non-African American) 27.7; Magnesium 3.6 mg/dl (1.8-2.4); Phosphorus 6.4 mg/dl (2.5-4.9)
[2018-11-14 04:55] LABS: Monocytes # (manual) 0.19 K/uL (0.11-0.59); Monocytes % (manual) 0.9 %; Myelocytes # (manual) 0.19 K/uL (0-0); Myelocytes % (manual) 0.9 %; Neutrophils % (manual) 98.2 %; Ovalocytes 1+; Polychromasia 1+
[2018-11-14] MEDS ORDERED: NORMOSOL-R 250 ML IV ONE (05:04)
[2018-11-14] MEDS: NORMOSOL-R 1,000 ML IV SCH ×2 (05:15→16:05)
[2018-11-14 05:27] LABS: iSTAT Arterial Blood Gas HCO3 33 meg/L (19-24); iSTAT Carbon Dioxide 34 mEq/l (24-31); iSTAT FiO2 70 %
[2018-11-14] MEDS: PANTOprazole 40 MG in SYRINGE 0 ML IV SCH ×2 (08:28→20:29)
[2018-11-14] MEDS: CHLORHEXIDINE GLUCONATE 0.12% 480 ML MT SCH (08:30)
[2018-11-14] MEDS: INSULIN GLARGINE SOLOSTAR 100 UNITS/ML 3 ML PEN SC SCH ×2 (08:32→20:46)
[2018-11-14] MEDS ORDERED: PHENYLEPHRINE HCL 10 MG in DEXTROSE 5% 250 ML IV SCH (08:45)
--- NOTE | 2018-11-14 09:04 | History & Physical Bridge Note ---
Date of Service November 14, 2018 History & Physical Bridge Note I have examined the patient, reviewed the History & Physical and in the interval since the performance of the History & Physical I have noted the following changes of clinical significance: no changes noted
[2018-11-14] MEDS: PHENYLEPHRINE HCL 20 MG in DEXTROSE 5% 500 ML IV SCH ×3 (09:14→23:31)
--- NOTE | 2018-11-14 09:29 | Hospitalist Progress Note ---
Date of Service November 14, 2018 Assessment & Plan (1) Leukocytosis: White count elevated to 23K today, Has been on IV steroids, but marked jump of white count from 11 K to 23K concern for ongoing sepsis/infection Klebsiella pneumonia: Eugene specimen growing Klebsiella pneumoniae, patient already on broad-spectrum antibiotics Ordered for repeat blood culture, lactic acid repeat within normal limits, elevation of pro-calcitonin Present on Admission?: Yes (2) Acute renal failure superimposed on stage 3 chronic kidney disease: Possible secondary to sepsis, developed low urine output, hypotensive requiring pressor support Creatinine elevated to 1.382.17 Patient has not been on any diuretics, Avoid NSAIDs, contrast studies, IV fluids, antibiotic treatment Continue monitor BMP closely (3) Acute respiratory failure with hypoxia: developed acute respiratory failure with hypoxia on floor pt is Transferred to ICU, appreciate input from ICU team-pt was intubated on AC support Fi02 80% ABG shows pH 7.03/PCO2 113/02 81/HCO3 30/ SPO2 87% Severe respiratory acidosis doses associated with hypoxia, hypercarbia Added IV Zosyn, as chest x-ray shows progression of infiltrate S/P Bronchoscopy on 11/12/18 : by Dr Oconnell Bronch specimen growing : Kelbsiella on IV Zosyn - Large amount of thick secretions with aspirated food material noted occluding the takeoff of the right lower lobe bronchus, suctioned also clear. - Scant amount of secretions were noted, all suctioned to clear. - No evidence of endobronchial lesion or bleeding. - Bronchial wash was obtained from the right lower lobe and sent separately. scheduled for lung biopsy by CT surgery today -Presented with severe hypoxic SPO2 at 74% on RA and was placed on BiPAP in ED -CTA chest with extensive groundglass opacities throughout both lungs reflective of pulmonary edema or PNA -No pulmonary emboli identified although segmental and subsegmental pulmonary arteries on suboptimal study Possible related to 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 CXR showed Diffuse bilateral airspace opacities persist. Mostly ARDS Appreciate input from pulmonology Patient is continued on Solu-Medrol 60 mg IV every 6, (4) Coagulopathy: History of chronic A. fib, was on Coumadin coumadin was on hold since admission as presented with supratheraputic INR INR elevated> 10 Given 10 mg IV vitamin K/2 units of FFP by ICU team Repeat PT/INR improved INR 4.2 -> 2.2 -> 1.5 -> 1.3 coumadin kept on hold for scheduled lung biopsy tomorrow 11/14/17 (5) Rheumatoid arthritis: Methotrexate is discontinued secondary to interstitial lung disease, suspicion for methotrexate toxicity Continue IV Solu-Medrol 60 mg every 6 hours Rt sided thoracosocpic lung biopsy :by CT surgery Dr Lindsey (6) Elevated troponin: Troponin elevated at 0.391 with peak at 0.428 and is now downtrending. Likely due to demand ischemia Type II non-ST elevated ND secondary to hypoxia No acute ST changes on EKG Echo EF: 60-65%, moderate concentric LVH Cardiology following (7) Acute diastolic heart failure: Acute on chronic diastolic heart failure, possible secondary to hypoxia/ cardiac strain Given IV Lasix No evidence of volume overload Echo shows EF 60-65% Appreciate input from cardiology (8) Diabetic foot ulcer: Chronic in setting of diabetic polyneuropathy and h/o R great toe amputation, partial amputation of the first metatarsal in Jun 2016 Evaluated by wound care : Per wound care team : non healing diabeitc ulcer in the planter aspect of rt foot measuring ( 1.6X 2X 0.1 cm ) wound surrounded by callus /no erythema or drainage Topical Xylocaine was applied to the wound. Wound was debrided with #5 curette. Slough fibrin skin and callus removed. There is minimal bleeding controlled with pressure. Procedure was tolerated well with no complications. 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 , will cont IV PPI for GI prophylaxis no indication for IV PPI gtt for now ordered for IV protonix 40 mg BID H&H remains stable monitor (11) Thrombocytopenia: No signs of bleeding Continue monitoring with daily CBC (12) Diabetes mellitus, type 2: Recent A1c of 6.8 home medication metformin and glimepiride-kept on hold since admission BS has been fluctuates since pt is on IV steroid Pharmacy on board for glycemic management (13) HTN (hypertension): BP starting to elevate Continue home Norvasc, Coreg Clonidine was decrease due to low BP Lisinopril on hold (14) CKD (chronic kidney disease), stage III: Presented with acute renal failure, Baseline CKD stage III Avoid NSAIDs, nephrotoxins Monitor kidney function with daily BMPs (15) LBBB (left bundle branch block): chronic condition (16) HLD (hyperlipidemia): DVT Ppx:Scd and teds Code status: FULL Disposition Patient remains critically ill, needs ICU care Attempted to call Pt;s son Sumeet Chatterjee : [phone] unable to reach Subjective Patient remains intubated, sedated had poor urine output over night started on presssor for hypotension scheduled for throacotomy and lung biopsy in OR today Physical Exam 2 Vital Signs (Past 24 Hours): Last Vital Signs Temp 36.7 C 11/14/18 08:00 Pulse 95 H 11/14/18 09:00 Resp 20 11/14/18 08:00 BP 88/46 L 11/14/18 09:00 Pulse Ox 93 11/14/18 09:00 Constitutional: WD/WN, vitals as above (sedated /intubated on vent ) + ill appearing Respiratory: normal respiratory effort (on mechanical ventilation ) Auscultation: + crackles (Diffuse all lung steward) Cardiovascular: Rate/Rhythm: regular rate and regular rhythm Gastrointestinal (Abdomen): Percussion/Palpation: abdomen soft Neurologic: + obtunded (sedated on mechanical ventilation ) _ (1) Rheumatoid arthritis Laterality: Rheumatoid arthritis location: unspecified site Rheumatoid factor presence: unspecified presence Qualified Code(s): M06.9 - Rheumatoid arthritis, unspecified (2) GI bleed GI bleed type/associated pathology: unspecified gastrointestinal hemorrhage type Gastritis type: Qualified Code(s): K92.2 - Gastrointestinal hemorrhage, unspecified (3) Diabetes mellitus, type 2 Chronic kidney disease stage: stage 3 (moderate) Diabetes mellitus complication detail: with chronic kidney disease Diabetes mellitus complication status: with kidney complications Diabetes mellitus production control expediter insulin use: unspecified production control expediter insulin use status Diabetes mellitus macular edema: Diabetic retinopathy severity: Laterality: Proliferative retinopathy type: Qualified Code(s): E11.22 - Type 2 diabetes mellitus with diabetic chronic kidney disease; N18.3 - Chronic kidney disease, stage 3 ( moderate) (4) Diabetic foot ulcer Diabetes mellitus type: type 2 Diabetic foot ulcer location: midfoot Laterality: right Non-pressure ulcer stage: with fat layer exposed Qualified Code(s): E11.621 - Type 2 diabetes mellitus with foot ulcer; L97.412 - Non- pressure chronic ulcer of right heel and midfoot with fat layer exposed (5) Atrial fibrillation Atrial fibrillation type: chronic Qualified Code(s): I48.2 - Chronic atrial fibrillation (6) HLD (hyperlipidemia) Hyperlipidemia type: unspecified Qualified Code(s): E78.5 - Hyperlipidemia, unspecified (7) Leukocytosis Leukocytosis type: unspecified Qualified Code(s): D72.829 - Elevated white blood cell count, unspecified (8) Acute renal failure superimposed on stage 3 chronic kidney disease Acute renal failure type: unspecified Qualified Code(s): N17.9 - Acute kidney failure, unspecified; N18.3 - Chronic kidney disease, stage 3 (moderate) (9) HTN (hypertension) Hypertension type: unspecified Qualified Code(s): I10 - Essential (primary) hypertension
[2018-11-14 09:34] LABS: Partial Thromboplastin Ratio 1.1; Partial Thromboplastin Time 28.9 Seconds (21.0-31.0)
[2018-11-14] MEDS: DIGOXIN 250 MCG in SYRINGE 9 ML IV SCH ×2 (10:03→16:30)
[2018-11-14 10:14] LABS: INR 1.3 (0.9-1.1); Prothrombin Time 13.1 Seconds (9.0-12.0)
[2018-11-14] MEDS ORDERED: CEFEPIME CONSULT ACTIVE PRN (10:38)
--- NOTE | 2018-11-14 10:51 | Pharmacy Report ---
Pharmacy Glycemic Short Note 2 - Date of Service November 14, 2018 - Glycemic Short BSG Results (Last 24 hours): 11/13/18 11/13/18 11/13/18 12:03 15:38 19:22 Glucose POC Glucose 151 H 178 H 204 H 11/13/18 11/14/18 11/14/18 23:52 03:58 04:02 Glucose 181 H POC Glucose 179 H 180 H 11/14/18 08:25 Glucose POC Glucose 152 H OUTPATIENT ANTIDIABETIC REGIMEN: * Glimepiride 2mg PO BID + Metformin 1gm PO BID * A1c = 6.8% ASSESSMENT: 11/14/18 * BSGs have ranged 151-204 over the last 24 hrs, most of which have been less than 180 * BSGs climbing slowly over the last 24 hrs. NEW events: NICOLE, hypotensive this AM and pressors added, WBC climbing, may go to OR today * IV steroids continue at the same dose at this time w/ no mention of decreasing * Basal dose needs titrated upwards * Continue Q 4 hrs checks with same correction factor for now. * Watch for addition of tube feeds in near future (today is day 2 intubation) however pressor requirement may prevent this from occurring today PLAN FOR INPATIENT GLYCEMIC CONTROL: * Hold outpatient oral diabetes medications * Basal insulin (change from scale to set dose w/ slight increase) * Lantus 13 units SQ BID * Bolus insulin (no change) * NovoLog per scale Q 4 hrs * Goal Range: Low 110 mg/dL - High 140 mg/dL * Correction Factor: 12 mg/dL/unit * Nutritional / Prandial insulin per carb ratio of 1 unit per 4 grams CHO consumed * Would have a low threshold for starting insulin drip if BSGs consistently > 180 PLAN FOR DISCHARGE: * A1c 6.8% - continue outpatient regimen.
[2018-11-14] MEDS ORDERED: MIDAZOLAM HCL 1 MG/ML 2ML VIAL ONE (11:15)
[2018-11-14] MEDS ORDERED: fentaNYL citrate 100 MCG/2 ML VIAL ONE (11:18)
[2018-11-14] MEDS ORDERED: BUPIVACAINE LIPOSOME 1.3% 266 MG/20 ML VIAL INFIL ONE (11:20)
[2018-11-14] MEDS ORDERED: BUPIVACAINE 0.5 % 5 MG/1 ML MPF 30ML VIAL ONE (11:20)
[2018-11-14] MEDS ORDERED: SODIUM CHLORIDE 0.9% PF 50 ML VIAL ONE (11:20)
[2018-11-14] MEDS ORDERED: CEFAZOLIN 250 MG/ML 1 GM VIAL ONE ×3 (12:10→13:16)
[2018-11-14] MEDS ORDERED: PROPOFOL IV EMULSION 10 MG/ML 20 ML VIAL IV ONE (12:18)
[2018-11-14] MEDS ORDERED: CISATRACURIUM BESYLATE IV SOLN 2 MG/ML 10 ML VIAL IV ONE (12:18)
[2018-11-14] MEDS ORDERED: PHENYLEPHRINE HCL 10 MG/ML VIAL ONE (12:18)
--- NOTE | 2018-11-14 12:34 | Post Operative Brief Note ---
Immediate Post Op Note v1 Date of Surgery November 14, 2018 Pre & Post Diagnosis Operation Date: 11/14/18 10:55 Pre-Op Diagnosis: Pulmonary infiltrates, hypoxia Post-Op Diagnosis: Same Procedure Operation Date: 11/14/18 10:55 Actual Procedures p Video Assisted Right Thoracoscopic Lung Biopsy(Right) - Ryan Lindsey MD , FACS Surgeon Ryan Lindsey MD, FACS Commercial Pest Control Technician Pavithra TAVERAS Estimated Blood Loss 2 Findings Consistent with Post-Op Diagnosis Drains Chest Tube and Roper Catheter
[2018-11-14] MEDS ORDERED: CEFAZOLIN 2000MG 2,000 MG/15 ML SYR IV SCH (12:45)
[2018-11-14] MEDS ORDERED: ATROPINE SULFATE 0.1 MG/ML 10ML SYR IV PRN (12:57)
[2018-11-14] MEDS ORDERED: ePHEDrine sulfate 50 MG/ML AMP IV PRN (12:57)
[2018-11-14] MEDS ORDERED: VASOPRESSIN 20 UNIT/ML VIAL ONE (13:16)
--- NOTE | 2018-11-14 13:16 | Anesthesiology Progress Note ---
Date of Service November 14, 2018 Anesthesia Post Procedure Vital Signs Vital Signs: Temp Pulse Pulse Resp BP BP BP 11/14/18 11:30 109 H 11/14/18 11:00 104 H 11/14/18 10:47 36.6 C 101 H 111/58 L 11/14/18 10:30 104 H 11/14/18 10:03 103 H 11/14/18 10:00 107 H 11/14/18 09:30 108 H 11/14/18 09:00 95 H 88/46 L 11/14/18 08:30 84 11/14/18 08:23 20 11/14/18 08:00 36.7 C 99 H 20 79/48 L 11/14/18 07:30 97 H 11/14/18 07:00 95 H 85/48 L 11/14/18 06:00 95 H 20 94/56 L 11/14/18 05:10 89 20 11/14/18 05:00 105 H 20 91/52 L 11/14/18 04:00 37.1 C 98 H 20 90/55 L 11/14/18 03:00 89 20 103/47 L 11/14/18 02:36 107 H 20 11/14/18 02:00 92 H 20 95/51 L 11/14/18 01:00 91 H 20 94/49 L 11/14/18 00:00 37.2 C 100 H 20 81/44 L 11/13/18 23:42 96 H 20 11/13/18 22:00 93 H 20 94/77 L 11/13/18 21:05 101 H 20 11/13/18 21:00 103 H 20 107/44 L 11/13/18 20:00 37.1 C 114 H 20 98/61 L 11/13/18 19:00 113 H 20 95/62 L 11/13/18 18:00 105 H 20 102/63 11/13/18 17:10 112 H 20 11/13/18 17:00 107 H 20 107/69 11/13/18 16:00 36.8 C 118 H 20 99/65 L 11/13/18 15:02 127 H 20 11/13/18 15:01 114 H 94/68 L 11/13/18 15:00 109 H 11/13/18 14:30 119 H 11/13/18 14:01 120 H 96/76 L 11/13/18 14:00 134 H 11/13/18 13:49 102 H 20 11/13/18 13:30 112 H Pulse Ox 11/14/18 11:30 93 11/14/18 11:00 93 11/14/18 10:47 11/14/18 10:30 94 11/14/18 10:03 11/14/18 10:00 92 11/14/18 09:30 92 11/14/18 09:00 93 11/14/18 08:30 94 11/14/18 08:23 11/14/18 08:00 93 11/14/18 07:30 93 11/14/18 07:00 93 11/14/18 06:00 93 11/14/18 05:10 92 11/14/18 05:00 92 11/14/18 04:00 93 11/14/18 03:00 93 11/14/18 02:36 93 11/14/18 02:00 93 11/14/18 01:00 93 11/14/18 00:00 92 11/13/18 23:42 91 11/13/18 22:00 92 11/13/18 21:05 90 11/13/18 21:00 91 11/13/18 20:00 92 11/13/18 19:00 92 11/13/18 18:00 92 11/13/18 17:10 93 11/13/18 17:00 93 11/13/18 16:00 93 11/13/18 15:02 93 11/13/18 15:01 92 11/13/18 15:00 93 11/13/18 14:30 93 11/13/18 14:01 93 11/13/18 14:00 92 11/13/18 13:49 94 11/13/18 13:30 94 Notes Mental Status: see notes below Patient Amnestic to Procedure: Yes Nausea / Vomiting: adequately controlled Pain: adequately controlled Airway Patency, RR, SpO2: see Notes below BP & HR: see Notes below Hydration State: see Notes below Anesthetic Complications: no major complications apparent and see Notes below Notes: patient is critical.Patient remains intubated and mechanically ventilated ,requiring iv sedative infusions and iv vasoactive agents for BP support.Report was given to ICU team.
[2018-11-14] MEDS ORDERED: MoRPHine SULFATE 2 MG/ML CARP IV PRN (13:33)
[2018-11-14] MEDS ORDERED: VANCOMYCIN CONSULT ACTIVE PRN (13:40)
--- NOTE | 2018-11-14 14:10 | Operative Report ---
DATE OF OPERATION: 11/14/2018 PREOPERATIVE DIAGNOSES: Hypoxemia with pulmonary infiltrates and respiratory failure. POSTOPERATIVE DIAGNOSES: Hypoxemia with pulmonary infiltrates and respiratory failure. PROCEDURE: Right thoracoscopy with lung biopsy right upper lobe, right lower lobe. SURGEON: Dr. Lindsey. PUBLIC HEALTH SOCIAL WORKER: DARCY Samson (Mr. Vázquez was present for the entire case and closed the skin incisions at the conclusion). ANESTHESIA: General anesthesia, endotracheal intubation. INDICATION FOR PROCEDURE AND FINDINGS: The patient is an 78-year-old who is extremely ill. The patient normally is independent of activities of daily living, has become progressively more and more ill. He has been in the hospital for 10 days and has eventually required intubation. He now has bilateral pulmonary infiltrates, which have not responded to steroids, diuresis or antibiotics. He is markedly hypoxemic and has a very wide A-a gradient. Discussed the case with Dr. Oconnell as well as the patient's and son. I offered to bring him to the Operating Room for a lung biopsy to help elucidate the etiology of his respiratory failure. On 11/14/2018, the patient underwent an uncomplicated right thoracoscopy with wedge resection right upper lobe, right lower lobe. Frozen section of the upper lobe showed definite pathologic changes, but did not see evidence of obvious malignancy or infection. He left the Operating Room in stable condition. DESCRIPTION OF PROCEDURE: The patient was brought to the Operating Room and laid in supine position. He had already been intubated. Arterial line was already in place. He was turned in left lateral decubitus position, right chest prepped and draped in usual sterile fashion. He received antibiotics prophylactically. After appropriate timeout had been called, 5 mm incision was made just medial to the scapular edge. Upon going in, we see there were no adhesions. A 5 mm scope was placed. Another 5 mm port was placed anterior. Finally a 12 mm port was placed couple interspaces above the diaphragm and mid axillary line. The upper lobe was then grasped and an Endo-LUCHO stapler was used to remove the upper apex. This was sent for frozen section. It was pulled out through the 12 mm port. Exparel 266 mg mixed with 30 mL of 0.25% bupivacaine and 250 mL of normal saline and used to inject each of the port sites. It was also used to perform an intercostal block from the 2nd through 11th rib under thoracoscopic guidance. After it has been done, the lower lobe was then grasped and an Endo-LUCHO stapler was used to send a portion of this off. This segment was cut in half and portions were sent for cultures. Chest tube was placed through the 12 mm port and directed towards the apex. It was sutured in place with heavy silk suture. The patient had no air leak at the conclusion of the case. Heavy Vicryl suture was used to hold the chest tube in place. The 5 mm ports were closed with 4-0 Monocryl in running subcuticular fashion. Antibiotic dressings were placed. Chest tube was attached to Pleur-Evac. The patient was transported back to the Postanesthesia Care Unit in the same condition. I attest to the content of the Intraoperative Record and any orders documented therein. Any exception s are noted below.
[2018-11-14] MEDS ORDERED: VANCOMYCIN HCL 1,750 MG in SODIUM CHLORIDE 0.9% 500 ML IV ONE (14:15)
--- NOTE | 2018-11-14 14:42 | XRay Report ---
XR chest 1V portable CLINICAL HISTORY: lung bx. COMPARISON STUDY: 11/12/2018 FINDINGS: Subcutaneous emphysema bilaterally. Placement of right-sided chest tube. Persistent right a pical pneumothorax estimated at 3.2 cm in terms of pleural separation. Left-sided pneumothorax with a maximum pleural separation 2.0 cm. Mild cardia megaly. Endotracheal tu be 4.5 cm above the [place]. IMPRESSION: Bilateral pneumothorax. Pleural separation on the right is 3.2 cm and 2.0 cm on the left . The above report was generated using voice recognition software. It may contain grammatical, syntax or spelling errors. Electronically signed by: Ag Royal M.D. 11/14/2018 2:41 PM
--- NOTE | 2018-11-14 14:44 | Pharmacy Report ---
Pharmacy Abx Dose Short Note - Date of Service November 14, 2018 - Assessment & Plan Assessment * 78 year old M receiving abx therapy for treatment of pneumonia, diabetic foot ulcer * Had received 9.5 days of Zosyn therapy however pt's WBC increasing and pt clinically declining. Business Account Manager escalated abx therapy to Vanco + Cefepime today (d/c Zosyn) * Kleb pn and yoan albicans growing in bronch wash cx; kleb was sensitive to zosyn, but is also reported sens to cefepime * NICOLE observed on labs today, pt hypotensive and requiring phenylephrine support this AM Plan Vancomycin * Loading dose: 1750mg (~22mg/kg) IV x 1 * Given the patient's NICOLE (SCr 1.38-->2.17 in 24 hrs) I would estimate his CrCl to be < 15. Will not order a scheduled maintenance dose, rather will check random level w/ am labs to guide dosing. * Goal trough level for pulm infxn : 15 to 20 mcg/mL Cefepime * eCrCl likely < 15 however may change quickly * follow U.O. closely * 2gm loading dose for all degrees of renal impairment, therefore will give 2gm today and order daily for now. Will f/u on labs and U.O. tomorrow and adjust PRN Pharmacy will continue to follow and will adjust dose/frequency as necessary. Thank you.
[2018-11-14] MEDS: fentaNYL DRIP 1,250 MCG/250 ML BAG IV SCH (15:20)
[2018-11-14] MEDS: CEFEPIME 2,000 MG in SYRINGE 7.5 ML IV SCH ×2 (16:31→16:44)
--- NOTE | 2018-11-14 19:04 | XRay Report ---
XR chest 1V portable HISTORY: Bilateral pneumothorax. COMPARISON: Chest 11/14/2018. FINDINGS: Nasogastric tube terminates below the diaphragm in the expected location of the stomach. Th e fenestrated line is at the gastroesophageal junction. Therefore, this should be advanced by approxi mate 5 cm. Endotracheal tube terminates 3.9 cm from the [place]. Bilateral chest wall subcutaneous emp hysema persists. Right-sided chest tube is unchanged in position. Right subclavian central venous cat heter terminates in the expected location of the SVC. Small right pneumothorax is decreased in size. This measures a maximum pleural gap of 1.9 cm. Bilateral hazy airspace opacities persist. Small to mo derate left pneumothorax is also not significant change in size and measures a maximum pleural gap of 2.6 cm. There is evidence for pneumomediastinum, unchanged. Heart remains mildly enlarged. IMPRESSION: 1. Slight decrease in size in the small right pneumothorax. 2. No cement change in the small to moderate left pneumothorax. 3. Small amount of pneumomediastinum and chest wall subcutaneous emphysema persists. 4. Nasogastric tube terminates below the diaphragm in the expected location of the stomach. The fenes trated line is at the gastroesophageal junction. Therefore, this should be advanced by approximately 5 cm. 5. The remaining lines and tubes are in good position. Electronically signed by: Joseph Allan M.D. 11/14/2018 7:02 PM
--- NOTE | 2018-11-14 19:11 | Critical Care Progress Note ---
Date of Service November 14, 2018 Assessment & Plan (1) Acute respiratory failure with hypoxia: Impression: 1. Acute respiratory failure, with hypoxia and hypercapnia. 2. Interstitial lung disease, etiology thought to be related to methotrexate toxicity versus rheumatoid lung versus other entities such as UIP or NSI P. Kraft Rich syndrome cannot be excluded. 3. DHF with A. fib and RVR. 4. A. fib, rate controlled. 5. Coagulopathy secondary to Coumadin, resolved. 6. Chronic kidney disease, worsening. 7. Rheumatoid arthritis. 8. Bilateral pneumothorax, right-sided postop expected, left-sided likely from single lung ventilation. Plan: 1. Continue pressure control, decrease the PEEP to 5. 2. Continue current dose of Solu-Medrol 60 mg IV every 6 hours. 3. Glucose control as the patient is diabetic. Appreciate pharmacy input. 4. The patient grew Klebsiella in the sputum, covered by Zosyn. 5. I will restart heparin drip after placement of a chest tube. 6. Chest tube to the left chest cavity due to left-sided pneumothorax. 7. The patient underwent upper lung biopsy by Dr. Lindsey, results are pending. 8. Continue folic acid. 9. Continue Zosyn and add vancomycin empirically. 10. Discussed with the Floyd and the son done in details. 11. VAP bundle. 12. I will hold off on increasing the PEEP at this point. 13. Fentanyl and Versed for sedation. 14. Resume tube feeding in the morning. 15. Continue gentle hydration. 16. Serology for vasculitis is pending. 17. Discussed with the staff on rounds and details. 18. DVT and GI prophylaxis. CCM time was 45 minutes excluding procedure time. Subjective The patient remains vented overnight, sedated, does not appear to be uncomfortable, vital signs remained stable, underwent open lung biopsy by Dr. Lindsey. Physical Exam 2 Vital Signs (Past 24 Hours): Last Vital Signs Temp 36.8 C 11/14/18 16:00 Pulse 90 11/14/18 18:33 Resp 20 11/14/18 18:33 BP 92/44 L 11/14/18 18:33 Pulse Ox 95 11/14/18 18:33 Physical Exam: Vital signs are stable, O2 saturation is 95% on 70%, S1-S2 A. fib, bilateral rhonchi, abdomen is benign, no edema. Neurologically he is intact. Results & Data Laboratory Results Labs were reviewed which showed increase in the white count to 21,000, hematocrit of 33 and platelets of 196, INR 4.3, pH of 7.3 0//74/33. Sodium 146, chloride 109, bicarb 31 and BUN/creatinine 66 and 2.17. Slightly up from his previous. Diagnostic Findings Chest x-ray postprocedure showed small right sided pneumothorax and similar one on the left as well. Pneumomediastinum was noted as well. ET tube was in good position.
--- NOTE | 2018-11-14 20:19 | Procedure Note ---
Procedure Note Date of Service November 14, 2018 Time of Procedure: 1946 Procedure: Pigtail Catheter Chest Tube Placement Attending: Dr. Oconnell APC: Tommy Marroquin PA-C Indication: Pneumothorax Anesthesia: Lidocaine 1% Written consent was obtained and on the chart per attending providers. Prior to procedure, chest x-ray films were reviewed by myself and demonstrated large LEFT-sided pneumothorax. A time-out was completed verifying correct patient, procedure, site, positioning, and implant(s) or special equipment if applicable. Utilizing bedside ultrasound, chest wall was evaluated for location for optimal chest tube placement. Location between the LEFT anterior 3rd and 4th ribs were marked on the skin using gentle pressure. The LEFT-sided chest wall was prepped with chlorhexidine and draped in the typical sterile fashion. 8 mL of 1% Lidocaine without epinephrine was used to anesthetize the skin down to the dorsal surface of the 4th rib. Air return confirmed entry into the pleural space. Lidocaine was injected into the pleural space for increased anesthetization. Introducer needle on syringe was inserted in perpendicular fashion taking care to ride just above the dorsal surface of the 4th rib. Entry into the pleural space was heralded by air return into the syringe while under gentle aspiration. Guide wire was advanced into the pleural space without resistance and the introducer needle was subsequently removed. Scalpel was used to make small incision of the superficial tissue, parallel to the direction of the rib anatomy. Dilator was advanced uneventfully over the guide wire into the pleural space. 14 Icelandic Pigtail Catheter was inserted into the pleural space. Inner introducer and guide wire were removed. Heimlich valve and drain were immediately connected to pre-prepared CHON pleur-evac system. Pigtail was sutured securely in place and sterile dressing was applied. Chest tube was placed to -[id number] suction. Patient tolerated procedure well. Blood Loss: Minimal Complications: None Post procedure Chest X-ray was ordered and reviewed by myself which demonstrated adequate placement. Dr. Oconnell was present and assisted throughout entire procedure.
[2018-11-14] MEDS ORDERED: Heparin IV Standard *NO* Bolus ONE (20:20)
--- NOTE | 2018-11-14 20:48 | XRay Report ---
XR chest 1V portable HISTORY: left chest tube COMPARISON: Chest 11/14/2018. FINDINGS: Interval placement of a left-sided pigtail chest tube which terminates in the left lung ape x. Interval decrease in size of the left pneumothorax which now demonstrates a maximal pleural gap of 8 mm. Small right pneumothorax has also decreased in size and demonstrates a pleural gap of 15 mm. T here are suture material within the right lung apex. Right-sided chest tube is unchanged in position. Nasogastric tube terminates below the diaphragm. Right subclavian central venous catheter terminates at the SVC. The endotracheal tube terminates 3.8 cm from the [place]. Bilateral hazy airspace opaciti es and mild cardiac lead persist. No significant pleural effusions. Pneumomediastinum and subcutaneou s emphysema remain unchanged. IMPRESSION: 1. Decrease in size in the bilateral pneumothoraces as described above. A left-sided chest tube termi nates at the left lung apex. 2. The nasogastric tube could be advanced by approximately 5 cm. Otherwise, satisfactory support line placement. 3. Bilateral hazy airspace opacities persist. Electronically signed by: Joseph Allan M.D. 11/14/2018 8:47 PM
[2018-11-14] MEDS: HEPARIN SODIUM/DEXTROSE 25,000 UNITS/500 ML BAG IV SCH (20:49)
[2018-11-15 01:48] LABS: iSTAT Arterial Blood Gas HCO3 33 meg/L (19-24); iSTAT Carbon Dioxide 35 mEq/l (24-31); iSTAT FiO2 85 %
[2018-11-15] MEDS: NORMOSOL-R 1,000 ML IV SCH (02:07)
[2018-11-15] MEDS: methylPREDNISolone 60 MG in SYRINGE 0 ML IV SCH ×4 (02:22→20:08)
[2018-11-15 03:11] LABS: iSTAT Arterial Blood Gas HCO3 32 meg/L (19-24); iSTAT Carbon Dioxide 35 mEq/l (24-31); iSTAT FiO2 85 %
[2018-11-15 03:32] LABS: Partial Thromboplastin Ratio 2.8
[2018-11-15 03:35] LABS: Partial Thromboplastin Time 72.8 Seconds (21.0-31.0)
[2018-11-15] MEDS: PHENYLEPHRINE HCL 20 MG in DEXTROSE 5% 500 ML IV SCH ×4 (03:59→11:20)
[2018-11-15] MEDS: INSULIN ASPART 100 UNITS/ML 3 ML PEN SC SCH ×5 (04:04→20:08)
[2018-11-15 04:46] LABS: INR 1.4 (0.9-1.1); Prothrombin Time 13.9 Seconds (9.0-12.0)
[2018-11-15 04:54] LABS: iSTAT Arterial Blood Gas HCO3 32 meg/L (19-24); iSTAT Carbon Dioxide 35 mEq/l (24-31); iSTAT FiO2 100 %
[2018-11-15 04:58] LABS: Albumin Level 1.8 gm/dl (3.4-5.0); BUN Creatinine Ratio 30.1 (10-20); Bilirubin Direct 0.5 mg/dl (0-0.2); Calcium 6.1 mg/dl (8.5-10.1); Creatinine Clr Calc Pharmacy 24.4 ml/min; Est GFR (African American) 25.2; Est GFR (Non-African American) 21.8; Potassium 5.1 mmol/L (3.5-5.1)
[2018-11-15 05:00] LABS: Albumin Globulin Ratio 0.5 (0.9-2); Bilirubin,Total 0.8 mg/dl (0.2-1); Globulin 3.4 gm/dl (2.5-4.0); Total Protein 5.2 gm/dl (6.4-8.2)
[2018-11-15 05:07] LABS: Hematocrit (blood only) 34.8 % (42-52); Hemoglobin 10.1 g/dL (14.0-18.0); Mean Corpuscular Volume 101.5 fL (80-100); Mean Platelet Volume 10.2 fL (7.4-10.4); Nucleated RBC % (auto) 0.5 %; Platelet Count 239 K/uL (130-400); RDW Coefficient of Variation 15.3 % (11.5-14.5); RDW Standard Deviation 56.1 fL (36.4-46.3); Red Blood Count 3.43 M/uL (4.7-6.1); White Blood Count 19.33 K/uL (4.8-10.8)
[2018-11-15] MEDS ORDERED: NORMOSOL-R 500 ML IV ONE (05:09)
[2018-11-15 05:28] LABS: Basophils # (auto) 0.02 K/uL (0-0.2); Basophils % (auto) 0.1 %; Immature Granulocytes # (auto) 0.18 K/uL (0.00-0.02); Immature Granulocytes % (auto) 0.9 %; Lymphocytes # (auto) 0.76 K/uL (1.2-3.4); Lymphocytes % (auto) 3.9 %; Monocytes # (auto) 0.52 K/uL (0.11-0.59); Monocytes % (auto) 2.7 %; Neutrophils # (auto) 17.85 K/uL (1.4-6.5); Neutrophils % (auto) 92.4 %
[2018-11-15 06:22] LABS: iSTAT Arterial Blood Gas HCO3 31 meg/L (19-24); iSTAT Carbon Dioxide 34 mEq/l (24-31); iSTAT FiO2 100 %
--- NOTE | 2018-11-15 07:07 | XRay Report ---
XR chest 1V portable CLINICAL HISTORY: hypoxia RESPIRATORY FAILURE COMPARISON STUDY: 11/15/2018 FINDINGS: There is an endotracheal tube 33 mm above the [place]. There is a nasogastric tube which pas ses into the stomach. There is a right subclavian intravenous catheter. Bilateral chest tubes are vis ualized. The left chest tube is a pigtail catheter. There is extensive subcutaneous emphysema. There is a tiny 5 mm left apical pneumothorax.. There is interval decrease in the size of the right apical pneumothorax with a pleural separation of 25 mm. There are persistent extensive bilateral pulmonary a irspace opacities.[ IMPRESSION: 1. Persistent extensive bilateral pulmonary airspace opacities. 2. Bilateral chest tubes 3. Interval decrease in size of the right pneumothorax which has a pleural separation of 25 mm 4. Interval decrease in the size of the left pneumothorax which has a pleural separation of 5 mm Electronically signed by: Alex Osborn M.D. 11/15/2018 7:06 AM
--- NOTE | 2018-11-15 07:10 | XRay Report ---
XR chest 1V portable CLINICAL HISTORY: Respiratory failure. Pneumothorax. History of prior lung biopsy. COMPARISON STUDY: 11/14/2018 FINDINGS: There are extensive bilateral pulmonary airspace opacities. There is an endotracheal tube 2 7 mm above the [place]. There are bilateral chest tubes. There is a nasogastric tube which passes into the stomach. There is a right subclavian A-Port catheter. There is a right-sided pneumothorax the pl eural separation of 55 mm. There is a left-sided pneumothorax the pleural separation of 8 mm.[ There is persistent subcutaneous emphysema. IMPRESSION: 1. Increasing right apical pneumothorax the pleural separation of 55 mm 2. 8 mm left apical pneumothorax 3. No change in position of bilateral chest tubes 4. Extensive bilateral pulmonary airspace opacities Electronically signed by: Alex Osborn M.D. 11/15/2018 7:09 AM
--- NOTE | 2018-11-15 08:53 | Pharmacy Report ---
Pharm Abx/Gly Prg Nt - Date of Service November 15, 2018 - Scope Pharmacy has been consulted to manage VANCOMYCIN + CEFEPIME abx therapy and glycemic control for this patient as per the Pharmacy & Therapeutics Committee approved dosing protocols. - Objective Vital Signs (Past 12hrs): Vital Signs Temp Pulse Resp BP Pulse Ox 11/15/18 07:38 104 H 24 91 11/15/18 07:30 97 H 112/61 90 11/15/18 07:00 97 H 99/57 L 93 11/15/18 06:00 100 H 26 H 90/52 L 94 11/15/18 05:50 90 25 H 95 11/15/18 05:01 102 H 107/51 L 96 11/15/18 05:00 91 H 107/51 L 96 11/15/18 04:00 36.8 C 102 H 24 90/53 L 89 L 11/15/18 03:00 106 H 93/60 L 91 11/15/18 02:35 102 H 24 92 11/15/18 02:00 97 H 20 95/49 L 92 11/15/18 01:00 98 H 91 11/15/18 00:00 93 H 106/54 L 92 11/14/18 23:18 99 H 20 93 11/14/18 23:00 95 H 20 94 11/14/18 22:00 96 H 112/57 L 97 11/14/18 21:00 82 20 96 Lab Results: Laboratory Tests (24 Hours) 11/15/18 11/15/18 11/15/18 04:18 04:18 04:18 WBC 19.33 H Neut # (Auto) 17.85 H Creatinine 2.65 H D Est Cr Clr Drug Dosing 24.4 Procalcitonin Random Vancomycin 15.4 11/14/18 09:54 WBC Neut # (Auto) Creatinine Est Cr Clr Drug Dosing Procalcitonin 3.71 H Random Vancomycin Micro Results: 11/14/18 Unknown Fungal Smear - Final Lung Fungal Culture - Pending 11/14/18 Unknown Gram Stain - Final Lung Aerobic and Anaerobic Culture - Pending 11/14/18 Unknown Acid Fast Bacilli Smear - Pending Lung Acid Fast Bacilli Culture - Pending 11/12/18 14:45 Gram Stain - Final Bronch Wash,Right Lower Lobe Bronchoalveolar Lavage Culture - Final Klebsiella pneumoniae Marlnie albicans 11/14/18 09:59 Blood Culture - Pending Blood 11/14/18 09:45 Blood Culture - Pending Blood 11/12/18 14:45 Acid Fast Bacilli Smear - Final Bronch Wash,Right Lower Lobe Acid Fast Bacilli Culture - Pending 11/12/18 14:45 Fungal Smear - Final Bronch Wash,Right Lower Lobe Fungal Culture - Pending 11/04/18 18:00 Blood Culture - Final Blood No growth 11/04/18 17:50 Blood Culture - Final Blood No growth Accuchecks BSG (last 24 hours):: 11/14/18 11/14/18 11/14/18 13:39 16:38 20:37 Glucose POC Glucose 189 H POC Glucose (other) 197 H 184 H 11/14/18 11/15/18 11/15/18 23:48 03:55 04:18 Glucose 195 H POC Glucose POC Glucose (other) 191 H 195 H HbA1C: Hemoglobin A1c 6.8 % (4.5-5.6) H 11/05/18 05:18 - Outpatient Anti-Diabetic Regimen Recent Pertinent Medications: Outpatient Anti-diabetic Regimen: * Glimepiride 2mg PO BID * Metformin 1gm PO BID * A1c = 6.8 % 11/05/18 The patient is currently receiving: * Basal insulin: Lantus 13 units every 12 hours * Correctional Insulin: Novolog Correction per scale ACHS Goal Range: Low 110 mg/dL - High 140 mg/dL Correction Factor: 12 mg/dL/unit * Prandial insulin: Per carb ratio of 1 unit per 4 grams CHO consumed Risk Factors for Insulin Resistance: * Steroids: Solu-Medrol 60mg IV Q 6 hrs * Infection: PNA * Pressors: phenylephrine * IVF: Heparin gtt mixed in D5W * Recent Surgery: POD # 1 s/p thorascopic lung bx * Diet: NPO * Mechanical Ventilation: yes - Assessment & Plan Assessment: ID: * 78 year old M receiving abx therapy for treatment of pneumonia, diabetic foot ulcer * Had received 9.5 days of Zosyn therapy however pt's WBC increasd and pt clinically declined. 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 Vancomycin was ordered for 48 hrs only as MRSA nasal swab had been negative however given clinical decline additional gram+ coverage desired. * Kleb pn and marline albicans growing in bronch wash cx; kleb was sensitive to zosyn, but is also reported sens to cefepime * NICOLE continues to worsen, SCr still climbing and U.O. low Glycemic: * Multiple new stressors in last 24 hrs * BSGs are slightly elevated above goal and I would attribute this to decline in clinical status plus the addition of pressors with dextrose containing medications (heparin gtt) * Pt remains NPO, BSG elevations are reflective of basal deficiency. Will continue to titrate up * Additional correction may be needed until basal deficit correct. Will adjust CF Plan: ANTIMICROBIAL THERAPY Vancomycin * Random level of 15.4 mcg/mL is therapeutic * Will redose vancomycin today 1250mg x 1 (~15mg/kg) IV x 1 * Repeat random level w/ AM labs tomorrow * Goal trough for pna: 15-20mcg/mL INPATIENT GLYCEMIC CONTROL Basal Insulin (increase) * Lantus 16 units SQ BID Bolus Insulin * NovoLog per scale Q 4 hrs * Goal Range: Low 110 mg/dL - High 140 mg/dL * Correction Factor: 10 mg/dL/unit (dose increase) * Nutritional / Prandial insulin per carb ratio of 1 unit per 4 grams CHO consumed * Please note that the plan above was derived based on current level of insulin resistance and hospital stress. These recommendations are appropriate for inpatient admission only. Plan of care upon discharge will need to be reassessed to avoid potential outpatient hypo/hyperglycemia. Glycemic Control Discharge Recommendations: Pharmacy will follow patient and adjust orders on a daily basis. Thank you for allowing us to participate in this patients care.
[2018-11-15] MEDS: INSULIN GLARGINE SOLOSTAR 100 UNITS/ML 3 ML PEN SC SCH ×2 (08:58→20:09)
[2018-11-15] MEDS ORDERED: VANCOMYCIN HCL 1,250 MG in SODIUM CHLORIDE 0.9% 250 ML IV SCH (09:00)
[2018-11-15] MEDS: PANTOprazole 40 MG in SYRINGE 0 ML IV SCH ×2 (09:03→20:09)
[2018-11-15] MEDS: CHLORHEXIDINE GLUCONATE 0.12% 480 ML MT SCH (09:03)
[2018-11-15] MEDS: MIDAZOLAM HCL 125 MG/250 ML BAG IV SCH (09:04)
[2018-11-15] MEDS: SODIUM CHLORIDE 0.9% 1000ML 1,000 ML IV SCH ×2 (10:04→21:21)
[2018-11-15] MEDS: ALBUMIN 5% 250 ML IV SCH ×3 (10:04→21:21)
--- NOTE | 2018-11-15 10:15 | Progress Note ---
DATE: 11/15/2018 Mr. Chatterjee underwent a right thoracoscopic biopsy of the right upper, middle and lower lobes yesterday. The patient is struggling. He had a left pneumothorax and incomplete expansion of his right lung yesterday after surgery. Dr. Oconnell placed a small pleural catheter in the left with good resolution of the pneumothorax. Today, the lung is better expanded and looks better than it did last night, but he is really struggling. His hemoglobin has been stable. He is going into renal failure. His creatinine is up to 2.65, but his BUN is in the 80s and some of this may be prerenal. Sodium is up to 143. There is no air leak on either chest tube today. He has drained some serous fluid. Gram stain and fungal smears are negative for any organisms from yesterday. The lung is definitely abnormal. This patient is deteriorating. It is going to be difficult to pull him through this. He has not responded to aggressive medical management by Dr. Oconnell. I would leave the chest tube in for now. From my standpoint, it is okay to anticoagulate him.
[2018-11-15] MEDS ORDERED: PHENYLEPHRINE HCL 80 MG in DEXTROSE 5% 500 ML IV SCH (10:30)
[2018-11-15] MEDS ORDERED: VECURONIUM BROMIDE 10 MG VIAL ONE (10:48)
[2018-11-15] MEDS ORDERED: DOPamine 400MG / 250ML D5W IV ONE (11:06)
[2018-11-15] MEDS: DOPAMINE / D5W 400 MG/250 ML BAG IV SCH (11:10)
[2018-11-15] MEDS: fentaNYL DRIP 1,250 MCG/250 ML BAG IV SCH (11:10)
[2018-11-15 11:29] LABS: iSTAT Arterial Blood Gas HCO3 30 meg/L (19-24); iSTAT Carbon Dioxide 33 mEq/l (24-31); iSTAT FiO2 80 %
[2018-11-15 13:05] LABS: iSTAT Arterial Blood Gas HCO3 30 meg/L (19-24); iSTAT Carbon Dioxide 33 mEq/l (24-31); iSTAT FiO2 80 %
--- NOTE | 2018-11-15 13:44 | Hospitalist Progress Note ---
Date of Service November 15, 2018 Assessment & Plan (1) Acute respiratory failure with hypoxia: remains on vent Severe respiratory acidosis doses associated with hypoxia, hypercarbia S/P Bronchoscopy on 11/12/18 : by Dr Oconnell Bronch specimen growing : Kelreiella on Cefepime /vanco - Large amount of thick secretions with aspirated food material noted occluding the takeoff of the right lower lobe bronchus, suctioned also clear. - Scant amount of secretions were noted, all suctioned to clear. - No evidence of endobronchial lesion or bleeding. - Bronchial wash was obtained from the right lower lobe and sent separately. s/p right thoracoscopic biopsy of the right upper, middle and lower lobes on 11/14/[address] Dodge Pathology pending culture from the procedure : gram negative bacilli /Marline ICU team updated -Presented with severe hypoxia SPO2 at 74% on RA and was placed on BiPAP in ED -CTA chest with extensive groundglass opacities throughout both lungs reflective of pulmonary edema or PNA -No pulmonary emboli identified although segmental and subsegmental pulmonary arteries on suboptimal study Possible related to 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 CXR showed Diffuse bilateral airspace opacities persist. Mostly ARDS Appreciate input from pulmonology Patient is continued on Solu-Medrol 60 mg IV every 6, (2) Pneumothorax after biopsy: s/p thoracoscopy rt sided lung biopsy post procedure rt sided chest tube placement by CT surgery Cxray shows developement of left sided pneumothorax s/p left sided chest tube placement by Dr Oconnell Present on Admission?: No (3) Leukocytosis: due to sepsis Klebsiella pneumonia: Bronch specimen growing Klebsiella pneumoniae, on Cefepime /vanco (4) Acute renal failure superimposed on stage 3 chronic kidney disease: due to sepsis , hypotension , poor organ perfusion hypotensive requiring pressor support Creatinine worsening 1.382.17-> 2.4 with very poor urine out put over all poor prognosis (5) Coagulopathy: History of chronic A. fib, was on Coumadin coumadin was on hold since admission as presented with supratheraputic INR INR elevated> 10 Given 10 mg IV vitamin K/2 units of FFP by ICU team Repeat PT/INR improved INR 4.2 -> 2.2 -> 1.5 -> 1.3 IV heaprin bridge therapy added (6) Rheumatoid arthritis: Methotrexate is discontinued secondary to interstitial lung disease, suspicion for methotrexate toxicity Continue IV Solu-Medrol 60 mg every 6 hours Rt sided thoracosocpic lung biopsy :by CT surgery Dr Lindsey pathology pending (7) Acute diastolic heart failure: Acute on chronic diastolic heart failure, possible secondary to hypoxia/ cardiac strain Given IV Lasix No evidence of volume overload Echo shows EF 60-65% Appreciate input from cardiology (8) Diabetic foot ulcer: Chronic in setting of diabetic polyneuropathy and h/o R great toe amputation, partial amputation of the first metatarsal in Jun 2016 Evaluated by wound care : Per wound care team : non healing diabeitc ulcer in the planter aspect of rt foot measuring ( 1.6X 2X 0.1 cm ) wound surrounded by callus /no erythema or drainage Topical Xylocaine was applied to the wound. Wound was debrided with #5 curette. Slough fibrin skin and callus removed. There is minimal bleeding controlled with pressure. Procedure was tolerated well with no complications. Wound was dressed with calcium alginate Pt will continue local wound care as per Wound care kandice (9) Atrial fibrillation: Rate control on coreg 3.125 mg started on IV heparin bridge has bilateral chest tube (10) Diabetes mellitus, type 2: Recent A1c of 6.8 home medication metformin and glimepiride-kept on hold since admission BS has been fluctuates since pt is on IV steroid Pharmacy on board for glycemic management (11) HTN (hypertension): BP starting to elevate Continue home Norvasc, Coreg Clonidine was decrease due to low BP Lisinopril on hold (12) CKD (chronic kidney disease), stage III: Presented with acute renal failure, Baseline CKD stage III Avoid NSAIDs, nephrotoxins Monitor kidney function with daily BMPs Subjective pt is intubated , on prone ventilation bilateral chest tube present became hypotensive on Rayom[place] gtt added Dopamine appreciate input /help from Overlock Operator Physical Exam 2 Vital Signs (Past 24 Hours): Last Vital Signs Temp 36.4 C L 11/15/18 12:00 Pulse 80 11/15/18 13:15 Resp 30 H 11/15/18 13:15 BP 120/61 11/15/18 13:15 Pulse Ox 93 11/15/18 13:15 Constitutional: + ill appearing (intubated , on prone vent position ) ENMT: Mouth: + oropharynx abnormality (ET TUBE /NG TUBE PRESENT ) Neck: trachea midline, no thyromegaly Respiratory: Auscultation: + crackles (Diffuse all lung steward) ON MECHANICAL VENTILATION , BILATERAL CHEST TUBE PRESENT Cardiovascular: Rate/Rhythm: regular rate and regular rhythm Vessels: no JVD Gastrointestinal (Abdomen): Percussion/Palpation: abdomen soft Neurologic: + obtunded (sedated on mechanical ventilation ) Sedated on vent _ (1) Rheumatoid arthritis Laterality: Rheumatoid arthritis location: unspecified site Rheumatoid factor presence: unspecified presence Qualified Code(s): M06.9 - Rheumatoid arthritis, unspecified (2) Diabetes mellitus, type 2 Chronic kidney disease stage: stage 3 (moderate) Diabetes mellitus complication detail: with chronic kidney disease Diabetes mellitus complication status: with kidney complications Diabetes mellitus jail insulin use: unspecified jail insulin use status Diabetes mellitus macular edema: Diabetic retinopathy severity: Laterality: Proliferative retinopathy type: Qualified Code(s): E11.22 - Type 2 diabetes mellitus with diabetic chronic kidney disease; N18.3 - Chronic kidney disease, stage 3 ( moderate) (3) Diabetic foot ulcer Diabetes mellitus type: type 2 Diabetic foot ulcer location: midfoot Laterality: right Non-pressure ulcer stage: with fat layer exposed Qualified Code(s): E11.621 - Type 2 diabetes mellitus with foot ulcer; L97.412 - Non- pressure chronic ulcer of right heel and midfoot with fat layer exposed (4) Atrial fibrillation Atrial fibrillation type: chronic Qualified Code(s): I48.2 - Chronic atrial fibrillation (5) Leukocytosis Leukocytosis type: unspecified Qualified Code(s): D72.829 - Elevated white blood cell count, unspecified (6) Acute renal failure superimposed on stage 3 chronic kidney disease Acute renal failure type: unspecified Qualified Code(s): N17.9 - Acute kidney failure, unspecified; N18.3 - Chronic kidney disease, stage 3 (moderate) (7) HTN (hypertension) Hypertension type: unspecified Qualified Code(s): I10 - Essential (primary) hypertension
[2018-11-15] MEDS: HEPARIN SODIUM/DEXTROSE 25,000 UNITS/500 ML BAG IV SCH (14:12)
[2018-11-15] MEDS ORDERED: INSULIN GLARGINE SOLOSTAR 100 UNITS/ML 3 ML PEN SC ONE (14:15)
[2018-11-15] MEDS: CEFEPIME 2,000 MG in SYRINGE 7.5 ML IV SCH (15:41)
[2018-11-15 17:17] LABS: iSTAT Arterial Blood Gas HCO3 29 meg/L (19-24); iSTAT Carbon Dioxide 31 mEq/l (24-31); iSTAT FiO2 70 %
--- NOTE | 2018-11-15 18:32 | Critical Care Progress Note ---
Date of Service November 15, 2018 Assessment & Plan (1) Acute respiratory failure with hypoxia: Impression: 1. Acute respiratory failure, with hypoxia and hypercapnia. Intubated currently in prone position. 2. Interstitial lung disease, etiology thought to be related to methotrexate toxicity versus rheumatoid lung versus other entities such as UIP or NSI P versus vasculitis. Also, Kraft Rich syndrome cannot be excluded. 3. DHF with A. fib and RVR. 4. A. fib, rate controlled. 5. Coagulopathy secondary to Coumadin, resolved. Now placed on heparin drip for A. fib. 6. Chronic kidney disease, worsening. No urine output. 7. Rheumatoid arthritis. 8. Bilateral pneumothorax, right-sided postop expected, left-sided likely from single lung ventilation. Status post bilateral chest tubes. Plan: 1. Continue pressure control, could not tolerate the decrease of PEEP, PEEP has been increased to 10, IP of 30, respiratory rate increased to 30, with I time of 0.45 seconds. 2. Change Solu-Medrol to 40 mg IV every 6 hours. 3. Glucose control as the patient is diabetic. Appreciate pharmacy input. 4. The patient grew Klebsiella in the sputum, antibiotic changed to cefepime. 5. Continue heparin drip with PTT goal 45-60. 6. Keep chest tube to wall suction. 7. Bronchoscopy was done today, thick secretions, moderate, all suctioned and sent for culture. 8. Continue folic acid. 9. Discontinue vancomycin. 10. Discussed with the family daily. 11. VAP bundle. 12. Prone the patient, saturation has improved with [place]. 13. Fentanyl at 50 mics per hour seems to control the patient agitation. 14. Hold tube feeding. 15. Continue gentle hydration at 80 mL an hour, so far urine output has been very negligible. 16. Serology for vasculitis is pending. 17. Discussed with the staff on rounds and details. 18. DVT and GI prophylaxis. 19. Awaiting surgical biopsy results. Appreciate Dr. Lindsey input. 20. Discontinue morphine. 21 renal consult.. Appreciate Dr. Sim input, hemodialysis hopefully tomorrow. CCM time was 45 minutes excluding procedure time. Subjective The patient remains vented, overnight the patient had bilateral pneumothorax, placed chest tube on the left side, the patient continued to have increased oxygen requirement, the patient continued to have CO2 retention, he required 1 dose of paralysis, and then placed on prone position. Review of system is not obtainable in this patient. Physical Exam 2 Vital Signs (Past 24 Hours): Last Vital Signs Temp 36.4 C L 11/15/18 16:00 Pulse 83 11/15/18 18:00 Resp 31 H 11/15/18 18:00 BP 118/61 11/15/18 18:00 Pulse Ox 94 11/15/18 18:00 Physical Exam: Vital signs remained stable, he is requiring pressors including dopamine, blood pressure is 133/50 with map of 74, heart rate of 75, S1-S2, currently in normal sinus rhythm, bilateral rhonchi, abdomen is benign, no edema. Neurologically he is sedated. No rash. No swelling in the joints. Results & Data Laboratory Results His labs were reviewed which showed white count of 19,000, hematocrit of 34 and platelets of 239. PTT is 7 ABG most recently showed 7.1 /77/29. Diagnostic Findings Chest x-ray showed resolution of the pneumothorax on the left, persistent pneumothorax on the right, bilateral extensive lung disease.
--- NOTE | 2018-11-15 18:34 | Procedure Note ---
Procedure Note Date of Service November 15, 2018 Note Bronchoscopy was done at the bedside in room 109, consent obtained from the son over the phone, confirmed with the nursing staff, indicated for hypoxia and hypercapnia with presumption of occluded airway, the patient was already intubated and sedated with fentanyl, did not require any additional sedation. The patient monitored in the ICU with ICU style of monitoring. The bronchoscope passed through the blue adapter into #8 ET tube, and the findings as follows: 1. The ET tube appeared to be 3 cm above the [place], pointing towards the posterior wall of the trachea but the [place] I is patent. 2. Moderate amount of secretions mainly in the left lower lobe, and right middle lobe, total of bronchial washes used were 30 mL, suctioned all to clear. 3. Specimen was sent also for cultures. 4. The patient was on 100% of FiO2, he continued to saturate well, no desaturation or complication. 5. The bronchoscope was removed, and the patient tolerated the procedure well. Thank you
[2018-11-15] MEDS ORDERED: VECURONIUM BROMIDE 10 MG VIAL IV STA (22:17)
[2018-11-16] MEDS: INSULIN ASPART 100 UNITS/ML 3 ML PEN SC SCH ×6 (00:17→20:03)
[2018-11-16] MEDS: methylPREDNISolone 60 MG in SYRINGE 0 ML IV SCH ×3 (02:12→14:07)
[2018-11-16] MEDS: DOPAMINE / D5W 400 MG/250 ML BAG IV SCH ×2 (02:12→20:11)
[2018-11-16] MEDS ORDERED: VECURONIUM BROMIDE 10 MG VIAL IV STA (03:19)
[2018-11-16] MEDS: ALBUMIN 5% 250 ML IV SCH ×4 (04:14→21:24)
[2018-11-16 05:27] LABS: Calcium 5.5 mg/dl (8.5-10.1)
[2018-11-16 05:28] LABS: Albumin Globulin Ratio 0.6 (0.9-2); Albumin Level 2.1 gm/dl (3.4-5.0); BUN Creatinine Ratio 27.6 (10-20); Bilirubin Direct 0.8 mg/dl (0-0.2); Bilirubin,Total 1.2 mg/dl (0.2-1); Creatinine Clr Calc Pharmacy 22.2 ml/min; Est GFR (African American) 22.5; Est GFR (Non-African American) 19.5; Globulin 3.4 gm/dl (2.5-4.0); Potassium 4.7 mmol/L (3.5-5.1); Total Protein 5.5 gm/dl (6.4-8.2)
[2018-11-16] MEDS ORDERED: CALCIUM GLUCONATE 10% 1,000 MG in SODIUM CHLORIDE 0.9% 50 ML IV STA (05:40)
[2018-11-16 06:03] LABS: iSTAT Arterial Blood Gas HCO3 29 meg/L (19-24); iSTAT Carbon Dioxide 31 mEq/l (24-31); iSTAT FiO2 60 %
[2018-11-16] MEDS: fentaNYL DRIP 1,250 MCG/250 ML BAG IV SCH ×2 (06:07→19:15)
[2018-11-16 06:40] LABS: Hematocrit (blood only) 27.7 % (42-52); Hemoglobin 8.4 g/dL (14.0-18.0); Mean Corpuscular Hgb Conc 30.3 g/dL (32-36); Mean Corpuscular Volume 96.9 fL (80-100); Mean Platelet Volume 10.9 fL (7.4-10.4); Nucleated RBC # (auto) 0.03 K/uL (0-0); Nucleated RBC % (auto) 0.5 %; Platelet Count 95 K/uL (130-400); RDW Coefficient of Variation 15.1 % (11.5-14.5); RDW Standard Deviation 52.6 fL (36.4-46.3); Red Blood Count 2.86 M/uL (4.7-6.1); White Blood Count 6.14 K/uL (4.8-10.8)
[2018-11-16 06:43] LABS: Basophilic Stippling 1+; Basophils # (auto) 0.01 K/uL (0-0.2); Basophils % (auto) 0.2 %; Immature Granulocytes # (auto) 0.05 K/uL (0.00-0.02); Immature Granulocytes % (auto) 0.8 %; Lymphocytes # (auto) 0.42 K/uL (1.2-3.4); Lymphocytes % (auto) 6.8 %; Monocytes # (auto) 0.12 K/uL (0.11-0.59); Neutrophils # (auto) 5.54 K/uL (1.4-6.5); Neutrophils % (auto) 90.2 %
[2018-11-16 07:11] LABS: INR 1.5 (0.9-1.1); Partial Thromboplastin Ratio > 11.0; Prothrombin Time 14.7 Seconds (9.0-12.0)
[2018-11-16 07:14] LABS: Partial Thromboplastin Time > 300.0 Seconds (21.0-31.0)
--- NOTE | 2018-11-16 07:20 | XRay Report ---
XR chest 1V portable CLINICAL HISTORY: f/u COMPARISON STUDY: Chest radiograph November 15, 2018. FINDINGS: Right chest tube may have been partially withdrawn. Moderate size right pneumothorax has in creased in size since exam performed on November 15, 2018 with superior pleural separation of 5.1 cm. No left pneumothorax is visualized. A left-sided pleural pigtail catheter is in place. There is pneum omediastinum and subcutaneous gas. Tip of endotracheal tube is 3.3 cm above the [place]. Right subclav dhiraj central line is in place. Tip of nasogastric tube is below the lower aspect of this image but at least within the proximal stomach. Extensive bilateral airspace opacities persist. IMPRESSION: 1. Moderate increase in size of a moderate right pneumothorax with superior pleural separation of 5.1 cm. Right chest tube in place with apparent partial interval withdrawal. 2. Left pleural pigtail catheter place. No left pneumothorax identified. 3. Persistent bilateral extensive airspace opacities which may reflect pulmonary edema, pneumonia or ARDS. 4. Pneumomediastinum and subcutaneous gas. Electronically signed by: Storm Nunez M.D. 11/16/2018 7:18 AM
[2018-11-16] MEDS: MIDAZOLAM HCL 125 MG/250 ML BAG IV SCH (07:51)
[2018-11-16] MEDS: CHLORHEXIDINE GLUCONATE 0.12% 480 ML MT SCH (08:04)
[2018-11-16] MEDS: PANTOprazole 40 MG in SYRINGE 0 ML IV SCH (08:05)
[2018-11-16] MEDS: INSULIN GLARGINE SOLOSTAR 100 UNITS/ML 3 ML PEN SC SCH ×2 (08:06→20:03)
--- NOTE | 2018-11-16 08:33 | Pharmacy Report ---
Pharm Abx/Gly Prg Nt - Date of Service November 16, 2018 - Scope Pharmacy has been consulted to manage VANCOMYCIN + CEFEPIME abx therapy and glycemic control for this patient as per the Pharmacy & Therapeutics Committee approved dosing protocols. - Objective Vital Signs (Past 12hrs): Vital Signs Temp Pulse Resp BP Pulse Ox 11/16/18 07:18 109 H 30 H 93 11/16/18 07:00 36.4 C L 101 H 30 H 108/58 L 93 11/16/18 06:00 94 H 30 H 107/62 95 11/16/18 05:41 106 H 30 H 95 11/16/18 05:01 101 H 98/65 L 95 11/16/18 05:00 108 H 30 H 98/65 L 95 11/16/18 04:00 36.4 C L 101 H 30 H 110/52 L 94 11/16/18 03:00 112 H 109/68 90 11/16/18 02:32 94 H 31 H 92 11/16/18 02:00 97 H 122/72 92 11/16/18 01:00 104 H 111/62 91 11/16/18 00:00 36.5 C 103 H 30 H 115/62 94 11/15/18 23:37 110 H 30 H 94 11/15/18 23:00 100 H 30 H 122/64 94 11/15/18 22:00 71 96 11/15/18 21:00 74 30 H 122/61 98 Lab Results: Laboratory Tests (24 Hours) 11/16/18 11/16/18 11/16/18 05:29 04:24 04:24 WBC Cancelled Neut # (Auto) Cancelled Creatinine 2.91 H Est Cr Clr Drug Dosing 22.2 Random Vancomycin 20.5 11/16/18 04:24 WBC 6.14 Neut # (Auto) 5.54 Creatinine Est Cr Clr Drug Dosing Random Vancomycin Micro Results: 11/14/18 Unknown Gram Stain - Final Lung 11/14/18 Unknown Fungal Smear - Final Lung Fungal Culture - Pending 11/14/18 Unknown Acid Fast Bacilli Smear - Pending Lung Acid Fast Bacilli Culture - Pending 11/12/18 14:45 Gram Stain - Final Bronch Wash,Right Lower Lobe Bronchoalveolar Lavage Culture - Final Klebsiella pneumoniae Marline albicans 11/12/18 14:45 Acid Fast Bacilli Smear - Final Bronch Wash,Right Lower Lobe Acid Fast Bacilli Culture - Pending 11/12/18 14:45 Fungal Smear - Final Bronch Wash,Right Lower Lobe Fungal Culture - Pending 11/04/18 18:00 Blood Culture - Final Blood No growth 11/04/18 17:50 Blood Culture - Final Blood No growth Accuchecks BSG (last 24 hours):: 11/15/18 11/15/18 11/15/18 08:00 11:51 15:49 Glucose POC Glucose (other) 211 H 201 H 150 H 11/15/18 11/16/18 11/16/18 20:04 00:08 04:24 Glucose 124 H POC Glucose (other) 129 H 123 H HbA1C: Hemoglobin A1c 6.8 % (4.5-5.6) H 11/05/18 05:18 - Outpatient Anti-Diabetic Regimen Recent Pertinent Medications: Outpatient Anti-diabetic Regimen: * Glimepiride 2mg PO BID * Metformin 1gm PO BID * A1c = 6.8 % 11/05/18 The patient is currently receiving: * Basal insulin: Lantus 16 units every 12 hours (received an additional 4 units mid-day yesterday) * Correctional Insulin: Novolog Correction per scale Q4 hrs Goal Range: Low 110 mg/dL - High 140 mg/dL Correction Factor: 10 mg/dL/unit * Prandial insulin: Per carb ratio of 1 unit per 4 grams CHO consumed Risk Factors for Insulin Resistance: * Steroids: Solu-Medrol 60mg IV Q 6 hrs * Infection: PNA * Pressors: dopamine * IVF: Heparin gtt mixed in D5W * Recent Surgery: POD # 2 s/p thorascopic lung bx * Diet: NPO * Mechanical Ventilation: yes - Assessment & Plan Assessment: ID: * 78 year old M receiving abx therapy for treatment of pneumonia, diabetic foot ulcer * Had received 9.5 days of Zosyn therapy however pt's WBC increasd and pt clinically declined. 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 Vancomycin was ordered for 48 hrs only as MRSA nasal swab had been negative however given clinical decline additional gram+ coverage desired. * Kleb pn and marline albicans growing in bronch wash cx's from 11/12 and 11/14; kleb was sensitive to zosyn, but is also reported sens to cefepime * NICOLE continues to worsen, SCr still climbing (SCr 1.38-->2.17-->2.65-->2.91) and U.O. low Glycemic: * NEW events in last 24 hrs: phenylephrine weaned off and dopamine now running * Steroids continue at same dose, Heparin gtt continues, pt remains NPO. * BSGs have improved with the increase in Lantus dose - will continue the same Plan: ANTIMICROBIAL THERAPY Vancomycin * Random level of 20.5 mcg/mL drawn this AM is therapeutic, slightly supratherapeutic. * Pt's vancomycin levels should remain therapeutic thru 1500 today which is the conclusion of 48 hr empiric coverage * Will discuss need for continued therapy with Upset Welding Machine Operator as f/u bronch cx's did not grow gram positive organism INPATIENT GLYCEMIC CONTROL Basal Insulin (no change) * Lantus 16 units SQ BID Bolus Insulin (no change) * NovoLog per scale Q 4 hrs * Goal Range: Low 120 mg/dL - High 160 mg/dL * Correction Factor: 10 mg/dL/unit * Nutritional / Prandial insulin per carb ratio of 1 unit per 4 grams CHO consumed * Please note that the plan above was derived based on current level of insulin resistance and hospital stress. These recommendations are appropriate for inpatient admission only. Plan of care upon discharge will need to be reassessed to avoid potential outpatient hypo/hyperglycemia. Pharmacy will follow patient and adjust orders on a daily basis. Thank you for allowing us to participate in this patients care.
--- NOTE | 2018-11-16 08:33 | Surgery Progress Note ---
Date of Service November 16, 2018 Assessment & Plan (1) Pneumothorax after biopsy: -right chest tube remain in place with small air leak -discussed with oil lease operator: -he will place additional chest tube this morning to relieve pneumothrax (2) Acute renal failure superimposed on stage 3 chronic kidney disease: -plans noted for dialysis today (3) Acute respiratory failure with hypoxia: -continue supportive care with ventilator as directed by oil lease operator -etiology of respiratory failure not ascertained -RVATS with lung biopsy performed on 11/14/18: -path is pending -micro did grow hart-sensitive Klebsiella and pt. is receiving IV cefepime Subjective Pt. on ventilator, therefore no subjective data from pt. Discussed with RN--she notes there have not been any change to ventilator mechanics overnight. No other acute concerns at this time. Physical Exam 2 Vital Signs (Past 24 Hours): Last Vital Signs Temp 36.4 C L 11/16/18 07:00 Pulse 109 H 11/16/18 07:18 Resp 30 H 11/16/18 07:18 BP 108/58 L 11/16/18 07:00 Pulse Ox 93 11/16/18 07:18 Respiratory: BS are present bilaterally Cardiovascular: Rate/Rhythm: + tachycardic Results & Data Diagnostic Findings CXR today shows increasing right apical pneumothorax _ (1) Acute renal failure superimposed on stage 3 chronic kidney disease Acute renal failure type: unspecified Qualified Code(s): N17.9 - Acute kidney failure, unspecified; N18.3 - Chronic kidney disease, stage 3 (moderate)
[2018-11-16] MEDS ORDERED: CALCIUM GLUCONATE 10% 2,000 MG in SODIUM CHLORIDE 0.9% 50 ML IV STA (08:51)
[2018-11-16 09:00] LABS: Partial Thromboplastin Ratio 5.6
[2018-11-16] MEDS ORDERED: FUROSEMIDE 80 MG in SYRINGE 0 ML IV ONE (09:00)
[2018-11-16 09:03] LABS: Partial Thromboplastin Time 144.5 Seconds (21.0-31.0)
[2018-11-16] MEDS: SODIUM CHLORIDE 0.9% 1000ML 1,000 ML IV SCH ×2 (09:10→20:05)
[2018-11-16 09:35] LABS: Partial Thromboplastin Ratio 2.7
[2018-11-16 09:36] LABS: Partial Thromboplastin Time 69.3 Seconds (21.0-31.0)
[2018-11-16] MEDS ORDERED: Nursing to Pharmacy Communication ONE (11:13)
[2018-11-16] MEDS ORDERED: PANTOprazole 40 MG in SYRINGE 0 ML IV SCH (11:30)
[2018-11-16] MEDS: CALCIUM GLUCONATE 10% 1,000 MG in SODIUM CHLORIDE 0.9% 50 ML IV SCH ×2 (11:32→18:15)
--- NOTE | 2018-11-16 12:04 | XRay Report ---
XR chest 1V portable CLINICAL HISTORY: s/p dialysis catheter and right sided chest tube. COMPARISON STUDY: Chest radiograph November 16, 2018 at 6:35 AM. FINDINGS: Tip of nasogastric tube likely projects over the proximal stomach. Tip of endotracheal tube is 2.8 cm above the [place]. Right chest tube remains in place. Interval placement of a right pleural pigtail catheter is noted with decrease in size of the right pneumothorax. Superior pleural separati on now measures 2.7 cm. It previously measured 5.1 cm. 8 trace left apical pneumothorax is noted. Ext ensive bilateral airspace opacities persist. There is subcutaneous gas and possible pneumomediastinum . Tip of right internal jugular dialysis catheter projects over the mid SVC. Right subclavian central line is in place. IMPRESSION: 1. Significant decrease in size of the right pneumothorax following pleural catheter placement. 2. Trace left apical pneumothorax. Left pleural catheter in place. 3. Tip of right internal jugular dialysis catheter projects over the mid SVC. 4. Persistent extensive bilateral airspace opacities which may reflect pneumonia, pulmonary edema or ARDS. 5. Subcutaneous gas within the chest wall and neck. Possible pneumomediastinum. Electronically signed by: Storm Nunez M.D. 11/16/2018 12:02 PM
--- NOTE | 2018-11-16 14:26 | Critical Care Progress Note ---
Date of Service November 16, 2018 Assessment & Plan (1) Acute respiratory failure with hypoxia: Impression: 1. Acute respiratory failure, with hypoxia and hypercapnia. Intubated currently in prone position. 2. Interstitial lung disease, etiology thought to be related to methotrexate toxicity versus rheumatoid lung versus other entities such as UIP or NSI P versus vasculitis. Also, Kraft Rich syndrome cannot be excluded. 3. DHF with A. fib and RVR. 4. A. fib, rate controlled. 5. Coagulopathy secondary to Coumadin, resolved. Now placed on heparin drip for A. fib. 6. Chronic kidney disease, worsening. No urine output. 7. Rheumatoid arthritis. 8. Bilateral pneumothorax, right-sided postop expected, left-sided likely from single lung ventilation. Status post bilateral chest tubes. 9. GI bleeding noted by the nursing staff, from the NG tube, hematocrit is pending. Plan: 1. Continue pressure control, the patient is tolerating dopamine well. I will continue with 5 mics per KG per minute. His heart rate also has been maintained slightly on the high side. 2. Change Solu-Medrol to 40 mg IV every 6 hours. 3. Glucose control as the patient is diabetic. Appreciate pharmacy input. 4. The patient grew Klebsiella in the sputum, antibiotic changed to cefepime. WBC is down to 6.1. 5. Hold off heparin drip until GI bleeding is been confirmed with the next hemoglobin. 6. Keep chest tube to wall suction. 7. Insert second chest tube on the right side due to persistent and enlarging right pneumothorax. 8. Placed dialysis catheter in the right IJ. 9. Discussed with Dr. Sim from renal, appreciate his input. 10. Plan for hemodialysis starting today. 11. VAP bundle. 12. Keep the patient in supine position as he is tolerating it. 13. Fentanyl at 75 mics per hour seems to control the patient agitation. 14. Hold tube feeding. 15. Continue gentle hydration at 80 mL an hour, so far urine output has been very negligible. 16. Serology for vasculitis is pending. 17. The patient did not respond to high-dose Lasix. 18. DVT prophylaxis with heparin subcu. 19. Awaiting surgical biopsy results. Appreciate Dr. Lindsey input. 20. Start GI prophylaxis with 40 mg of Protonix twice daily. 21 check stool guaiac. 22. If the hematocrit started dropping down further, will transfuse the patient with dialysis and consult GI. 23. Discontinue vancomycin. 24. Replacement of calcium aggressively. 25. Heparin was kept on hold, PTT remains in the range of 70, chest tube and hemodialysis catheter both placed without any difficulty. Dictated separately. 26. Discussed with the son Sumeet and the Floyd and other son Jamison over the phone. CCM time was 45 minutes excluding procedure time excluding procedure time. Subjective Review of systems not obtainable, the patient was sedated and intubated. Overnight the patient did have episodes where he become hypoxic again requiring increasing FiO2. The patient pneumothorax on the right side has not been decreasing in fact it was increasing on the chest x-ray. The patient continued to have hypoxia and hypercapnia. Physical Exam 2 Vital Signs (Past 24 Hours): Last Vital Signs Temp 36.4 C L 11/16/18 07:00 Pulse 99 H 11/16/18 11:29 Resp 30 H 11/16/18 11:29 BP 92/75 L 11/16/18 11:10 Pulse Ox 89 L 11/16/18 11:29 Physical Exam: Elderly gentleman, intubated, sedated with fentanyl, occasionally he is breathing over the ventilator, his vital signs remain supported by dopamine, with blood pressure of 133/48 and a map of 69, O2 sat is 96%, end-tidal CO2 has been in the range of 50-70. No stridor, bilateral rhonchi, S1-S2 in A. fib, abdomen is benign, no edema. Results & Data Laboratory Results Reviewed personally which showed pH of 7.2 //29 and his BNP was stable his BUN and creatinine is elevated to 80 and 2.9. Calcium is 5.5.
--- NOTE | 2018-11-16 14:29 | Procedure Note ---
Procedure Note Date of Service November 16, 2018 Note Second chest tube was placed on the right side anteriorly, indication enlarging pneumothorax despite the presence of lower chest tube. Discussed with the son over the phone, and the , both agreed to the procedure, risk and benefit explained details. The patient was placed in supine position, the patient did have pneumothorax extending to the fourth rib on the right. Under strict sterile field, the skin was prepped, at the space between the second and third rib, the skin was injected with 5 mL of lidocaine, all the way down to the pleura. Using a small scalpel, and a dilator, #16-[place] pigtail chest tube was inserted using Seldinger technique and a dilator. The tube was placed to 16 cm and secured with 2 anchor sutures. Covered with surgical dressing. And connected to a Pleur-evac. No immediate complication, the patient tolerated the procedure very well. Chest x-ray was reviewed which showed reduction in the pneumothorax on the right.
--- NOTE | 2018-11-16 14:33 | Procedure Note ---
Procedure Note Date of Service November 16, 2018 Note Hemodialysis catheter was placed in the right anterior IJ. Indication for initiating hemodialysis in the patient who is anuric, consent obtained from the Floyd and the son Jamison over the phone, agreed to the procedure, risks and benefits explained details. The patient was placed in supine position, under strict sterile field, the skin was prepped with chlorhexidine, under ultrasound guidance, injected with 10 mL of 1% lidocaine, using Seldinger technique, the right IJ anteriorly was penetrated and over the wire and using a scalpel, with 1 dilator, the triple lumen dialysis catheter 13 cm in length was placed, all ports were flushed with saline, and secured with 2 sutures, covered with surgical dressing. Chest x-ray was reviewed personally and showed the tip of the catheter at the SVC, no pneumothorax and no immediate complication. Tolerated the procedure very well. The patient received 50 mics of fentanyl in addition to the 50 mics of fentanyl running hourly. It was given for the placement of the chest tube earlier. Thank you
[2018-11-16 15:38] LABS: Hematocrit (blood only) 25.9 % (42-52); Hemoglobin 7.8 g/dL (14.0-18.0)
[2018-11-16] MEDS: CEFEPIME 2,000 MG in SYRINGE 7.5 ML IV SCH (15:39)
--- NOTE | 2018-11-16 17:10 | Hospitalist Progress Note ---
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 pt continued on Solu-Medrol 60 mg IV every 6, intubated for worsening of respiratory failure s/p rt lung biopsy s/p rt and left chest tube appreciate input and help from cost accounting analyst (2) Acute renal failure superimposed on stage 3 chronic kidney disease: Cr worsned -due to Hypotension /hypoperfusion urine out put remains low Nephrology consulted s/p dialysis catheter placement will need dialysis Present on Admission?: No (3) Elevated troponin: Troponin elevated at 0.391 with peak at 0.428 and is now downtrending. Likely due to demand ischemia No acute ST changes on EKG Echo performed this AM with EF: 60-65%, moderate concentric LVH (4) Systolic heart failure: (5) Atrial fibrillation: IV heparin (6) Diabetes mellitus, type 2: Recent A1c of 6.8 Continue holding his home medication metformin and glimepiride BS has been fluctuates since pt is on IV steroid Pharmacy on board for glycemic management (7) Rheumatoid arthritis: Will discontinue Metrotrexate definely due to lung injury On solumedrol 60mg IV (8) HTN (hypertension): BP starting to elevate Continue home Norvasc, Coreg Clonidine was decrease due to low BP Lisinopril on hold (9) CKD (chronic kidney disease), stage III: Creatinine fluctuating from 1.98--> 1.55 --> 1.8 today --> 1.4--> 1.15 today (Baseline Cr ~ 1.4) Monitor kidney function with daily BMPs (10) Sepsis associated hypotension: klebsiella pneumonia -noted on bronch specimen culture hypotension required pressore support on IV cefepime per senstivity (11) Pneumothorax after biopsy: s/p chest tube placement bilat (12) GI bleed: NG tube coffee ground drainage IV PPI follow H&H Subjective sedated on vent s/p rt chest tube placement for expanding pneumothorax on rt s/p dialysis catheter placement Physical Exam 2 Vital Signs (Past 24 Hours): Last Vital Signs Temp 36.5 C 11/16/18 16:00 Pulse 101 H 11/16/18 16:00 Resp 30 H 11/16/18 15:01 BP 110/64 11/16/18 16:00 Pulse Ox 96 11/16/18 16:00 Constitutional: WD/WN, vitals as above (sedated /intubated on vent ) + ill appearing (intubated , on prone vent position ) ENMT: Mouth: + oropharynx abnormality (ET TUBE /NG TUBE PRESENT ) Respiratory: Auscultation: + crackles (Diffuse all lung steward) on mechanical ventilation Cardiovascular: Rate/Rhythm: regular rate and regular rhythm Vessels: no JVD Gastrointestinal (Abdomen): Percussion/Palpation: abdomen soft Neurologic: + obtunded (sedated on mechanical ventilation ) _ (1) Rheumatoid arthritis Laterality: Rheumatoid arthritis location: unspecified site Rheumatoid factor presence: unspecified presence Qualified Code(s): M06.9 - Rheumatoid arthritis, unspecified (2) GI bleed GI bleed type/associated pathology: unspecified gastrointestinal hemorrhage type Gastritis type: Qualified Code(s): K92.2 - Gastrointestinal hemorrhage, unspecified (3) Diabetes mellitus, type 2 Chronic kidney disease stage: stage 3 (moderate) Diabetes mellitus complication detail: with chronic kidney disease Diabetes mellitus complication status: with kidney complications Diabetes mellitus terminal makeup operator insulin use: unspecified long-term insulin use status Diabetes mellitus macular edema: Diabetic retinopathy severity: Laterality: Proliferative retinopathy type: Qualified Code(s): E11.22 - Type 2 diabetes mellitus with diabetic chronic kidney disease; N18.3 - Chronic kidney disease, stage 3 ( moderate) (4) Atrial fibrillation Atrial fibrillation type: chronic Qualified Code(s): I48.2 - Chronic atrial fibrillation (5) Systolic heart failure Heart failure chronicity: acute on chronic Qualified Code(s): I50.23 - Acute on chronic systolic (congestive) heart failure (6) Acute renal failure superimposed on stage 3 chronic kidney disease Acute renal failure type: unspecified Qualified Code(s): N17.9 - Acute kidney failure, unspecified; N18.3 - Chronic kidney disease, stage 3 (moderate) (7) HTN (hypertension) Hypertension type: unspecified Qualified Code(s): I10 - Essential (primary) hypertension
[2018-11-16] MEDS ORDERED: PANTOPRAZOLE BOLUS/DRIP 1 EA IV STA (18:44)
[2018-11-16] MEDS ORDERED: PANTOprazole 80 MG in DEXTROSE 5% 100 ML IV ONE (19:15)
[2018-11-16] MEDS: PANTOprazole 40 MG in DEXTROSE 5% 100 ML IV SCH (20:04)
[2018-11-16] MEDS: MIDAZOLAM HCL 1 MG/ML 2ML VIAL IV PRN (20:11)
[2018-11-16] MEDS: HEPARIN SOD 5,000 UNIT/0.5 ML VIAL SQ SCH (21:24)
[2018-11-16 23:53] LABS: Hematocrit (blood only) 25.6 % (42-52); Hemoglobin 7.7 g/dL (14.0-18.0)
[2018-11-17] MEDS: MIDAZOLAM HCL 1 MG/ML 2ML VIAL IV PRN ×4 (00:15→11:03)
[2018-11-17] MEDS: CALCIUM GLUCONATE 10% 1,000 MG in SODIUM CHLORIDE 0.9% 50 ML IV SCH ×3 (00:16→12:04)
[2018-11-17] MEDS: INSULIN ASPART 100 UNITS/ML 3 ML PEN SC SCH ×5 (00:16→16:58)
[2018-11-17] MEDS: PANTOprazole 40 MG in DEXTROSE 5% 100 ML IV SCH ×3 (01:00→12:05)
[2018-11-17] MEDS ORDERED: methylPREDNISolone 60 MG in SYRINGE 0 ML IV SCH ×2 (02:00→12:00)
[2018-11-17] MEDS: ALBUMIN 5% 250 ML IV SCH ×3 (04:25→16:55)
[2018-11-17 04:39] LABS: Hematocrit (blood only) 24.2 % (42-52); Hemoglobin 7.4 g/dL (14.0-18.0); Mean Corpuscular Hgb Conc 30.6 g/dL (32-36); Mean Corpuscular Volume 95.3 fL (80-100); RDW Coefficient of Variation 15.4 % (11.5-14.5); RDW Standard Deviation 53.3 fL (36.4-46.3); Red Blood Count 2.54 M/uL (4.7-6.1)
[2018-11-17 04:40] LABS: Mean Platelet Volume 10.6 fL (7.4-10.4); Platelet Count 81 K/uL (130-400)
[2018-11-17 04:48] LABS: INR 1.3 (0.9-1.1); Prothrombin Time 12.9 Seconds (9.0-12.0)
[2018-11-17 05:01] LABS: Albumin Level 2.4 gm/dl (3.4-5.0); BUN Creatinine Ratio 24.7 (10-20); Bilirubin Direct 0.8 mg/dl (0-0.2); Calcium 6.1 mg/dl (8.5-10.1); Creatinine Clr Calc Pharmacy 21.8 ml/min; Potassium 4.9 mmol/L (3.5-5.1)
[2018-11-17 05:04] LABS: Albumin Globulin Ratio 0.7 (0.9-2); Bilirubin,Total 1.3 mg/dl (0.2-1); Globulin 3.5 gm/dl (2.5-4.0); Total Protein 5.9 gm/dl (6.4-8.2)
[2018-11-17 05:33] LABS: Basophilic Stippling Occasional; Immature Granulocytes # (auto) 0.05 K/uL (0.00-0.02); Immature Granulocytes % (auto) 0.9 %; Lymphocytes # (auto) 0.44 K/uL (1.2-3.4); Lymphocytes % (auto) 7.7 %; Monocytes # (auto) 0.02 K/uL (0.11-0.59); Monocytes % (auto) 0.4 %; Neutrophils # (auto) 5.19 K/uL (1.4-6.5)
[2018-11-17 06:03] LABS: iSTAT Arterial Blood Gas HCO3 28 meg/L (19-24); iSTAT Carbon Dioxide 30 mEq/l (24-31); iSTAT FiO2 80 %
--- NOTE | 2018-11-17 07:48 | Nephrology Progress Note ---
Date of Service November 17, 2018 Assessment & Plan (1) Acute renal failure superimposed on stage 3 chronic kidney disease: baseline creatinine 1.3-1.4 in [facility] as of summer/spring 2017. He was 2.0 on 11/04/18 presentation; trended back to baseline but from 11/13 when he was 1.4, he bumped to 2.2 on 11/14, then slow uptrend to 3 today. oligoanuric since 11/13. no urine sediment on file this admission. challenging to ventilate w/ acute on chronic respiratory failure w/ respiratory acidosis despite RR 30; other chemistries generally acceptable -dialysis today-goal another 2L UF as tolerated -concentrate all abtx/drips where possible >> defer to pharmacy to do this; recommended d/t large imbalance between input/output -daily bmp -remains dopamine dependent -transfuse prn Present on Admission?: Yes (2) Anuria: oliguric since 11/13; anuric since 11/15 -dialysis today; second tx Present on Admission?: No Subjective seen on rounds this am; had first HD yesterday; tolerated 1.8L UF; remains intubated w/ 3 chest tubes, anuric on dopamine Physical Exam 2 Vital Signs (Past 24 Hours): Last Vital Signs Temp 36.5 C 11/17/18 04:00 Pulse 104 H 11/17/18 07:00 Resp 30 H 11/17/18 06:03 BP 94/53 L 11/17/18 06:00 Pulse Ox 97 11/17/18 07:00 Constitutional: well developed, well nourished and + mechanically ventilated; no acute distress ENMT: Ears: no external ear abnormality Nose: no external nose abnormality Mouth: + dry oral mucous membranes ett Neck: no nuchal rigidity Respiratory: normal respiratory effort Auscultation: + diminished lung sounds w/ B chest tumbes Cardiovascular: Rate/Rhythm: regular rhythm and + tachycardic Extremities: + edema (2-3+ ble ) Gastrointestinal (Abdomen): Inspection/Auscultation: normal bowel sounds Percussion/Palpation: abdomen soft; abdomen nontender Musculoskeletal: sedated Skin: no rashes, warm and dry Neurologic: intub ated/sedated Genitourinary: foleu w/ no urine Results & Data Laboratory Results Abnormal lab results 11/16/18 11/16/1819 Range/Units 04:24 04:24 08:01 RBC 2.86 L (4.7-6.1) M/uL Hgb 8.4 L (14.0-18.0) g/dL Hct 27.7 L (42-52) % MCHC 30.3 L (32-36) g/dL RDW Std Deviation 52.6 H (36.4-46.3) fL RDW Coeff of Estelita 15.1 H (11.5-14.5) % Plt Count 95 L D (130-400) K/uL MPV 10.9 H (7.4-10.4) fL Immature Gran # (Auto) 0.05 H (0.00-0.02) K/uL Lymph # (Auto) 0.42 L (1.2-3.4) K/uL [place] # (Auto) (0.11-0.59) K/uL Absolute Nucleated RBC 0.03 H (0-0) K/uL PT (9.0-12.0) Seconds INR (0.9-1.1) APTT 144.5 H* (21.0-31.0) Seconds POC pH (7.35-7.45) POC pCO2 (35-46) mmHg POC pO2 (80-95) mmHg POC HCO3 (19-24) tierra/L POC ABG O2 Sat (90-95) % BUN (7-18) mg/dl Creatinine (0.6-1.4) mg/dl BUN/Creatinine Ratio (10-20) Glucose (70-99) mg/dl POC Glucose (other) (70-99) mg/dl Calcium (8.5-10.1) mg/dl Ionized Calcium (1.12-1.32) mmol/L Magnesium 3.4 H (1.8-2.4) mg/dl Total Bilirubin (0.2-1) mg/dl Direct Bilirubin (0-0.2) mg/dl Total Protein (6.4-8.2) gm/dl Albumin (3.4-5.0) gm/dl Albumin/Globulin Ratio (0.9-2) 11/16/18 11/16/18 11/16/18 Range/Units 08:05 09:11 12:01 RBC (4.7-6.1) M/uL Hgb (14.0-18.0) g/dL Hct (42-52) % MCHC (32-36) g/dL RDW Std Deviation (36.4-46.3) fL RDW Coeff of Estelita (11.5-14.5) % Plt Count (130-400) K/uL MPV (7.4-10.4) fL Immature Gran # (Auto) (0.00-0.02) K/uL Lymph # (Auto) (1.2-3.4) K/uL [place] # (Auto) (0.11-0.59) K/uL Absolute Nucleated RBC (0-0) K/uL PT (9.0-12.0) Seconds INR (0.9-1.1) APTT 69.3 H* (21.0-31.0) Seconds POC pH (7.35-7.45) POC pCO2 (35-46) mmHg POC pO2 (80-95) mmHg POC HCO3 (19-24) tierra/L POC ABG O2 Sat (90-95) % BUN (7-18) mg/dl Creatinine (0.6-1.4) mg/dl BUN/Creatinine Ratio (10-20) Glucose (70-99) mg/dl POC Glucose (other) 118 H 105 H (70-99) mg/dl Calcium (8.5-10.1) mg/dl Ionized Calcium (1.12-1.32) mmol/L Magnesium (1.8-2.4) mg/dl Total Bilirubin (0.2-1) mg/dl Direct Bilirubin (0-0.2) mg/dl Total Protein (6.4-8.2) gm/dl Albumin (3.4-5.0) gm/dl Albumin/Globulin Ratio (0.9-2) 11/16/18 11/16/18 11/16/18 Range/Units 15:24 15:24 23:46 RBC (4.7-6.1) M/uL Hgb 7.8 L 7.7 L (14.0-18.0) g/dL Hct 25.9 L 25.6 L (42-52) % MCHC (32-36) g/dL RDW Std Deviation (36.4-46.3) fL RDW Coeff of Estelita (11.5-14.5) % Plt Count (130-400) K/uL MPV (7.4-10.4) fL Immature Gran # (Auto) (0.00-0.02) K/uL Lymph # (Auto) (1.2-3.4) K/uL [place] # (Auto) (0.11-0.59) K/uL Absolute Nucleated RBC (0-0) K/uL PT (9.0-12.0) Seconds INR (0.9-1.1) APTT (21.0-31.0) Seconds POC pH (7.35-7.45) POC pCO2 (35-46) mmHg POC pO2 (80-95) mmHg POC HCO3 (19-24) tierra/L POC ABG O2 Sat (90-95) % BUN (7-18) mg/dl Creatinine (0.6-1.4) mg/dl BUN/Creatinine Ratio (10-20) Glucose (70-99) mg/dl POC Glucose (other) (70-99) mg/dl Calcium (8.5-10.1) mg/dl Ionized Calcium 0.82 L (1.12-1.32) mmol/L Magnesium (1.8-2.4) mg/dl Total Bilirubin (0.2-1) mg/dl Direct Bilirubin (0-0.2) mg/dl Total Protein (6.4-8.2) gm/dl Albumin (3.4-5.0) gm/dl Albumin/Globulin Ratio (0.9-2) 11/17/18 11/17/18 11/17/18 Range/Units 04:21 04:21 04:21 RBC 2.54 L (4.7-6.1) M/uL Hgb 7.4 L (14.0-18.0) g/dL Hct 24.2 L (42-52) % MCHC 30.6 L (32-36) g/dL RDW Std Deviation 53.3 H (36.4-46.3) fL RDW Coeff of Estelita 15.4 H (11.5-14.5) % Plt Count 81 L (130-400) K/uL MPV 10.6 H (7.4-10.4) fL Immature Gran # (Auto) 0.05 H (0.00-0.02) K/uL Lymph # (Auto) 0.44 L (1.2-3.4) K/uL [place] # (Auto) 0.02 L (0.11-0.59) K/uL Absolute Nucleated RBC (0-0) K/uL PT 12.9 H (9.0-12.0) Seconds INR 1.3 H (0.9-1.1) APTT (21.0-31.0) Seconds POC pH (7.35-7.45) POC pCO2 (35-46) mmHg POC pO2 (80-95) mmHg POC HCO3 (19-24) [place]/L POC ABG O2 Sat (90-95) % BUN 73 H (7-18) mg/dl Creatinine 2.97 H (0.6-1.4) mg/dl BUN/Creatinine Ratio 24.7 H (10-20) Glucose 68 L (70-99) mg/dl POC Glucose (other) (70-99) mg/dl Calcium 6.1 L (8.5-10.1) mg/dl Ionized Calcium (1.12-1.32) mmol/L Magnesium (1.8-2.4) mg/dl Total Bilirubin 1.3 H (0.2-1) mg/dl Direct Bilirubin 0.8 H (0-0.2) mg/dl Total Protein 5.9 L (6.4-8.2) gm/dl Albumin 2.4 L (3.4-5.0) gm/dl Albumin/Globulin Ratio 0.7 L (0.9-2) 11/17/18 Range/Units 05:41 RBC (4.7-6.1) M/uL Hgb (14.0-18.0) g/dL Hct (42-52) % MCHC (32-36) g/dL RDW Std Deviation (36.4-46.3) fL RDW Coeff of Estelita (11.5-14.5) % Plt Count (130-400) K/uL MPV (7.4-10.4) fL Immature Gran # (Auto) (0.00-0.02) K/uL Lymph # (Auto) (1.2-3.4) K/uL [place] # (Auto) (0.11-0.59) K/uL Absolute Nucleated RBC (0-0) K/uL PT (9.0-12.0) Seconds INR (0.9-1.1) APTT (21.0-31.0) Seconds POC pH 7.21 L (7.35-7.45) POC pCO2 69 H (35-46) mmHg POC pO2 109 H (80-95) mmHg POC HCO3 28 H (19-24) tierra/L POC ABG O2 Sat 97.0 H (90-95) % BUN (7-18) mg/dl Creatinine (0.6-1.4) mg/dl BUN/Creatinine Ratio (10-20) Glucose (70-99) mg/dl POC Glucose (other) (70-99) mg/dl Calcium (8.5-10.1) mg/dl Ionized Calcium (1.12-1.32) mmol/L Magnesium (1.8-2.4) mg/dl Total Bilirubin (0.2-1) mg/dl Direct Bilirubin (0-0.2) mg/dl Total Protein (6.4-8.2) gm/dl Albumin (3.4-5.0) gm/dl Albumin/Globulin Ratio (0.9-2) _ (1) Acute renal failure superimposed on stage 3 chronic kidney disease Acute renal failure type: unspecified Qualified Code(s): N17.9 - Acute kidney failure, unspecified; N18.3 - Chronic kidney disease, stage 3 (moderate)
[2018-11-17] MEDS: fentaNYL DRIP 1,250 MCG/250 ML BAG IV SCH (08:21)
[2018-11-17] MEDS: SODIUM CHLORIDE 0.9% 1000ML 1,000 ML IV SCH (08:44)
[2018-11-17] MEDS: CHLORHEXIDINE GLUCONATE 0.12% 480 ML MT SCH (08:45)
[2018-11-17] MEDS ORDERED: CARBOHYDRATES FOR HYPOGLYCEMIA PO PRN (08:59)
[2018-11-17] MEDS: DEXTROSE 50% 50 ML SYRINGE IV PRN ×2 (09:02→16:45)
[2018-11-17] MEDS ORDERED: HYDROmorphone INJ 0.5 MG/0.5 ML SYR IV STA (09:06)
--- NOTE | 2018-11-17 09:28 | Surgery Progress Note ---
Date of Service November 17, 2018 Assessment & Plan (1) Pneumothorax after biopsy: -right chest tube remain in place with small air leak -additional chest tube placed on right yesterday due to increasing right pneumothorax (2) Acute renal failure superimposed on stage 3 chronic kidney disease: (3) Acute respiratory failure with hypoxia: -continue supportive care with ventilator as directed by sheriff's officer -etiology of respiratory failure not ascertained -RVATS with lung biopsy performed on 11/14/18: -path is pending -micro did grow hart-sensitive Klebsiella and pt. is receiving IV cefepime Subjective Pt. on ventilator, therefore no subjective data from pt. Physical Exam 2 Vital Signs (Past 24 Hours): Last Vital Signs Temp 36.5 C 11/17/18 04:00 Pulse 107 H 11/17/18 07:50 Resp 30 H 11/17/18 07:50 BP 94/53 L 11/17/18 06:00 Pulse Ox 98 11/17/18 07:50 Respiratory: BS are present bilaterally _ (1) Acute renal failure superimposed on stage 3 chronic kidney disease Acute renal failure type: unspecified Qualified Code(s): N17.9 - Acute kidney failure, unspecified; N18.3 - Chronic kidney disease, stage 3 (moderate)
[2018-11-17] MEDS ORDERED: SODIUM CHLORIDE 0.9% 1000ML 1,000 ML IV PRN (10:21)
[2018-11-17] MEDS: INSULIN GLARGINE SOLOSTAR 100 UNITS/ML 3 ML PEN SC SCH (10:47)
[2018-11-17] MEDS: HEPARIN SOD 5,000 UNIT/0.5 ML VIAL SQ SCH (11:20)
[2018-11-17] MEDS ORDERED: MIDAZOLAM HCL 1 MG/ML 2ML VIAL IV PRN (11:22)
--- NOTE | 2018-11-17 11:27 | Critical Care Progress Note ---
Date of Service November 17, 2018 Supervising Physician Co-Signing Physician Notes Reason Critically Ill: 78-year-old male with refractory hypoxemia, acute kidney injury requiring dialysis. PLAN: Neuro: Metabolic encephalopathy -Weaning sedation -Discontinue continuous fentanyl: 100 mcg IV every 2 as needed -Versed discontinued yesterday was on continuous infusion for 4 days -Will attempt to obtain Noncon CT scan after dialysis if patient can tolerate laying flat -If unable to obtain CT scan will consider spot EEG -Ultimately would like to obtain MRI Resp: Multiple chest tubes and history of prone positioning Severe hypoxemia Pulmonary fibrosis Residual pneumothoraces -P to F ratio 136 -Hospital day 13, will continue with high-dose steroids as a [facility] protocol for ARDS -Patient had been receiving approximately 3 mg/kg for approximately 11 days, was planned 50% reduction, scaling back to q. 8 for approximately 25% reduction -Continue current ventilation strategy, understandably the patient is approximately 8 cc/kg however his pH is 7.2, optimizing plateau pressures which are currently 32 after adjusting I time CV: Hypotension -Low-dose dopamine at this time Atrial fibrillation -Not adequately rate controlled however difficult secondary to hypotension and vasoactive support Fluids/Renal: Currently tolerating dialysis -Uremia -Known GI bleeding likely contributing, recheck H/H ID: Known Klebsiella -Reviewed both sensitivities, continuing with cefepime as previous Klebsiella was resistant to cefoxitin concern for amp C, extremely tachycardic unable to reliably evaluate QTC GI/Nutrition: Known GI bleeding -Converting from PPI infusion to twice daily dosing at 24 hours Heme: Anemia -Acute blood loss secondary to GI losses DVT prophylaxis: Heparin every 12 Endocrine: ICU hyperglycemia protocol Hypoglycemia -Holding insulin given frequent hypoglycemic episodes Vascular access: Right internal jugular hemodialysis catheter right subclavian triple-lumen right wrist arterial line Code Status: Full code Reportedly the 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 Certainly the patient has severe pulmonary fibrosis and now with 2 persistent pneumothoraces and has experienced refractory hypoxemia. In the best case scenario he will require significant long-term rehabilitation and the chance of him living independently is highly in doubt. We will attempt to have a family meeting to discuss goals of care and hopefully elucidate the patient wishes. I have personally spent 90 minutes of critical care time in the direct management of this patient. This is a life/limb threatening event. This includes time spent evaluating patient, direct bedside care, chart review, placing orders, interpretation of diagnostic studies, discussion with consultants, patient, and/or family members regarding treatment decisions, as well as other required patient management activities. This time is exclusive of all separately billable procedures, and teaching time and separate from and in addition to any other critical care service time. Subjective No overnight events Physical Exam 2 Vital Signs (Past 24 Hours): Last Vital Signs Temp 36.8 C 11/17/18 09:00 Pulse 137 H 11/17/18 11:15 Resp 30 H 11/17/18 07:50 BP 116/65 11/17/18 11:15 Pulse Ox 98 11/17/18 07:50 General: Elderly male appears his stated age I have reviewed the recorded vital signs Neurological: RASS score: -3 Psychological: Glascow Coma Scale: Eyes: 4, Verbal 1T, Motor 4, Total 9T not following complex commands Eyes: Right pupil answered choric likely secondary to surgical change, left pupil pinpoint, anicteric sclera. Symmetrical lids. HENT: Obscured by endotracheal tube, mucous membranes moist. Neck: Supple. Symmetric. trachea midline. No thyromegaly. Cardiovascular: Normal peripheral perfusion. Distal pulses and capillary refill intact. Irregularly irregular Respiratory: Breath sounds are coarse bilaterally, he has a +2 airleak in the left chest +1 air leak in the right chest breath sounds are equal. Gastrointestinal: Soft. Non-distended. Lymphatic: No cervical lymphadenopathy. Musculoskeletal: No deformity. No clubbing nor cyanosis. Results & Data Laboratory Results 11/17/18 11/17/18 11/17/18 Range/Units 17:13 16:42 12:20 WBC (4.8-10.8) K/uL RBC (4.7-6.1) M/uL Hgb (14.0-18.0) g/dL Hct (42-52) % MCV (80-100) fL MCH (25-34) pg MCHC (32-36) g/dL RDW Std Deviation (36.4-46.3) fL RDW Coeff of Estelita (11.5-14.5) % Plt Count (130-400) K/uL MPV (7.4-10.4) fL Immature Gran % (Auto) % Neut % (Auto) % Lymph % (Auto) % [place] % (Auto) % Eos % (Auto) % Baso % (Auto) % Immature Gran # (Auto) (0.00-0.02) K/uL Neut # (Auto) (1.4-6.5) K/uL Lymph # (Auto) (1.2-3.4) K/uL [place] # (Auto) (0.11-0.59) K/uL Eos # (Auto) (0-0.5) K/uL Baso # (Auto) (0-0.2) K/uL Basophilic Stippling PT (9.0-12.0) Seconds INR (0.9-1.1) Sample Site POC pH (7.35-7.45) POC pCO2 (35-46) mmHg POC pO2 (80-95) mmHg POC HCO3 (19-24) tierra/L POC Total CO2 (24-31) mEq/l POC Base Excess (-9-1.8) tierra/L POC ABG O2 Sat (90-95) % [place] Test O2 Delivery Device POC O2 Rate POC FiO2 % PEEP Sodium (136-145) mmol/L Potassium (3.5-5.1) mmol/L Chloride (98-107) mmol/L Carbon Dioxide (21-32) mmol/L Anion Gap (3-11) BUN (7-18) mg/dl Creatinine (0.6-1.4) mg/dl Est Cr Clr Drug Dosing ml/min Est GFR ( Amer) Est GFR (Non-Af Amer) BUN/Creatinine Ratio (10-20) Glucose (70-99) mg/dl POC Glucose (other) 142 H 53 L* 73 (70-99) mg/dl Calcium (8.5-10.1) mg/dl Total Bilirubin (0.2-1) mg/dl Direct Bilirubin (0-0.2) mg/dl AST (15-37) U/L ALT (12-78) U/L Alkaline Phosphatase (45-117) U/L Total Protein (6.4-8.2) gm/dl Albumin (3.4-5.0) gm/dl Globulin (2.5-4.0) gm/dl Albumin/Globulin Ratio (0.9-2) Digoxin (0.8-2.0) ng/ml Hep Bs Antigen (Neg) Hep Bs Antibody Hep Bs Antibody, Quant (>or=10mIU/mL Immune) mIU/mL Hep B Core IgM Ab 11/17/18 11/17/18 11/17/18 Range/Units 11:58 11:58 11:34 WBC (4.8-10.8) K/uL RBC (4.7-6.1) M/uL Hgb 8.6 L (14.0-18.0) g/dL Hct 27.4 L (42-52) % MCV (80-100) fL MCH (25-34) pg MCHC (32-36) g/dL RDW Std Deviation (36.4-46.3) fL RDW Coeff of Estelita (11.5-14.5) % Plt Count (130-400) K/uL MPV (7.4-10.4) fL Immature Gran % (Auto) % Neut % (Auto) % Lymph % (Auto) % [place] % (Auto) % Eos % (Auto) % Baso % (Auto) % Immature Gran # (Auto) (0.00-0.02) K/uL Neut # (Auto) (1.4-6.5) K/uL Lymph # (Auto) (1.2-3.4) K/uL [place] # (Auto) (0.11-0.59) K/uL Eos # (Auto) (0-0.5) K/uL Baso # (Auto) (0-0.2) K/uL Basophilic Stippling PT (9.0-12.0) Seconds INR (0.9-1.1) Sample Site POC pH (7.35-7.45) POC pCO2 (35-46) mmHg POC pO2 (80-95) mmHg POC HCO3 (19-24) tierra/L POC Total CO2 (24-31) mEq/l POC Base Excess (-9-1.8) tierra/L POC ABG O2 Sat (90-95) % [place] Test O2 Delivery Device POC O2 Rate POC FiO2 % PEEP Sodium (136-145) mmol/L Potassium (3.5-5.1) mmol/L Chloride (98-107) mmol/L Carbon Dioxide (21-32) mmol/L Anion Gap (3-11) BUN (7-18) mg/dl Creatinine (0.6-1.4) mg/dl Est Cr Clr Drug Dosing ml/min Est GFR ( Amer) Est GFR (Non-Af Amer) BUN/Creatinine Ratio (10-20) Glucose (70-99) mg/dl POC Glucose (other) (70-99) mg/dl Calcium (8.5-10.1) mg/dl Total Bilirubin (0.2-1) mg/dl Direct Bilirubin (0-0.2) mg/dl AST (15-37) U/L ALT (12-78) U/L Alkaline Phosphatase (45-117) U/L Total Protein (6.4-8.2) gm/dl Albumin (3.4-5.0) gm/dl Globulin (2.5-4.0) gm/dl Albumin/Globulin Ratio (0.9-2) Digoxin 0.5 L (0.8-2.0) ng/ml Hep Bs Antigen (Neg) Hep Bs Antibody Non-Immune Hep Bs Antibody, Quant < 3.10 L (>or=10mIU/mL Immune) mIU/mL Hep B Core IgM Ab 11/17/18 11/17/18 11/17/18 Range/Units 11:34 11:34 09:28 WBC (4.8-10.8) K/uL RBC (4.7-6.1) M/uL Hgb (14.0-18.0) g/dL Hct (42-52) % MCV (80-100) fL MCH (25-34) pg MCHC (32-36) g/dL RDW Std Deviation (36.4-46.3) fL RDW Coeff of Estelita (11.5-14.5) % Plt Count (130-400) K/uL MPV (7.4-10.4) fL Immature Gran % (Auto) % Neut % (Auto) % Lymph % (Auto) % [place] % (Auto) % Eos % (Auto) % Baso % (Auto) % Immature Gran # (Auto) (0.00-0.02) K/uL Neut # (Auto) (1.4-6.5) K/uL Lymph # (Auto) (1.2-3.4) K/uL [place] # (Auto) (0.11-0.59) K/uL Eos # (Auto) (0-0.5) K/uL Baso # (Auto) (0-0.2) K/uL Basophilic Stippling PT (9.0-12.0) Seconds INR (0.9-1.1) Sample Site POC pH (7.35-7.45) POC pCO2 (35-46) mmHg POC pO2 (80-95) mmHg POC HCO3 (19-24) tierra/L POC Total CO2 (24-31) mEq/l POC Base Excess (-9-1.8) tierra/L POC ABG O2 Sat (90-95) % [place] Test O2 Delivery Device POC O2 Rate POC FiO2 % PEEP Sodium (136-145) mmol/L Potassium (3.5-5.1) mmol/L Chloride (98-107) mmol/L Carbon Dioxide (21-32) mmol/L Anion Gap (3-11) BUN (7-18) mg/dl Creatinine (0.6-1.4) mg/dl Est Cr Clr Drug Dosing ml/min Est GFR ( Amer) Est GFR (Non-Af Amer) BUN/Creatinine Ratio (10-20) Glucose (70-99) mg/dl POC Glucose (other) 103 H (70-99) mg/dl Calcium (8.5-10.1) mg/dl Total Bilirubin (0.2-1) mg/dl Direct Bilirubin (0-0.2) mg/dl AST (15-37) U/L ALT (12-78) U/L Alkaline Phosphatase (45-117) U/L Total Protein (6.4-8.2) gm/dl Albumin (3.4-5.0) gm/dl Globulin (2.5-4.0) gm/dl Albumin/Globulin Ratio (0.9-2) Digoxin (0.8-2.0) ng/ml Hep Bs Antigen Neg (Neg) Hep Bs Antibody Hep Bs Antibody, Quant (>or=10mIU/mL Immune) mIU/mL Hep B Core IgM Ab Pending 11/17/18 11/17/18 11/17/18 Range/Units 08:52 05:41 04:21 WBC (4.8-10.8) K/uL RBC (4.7-6.1) M/uL Hgb (14.0-18.0) g/dL Hct (42-52) % MCV (80-100) fL MCH (25-34) pg MCHC (32-36) g/dL RDW Std Deviation (36.4-46.3) fL RDW Coeff of Estelita (11.5-14.5) % Plt Count (130-400) K/uL MPV (7.4-10.4) fL Immature Gran % (Auto) % Neut % (Auto) % Lymph % (Auto) % [place] % (Auto) % Eos % (Auto) % Baso % (Auto) % Immature Gran # (Auto) (0.00-0.02) K/uL Neut # (Auto) (1.4-6.5) K/uL Lymph # (Auto) (1.2-3.4) K/uL [place] # (Auto) (0.11-0.59) K/uL Eos # (Auto) (0-0.5) K/uL Baso # (Auto) (0-0.2) K/uL Basophilic Stippling PT 12.9 H (9.0-12.0) Seconds INR 1.3 H (0.9-1.1) Sample Site Art Line POC pH 7.21 L (7.35-7.45) POC pCO2 69 H (35-46) mmHg POC pO2 109 H (80-95) mmHg POC HCO3 28 H (19-24) tierra/L POC Total CO2 30 (24-31) mEq/l POC Base Excess 0.0 (-9-1.8) tierra/L POC ABG O2 Sat 97.0 H (90-95) % [place] Test NA O2 Delivery Device Ventilator POC O2 Rate 30 POC FiO2 80 % PEEP 10 Sodium (136-145) mmol/L Potassium (3.5-5.1) mmol/L Chloride (98-107) mmol/L Carbon Dioxide (21-32) mmol/L Anion Gap (3-11) BUN (7-18) mg/dl Creatinine (0.6-1.4) mg/dl Est Cr Clr Drug Dosing ml/min Est GFR ( Amer) Est GFR (Non-Af Amer) BUN/Creatinine Ratio (10-20) Glucose (70-99) mg/dl POC Glucose (other) 63 L* (70-99) mg/dl Calcium (8.5-10.1) mg/dl Total Bilirubin (0.2-1) mg/dl Direct Bilirubin (0-0.2) mg/dl AST (15-37) U/L ALT (12-78) U/L Alkaline Phosphatase (45-117) U/L Total Protein (6.4-8.2) gm/dl Albumin (3.4-5.0) gm/dl Globulin (2.5-4.0) gm/dl Albumin/Globulin Ratio (0.9-2) Digoxin (0.8-2.0) ng/ml Hep Bs Antigen (Neg) Hep Bs Antibody Hep Bs Antibody, Quant (>or=10mIU/mL Immune) mIU/mL Hep B Core IgM Ab 11/17/18 11/17/18 11/17/18 Range/Units 04:21 04:21 04:11 WBC 5.70 (4.8-10.8) K/uL RBC 2.54 L (4.7-6.1) M/uL Hgb 7.4 L (14.0-18.0) g/dL Hct 24.2 L (42-52) % MCV 95.3 (80-100) fL MCH 29.1 (25-34) pg MCHC 30.6 L (32-36) g/dL RDW Std Deviation 53.3 H (36.4-46.3) fL RDW Coeff of Estelita 15.4 H (11.5-14.5) % Plt Count 81 L (130-400) K/uL MPV 10.6 H (7.4-10.4) fL Immature Gran % (Auto) 0.9 % Neut % (Auto) 91.0 % Lymph % (Auto) 7.7 % [place] % (Auto) 0.4 % Eos % (Auto) 0.0 % Baso % (Auto) 0.0 % Immature Gran # (Auto) 0.05 H (0.00-0.02) K/uL Neut # (Auto) 5.19 (1.4-6.5) K/uL Lymph # (Auto) 0.44 L (1.2-3.4) K/uL [place] # (Auto) 0.02 L (0.11-0.59) K/uL Eos # (Auto) 0.00 (0-0.5) K/uL Baso # (Auto) 0.00 (0-0.2) K/uL Basophilic Stippling Occasional PT (9.0-12.0) Seconds INR (0.9-1.1) Sample Site POC pH (7.35-7.45) POC pCO2 (35-46) mmHg POC pO2 (80-95) mmHg POC HCO3 (19-24) tierra/L POC Total CO2 (24-31) mEq/l POC Base Excess (-9-1.8) tierra/L POC ABG O2 Sat (90-95) % [place] Test O2 Delivery Device POC O2 Rate POC FiO2 % PEEP Sodium 136 (136-145) mmol/L Potassium 4.9 (3.5-5.1) mmol/L Chloride 104 (98-107) mmol/L Carbon Dioxide 29 (21-32) mmol/L Anion Gap 3.0 (3-11) BUN 73 H (7-18) mg/dl Creatinine 2.97 H (0.6-1.4) mg/dl Est Cr Clr Drug Dosing 21.8 ml/min Est GFR ( Amer) 22.0 Est GFR (Non-Af Amer) 19.0 BUN/Creatinine Ratio 24.7 H (10-20) Glucose 68 L (70-99) mg/dl POC Glucose (other) 70 (70-99) mg/dl Calcium 6.1 L (8.5-10.1) mg/dl Total Bilirubin 1.3 H (0.2-1) mg/dl Direct Bilirubin 0.8 H (0-0.2) mg/dl AST 20 (15-37) U/L ALT 12 (12-78) U/L Alkaline Phosphatase 66 (45-117) U/L Total Protein 5.9 L (6.4-8.2) gm/dl Albumin 2.4 L (3.4-5.0) gm/dl Globulin 3.5 (2.5-4.0) gm/dl Albumin/Globulin Ratio 0.7 L (0.9-2) Digoxin (0.8-2.0) ng/ml Hep Bs Antigen (Neg) Hep Bs Antibody Hep Bs Antibody, Quant (>or=10mIU/mL Immune) mIU/mL Hep B Core IgM Ab 11/16/18 11/16/18 11/16/18 Range/Units 23:53 23:46 19:47 WBC (4.8-10.8) K/uL RBC (4.7-6.1) M/uL Hgb 7.7 L (14.0-18.0) g/dL Hct 25.6 L (42-52) % MCV (80-100) fL MCH (25-34) pg MCHC (32-36) g/dL RDW Std Deviation (36.4-46.3) fL RDW Coeff of Estelita (11.5-14.5) % Plt Count (130-400) K/uL MPV (7.4-10.4) fL Immature Gran % (Auto) % Neut % (Auto) % Lymph % (Auto) % [place] % (Auto) % Eos % (Auto) % Baso % (Auto) % Immature Gran # (Auto) (0.00-0.02) K/uL Neut # (Auto) (1.4-6.5) K/uL Lymph # (Auto) (1.2-3.4) K/uL [place] # (Auto) (0.11-0.59) K/uL Eos # (Auto) (0-0.5) K/uL Baso # (Auto) (0-0.2) K/uL Basophilic Stippling PT (9.0-12.0) Seconds INR (0.9-1.1) Sample Site POC pH (7.35-7.45) POC pCO2 (35-46) mmHg POC pO2 (80-95) mmHg POC HCO3 (19-24) tierra/L POC Total CO2 (24-31) mEq/l POC Base Excess (-9-1.8) tierra/L POC ABG O2 Sat (90-95) % [place] Test O2 Delivery Device POC O2 Rate POC FiO2 % PEEP Sodium (136-145) mmol/L Potassium (3.5-5.1) mmol/L Chloride (98-107) mmol/L Carbon Dioxide (21-32) mmol/L Anion Gap (3-11) BUN (7-18) mg/dl Creatinine (0.6-1.4) mg/dl Est Cr Clr Drug Dosing ml/min Est GFR ( Amer) Est GFR (Non-Af Amer) BUN/Creatinine Ratio (10-20) Glucose (70-99) mg/dl POC Glucose (other) 72 79 (70-99) mg/dl Calcium (8.5-10.1) mg/dl Total Bilirubin (0.2-1) mg/dl Direct Bilirubin (0-0.2) mg/dl AST (15-37) U/L ALT (12-78) U/L Alkaline Phosphatase (45-117) U/L Total Protein (6.4-8.2) gm/dl Albumin (3.4-5.0) gm/dl Globulin (2.5-4.0) gm/dl Albumin/Globulin Ratio (0.9-2) Digoxin (0.8-2.0) ng/ml Hep Bs Antigen (Neg) Hep Bs Antibody Hep Bs Antibody, Quant (>or=10mIU/mL Immune) mIU/mL Hep B Core IgM Ab 11/16/18 Range/Units 04:24 WBC (4.8-10.8) K/uL RBC (4.7-6.1) M/uL Hgb (14.0-18.0) g/dL Hct (42-52) % MCV (80-100) fL MCH (25-34) pg MCHC (32-36) g/dL RDW Std Deviation (36.4-46.3) fL RDW Coeff of Estelita (11.5-14.5) % Plt Count (130-400) K/uL MPV (7.4-10.4) fL Immature Gran % (Auto) % Neut % (Auto) % Lymph % (Auto) % [place] % (Auto) % Eos % (Auto) % Baso % (Auto) % Immature Gran # (Auto) (0.00-0.02) K/uL Neut # (Auto) (1.4-6.5) K/uL Lymph # (Auto) (1.2-3.4) K/uL [place] # (Auto) (0.11-0.59) K/uL Eos # (Auto) (0-0.5) K/uL Baso # (Auto) (0-0.2) K/uL Basophilic Stippling PT (9.0-12.0) Seconds INR (0.9-1.1) Sample Site POC pH (7.35-7.45) POC pCO2 (35-46) mmHg POC pO2 (80-95) mmHg POC HCO3 (19-24) tierra/L POC Total CO2 (24-31) mEq/l POC Base Excess (-9-1.8) tierra/L POC ABG O2 Sat (90-95) % [place] Test O2 Delivery Device POC O2 Rate POC FiO2 % PEEP Sodium (136-145) mmol/L Potassium (3.5-5.1) mmol/L Chloride (98-107) mmol/L Carbon Dioxide (21-32) mmol/L Anion Gap (3-11) BUN (7-18) mg/dl Creatinine (0.6-1.4) mg/dl Est Cr Clr Drug Dosing ml/min Est GFR ( Amer) Est GFR (Non-Af Amer) BUN/Creatinine Ratio (10-20) Glucose (70-99) mg/dl POC Glucose (other) 130 H (70-99) mg/dl Calcium (8.5-10.1) mg/dl Total Bilirubin (0.2-1) mg/dl Direct Bilirubin (0-0.2) mg/dl AST (15-37) U/L ALT (12-78) U/L Alkaline Phosphatase (45-117) U/L Total Protein (6.4-8.2) gm/dl Albumin (3.4-5.0) gm/dl Globulin (2.5-4.0) gm/dl Albumin/Globulin Ratio (0.9-2) Digoxin (0.8-2.0) ng/ml Hep Bs Antigen (Neg) Hep Bs Antibody Hep Bs Antibody, Quant (>or=10mIU/mL Immune) mIU/mL Hep B Core IgM Ab
[2018-11-17] MEDS ORDERED: fentaNYL citrate 100 MCG/2 ML VIAL IV PRN (11:29)
[2018-11-17 12:05] LABS: Hematocrit (blood only) 27.4 % (42-52); Hemoglobin 8.6 g/dL (14.0-18.0)
[2018-11-17 12:28] LABS: Hepatitis B Surface Antibody Non-Immune
--- NOTE | 2018-11-17 14:19 | Pharmacy Report ---
PHA: Glycemic Control AP - Date of Service November 17, 2018 - Assessment & Plan The patient is currently receiving 16 units of insulin per day. BSGs ranging 68 - 124 mg/dl over the past 24hrs. Patient BSG downtrending over the past 24 hours, likely in part due to accumulation with kidney dysfunction. Patient was requiring ~ 50 units per day prior to this. Patient to be dialyzed today and IV steroids were reduced. Patient has not received any basal insulin since yesterday morning. A conservative lantus scale will be ordered for this evening , where lantus will be given only if BSG >120. Correction factor was significantly widened. Patient remains NPO. * Basal insulin: Lantus held this morning due to low BSG, Per scale this evening (0 units if <120; 5 units if 120-180; 8 units if >180) * Correctional Insulin: Novolog Correction per scale q4 Goal Range: Low 120 mg/dL - High 160 mg/dL Correction Factor: 30 mg/dL/unit * Prandial insulin: Per carb ratio of 1 unit per 10 grams CHO consumed Pharmacy will continue to monitor patient daily and write orders per [facility] inpatient glycemic control protocol. Thanks. * Please note that the plan above was derived based on current level of insulin resistance and hospital stress. These recommendations are appropriate for inpatient admission only. Plan of care upon discharge will need to be reassessed to avoid potential outpatient hypo/hyperglycemia.
--- NOTE | 2018-11-17 15:44 | Palliative Care Consultation ---
Date of Consultation November 17, 2018 Assessment & Plan (1) Goals of care, counseling/discussion: -78 year old male with PMH PVD, CKD stage III, CAD, and others below, presented 13 days ago with SOB hypoxic at 74% on RA and was placed on BiPAP in ED. CTA chest with extensive groundglass opacities throughout both lungs reflective of pulmonary edema or PNA. No pulmonary emboli identified. 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 Patient with continuing respiratory failure and was intubated. Patient has unfortunately had a complicated course since then. Bronchoscopy was performed. Right lung biopsy completed separately, developed pneumothorax after. S/P right and left chest tubes. Patient with refractory hypoxemia and acute renal failure superimposed on CKD stage III. Patient is now requiring dialysis through temporary dialysis catheter. Patient is on day 6 of intubation with no significant improvement or progress towards weaning from ventilator. Palliative care is consulted to discuss goals of care with family. -Met with Dr. Pena, Dr. Duran, myself, patient's , two sons Don (by phone) and Jamison. Patient does not have living will nor has he ever expressed what his wishes would be in this situation. Patient's sons agreed that he was an active person who would probably not consider being in bed in a debilitated state to be "quality of life." When discussing whether or not patient would want to be trached, which would likely require him to go to vent-weaning facility/LTACH, iza's family is undecided and would like time to discuss further. -In regards to CODE STATUS, all family was in agreement that if his heart were to stop, they would NOT want resuscitative measures. He will be made DO NOT RESUSCITATE. -Continue current care for now while family continues to discuss. Reevaluate tomorrow. (2) Pneumothorax after biopsy: (3) Acute renal failure superimposed on stage 3 chronic kidney disease: Acute renal failure type: unspecified Qualified Code(s): N17.9 - Acute kidney failure, unspecified; N18.3 - Chronic kidney disease, stage 3 ( moderate) (4) Acute respiratory failure with hypoxia: Supervising Physician Co-Signing Physician Notes Chart reviewed, patient seen and examined-family not present at bedside during my exam. Patient intubated and sedated, appears comfortable Patient intubated now on day 6 of ventilator support. Patient status post biopsy and RVATS on 11/14 PE: Intubated and sedated Respiratory: Rhonchi and crackles bilaterally CV: Tachycardic Abdomen: Not distended Agree with above note, assessment and plan as per JESICA Polanco P-we will continue to follow patient and assist family with medical decision making. History of Present Illness Attending Physician: Christina Duran MD History of Present Illness This 78 year old male with PMH PVD, CKD stage III, CAD, and others below, presented 13 days ago with SOB hypoxic at 74% on RA and was placed on BiPAP in ED. CTA chest with extensive groundglass opacities throughout both lungs reflective of pulmonary edema or PNA. No pulmonary emboli identified. 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 Patient with continuing respiratory failure and was intubated. Patient has unfortunately had a complicated course since then. Bronchoscopy was performed. Right lung biopsy completed separately, developed pneumothorax after. S/P right and left chest tubes. Patient with refractory hypoxemia and acute renal failure superimposed on CKD stage III. Patient is now requiring dialysis through temporary dialysis catheter. Patient is on day 6 of intubation with no significant improvement or progress towards weaning from ventilator. Palliative care is consulted to discuss goals of care with family. See A&P for details. Thank you kindly for this consult. I will follow as needed. Allergies Allergy/AdvReac Type Severity Reaction Status Date / Time No Known Allergies Allergy Verified 10/23/18 14:39 Home Medications Home Medications Medication Instructions Recorded Confirmed Type amlodipine 10 mg tablet 10 mg PO .q am tab 07/01/18 11/04/18 History aspirin 81 mg tablet,delayed 81 mg PO .q am tab 07/01/18 11/04/18 History release carvedilol 6.25 mg tablet 6.25 mg PO BID 07/01/18 11/04/18 History clonidine HCl 0.3 mg tablet 0.3 mg PO BID 07/01/18 11/04/18 History fluticasone 50 mcg/actuation nasal 2 sprays INTNAS DAILY 07/01/18 11/04/18 History spray,suspension folic acid 1 mg tablet 1 mg PO .q am tab 07/01/18 11/04/18 History furosemide 40 mg tablet 40 mg PO BID 07/01/18 11/04/18 History glimepiride 2 mg tablet 2 mg PO BID tab 07/01/18 11/04/18 History lisinopril 40 mg tablet 40 mg PO .q am tab 07/01/18 11/04/18 History metformin 1,000 mg tablet 1,000 mg PO BIDM 07/01/18 11/04/18 History pravastatin 40 mg tablet 40 mg PO .q hs tab 07/01/18 11/04/18 History warfarin 3 mg tablet 3 mg PO .MON&FRI tab 07/01/18 11/04/18 History cadexomer iodine 0.9 % topical gel 40 gm TOP Q3D #40 gm 08/28/18 11/04/18 Rx cyanocobalamin (vitamin B-12) 2,500 mcg PO DAILY 08/28/18 11/04/18 History 2,500 mcg tablet methotrexate sodium 15 mg PO WK 11/04/18 11/04/18 History prednisone 5 mg PO DAILY 11/04/18 11/04/18 History warfarin 1.5 mg PO 5XWK 11/04/18 11/04/18 History Patient History Medical History CKD (chronic kidney disease), stage III (Chronic) Thrombocytopenia (Chronic) PVD (peripheral vascular disease) (Chronic) HLD (hyperlipidemia) (Chronic) Diabetic polyneuropathy (Chronic) Diabetes mellitus, type 2 (Chronic) CAD (coronary artery disease) (Chronic) "cath 2006 - moderate non obstructive disease" Atrial fibrillation (Chronic) Cardiomyopathy, idiopathic (Chronic) "echo 06/2016 - EF 40-%, grade I diastolic dysfunction" LBBB (left bundle branch block) (Chronic) HTN (hypertension) (Chronic) Congestive heart failure A-fib (Chronic) CAD (coronary artery disease) (Chronic) Diabetes (Chronic) HTN (hypertension) (Chronic) Hx of left bundle branch block (Chronic) Osteomyelitis (Chronic) 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) Social History marital status: Current Living Situation: Spouse and Family Feels Safe at Home: No Is there a partner from a previous relationship who is making you feel unsafe now?: No Smoking Status: Former smoker Tobacco Type: cigarettes Hx Alcohol Use: No Hx Substance Use: No Beliefs That Will Affect Care: None Communication Ability: Effective Review of Systems unable to obtain due to being on ventilator Physical Exam 2 Vital Signs (Past 24 Hours): Last Vital Signs Temp 36.9 C 11/17/18 12:20 Pulse 113 H 11/17/18 14:31 Resp 35 H 11/17/18 14:31 BP 154/98 H 11/17/18 12:20 Pulse Ox 91 11/17/18 14:31 Constitutional: + ill appearing (intubated , on prone vent position ) Neck: normal visual inspection and trachea midline Respiratory: normal respiratory effort (on mechanical ventilation ) Auscultation: + diminished lung sounds, + crackles (Diffuse all lung steward) and + rhonchi Cardiovascular: Rate/Rhythm: regular rhythm and + tachycardic Heart Sounds : no murmur Vessels: no JVD Gastrointestinal (Abdomen): Inspection/Auscultation: abdomen normal to inspection and normal bowel sounds; abdomen not distended Percussion/ Palpation: abdomen soft Neurologic: awake (eyes are open, does not make eye contact or track) Psychiatric: Orientation: + not alert (sedated) and + not oriented x 3 Time Spent Midlevel 50 minutes with >50% of time spent at bedside with patient and with family during meeting to discuss condition and goals of care.
--- NOTE | 2018-11-17 15:49 | Hospitalist Progress Note ---
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 pt continued on Solu-Medrol 60 mg IV every 6, intubated for worsening of respiratory failure s/p rt lung biopsy s/p multiple rt and left chest tube appreciate input and help from guidance consultant (2) Acute renal failure superimposed on stage 3 chronic kidney disease: Cr worsned -due to Hypotension /hypoperfusion Nephrology consulted developed oliguric/anuric renal failure s/p dialysis very poor prognosis transitioned to comfort care /hospice after D/w with family (3) Elevated troponin: (4) Systolic heart failure: (5) Atrial fibrillation: Afib RVR leading to Hypotension was started on IV heparin D/chanelle due to active GI bleed -blood in NG suctions (6) Diabetes mellitus, type 2: (7) Rheumatoid arthritis: possible Metrotrexate definely due to lung injury on high dose IV solu Medrol Lung /respiratoy status continued to decline (8) HTN (hypertension): hypotensive requiring pressure support (9) CKD (chronic kidney disease), stage III: aneuric renal failure -requiring dialysis very poor prognosis after discussion with Family - transition made to hospice /comfort care (10) Sepsis associated hypotension: klebsiella pneumonia -noted on bronch specimen culture hypotension required pressore support was on IV cefepime per senstivity developed multi organ failure care will be transitioned hospice comfort care (11) Pneumothorax after biopsy: s/p chest tube placement bilat post proceure complication developed rt lung pneumothorax s/p rt chest tube placement later developed left sided penumothorax required left chest tube placement by guidance consultant pt continues to be hypoxic while on vent requiring prone ventilation later developed worsening of rt sided chest tube requiring 2nd chest tube placement possible irriversible lung damage , un weanable from vent family updated pt will end up with trach,feeding tube , bedbound in assisted LTAC on chronic dialysis over all very poor prognosis is unfavourable qulity of life per family pt was very active person , always working , doing project till getiing admitted to [facility] on 11/04/18 approx 2 weeks back son and in agreement -pt would not want to survive like family willing to proceed for palliative care (12) GI bleed: NG tube coffee ground drainage IV PPI acute blood loss anemia HB dropped to 7 very poor prognosis palliative care consulted pt will be started Iv morphine gtt later extubate family members were present at bedside pt was started on Iv morphine gtt extuabted transitioned to 02 via face mask pt approx 5 mins post extubation at 6 30 pm Subjective pt remains on vent sedation kept off since 11 am s/p dialysis today remains anuric , minimum urine out put NG draining bright red blood son ( Jamison Newman ) and present at bedside long discussion with family members by guidance consultant /palliative care /my self Family updated regarding extremely poor prognosis , if patient survives this ordeal highly likelhood of irreversibly lung damage -ocean transportation intermediary treach /PEG dialysis dependent , -long-term placement CODE status changed to DNR/DNI ( with family agreement ) Family opt for Comfort care pt is started on IV Morphine gtt will be terminally extubated later today after pt is comfortable on IV morphine Physical Exam 2 Vital Signs (Past 24 Hours): Last Vital Signs Temp 36.9 C 11/17/18 12:20 Pulse 113 H 11/17/18 14:31 Resp 35 H 11/17/18 14:31 BP 154/98 H 11/17/18 12:20 Pulse Ox 91 11/17/18 14:31 Constitutional: + ill appearing (intubated , on prone vent position ) ENMT: ET tube /NG tube present NG drainaing bright red blood Respiratory: Auscultation: + crackles (Diffuse all lung steward) on Vent / Bilateral multiple chest tube present Cardiovascular: Rate/Rhythm: + tachycardic; + abnormal rhythm Afib RVR Neurologic: + obtunded (sedated on mechanical ventilation ) on vent , sedation d/chanelle pt remains obtunded off sedation _ (1) Rheumatoid arthritis Laterality: Rheumatoid arthritis location: unspecified site Rheumatoid factor presence: unspecified presence Qualified Code(s): M06.9 - Rheumatoid arthritis, unspecified (2) GI bleed GI bleed type/associated pathology: unspecified gastrointestinal hemorrhage type Gastritis type: Qualified Code(s): K92.2 - Gastrointestinal hemorrhage, unspecified (3) Diabetes mellitus, type 2 Chronic kidney disease stage: stage 3 (moderate) Diabetes mellitus complication detail: with chronic kidney disease Diabetes mellitus complication status: with kidney complications Diabetes mellitus ocean transportation intermediary insulin use: unspecified assisted insulin use status Diabetes mellitus macular edema: Diabetic retinopathy severity: Laterality: Proliferative retinopathy type: Qualified Code(s): E11.22 - Type 2 diabetes mellitus with diabetic chronic kidney disease; N18.3 - Chronic kidney disease, stage 3 ( moderate) (4) Atrial fibrillation Atrial fibrillation type: chronic Qualified Code(s): I48.2 - Chronic atrial fibrillation (5) Systolic heart failure Heart failure chronicity: acute on chronic Qualified Code(s): I50.23 - Acute on chronic systolic (congestive) heart failure (6) Acute renal failure superimposed on stage 3 chronic kidney disease Acute renal failure type: unspecified Qualified Code(s): N17.9 - Acute kidney failure, unspecified; N18.3 - Chronic kidney disease, stage 3 (moderate) (7) HTN (hypertension) Hypertension type: unspecified Qualified Code(s): I10 - Essential (primary) hypertension
[2018-11-17] MEDS: DOPAMINE / D5W 400 MG/250 ML BAG IV SCH (16:37)
[2018-11-17] MEDS: CEFEPIME 2,000 MG in SYRINGE 7.5 ML IV SCH (16:45)
[2018-11-17] MEDS ORDERED: INSULIN GLARGINE SOLOSTAR 100 UNITS/ML 3 ML PEN SC SCH (17:47)
[2018-11-17] MEDS ORDERED: MoRPHine SULFATE PCA 50 MG/50ML IV PRN (17:47)
[2018-11-17] MEDS ORDERED: MoRPHine SULFATE 2 MG/ML CARP IV STA (17:51)
[2018-11-17] MEDS ORDERED: MoRPHine SULF/NSS 250 MG/250 ML BTL IV PRN (18:00)
[2018-11-17] MEDS ORDERED: SODIUM CHLORIDE 0.9% 1000ML 1,000 ML IV SCH (18:00)
--- NOTE | 2018-11-17 18:33 | Death Summary ---
Date of Service November 17, 2018 Patient ceased to breathe, no heart sounds at 1830. Family was present at bedside and grieving. Pronouncement Note Contributing Factors (1) Acute renal failure superimposed on stage 3 chronic kidney disease: (2) Anuria: Additional Data Attending physician: Christina Duran MD
[2018-11-17] MEDS ORDERED: INSULIN ASPART 100 UNITS/ML 3 ML PEN SC SCH (20:00)
[2018-11-17] MEDS ORDERED: PANTOprazole 40 MG in SYRINGE 0 ML IV SCH (21:00)
--- NOTE | 2018-11-17 22:42 | Discharge Summary ---
Date of Service November 17, 2018 Principal Diagnosis PATIENT SEVERE INTERSTITIAL LUNG DISEASE , VENTILATOR DEPENDENT WITH MULTI ORGAN FAILURE WHILE ON HOSPICE /COMFORT CARE AFTER WITHDRAWING MECHANICAL VENTILATION Discharge Exam PATIENT Discharge Data Allergies Allergy/AdvReac Type Severity Reaction Status Date / Time No Known Allergies Allergy Verified 10/23/18 14:39 Consultations 11/04/18 19:20 ED Decision to Admit Stat 11/04/18 21:19 Consult Wound Care Provider Routine 11/05/18 12:18 Consult Cardiology Routine 11/07/18 08:05 Consult Pulmonology Routine 11/12/18 10:59 Consult Teaching Dietitian Routine 11/12/18 11:11 Consult Thoracic Surgery Routine 11/15/18 09:21 Consult Nephrology Routine 11/16/18 18:45 Consult Gastroenterology Routine Procedures Performed Operation Date: 11/14/18 10:55 Actual Procedures p Video Assisted Right Thoracoscopic Lung Biopsy(Right) - Ryan Lindsey MD , FACS Ordered Studies 11/04/18 16:04 CT angio chest PE protocol Stat 11/05/18 11:00 CT hip LT wo con Routine Hospital Course (1) Acute respiratory failure with hypoxia: PATIENT , WAS TRANSITIONED TO COMFORT CARE /HOSPICE STARTED ON IV MORPHINE GTT WAS EXTUBATED PATIENT WITH IN MINUTES OF EXTUBATION FAMILY MEMBERS WERE PRESENT AT BEDSIDE very poor prognosis with progressive decline status comfort care /hospice per Family members IV morphine gtt Terminal extubation later today -presented with SOB hypoxic at 74% on RA and was placed on BiPAP in ED -CTA chest with extensive groundglass opacities throughout both lungs reflective of pulmonary edema or PNA -No pulmonary emboli identified although segmental and subsegmental pulmonary arteries on suboptimal study Possible related to 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 pt continued on Solu-Medrol 60 mg IV every 6, intubated for worsening of respiratory failure s/p rt lung biopsy s/p multiple rt and left chest tube appreciate input and help from dry sand molder (2) Acute renal failure superimposed on stage 3 chronic kidney disease: Cr worsned -due to Hypotension /hypoperfusion Nephrology consulted developed oliguric/anuric renal failure s/p dialysis very poor prognosis transitioned to comfort care /hospice after D/w with family PT WHILE IN COMFORT CARE (3) Elevated troponin: (4) Systolic heart failure: (5) Atrial fibrillation: (6) Diabetes mellitus, type 2: (7) Rheumatoid arthritis: (8) HTN (hypertension): (9) CKD (chronic kidney disease), stage III: aneuric renal failure -requiring dialysis very poor prognosis after discussion with Family - transition made to hospice /comfort care PT WHILE ON COMFORT CARE AFTER WITHDRAWING MECHANICAL VENTILATION (10) Sepsis associated hypotension: klebsiella pneumonia -noted on bronch specimen culture hypotension required pressore support was on IV cefepime per senstivity developed multi organ failure care will be transitioned hospice comfort care PT WHILE ON COMFORT CARE AFTER WITHDRAWING MECHANICAL VENTILATION (11) Pneumothorax after biopsy: s/p chest tube placement bilat post proceure complication developed rt lung pneumothorax s/p rt chest tube placement later developed left sided penumothorax required left chest tube placement by dry sand molder pt continues to be hypoxic while on vent requiring prone ventilation later developed worsening of rt sided chest tube requiring 2nd chest tube placement possible irriversible lung damage , un weanable from vent family updated pt will end up with trach,feeding tube , bedbound in retirement LT[facility] on chronic dialysis over all very poor prognosis is unfavourable qulity of life per family pt was very active person , always working , doing project till getii admitted to [facility] on 11/04/18 approx 2 weeks back son and in agreement -pt would not want to survive like family willing to proceed for palliative care PT WHILE ON COMFORT CARE AFTER WITHDRAWING MECHANICAL VENTILATION (12) GI bleed: NG tube coffee ground drainage IV PPI acute blood loss anemia HB dropped to 7 very poor prognosis palliative care consulted pt will be started Iv morphine gtt later extubate family members were present at bedside pt was started on Iv morphine gtt extuabted transitioned to 02 via face mask pt approx 5 mins post extubation at 6 30 pm Total Time Total Time Spent Total Time Spent (In Minutes): PATIENT Discharge Plan Discharge Items Disposition: Admission Data Admit Date/Time: 11/04/18 20:08 Service: Intensive Care Unit Other PA Date/Time DO NOT enter until pt leaves facility: 11/17/18 20:23
[2018-11-18 20:32] LABS: Anti Nuclear Antibody Screen NEGATIVE (NEGATIVE); Anti-Glom Basement Antibody <1.0 AI (<1.0); Myeloperoxidase Ab <1.0 AI (<1.0)
== END 2018-11-17 20:23 | disposition expired | DRG 166 ==
LOC: ED 15:55 → SUATTDRO 20:08 → 2S 20:08 → 1E 11-12 10:56